=== PATIENT | female | born 1940 | race Caucasian/White ===

== ENCOUNTER → 2016-09-27 | Outpatient (CLI) | payer MEDICARE ==
[2016-09-27 11:25] LABS: Blood Urea Nitrogen 31 mg/dL (7-17); Non-African American GFR(MDRD) >60 (>60 ml/min/1.73 sqM)
== END | disposition home or self-care (01) ==
LOC: LABWHC1 10:55
PROVIDERS: ATTEND Physical Medicine & Rehabilitation
DX: Z01.812 Encounter for preprocedural laboratory examination (principal); N28.9 Disorder of kidney and ureter, unspecified
CPT/HCPCS: 36415; 82565; 84520

== ENCOUNTER → 2017-12-22 | Outpatient (CLI) | payer MEDICARE ==
--- NOTE | 2017-12-22 22:53 | MR ---
EXAMINATION TYPE: MR lumbar spine wo con DATE OF EXAM: 12/22/2017 COMPARISON: Prior MRI lumbar spine December 10, 2012. 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 Pain for about a year severe since October, with pain going into left lower extremity with history of surgery 2009 per patient. TECHNIQUE: Multiplanar, multisequence imaging of the lumbar spine is performed without IV contrast. FINDINGS: Survey images redemonstrate levoconvex scoliosis centered in the mid lumbar spine Sagittal images of the lumbar spine show vertebral body [place] to remain satisfactory. Stable grade 1 anterol isthesis L4 on L5. There is artifact from posterior fusion hardware L3-L5 levels bilaterally redemons trated. I feel prior study mislabeled. Multilevel disc desiccation with fairly moderate multilevel di sc space narrowing is redemonstrated. Multilevel small posterior disc herniations on sagittal images are again seen. The conus medullaris is normal and stable in position and signal ending inferior L1 l evel. The bone marrow signal intensity is within normal limits. Axial images beginning on current study is labeled T12-L1 level which is labeled L1-L2 level prior st y. There is new mild broad-based disc bulge effacing the anterior thecal sac on axial image 28. The re are new mild facet degenerative changes and ligament flavum hypertrophy effacing posterior lateral thecal sac. Bilateral neural foramina are patent. Axial images at the L1-L2 level shows new moderate facet degenerative changes and ligament flavum hyp ertrophy effacing posterior lateral thecal sac on axial image 23. There is [id number] broad dis c bulge effacing the anterior thecal sac. There is moderate right-sided neural foraminal narrowing on current study. Progression from prior MRI is noted. Left-sided neural foramina is patent. Axial images at the L2-L3 level show artifact from posterior fusion hardware. There is moderate facet degenerative changes and endplate hypertrophy effacing the posterior lateral thecal sac. This broad disc bulge effacing the anterior thecal sac and axial image 17. Evaluation neural foramina is subopti mal due to artifact especially on the right. Left side is felt patent. Axial images at and L3-L4 level show evidence of posterior decompression. Artifact from lateral fusio n hardware is seen. Spinal canal is grossly preserved. Bilateral neural foramina are suboptimally valentine luated. Axial images at L4-L5 show spondylolisthesis. There is artifact from lateral fusion hardware. Spinal canal is well preserved. Posterior decompression is present. Suboptimal evaluation of bilaterally tay ral foramina is noted. Axial images at the L5-S1 level show evidence of posterior decompression. Spinal canal is preserved. Left-sided neural foramina is obscured by artifact. Right-sided is felt patent. No suspicious retroperitoneal findings are seen. IMPRESSION: Redemonstration of postsurgical change at suspected labeled L3-L5 levels. Stable and sati sfactory alignment. Satisfactory posterior decompression noted. Increasing multilevel degenerative ch anges superior to L3 level are noted as detailed above.
== END | disposition home or self-care (01) ==
LOC: RADMRIMAIN 20:34
PROVIDERS: ATTEND Internal Medicine
DX: M47.26 Other spondylosis with radiculopathy, lumbar region (principal); M43.26 Fusion of spine, lumbar region; Z98.890 Other specified postprocedural states
CPT/HCPCS: 72148

== ENCOUNTER → 2018-02-17 | Outpatient (CLI) | payer MEDICARE ==
--- NOTE | 2018-02-17 23:03 | CT ---
EXAMINATION TYPE: CT lumbar spine wo con DATE OF EXAM: 02/17/2018 COMPARISON: MR lumbar spine 12/22/2017 HISTORY: chronic low back pain CT DLP: 1645 mGycm Automated exposure control for dose reduction was used. An unenhanced CT of the lumbar spine was performed. Bone and soft tissue window settings are submitt ed as well as coronal and sagittal reconstructions. FINDINGS: Lumbar vertebral bodies show marked scoliosis, posterior fusion change L3-L5. Lumbar vertebral bodies show preserved height. Anterolisthesis grade 1 L4-5. Nonobstructive punctate calcification is associ ated with the old right kidney. There is a hiatal hernia present. L1-L2: Moderate spinal stenosis is present. There is facet arthropathy change as well as minimal retr olisthesis L1 to. Circumferential extension endplate disc complex results in bilateral foraminal encr oachment. L2-L3: Facet arthropathy is present causing some posterior lateral mass effect on the thecal sac. Lat eral extension endplate disc complex results in foraminal encroachment bilaterally. Small posterior b road-based disc bulge, endplate disc complex causes slight anterior mass effect on the thecal sac. L3-L4: No evident disc herniation. Scoliosis contributes to cause some foraminal encroachment on the right. Artifact due to patient's hardware is noted. There is extensive facet arthropathy. L4-L5: There is facet arthropathy. Artifact from patient's hardware is noted. Lateral extension endpl ate disc complex encroaches on the neural foramen on the right contributed by the listhesis L5-S1: Loss of disc height is present, there is vacuum phenomenon. Posterior broad-based disc bulge m ay contact the anterior thecal sac, proximal S1 nerve roots. Laminectomy change is present. There is extensive facet arthropathy causing lateral mass effect on the thecal sac. Lateral extension of endpl ate disc complex encroaches on the foramina left greater than right. IMPRESSION: No postsurgical changes. Multilevel facet arthropathy. Degenerative disc disease. Findings similar to prior lumbar MRI.
== END | disposition home or self-care (01) ==
LOC: RADCTMAIN 15:55
PROVIDERS: ATTEND Internal Medicine
DX: M51.36 Other intervertebral disc degeneration, lumbar region (principal); M46.96 Unspecified inflammatory spondylopathy, lumbar region
CPT/HCPCS: 72131

== ENCOUNTER → 2018-05-21 | Outpatient (CLI) | payer MEDICARE ==
--- NOTE | 2018-05-21 12:53 | XR ---
Lumbar spine HISTORY: Lumbar spondylosis 3 views of the lumbar spine correlated to prior exam 08/30/2010 There is an S-shaped thoracic lumbar scoliosis. There is been interval removal of the previous hardwa re at L3-L5, posterior fusion changes are present L5-S1, transpedicular screws S1 shows minimal breac h anterior cortex. Multilevel laminectomies again noted. There is underlying degenerative disc change s has progressed in the interval at L1-2, L2-3. Alignment is stable. Sclerosis in the posterior eleme nts compatible with facet arthropathy. Loss of disc height present at the intervertebral levels, vacu um phenomenon present at L2-3 and possibly L3-4. Vertebral body height is maintained. Bone mineraliza tion is reduced. IMPRESSION: Neurosurgical follow-up.
== END ==
LOC: RADXRMAIN 10:15
DX: M47.26 Other spondylosis with radiculopathy, lumbar region (principal); Z98.890 Other specified postprocedural states
CPT/HCPCS: 72100

== ENCOUNTER → 2018-08-25 | Outpatient (CLI) | payer MEDICARE ==
--- NOTE | 2018-08-25 13:56 | XR ---
EXAM TYPE: LUMBAR SPINE X RAY SERIES COMPARISON: 05/21/2018 HISTORY: Low back pain TECHNIQUE: 3 views are submitted. FINDINGS: There is an S-shaped thoracic lumbar scoliosis. There is been interval removal of the previous hardwa re at L3-L5, posterior fusion changes are present L5-S1, transpedicular screws S1 shows minimal breac h anterior cortex. Multilevel laminectomies again noted. There is underlying multilevel severe degenerative disc changes at virtually all levels. Alignment is stable. Sclerosis in the posterior elements compatible with facet arthropathy. Loss of disc height p resent at the intervertebral levels, vacuum phenomenon present at L2-3 and possibly L3-4. Vertebral b brandy height is maintained. Bone mineralization is reduced. There is a stable grade 1 anterolisthesis L 4 on L5. IMPRESSION: 1. Scoliosis with postsurgical change and multilevel degenerative disc disease appears stable compare d to the prior exam.
== END ==
LOC: RADXRMAIN 13:24
DX: M51.16 Intervertebral disc disorders with radiculopathy, lumbar region (principal); M41.86 Other forms of scoliosis, lumbar region; Z98.890 Other specified postprocedural states
CPT/HCPCS: 72100

== ENCOUNTER 2018-09-06 06:34 | Emergency (ER) | payer MEDICARE ==
[2018-09-06 06:40] VITALS: TEMP 98.3
[2018-09-06] MEDS ORDERED: CYCLOBENZAPRINE 10 MG TAB PO STA (07:18)
[2018-09-06] MEDS ORDERED: HYDROcodone/APAP 10-325MG 1 EACH TAB PO ONE (07:18)
[2018-09-06] MEDS ORDERED: KETOROLAC 30 MG/ML 1 ML VIAL IM STA (07:18)
[2018-09-06] MEDS ORDERED: cloNIDine HCL 0.2 MG TAB PO STA (07:32)
--- NOTE | 2018-09-06 07:37 | ED ---
Back Pain HPI - General Chief Complaint: Back Pain/Injury Stated Complaint: Back Pain Time Seen by Provider: 09/06/18 07:06 Source: patient, RN notes reviewed, old records reviewed Limitations: no limitations - History of Present Illness Initial Comments: Patient is a 78-year-old female presents emergency department today with complaints of lower back and pelvis pain. Patient states that she hasn't having the symptoms for the past month after a fall. She has history of back surgeries. Patient states she sees Dr. Shaver at [facility]. Patient states that she has been taking Tylenol extra strength for pain relief but having no help. She denies saddle anesthesias. She denies any abdominal pain. Patient states that she has pain that radiates from her lower back down both legs. Patient's pain seems to be somewhat worse over the right pelvis area and hip.Patient denies any recent fever, chills, shortness of breath, chest pain, , abdominal pain, nausea vomiting, numbness or tingling, dysuria or hematuria, constipation or diarrhea, headaches or visual changes, or any other current symptoms - Related Data Home Medications Medication Instructions Recorded Confirmed Atorvastatin [Lipitor] 20 mg PO HS 12/12/14 09/06/18 Calcium Carbonate/Vitamin D3 2 tab PO DAILY 12/12/14 09/06/18 [Calcium 600 + Vit D Tablet] Dicyclomine [Bentyl] 10 mg PO TID 12/12/14 09/06/18 Citrucel 1,000 mg PO BID 12/06/15 09/06/18 amLODIPine BESYLATE/BENAZEPRIL 1 cap PO DAILY 12/06/15 09/06/18 [Lotrel 5-40 mg Capsule] Acetaminophen [Tylenol Arthritis] 1,300 mg PO BID PRN 09/06/18 09/06/18 Acetaminophen [Tylenol Extra 1,000 mg PO ONCE 09/06/18 09/06/18 Strength] Hydrochlorothiazide 25 mg PO DAILY 09/06/18 09/06/18 Vitamin E 1,000 unit PO DAILY 09/06/18 09/06/18 Previous Rx's Medication Instructions Recorded Acetaminophen with Codeine 1 tab PO Q6H PRN 3 Days #12 tab 09/06/18 [Tylenol w/codeine #3] Cyclobenzaprine [Flexeril] 10 mg PO TID #12 tab 09/06/18 Ibuprofen 600 mg PO TID #20 tablet 09/06/18 Allergies Allergy/AdvReac Type Severity Reaction Status Date / Time adhesive tape AdvReac Mild Rash/Hives Verified 09/06/18 08:10 Review of Systems ROS Statement: Those systems with pertinent positive or pertinent negative responses have been documented in the HPI. ROS Other: All systems not noted in ROS Statement are negative. Past Medical History Past Medical History: CVA/TIA, Hyperlipidemia, Hypertension, Osteoarthritis (OA) Additional Past Medical History / Comment(s): IBS,sinusitis osteopenia sco liosis. sciatic nerve pain. History of Any Multi-Drug Resistant Organisms: None Reported Past Surgical History: Adenoidectomy, Back Surgery, Section, Hysterectomy, Tonsillectomy Additional Past Surgical History / Comment(s): HEMORRHOIDECTOMY. cataract surgery both eyes 2009. carpel tunnel surgery 2010,2014. Past Anesthesia/Blood Transfusion Reactions: No Reported Reaction Past Psychological History: No Psychological Hx Reported Smoking Status: Never smoker Past Alcohol Use History: Rare Past Drug Use History: None Reported - Past Family History Mother Family Medical History: Cancer General Exam - General Exam Comments Initial Comments: 78-year-old female. Alert and oriented 3. No significant distress. Limitations: no limitations General appearance: alert, in no apparent distress Head exam: Present: atraumatic, normocephalic, normal inspection Eye exam: Present: normal appearance ENT exam: Present: normal exam, mucous membranes moist Neck exam: Present: normal inspection. Absent: tenderness, meningismus, lymphadenopathy Respiratory exam: Present: normal lung sounds bilaterally. Absent: respiratory distress, wheezes, rales, rhonchi, stridor Cardiovascular Exam: Present: regular rate, normal rhythm, normal heart sounds. Absent: systolic murmur, diastolic murmur, rubs, gallop, clicks GI/Abdominal exam: Present: soft, normal bowel sounds. Absent: distended, tenderness, guarding, rebound, rigid Extremities exam: Present: normal inspection, full ROM, normal capillary refill. Absent: tenderness, pedal edema, joint swelling, calf tenderness Back exam: Present: normal inspection, full ROM, tenderness (Tenderness over the lumbar spine. Positive right leg straight leg test.) Neurological exam: Present: alert, oriented X3, CN II-XII intact Psychiatric exam: Present: normal affect, normal mood Skin exam: Present: warm, dry, intact, normal color. Absent: rash Course Vital Signs 09/06/18 09/06/18 06:37 08:19 Temperature 98.3 F Pulse Rate 68 63 Respiratory 16 18 Rate Blood Pressure 212/90 192/75 O2 Sat by Pulse 98 97 Oximetry Medical Decision Making - Medical Decision Making Patient is a 78-year-old female presents [place] today for evaluation for back pain for the past few weeks. She states she is an appointment to see her health safety specialist asked week. She states the pain has been unbearable. She reports the pain will radiate down her legs on the front of her right leg in the back of her left leg. Patient states that she fell a month ago which seemed to hydrate the pain. She's had multiple surgeries on her back. At this time she denies any saddle anesthesias. Patient does have some lumbar spine tenderness positive straight leg test. She had x-rays completed last week for this complaint of pain. Patient shows evidence of degenerative disc disease. No acute osseous changes or fractures. Is concerned for her hips as well. X-ray of the pelvis is completed today and is negative for any acute process. There is evidence of bone demineralization noted. She was given Toradol, [place] and Flexeril and ED. Patient was noted to be hypertensive upon arrival. She states she did not take her blood pressure medication this is due to pain. She was given 0.2 mg of clonidine. On reevaluation she states her pain is diminishing at this time. Discussed Patient is likely related to the gingiva disc disease and she needs a follow-up with her surgeon. Patient will be discharged with a short course of pain medication, Flexeril and anti-inflammatory medicine. All questions answered. - Radiology Data Radiology results: report reviewed Extensive postsurgical changes noted in the pelvis. Degenerative changes within the hips. No acute osseous lesion. Disposition Clinical Impression: Back pain of lumbosacral region with sciatica Disposition: HOME SELF-CARE Condition: Good Instructions (If sedation given, give patient instructions): Acute Low Back Pain (ED) Additional Instructions: Patient has a follow-up with her health safety specialist. Take the pain medication as prescribed so also muscle relaxer. Alternate between heat and ice over lower back. Return to emergency department if any alarming signs or symptoms occur. Prescriptions: Cyclobenzaprine [Flexeril] 10 mg PO TID #12 tab Ibuprofen 600 mg PO TID #20 tablet Acetaminophen with Codeine [Tylenol w/codeine #3] 1 tab PO Q6H PRN 3 Days #12 tab PRN Reason: Pain Is patient prescribed a controlled substance at d/c from ED?: Yes When asked, does pt state using other controlled substances?: No If prescribed controlled substance>3 days was MAPS reviewed?: Prescribed <3 Days If opioid is for acute pain is fill amount 7 days or less?: Yes If Rx opioid, was Start Talking consent form obtained?: Yes Referrals: Jaya Oquendo MD [Primary Care Provider] - 1-2 days Time of Disposition: 08:51
[2018-09-06 08:21] VITALS: RESP 18
--- NOTE | 2018-09-06 08:39 | XR ---
EXAMINATION TYPE: XR pelvis AP view , ONE VIEW DATE OF EXAM ORDERED: 09/06/2018 HISTORY: Pain. COMPARISON: Previous study of the left hip dated 07/20/2007. FINDINGS: There has been a previous interpedicular fusion at L5-S1 and a bony fusion at L5-L4. There is been a laminectomy thinning from L3 to S1. There are degenerative changes in both hips. There is a stable, sclerotic focus in the left femoral n windy. No acute fracture or dislocation is seen. IMPRESSION: 1. EXTENSIVE POSTSURGICAL CHANGE. 2. DEGENERATIVE CHANGE. 3. NO ACUTE OSSEOUS LESION.
[2018-09-06 09:04] VITALS: BP 108/65; PULSE 64
== END 2018-09-06 09:25 | disposition home or self-care (01) ==
LOC: EC 06:34
DX: M54.40 Lumbago with sciatica, unspecified side (principal); M16.0 Bilateral primary osteoarthritis of hip; R10.2 Pelvic and perineal pain; I10 Essential (primary) hypertension; E78.5 Hyperlipidemia, unspecified; K58.9 Irritable bowel syndrome, unspecified; M19.90 Unspecified osteoarthritis, unspecified site; Z91.048 Other nonmedicinal substance allergy status; Z79.891 Long term (current) use of opiate analgesic; Z79.899 Other long term (current) drug therapy; Z98.890 Other specified postprocedural states; Z86.73 Personal history of transient ischemic attack (TIA), and cerebral infarction without residual deficits
CPT/HCPCS: 72170; 99284; 96372; J1885

== ENCOUNTER → 2018-09-23 | Outpatient (CLI) | payer MEDICARE ==
--- NOTE | 2018-09-23 19:44 | MR ---
EXAMINATION TYPE: MR lumbar spine wo con DATE OF EXAM: 09/23/2018 COMPARISON: Prior MRI lumbar spine December 22, 2017. Most recent lumbar spine x-ray August 25, 2018. HISTORY: Low back pain into rt thigh per patient. Spondylosis with radiculopathy per order. History o f surgery April 2018 per patient. TECHNIQUE: Multiplanar, multisequence imaging of the lumbar spine is performed without IV contrast. FINDINGS: Exam noted suboptimal due to patient's body habitus as well as marked underlying scoliosis. There is redemonstration of scoliosis centered at L2-L3 level. There is artifact from new postsurgic al change L5-S1 level bilaterally redemonstrated. Interval removal of surgical hardware L3-L5 level i s noted. There is stable grade 1 anterolisthesis of L4 on L5. There is grade 1 retrolisthesis L2 on L 3 new or better seen on current study due to lack of surgical hardware. There is stable grade 1 retro listhesis of L1 on L2. Multilevel disc desiccation and disc space narrowing is redemonstrated fairly moderate to advanced at multiple levels. The conus medullaris is normal in position and signal endin g at mid L1 level stable from prior. The bone marrow signal intensity is within normal limits. Axial images at the T12-L1 level shows moderate broad disc bulge effacing anterior thecal sac with mi ld facet degenerative changes bilaterally on axial image 32. Findings more prominent from prior. Axial images at the L1-L2 level show moderate right greater than left facet degenerative changes and ligament flavum hypertrophy effacing posterior lateral thecal sac. There is moderate broad disc bulge effacing anterior thecal sac. There is advanced right-sided neural foraminal narrowing and moderate left-sided neural foraminal narrowing. There is progression in findings from prior study. Axial images at the L2-L3 level show moderate facet degenerative changes and ligamentum flavum hypert rophy. There is mild/moderate broad disc bulge effacing anterior thecal sac. There is advanced right and moderate left-sided neural foraminal narrowing. There is progression in findings from prior study . Axial images at the L3-L4 level show evidence of posterior decompression with spinous process resecti on and scar tissue. There is spondylolisthesis. There is moderate facet arthropathy. Bilateral neural foramina are grossly patent. Axial images at the L4-L5 level show spondylolisthesis and posterior decompression. Artifact from pos terior fusion hardware is present. Spinal canal is grossly preserved. There is mild to moderate bilat eral anterior inferior neural foraminal narrowing. Axial images at L5-S1 level show artifact from posterior fusion hardware. Posterior decompression is present. Spinal canal is preserved. There is suboptimal evaluation bilateral neural foramina due to s usceptibility artifact. IMPRESSION: Stable marked scoliosis. Interval removal of surgical hardware L3-L5 level. New fusion root rdware or surgical change lumbosacral junction. Increasing degenerative changes upper to mid lumbar s pine are noted as detailed above.
== END | disposition home or self-care (01) ==
LOC: RADMRIMAIN 14:55
DX: M47.26 Other spondylosis with radiculopathy, lumbar region (principal); M41.86 Other forms of scoliosis, lumbar region; Z98.1 Arthrodesis status
CPT/HCPCS: 72148

== ENCOUNTER 2018-09-26 21:10 | Emergency (ER) | payer MEDICARE ==
[2018-09-26 21:41] LABS: Glucose,Whole Blood 116 mg/dL (75-99)
[2018-09-26] MEDS ORDERED: ONDANSETRON 4 MG/2 ML VIAL IVP STA (22:04)
[2018-09-26 22:25] LABS: Basophils # (A) 0.1 k/uL (0-0.2); Basophils % (A) 1 %; Eosinophils # (A) 0.2 k/uL (0-0.7); Eosinophils % (A) 3 %; HCT 36.6 % (34.0-46.0); HGB 12.2 gm/dL (11.4-16.0); Lymphocytes # (A) 1.4 k/uL (1.0-4.8); Lymphocytes % (A) 16 %; MCH 28.7 pg (25.0-35.0); MCHC 33.3 g/dL (31.0-37.0); MCV 86.2 fL (80.0-100.0); Mean Platelet Volume 10.4; Monocytes # (A) 0.7 k/uL (0-1.0); Monocytes % (A) 7 %; Neutrophils # (A) 6.5 k/uL (1.3-7.7); Neutrophils % (A) 72 %; Platelet Count 187 k/uL (150-450); RBC 4.24 m/uL (3.80-5.40); RDW 14.5 % (11.5-15.5)
[2018-09-26 22:30] LABS: Albumin 4.2 g/dL (3.5-5.0); Calcium 10.2 mg/dL (8.4-10.2); Potassium 3.2 mmol/L (3.5-5.1); Total Bilirubin 0.6 mg/dL (0.2-1.3); Total Protein 6.6 g/dL (6.3-8.2)
[2018-09-26 22:35] LABS: INR 0.9 (<1.2); Partial Thromboplastin Time 22.7 sec (22.0-30.0); Prothrombin Time 9.9 sec (9.0-12.0)
--- NOTE | 2018-09-26 23:07 | XR ---
EXAM: XR Chest, 2 Views CLINICAL HISTORY: Shortness of breath TECHNIQUE: Frontal and lateral views of the chest. COMPARISON: No relevant prior studies available. FINDINGS: Lungs: Unremarkable. No consolidation. Pleural space: Unremarkable. No pneumothorax. Heart: Unremarkable. No cardiomegaly. Mediastinum: Unremarkable. Bones/joints: Unremarkable. IMPRESSION: Normal chest x-rays.
[2018-09-26] MEDS ORDERED: hydrALAZINE HCL 20 MG/ML 1 ML VIAL IVP STA (23:12)
--- NOTE | 2018-09-26 23:17 | CT ---
EXAM: CT Head Without Intravenous Contrast CLINICAL HISTORY: Neuro deficits TECHNIQUE: Axial computed tomography images of the head/brain without intravenous contrast. CTDI is 0.085, 0.085, 9.1 mGy and DLP is 1068.40 mGy-cm. This CT exam was performed using one or more of the following dose reduction techniques: automated exposure control, adjustment of the mA and/or kV according to patient size, and/or use of iterative reconstruction technique. COMPARISON: No relevant prior studies available. FINDINGS: Brain: No acute infarct, hemorrhage, mass or edema. No significant white matter disease. Ventricles: Enlargement of the ventricles out of proportion to the sulci which may represent hydrocephalus versus central atrophy. Bones/joints: Unremarkable. No acute fracture. Soft tissues: Unremarkable. Sinuses: Mild mucosal thickening in the paranasal sinuses. Mastoid air cells: Unremarkable as visualized. No mastoid effusion. IMPRESSION: 1. No acute infarct, hemorrhage, mass or edema. 2. Enlargement of the ventricles out of proportion to the sulci which may represent hydrocephalus versus central atrophy.
[2018-09-26] MEDS ORDERED: HYDROmorphone 0.5 MG/0.5 ML SYRINGE IVP STA (23:20)
--- NOTE | 2018-09-26 23:44 | ED ---
General Adult HPI - General Chief complaint: Neuro Symptoms/Deficit Stated complaint: Neuro Deficits Time Seen by Provider: 09/26/18 21:32 Source: EMS Mode of arrival: EMS Limitations: physical limitation - History of Present Illness Initial comments: Chief complaint history of present illness this is a 78-year-old female here with family. The patient had what sounds like possible TIA type symptoms which have since resolved. The symptoms started approximately 3 PM this afternoon while they are in [place]. Time the doctor the emergency room approximately 9:30 to quarter 10 the symptoms of subsided. Patient presents with discomfort behind the right eye and around the eye. She thinks she has sinus congestion or pressure. Denies fever denies chest pain denies shortness of breath mild nausea no vomiting - Related Data Home Medications Medication Instructions Recorded Confirmed Atorvastatin [Lipitor] 20 mg PO HS 12/12/14 09/26/18 Calcium Carbonate/Vitamin D3 2 tab PO DAILY 12/12/14 09/26/18 [Calcium 600 + Vit D Tablet] Citrucel 1,000 mg PO BID 12/06/15 09/26/18 amLODIPine BESYLATE/BENAZEPRIL 1 cap PO DAILY 12/06/15 09/26/18 [Lotrel 5-40 mg Capsule] Dicyclomine [Bentyl] 10 mg PO BID 09/26/18 09/26/18 Leflunomide 10 mg PO DAILY 09/26/18 09/26/18 Methotrexate Sodium [Methotrexate] 15 mg PO Q7DAYS 09/26/18 09/26/18 Propylene Glycol/Peg 400/Pf 1 - 2 drops BOTH EYES DAILY 09/26/18 09/26/18 [Systane 0.3-0.4% Eye Drop] Triamterene-Hctz 37.5-25Mg 1 tab PO DAILY 09/26/18 09/26/18 [Maxzide 37.5-25] Allergies Allergy/AdvReac Type Severity Reaction Status Date / Time Beef Containing Products Allergy Nausea & Verified 09/26/18 22:07 Vomiting & Diarrhea Milk Containing Products Allergy Nausea & Verified 09/26/18 22:07 [Dairy] Vomiting & Diarrhea Pork/Porcine Containing Allergy Nausea & Verified 09/26/18 22:07 Products Vomiting & [Pork] Diarrhea adhesive tape AdvReac Mild Rash/Hives Verified 09/26/18 21:33 Review of Systems ROS Statement: Those systems with pertinent positive or pertinent negative responses have been documented in the HPI. Review of systems. Patient's denying any meningeal irritation. She has a headache around the right eye. Mild photophobia but able to open her eyes without difficulty. No stiff neck or neck pain. No chest pain shows breath no GI/ complaints of the mild nausea which is controlled with Zofran. Neuro logically no focal or lateralizing findings at this time. The daughter reports that she is much improved now as to when she saw her several hours ago. At that time she thought she may have had a droopy lip. Past medical problems hyperlipidemia, hypertension and IBS, osteopenia and scoliosis and sciatica. Her surgeries include appendectomy, back surgery which significantly helped sciatic pain. She had a , hysterectomy tonsillectomy and hemorrhoidectomy cataract surgery in both eyes. Family history mother had breast cancer. Patient denies smoking drinks alcohol rarely socially. ALLERGIES none other than adhesive tape. ROS Other: All systems not noted in ROS Statement are negative. Past Medical History Past Medical History: CVA/TIA, Hyperlipidemia, Hypertension, Osteoarthritis (OA) Additional Past Medical History / Comment(s): IBS,sinusitis osteopenia scoliosis. sciatic nerve pain. History of Any Multi-Drug Resistant Organisms: None Reported Past Surgical History: Adenoidectomy, Back Surgery, Section, Hysterectomy, Tonsillectomy Additional Past Surgical History / Comment(s): HEMORRHOIDECTOMY. cataract surgery both eyes 2009. carpel tunnel surgery 2010,2014. Past Anesthesia/Blood Transfusion Reactions: No Reported Reaction Past Psychological History: No Psychological Hx Reported Smoking Status: Never smoker Past Alcohol Use History: Rare Past Drug Use History: None Reported - Past Family History Mother Family Medical History: Cancer General Exam - General Exam Comments Initial Comments: General: The patient is awake and alert, playing of discomfort around the right eye. Patient had TIA type episode starting at 3 PM it resolved by the time the patient arrived here approximate 6 hours later. Vital signs show temperature 98.8, pulse 90, respiratory rate 16 elevated blood pressure 226 of 138. This is treated with hydralazine. Pulse ox 97% room air. Eye: Pupils are equal, round and reactive to light, extra-ocular movements are intac t; there is normal conjunctiva bilaterally. No signs of icterus. Evidence of cataract surgery. Patient complains of pain around the right eye. No change in visual acuity though. Ears, nose, mouth and throat: There are moist mucous membranes and no oral lesions. Neck: The neck is supple, there is no tenderness, no carotid bruit. Cardiovascular: There is a regular rate and rhythm. No murmur, rub or gallop is appreciated. Respiratory: Lungs are clear to auscultation, respirations are non-labored, breath sounds are equal. No wheezes, stridor, rales, or rhonchi. Gastrointestinal: Soft, non-distended, non-tender abdomen without masses or organomegaly noted. There is no rebound or guarding present. No CVA tenderness. Bowel sounds are unremarkable. Mild nausea which subsided after IV Zofran Back: No acute back pain at this time. Patient does have chronic back discomfort. Musculoskeletal: Normal ROM, no tenderness, There is no pedal edema. There is no calf tenderness or swelling. Sensation intact. Pulses equal bilaterally 2+. Neurological: CN II-XII intact, There are no obvious motor or sensory deficits. Coordination appears grossly intact. Speech is normal. Skin: Skin is warm and dry and no rashes or lesions are noted. Psychiatric: Cooperative, appropriate mood & affect, normal judgment. Limitations: physical limitation Course Vital Signs 09/26/18 09/26/18 09/26/18 21:12 22:09 23:00 Temperature 98.8 F Pulse Rate 90 88 Respiratory 17 16 16 Rate Blood Pressure 226/138 207/97 201/90 O2 Sat by Pulse 97 97 Oximetry 09/26/18 09/26/18 09/26/18 23:07 23:15 23:38 Temperature Pulse Rate 90 105 H Respiratory 18 18 Rate Blood Pressure 222/94 140/103 143/69 O2 Sat by Pulse 98 97 Oximetry EKG Findings - EKG Comments: EKG Findings:: EKG was done and reviewed at 2119 hrs. showing normal sinus rhythm no acute ST elevation no ectopy no ischemic changes. Rate 89 MA interval was 152 QRS 66 QTc is 374 QTc is 455. Medical Decision Making - Medical Decision Making Medical decision making; this is a 78-year-old female who appears by history obtained from and daughter may have TIA starting approximately 3 PM. Daughter reports that appeared her associated some drooping of her lip and was unable to move her legs when asked to. Emergency room proximally 6 hours after the beginning of the event the patient was able to answer questions. No evidence of any facial weakness. No evidence of any drift. Neurologically intact no focal or lateralizing findings. The patient's chief complaint at this time is pain around the right eye. Mild photophobia. No meningeal irritation. She is not describing any shortness of breath or chest pressure discomfort. No back pain other than what she normally has chronic back pain. Nausea without vomiting. This was controlled with IV Zofran. The patient has chronic low back pain. She reports having had back surgery in April with good results but she uses a walker to get around and she has fallen several times. She states after each fall she has been x-rayed. No falls of late. CT of the brain was done and the radiologist's findings include brain no acute infarct, hemorrhage, mass or edema. No significant white matter disease. Ventricles enlargement of the ventricles out of proportion to the sulci which may represent hydrocephalus versus cerebral atrophy. Bones and joints unremarkable no acute fracture. Soft tissues are unremarkable. Sinuses mild mucosal thickening in the paranasal sinuses. Mastoid air cells unremarkable as visualized. No mastoid effusion. Impression; #1 no acute infarct, hemorrhage or mass or edema. #2 enlargement of the ventricles out of proportion to the sulci which may represent hydrocephalus versus a central atrophy. As read by Dr. Cummings Chest x-ray was done and reviewed by radiologist his impression is normal chest x-ray as read by Dr. Cummings I discussed the patient and family at bedside the findings with the radiologist and the CAT scan. Hydralazine help bring the blood pressure down to 130/100. The patient was mildly nauseated after that. The patient is able to see out of both eyes equally without problem but she continues have discomfort behind the right eye. In discussing the findings with the daughter the daughter thought she may have been diagnosed previously with hydrocephalus though there aren't any CAT scans for us to compare to and she is not sure. In lieu of the fact that the patient may have symptomatic hydrocephalus she'll be transferred to a neuro service. I discussed the case with Dr. Travis, resident at [facility] except the patient for evaluation to the ER. - Lab Data Result diagrams: 09/26/18 21:30 09/26/18 21:30 Lab Results 05/18/19 05/18/19 05/18/19 Range/Units 21:27 21:30 21:30 WBC 9.0 (3.8-10.6) k/uL RBC 4.24 (3.80-5.40) m/uL Hgb 12.2 (11.4-16.0) gm/dL Hct 36.6 (34.0-46.0) % MCV 86.2 (80.0-100.0) fL MCH 28.7 (25.0-35.0) pg MCHC 33.3 (31.0-37.0) g/dL RDW 14.5 (11.5-15.5) % Plt Count 187 (150-450) k/uL Neutrophils % 72 % Lymphocytes % 16 % Monocytes % 7 % Eosinophils % 3 % Basophils % 1 % Neutrophils # 6.5 (1.3-7.7) k/uL Lymphocytes # 1.4 (1.0-4.8) k/uL Monocytes # 0.7 (0-1.0) k/uL Eosinophils # 0.2 (0-0.7) k/uL Basophils # 0.1 (0-0.2) k/uL PT (9.0-12.0) sec INR (<1.2) APTT (22.0-30.0) sec Sodium 140 (137-145) mmol/L Potassium 3.2 L (3.5-5.1) mmol/L Chloride 105 (98-107) mmol/L Carbon Dioxide 27 (22-30) mmol/L Anion Gap 8 mmol/L BUN 21 H (7-17) mg/dL Creatinine 0.81 (0.52-1.04) mg/dL Est GFR (CKD-EPI)AfAm 82 (>60 ml/min/1.73 sqM) Est GFR (CKD-EPI)NonAf 71 (>60 ml/min/1.73 sqM) Glucose 109 H (74-99) mg/dL POC Glucose (mg/dL) 116 H (75-99) mg/dL POC Glu [employer] ID Pamela Etienne A Calcium 10.2 (8.4-10.2) mg/dL Total Bilirubin 0.6 (0.2-1.3) mg/dL AST 46 H (14-36) U/L ALT 21 (9-52) U/L Alkaline Phosphatase 78 (38-126) U/L Troponin I (0.000-0.034) ng/mL Total Protein 6.6 (6.3-8.2) g/dL Albumin 4.2 (3.5-5.0) g/dL 09/26/18 09/26/18 Range/Units 21:30 21:30 WBC (3.8-10.6) k/uL RBC (3.80-5.40) m/uL Hgb (11.4-16.0) gm/dL Hct (34.0-46.0) % MCV (80.0-100.0) fL MCH (25.0-35.0) pg MCHC (31.0-37.0) g/dL RDW (11.5-15.5) % Plt Count (150-450) k/uL Neutrophils % % Lymphocytes % % Monocytes % % Eosinophils % % Basophils % % Neutrophils # (1.3-7.7) k/uL Lymphocytes # (1.0-4.8) k/uL Monocytes # (0-1.0) k/uL Eosinophils # (0-0.7) k/uL Basophils # (0-0.2) k/uL PT 9.9 (9.0-12.0) sec INR 0.9 (<1.2) APTT 22.7 (22.0-30.0) sec Sodium (137-145) mmol/L Potassium (3.5-5.1) mmol/L Chloride (98-107) mmol/L Carbon Dioxide (22-30) mmol/L Anion Gap mmol/L BUN (7-17) mg/dL Creatinine (0.52-1.04) mg/dL Est GFR (CKD-EPI)AfAm (>60 ml/min/1.73 sqM) Est GFR (CKD-EPI)NonAf (>60 ml/min/1.73 sqM) Glucose (74-99) mg/dL POC Glucose (mg/dL) (75-99) mg/dL POC Glu [employer] ID Calcium (8.4-10.2) mg/dL Total Bilirubin (0.2-1.3) mg/dL AST (14-36) U/L ALT (9-52) U/L Alkaline Phosphatase (38-126) U/L Troponin I 0.046 H* (0.000-0.034) ng/mL Total Protein (6.3-8.2) g/dL Albumin (3.5-5.0) g/dL Disposition Clinical Impression: TIA (transient ischemic attack), Hydrocephalus, Hypertension Disposition: OTHER INSTITUTION NOT DEFINED Condition: Serious Referrals: Jaya Oquendo MD [Primary Care Provider] - 1-2 days - Out of Hospital Transfer - Req. Specs Out of Hospital Transfer - Requested Specifics: Other Emergency Center ([facility] emergency room)
[2018-09-27 00:08] VITALS: RESP 14
[2018-09-27 00:36] VITALS: BP 142/56; PULSE 93; TEMP 97.7
== END 2018-09-27 00:35 | disposition other institution (70) ==
LOC: EC 21:10
DX: G45.9 Transient cerebral ischemic attack, unspecified (principal); G91.9 Hydrocephalus, unspecified; I10 Essential (primary) hypertension; G89.29 Other chronic pain; M54.5 Low back pain; E78.5 Hyperlipidemia, unspecified; M19.90 Unspecified osteoarthritis, unspecified site; Z86.73 Personal history of transient ischemic attack (TIA), and cerebral infarction without residual deficits; Z98.890 Other specified postprocedural states; Z79.899 Other long term (current) drug therapy; Z91.018 Allergy to other foods; Z91.048 Other nonmedicinal substance allergy status; Z91.011 Allergy to milk products
CPT/HCPCS: 36415; 93005; 80053; 84484; 85025; 85610; 85730; 71046; 70450; 99285; 96374; 96375 ×2; J0360; J2405; J1170

== ENCOUNTER 2018-11-05 21:13 | Emergency (ER) | payer MEDICARE ==
[2018-11-05 21:26] VITALS: RESP 18
[2018-11-05] MEDS ORDERED: HYDROmorphone 0.5 MG/0.5 ML SYRINGE IVP STA (22:01)
[2018-11-05] MEDS ORDERED: ONDANSETRON 4 MG/2 ML VIAL IVP STA (22:01)
[2018-11-05] MEDS ORDERED: predniSONE 20 MG TAB PO STA (22:56)
[2018-11-05] MEDS ORDERED: KETOROLAC 30 MG/ML 1 ML VIAL IVP STA (22:56)
--- NOTE | 2018-11-05 23:57 | ED ---
General Adult HPI - General Chief complaint: Recheck/Abnormal Lab/Rx Stated complaint: Back pain Time Seen by Provider: 11/05/18 21:30 Source: patient, family Mode of arrival: wheelchair Limitations: physical limitation - History of Present Illness Initial comments: This patient is 78-year-old woman who presents with exacerbation of her chronic sciatic nerve pain. The patient states that the pain is identical to previous pains. She is not having new symptoms or any new weakness. She has not had change in bladder or bowel function. The patient in fact had been set to have surgery today with Dr. Shaver, but states that when she went for the appointment so the necessary insurance clearances had not gone through so she was rescheduled for approximately 2 weeks from now. The patient states that she had a flareup of the pain starting from the afternoon into the evening. She attempted to take her home medication. She is concerned as she only has a limited quantity of the medication left that she did not want to take extra so she came here when the pain was flaring up. -: hour(s) Location: back, right, lower extremity Quality: aching Consistency: constant Improves with: none Worsens with: none Associated Symptoms: denies other symptoms Treatments Prior to Arrival: none - Related Data Home Medications Medication Instructions Recorded Confirmed Atorvastatin [Lipitor] 20 mg PO HS 12/12/14 11/05/18 Calcium Carbonate/Vitamin D3 2 tab PO DAILY 12/12/14 11/05/18 [Calcium 600 + Vit D Tablet] Citrucel 1,000 mg PO BID 12/06/15 11/05/18 amLODIPine BESYLATE/BENAZEPRIL 1 cap PO DAILY 12/06/15 11/05/18 [Lotrel 5-40 mg Capsule] Dicyclomine [Bentyl] 10 mg PO BID 09/26/18 11/05/18 Leflunomide 10 mg PO DAILY 09/26/18 11/05/18 Propylene Glycol/Peg 400/Pf 1 - 2 drops BOTH EYES DAILY 09/26/18 11/05/18 [Systane 0.3-0.4% Eye Drop] Triamterene-Hctz 37.5-25Mg 1 tab PO DAILY 09/26/18 11/05/18 [Maxzide 37.5-25] Gabapentin [Neurontin] 300 mg PO TID PRN 11/05/18 11/05/18 Previous Rx's Medication Instructions Recorded predniSONE 20 mg PO BID #8 tab 11/05/18 Allergies Allergy/AdvReac Type Severity Reaction Status Date / Time Beef Containing Products Allergy Nausea & Verified 11/05/18 21:56 Vomiting & Diarrhea Milk Containing Products Allergy Nausea & Verified 11/05/18 21:56 [Dairy] Vomiting & Diarrhea Pork/Porcine Containing Allergy Nausea & Verified 11/05/18 21:56 Products Vomiting & [Pork] Diarrhea adhesive tape AdvReac Mild Rash/Hives Verified 11/05/18 21:56 morphine AdvReac Unknown Verified 11/05/18 21:56 Review of Systems ROS Statement: Those systems with pertinent positive or pertinent negative responses have been documented in the HPI. ROS Other: All systems not noted in ROS Statement are negative. Constitutional: Denies: fever, chills Respiratory: Denies: cough, dyspnea Cardiovascular: Denies: chest pain, palpitations, edema Gastrointestinal: Denies: abdominal pain, vomiting, diarrhea, constipation Genitourinary: Denies: dysuria, frequency Musculoskeletal: Reports: as per HPI, back pain Skin: Denies: rash Neurological: Reports: paresthesias (Chronic). Denies: headache, weakness, numbness Past Medical History Past Medical History: CVA/TIA, Hyperlipidemia, Hypertension, Osteoarthritis (OA) Additional Past Medical History / Comment(s): IBS,sinusitis osteopenia scoliosis. sciatic nerve pain. unstable gait History of Any Multi-Drug Resistant Organisms: None Reported Past Surgical History: Adenoidectomy, Back Surgery, Section, Hysterectomy, Tonsillectomy Additional Past Surgical History / Comment(s): HEMORRHOIDECTOMY. cataract surgery both eyes 2009. carpel tunnel surgery 2010,2014. Past Anesthesia/Blood Transfusion Reactions: No Reported Reaction Past Psychological History: No Psychological Hx Reported Smoking Status: Never smoker Past Alcohol Use History: Rare Past Drug Use History: None Reported - Past Family History Mother Family Medical History: Cancer General Exam Limitations: physical limitation General appearance: alert, in no apparent distress GI/Abdominal exam: Present: soft. Absent: distended, tenderness, guarding, rebound, pulsatile mass Extremities exam: Present: normal inspection, normal capillary refill. Absent: tenderness, pedal edema, calf tenderness Back exam: Absent: CVA tenderness (R), CVA tenderness (L) Neurological exam: Present: alert, reflexes normal. Absent: motor sensory deficit Skin exam: Present: warm, dry, intact, normal color. Absent: rash Course Vital Signs 11/05/18 11/05/18 11/05/18 21:23 22:08 23:06 Temperature 99.0 F Pulse Rate 72 61 64 Respiratory 18 18 18 Rate Blood Pressure 184/81 167/72 164/78 O2 Sat by Pulse 95 94 L 94 L Oximetry 11/06/18 00:03 Temperature 98 F Pulse Rate 59 L Respiratory 18 Rate Blood Pressure 139/64 O2 Sat by Pulse 94 L Oximetry Medical Decision Making - Medical Decision Making The patient has had good relief of symptoms with medication here and did request to go home. Disposition Clinical Impression: Sciatic leg pain Disposition: HOME SELF-CARE Condition: Good Instructions (If sedation given, give patient instructions): Sciatica (ED) Prescriptions: predniSONE 20 mg PO BID #8 tab Is patient prescribed a controlled substance at d/c from ED?: No Referrals: Jaya Oquendo MD [Primary Care Provider] - 1-2 days Bob Shaver MD [STAFF PHYSICIAN] - 1-2 days
[2018-11-06 00:04] VITALS: BP 139/64; PULSE 59; TEMP 98
[2018-11-06] MEDS ORDERED: HYDROmorphone 1 MG/ML 1 ML SYRINGE IM STA (00:16)
== END 2018-11-06 00:43 | disposition home or self-care (01) ==
LOC: EC 21:13
DX: M54.31 Sciatica, right side (principal); E78.5 Hyperlipidemia, unspecified; I10 Essential (primary) hypertension; M19.90 Unspecified osteoarthritis, unspecified site; Z86.73 Personal history of transient ischemic attack (TIA), and cerebral infarction without residual deficits; Z98.890 Other specified postprocedural states; Z79.899 Other long term (current) drug therapy; Z91.018 Allergy to other foods; Z91.011 Allergy to milk products; Z91.048 Other nonmedicinal substance allergy status; Z88.5 Allergy status to narcotic agent
CPT/HCPCS: 99283; 96374; 96375 ×2; 96372; J2405; J1885; J1170 ×2; J7512

== ENCOUNTER 2018-11-23 10:03 | Observation (INO) | payer MEDICARE ==
[2018-11-23] MEDS ORDERED: SODIUM CHLORIDE 0.9% 1,000 ML IV STA (10:21)
[2018-11-23 10:48] LABS: Basophils # (A) 0.1 k/uL (0-0.2); Basophils % (A) 1 %; Eosinophils # (A) 0.3 k/uL (0-0.7); Eosinophils % (A) 4 %; HCT 39.6 % (34.0-46.0); Lymphocytes # (A) 0.9 k/uL (1.0-4.8); Lymphocytes % (A) 10 %; MCH 29.8 pg (25.0-35.0); MCHC 32.8 g/dL (31.0-37.0); MCV 90.6 fL (80.0-100.0); Mean Platelet Volume 9.5; Monocytes # (A) 0.5 k/uL (0-1.0); Monocytes % (A) 6 %; Neutrophils # (A) 6.6 k/uL (1.3-7.7); Neutrophils % (A) 78 %; Platelet Count 168 k/uL (150-450); RBC 4.37 m/uL (3.80-5.40); RDW 14.1 % (11.5-15.5); WBC 8.5 k/uL (3.8-10.6)
--- NOTE | 2018-11-23 11:01 | ED ---
Altered Mental Status HPI - General Chief Complaint: Altered Mental Status Stated Complaint: CONFUSION, ALTERED Time Seen by Provider: 11/23/18 10:21 Source: patient, family, RN notes reviewed, old records reviewed Mode of arrival: wheelchair Limitations: no limitations - History of Present Illness Initial Comments: This is a 78-year-old female the ER for evaluation of neurological insult. Patient is recently diagnosed with normal pressure hydrocephalus but denying headaches, neck any other symptoms, this was diagnosed about 2 months ago and patient has had no recurrence, should've 13:4 puncture event. Patient woke today with symptoms of dizziness, difficulty finding words. Patient denied any weakness or numbness of upper and lower extremities. No recent change in medications. Patient has been slowly weaning off some of her blood pressure medication as her blood pressure is been running in the low end of normal. Patient denies fever cough or congestion recent nausea vomiting or diarrhea MD Complaint: altered mental status, confusion, weakness -: unknown Severity: mild Consistency of Symptoms: waxing and waning, getting worse Context: history of similar presentation Associated Symptoms: denies other symptoms - Related Data Home Medications Medication Instructions Recorded Confirmed Atorvastatin [Lipitor] 20 mg PO HS 12/12/14 11/23/18 Citrucel 1,000 mg PO BID 12/06/15 11/23/18 amLODIPine BESYLATE/BENAZEPRIL 1 cap PO DAILY 12/06/15 11/23/18 [Lotrel 5-40 mg Capsule] Dicyclomine [Bentyl] 10 mg PO TID PRN 09/26/18 11/23/18 Leflunomide 10 mg PO DAILY 09/26/18 11/23/18 Triamterene-Hctz 37.5-25Mg 1 tab PO DAILY 09/26/18 11/23/18 [Maxzide 37.5-25] Gabapentin [Neurontin] 300 mg PO TID PRN 11/05/18 11/23/18 Aspirin EC [Ecotrin Low Dose] 81 mg PO DAILY 11/23/18 11/23/18 Carvedilol [Coreg] 6.25 mg PO BID 11/23/18 11/23/18 Cholecalciferol [Vitamin D3 (25 5,000 unit PO DAILY 11/23/18 11/23/18 Mcg = 1000 Iu)] Folic Acid 1 mg PO DAILY 11/23/18 11/23/18 HYDROcodone/APAP 5-325MG [[place] 1 tab PO Q4-6H PRN 11/23/18 11/23/18 5-325] Methocarbamol [Robaxin-750] 750 mg PO Q6H PRN 11/23/18 11/23/18 Allergies Allergy/AdvReac Type Severity Reaction Status Date / Time adhesive tape Allergy Mild Rash/Hives Verified 11/23/18 11:11 Beef Containing Products AdvReac Nausea & Verified 11/23/18 11:11 Vomiting & Diarrhea Milk Containing Products AdvReac Nausea & Verified 11/23/18 11:11 [Dairy] Vomiting & Diarrhea morphine AdvReac MIGRAINE Verified 11/23/18 11:11 Pork/Porcine Containing AdvReac Nausea & Verified 11/23/18 11:11 Products Vomiting & [Pork] Diarrhea Review of Systems ROS Statement: Those systems with pertinent positive or pertinent negative responses have been documented in the HPI. ROS Other: All systems not noted in ROS Statement are negative. Past Medical History Past Medical History: CVA/TIA, Hyperlipidemia, Hypertension, Osteoarthritis (OA) Additional Past Medical History / Comment(s): IBS,sinusitis osteopenia scoliosis. sciatic nerve pain. unstable gait History of Any Multi-Drug Resistant Organisms: None Reported Past Surgical History: Adenoidectomy, Back Surgery, Section, Hysterectomy, Tonsillectomy Additional Past Surgical History / Comment(s): HEMORRHOIDECTOMY. cataract surgery both eyes 2009. carpel tunnel surgery 2010,2014. Past Anesthesia/Blood Transfusion Reactions: No Reported Reaction Past Psychological History: No Psychological Hx Reported Smoking Status: Never smoker Past Alcohol Use History: Rare Past Drug Use History: None Reported - Past Family History Mother Family Medical History: Cancer General Exam Limitations: no limitations General appearance: alert, in no apparent distress Head exam: Present: atraumatic, normocephalic, normal inspection Eye exam: Present: normal appearance, PERRL, EOMI. Absent: scleral icterus, conjunctival injection, periorbital swelling ENT exam: Present: normal exam, mucous membranes moist Neck exam: Present: normal inspection. Absent: tenderness, meningismus, lymphadenopathy Respiratory exam: Present: normal lung sounds bilaterally. Absent: respiratory distress, wheezes, rales, rhonchi, stridor Cardiovascular Exam: Present: regular rate, normal rhythm, normal heart sounds. Absent: systolic murmur, diastolic murmur, rubs, gallop, clicks GI/Abdominal exam: Present: soft, normal bowel sounds. Absent: distended, tenderness, guarding, rebound, rigid Extremities exam: Present: normal inspection, full ROM, normal capillary refill. Absent: tenderness, pedal edema, joint swelling, calf tenderness Back exam: Present: normal inspection Neurological exam: Present: alert, oriented X3, CN II-XII intact Psychiatric exam: Present: normal affect, normal mood Skin exam: Present: warm, dry, intact, normal color. Absent: rash Course Vital Signs 11/23/18 10:05 Temperature 98.3 F Pulse Rate 69 Respiratory 18 Rate Blood Pressure 131/66 O2 Sat by Pulse 97 Oximetry Medical Decision Making - Medical Decision Making 78 female the ER with dizziness type symptoms, she's had a CT which is significant for carotid stenosis, patient be admitted for TIA versus CVA alt konrad symptoms continue symptoms resolved - Lab Data Result diagrams: 11/23/18 10:30 11/23/18 10:30 Lab Results 11/23/18 11/23/18 11/23/18 Range/Units 10:30 10:30 10:30 WBC 8.5 (3.8-10.6) k/uL RBC 4.37 (3.80-5.40) m/uL Hgb 13.0 (11.4-16.0) gm/dL Hct 39.6 (34.0-46.0) % MCV 90.6 (80.0-100.0) fL MCH 29.8 (25.0-35.0) pg MCHC 32.8 (31.0-37.0) g/dL RDW 14.1 (11.5-15.5) % Plt Count 168 (150-450) k/uL Neutrophils % 78 % Lymphocytes % 10 % Monocytes % 6 % Eosinophils % 4 % Basophils % 1 % Neutrophils # 6.6 (1.3-7.7) k/uL Lymphocytes # 0.9 L (1.0-4.8) k/uL Monocytes # 0.5 (0-1.0) k/uL Eosinophils # 0.3 (0-0.7) k/uL Basophils # 0.1 (0-0.2) k/uL PT (9.0-12.0) sec INR (<1.2) APTT (22.0-30.0) sec Sodium 141 (137-145) mmol/L Potassium 3.2 L (3.5-5.1) mmol/L Chloride 103 (98-107) mmol/L Carbon Dioxide 30 (22-30) mmol/L Anion Gap 8 mmol/L BUN 21 H (7-17) mg/dL Creatinine 1.04 (0.52-1.04) mg/dL Est GFR (CKD-EPI)AfAm 60 (>60 ml/min/1.73 sqM) Est GFR (CKD-EPI)NonAf 52 (>60 ml/min/1.73 sqM) Glucose 106 H (74-99) mg/dL Calcium 9.6 (8.4-10.2) mg/dL Total Bilirubin 0.7 (0.2-1.3) mg/dL AST 25 (14-36) U/L ALT 19 (9-52) U/L Alkaline Phosphatase 54 (38-126) U/L Creatine Kinase 35 (30-135) U/L Troponin I 0.021 (0.000-0.034) ng/mL Total Protein 6.5 (6.3-8.2) g/dL Albumin 4.0 (3.5-5.0) g/dL Urine Color Urine Appearance (Clear) Urine pH (5.0-8.0) Ur Specific [place] (1.001-1.035) Urine Protein (Negative) Urine Glucose (UA) (Negative) Urine Ketones (Negative) Urine Blood (Negative) Urine Nitrite (Negative) Urine Bilirubin (Negative) Urine Urobilinogen (<2.0) mg/dL Ur Leukocyte Esterase (Negative) 11/23/18 11/23/18 Range/Units 11:30 12:00 WBC (3.8-10.6) k/uL RBC (3.80-5.40) m/uL Hgb (11.4-16.0) gm/dL Hct (34.0-46.0) % MCV (80.0-100.0) fL MCH (25.0-35.0) pg MCHC (31.0-37.0) g/dL RDW (11.5-15.5) % Plt Count (150-450) k/uL Neutrophils % % Lymphocytes % % Monocytes % % Eosinophils % % Basophils % % Neutrophils # (1.3-7.7) k/uL Lymphocytes # (1.0-4.8) k/uL Monocytes # (0-1.0) k/uL Eosinophils # (0-0.7) k/uL Basophils # (0-0.2) k/uL PT 9.7 (9.0-12.0) sec INR 0.9 (<1.2) APTT 22.1 (22.0-30.0) sec Sodium (137-145) mmol/L Potassium (3.5-5.1) mmol/L Chloride (98-107) mmol/L Carbon Dioxide (22-30) mmol/L Anion Gap mmol/L BUN (7-17) mg/dL Creatinine (0.52-1.04) mg/dL Est GFR (CKD-EPI)AfAm (>60 ml/min/1.73 sqM) Est GFR (CKD-EPI)NonAf (>60 ml/min/1.73 sqM) Glucose (74-99) mg/dL Calcium (8.4-10.2) mg/dL Total Bilirubin (0.2-1.3) mg/dL AST (14-36) U/L ALT (9-52) U/L Alkaline Phosphatase (38-126) U/L Creatine Kinase (30-135) U/L Troponin I (0.000-0.034) ng/mL Total Protein (6.3-8.2) g/dL Albumin (3.5-5.0) g/dL Urine Color Light Yellow Urine Appearance Clear (Clear) Urine pH 7.0 (5.0-8.0) Ur Specific [place] 1.011 (1.001-1.035) Urine Protein Negative (Negative) Urine Glucose (UA) Negative (Negative) Urine Ketones Negative (Negative) Urine Blood Negative (Negative) Urine Nitrite Negative (Negative) Urine Bilirubin Negative (Negative) Urine Urobilinogen <2.0 (<2.0) mg/dL Ur Leukocyte Esterase Negative (Negative) - Radiology Data Radiology results: report reviewed (CT brain CTA had not shows significant carotid artery stenosis), image reviewed Critical Care Time Critical Care Time: Yes Total Critical Care Time: 31 Disposition Clinical Impression: Altered mental status, TIA (transient ischemic attack), Carotid stenosis, left Disposition: ADMITTED IP TO THIS [facility] Condition: Fair Is patient prescribed a controlled substance at d/c from ED?: No Referrals: Jaya Oquendo MD [Primary Care Provider] - 1-2 days
[2018-11-23 11:07] LABS: Calcium 9.6 mg/dL (8.4-10.2); Potassium 3.2 mmol/L (3.5-5.1); Total Bilirubin 0.7 mg/dL (0.2-1.3); Total Protein 6.5 g/dL (6.3-8.2)
--- NOTE | 2018-11-23 11:22 | CT ---
EXAMINATION TYPE: CT brain wo con for TPA DATE OF EXAM: 11/23/2018 COMPARISON: 09/26/2018 INDICATION: Neuro deficits DLP: 1017 mGycm, Automated exposure control for dose reduction was used. CONTRAST: None CT of the brain is performed utilizing 3 mm thick sections through the posterior fossa and 3 mm thick sections through the remaining calvarium. Study is performed within 24 hours of arrival to the hosp ital. No abnormal hyperdensity is present to suggest an acute intracranial hemorrhage. No mass lesion is evident. No acute infarcts are evident. Ventricular white matter hypodensity is present, likely on the basis o f chronic white matter ischemic changes. Ventricles are very prominent for the patient age. No temporal horn dilatation is evident. Milder vargas lci prominence is present. Findings can be compatible with atrophy Paranasal sinuses and mastoid air cells within the vyjwe-hh-awrl are clear. IMPRESSIONS: 1. Atrophy with periventricular white matter ischemic changes. 2. No acute intracranial process. 3. Exam is stable from the comparison.
--- NOTE | 2018-11-23 11:30 | XR ---
EXAMINATION TYPE: XR chest 2V DATE OF EXAM: 11/23/2018 COMPARISON: 09/26/2018 TECHNIQUE: PA and lateral views submitted. HISTORY: Altered mental status FINDINGS: The lungs are clear and there is no pneumothorax, pleural effusion, or focal pneumonia. Heart size is stable. No overt failure. Arthropathy of the shoulders. Degenerative change of the spine. IMPRESSION: 1. No acute process.
[2018-11-23 11:47] LABS: Appearance,Urine Clear (Clear); Bilirubin,Urine Negative (Negative); Blood,Urine Negative (Negative); Color,Urine Light Yellow; Glucose,Urine (UA) Negative (Negative); Ketones,Urine Negative (Negative); Leukocyte Esterase,Urine Negative (Negative); Nitrite,Urine Negative (Negative); Protein,Urine Negative (Negative); Specific Gravity,Urine 1.011 (1.001-1.035); Urobilinogen,Urine <2.0 mg/dL (<2.0)
[2018-11-23] MEDS ORDERED: POTASSIUM BICARBONATE/CIT AC 20 MEQ TABLET.EFF PO ONE (12:12)
--- NOTE | 2018-11-23 12:28 | CT ---
EXAMINATION TYPE: CT angio head neck DATE OF EXAM: 11/23/2018 HISTORY: Patient not speaking wall, not making sense per daughter COMPARISON: None CT DLP: Not provided mGycm. Automated Exposure Control for Dose Reduction was Utilized. TECHNIQUE: CTA scan of the neck is performed with IV Contrast, patient injected with 50 mL of Isovue 370, and 50 mL normal saline, axial images are obtained, coronal and sagittal reformatted images are reviewed. Three-D reconstructed images are created on an independent workstation and reviewed. FINDINGS: Carotid/Vascular Structures: Vertebral arteries are codominant. Internal carotid artery bifurcations have atheromatous plaquing. Significant flow-limiting stenosis on the right is not evident. There clarissa ears to be severe narrowing at the left internal carotid artery origin. Reconstructed images have bill ateral narrowing. By measurement this is between 50 and 69% on the left and less than 50% on the righ t. [place]: The right A1 segment is aplastic. The anterior communicating artery is patent. Left internal carotid artery bifurcates into A1 and M1 segments. The right and left middle cerebral arter y branching appears normal. Vertebral basilar system appears normal. Posterior cerebral vasculature i s unremarkable. Other: Note is made of a somewhat medial right common carotid artery lying posterior to the right thy roid lobe. The more distal internal carotid arteries following more normal course to the skull base. Note is made of a high riding right jugular bulb. IMPRESSION: 1. Severe stenosis left internal carotid artery origin estimated between 50 and 69%. 2. Mild narrowing of the left internal carotid artery origin. 3. Normal variation within the [place]. No suspicious acute changes.
[2018-11-23 12:35] LABS: INR 0.9 (<1.2); Partial Thromboplastin Time 22.1 sec (22.0-30.0); Prothrombin Time 9.7 sec (9.0-12.0)
[2018-11-23 15:06] VITALS: BMI 24.4
[2018-11-23] MEDS: SODIUM CHLORIDE 0.9% 1,000 ML IV SCH (15:39)
[2018-11-23] MEDS ORDERED: MELATONIN 3 MG TABLET PO PRN (17:09)
[2018-11-23] MEDS ORDERED: BISACODYL 5 MG TABLET.DR PO PRN (17:09)
[2018-11-23] MEDS ORDERED: ONDANSETRON 4 MG/2 ML VIAL IVP PRN (17:09)
[2018-11-23] MEDS ORDERED: NALOXONE 0.4 MG/ML 1 ML VIAL IV PRN (17:09)
[2018-11-23] MEDS ORDERED: ACETAMINOPHEN TAB 325 MG TAB PO PRN (17:09)
[2018-11-23] MEDS ORDERED: DICYCLOMINE 10 MG CAP PO PRN (17:11)
[2018-11-23] MEDS ORDERED: METHOCARBAMOL 750 MG TAB PO PRN (17:11)
[2018-11-23] MEDS ORDERED: GABAPENTIN 300 MG CAP PO PRN (17:11)
[2018-11-23] MEDS ORDERED: POTASSIUM CHLORIDE ER 20 MEQ TAB.ER PO STA (17:31)
--- NOTE | 2018-11-23 17:38 | P.HPIM ---
History of Present Illness H&P Date: 11/23/18 Chief Complaint: word finding difficulty Patient is a 78-year-old female with a past medical history of normal pressure hydrocephalus, hypertension, dyslipidemia, and rheumatoid arthritis who presented to the emergency department after daughter noticed 2.5 hours of work finding difficulties and difficulty with hand eye coordination. In the ER she underwent an extensive evaluation. Her vital signs are within normal limits on admission. CTA of the brain showed enlarged ventricles but no acute process. CT of head and neck showed a 50-69% left internal carotid artery stenosis. Laboratory analysis revealed a potassium of 3.2 but was otherwise within normal limits. EKG was nonischemic. Chest x-ray was negative. She is admitted for further evaluation of TIA. Patient seen and examined at bedside with daughter present. Apparently the Route CT today and her daughter noticed that she was having difficulty finding words. Her speech was fluent made sense. Every once in a while she will get 2 words seem to have difficulty remembering and that word became garbled. Her daughter also noticed difficulty with hand eye coordination such as her pouring tea into the cup but missing the instruction assistant principal. This is very unusual for the patient. Her daughter was concerned and called her PCP Dr. Oquendo who suggested they come to the emergency department. Patient states she was unaware that she had developed these symptoms. She denies any unusual weakness or numbness and tingling. She denied any headache double vision or blurry vision during that point in time. Apparently in September of this year she developed some difficulty with walking, gait and balance, and some intermittent confusion. She was seen at [facility] and diagnosed with normal pressure hydrocephalus after a diagnostic lumbar puncture. She was discharged from [facility]. She is followed with Dr. Oquendo but has not seen a neurologist as this is not suggested to her. Patient denies any recent cough, cold, fever, flu, nausea, vomiting, dysuria, urinary incontinence, or unusual inhalants. She states that Neurontin and Robaxin were started in October but these have not been increased or titrated recently. She denies any other recent changes in medications. Review of Systems Pertinent positives and negatives as discussed in HPI, a complete review of systems was performed and all other systems are negative. Past Medical History Past Medical History: CVA/TIA, Hyperlipidemia, Hypertension, Osteoarthritis (OA), Rheumatoid Arthritis (RA) Additional Past Medical History / Comment(s): Recently diagnosed with normal pressure hydrocephalus with spinal tap to remove spinal fluid, lately been decreasing hypertensive meds d/t lower b/ps, generalized arthritis, chronic low back pain-to have back surgery next week, R sided sciatica, double scoliosis, osteopenia, unsteady gait, UTIs, past L medial ankle ulcer. History of Any Multi-Drug Resistant Organisms: None Reported Past Surgical History: Adenoidectomy, Back Surgery, Section, Hysterectomy, Tonsillectomy Additional Past Surgical History / Comment(s): Lumbar fusion X 2, x2, colonoscopy, hemorrhoidectomy, bilateral carpal tunnel releases, bilateral cataract removals/lens implants. Past Anesthesia/Blood Transfusion Reactions: No Reported Reaction, Motion Sickness Smoking Status: Never smoker Past Alcohol Use History: Rare Additional History: Lives with her uses a walker and a wheelchair at baseline - Past Family History Father Family Medical History: Dementia Additional Family Medical History / Comment(s): Father of cardiac rupture per pt. Mother Family Medical History: Cancer Additional Family Medical History / Comment(s): Mother had breast cancer. Medications and Allergies Home Medications Medication Instructions Recorded Confirmed Type Atorvastatin [Lipitor] 20 mg PO HS 12/12/14 11/23/18 History Citrucel 1,000 mg PO BID 12/06/15 11/23/18 History amLODIPine BESYLATE/BENAZEPRIL 1 cap PO DAILY 12/06/15 11/23/18 History [Lotrel 5-40 mg Capsule] Dicyclomine [Bentyl] 10 mg PO TID PRN 09/26/18 11/23/18 History Leflunomide 10 mg PO DAILY 09/26/18 11/23/18 History Triamterene-Hctz 37.5-25Mg 1 tab PO DAILY 09/26/18 11/23/18 History [Maxzide 37.5-25] Gabapentin [Neurontin] 300 mg PO TID PRN 11/05/18 11/23/18 History Aspirin EC [Ecotrin Low Dose] 81 mg PO DAILY 11/23/18 11/23/18 History Carvedilol [Coreg] 6.25 mg PO BID 11/23/18 11/23/18 History Cholecalciferol [Vitamin D3 (25 5,000 unit PO DAILY 11/23/18 11/23/18 History Mcg = 1000 Iu)] Folic Acid 1 mg PO DAILY 11/23/18 11/23/18 History HYDROcodone/APAP 5-325MG [[place] 1 tab PO Q4-6H PRN 11/23/18 11/23/18 History 5-325] Methocarbamol [Robaxin-750] 750 mg PO Q6H PRN 11/23/18 11/23/18 History Allergies Allergy/AdvReac Type Severity Reaction Status Date / Time adhesive tape Allergy Mild Rash/Hives Verified 11/23/18 11:11 morphine AdvReac MIGRAINE Verified 11/23/18 11:11 Physical Exam Osteopathic Statement: *. No significant issues noted on an osteopathic structural exam other than those noted in the History and Physical/Consult. Vitals: Vital Signs Temp Pulse Pulse Resp BP BP Pulse Ox 11/23/18 14:44 98.6 F 75 16 126/58 95 11/23/18 14:10 77 18 112/68 99 11/23/18 14:07 98 F 11/23/18 13:15 64 18 122/64 97 11/23/18 10:05 98.3 F 69 18 131/66 97 Intake and Output 11/23/18 11/23/18 11/23/18 06:59 14:59 22:59 Other: Weight 56.699 kg General: non toxic, no distress, appears at stated age, normal weight Derm: no unusual rashes/lesions no unusual ecchymoses, warm, dry Head: atraumatic, normocephalic, symmetric Eyes: EOMI, no lid lag, anicteric sclera, pupils equal round reactive to light ENT: Nose and ears atraumatic, no thrush, no pharyngeal erythema Neck: No thyromegaly, no cervical lymphadenopathy, trachea midline, supple Mouth: no lip lesion, mucus membranes moist Cardiovascular: S1S2 reg, no murmur, positive posterior tibial pulse bilateral, no edema, capillary refill less than 2 seconds Lungs: CTA bilateral, no rhonchi, no rales , no accessory muscle use Abdominal: soft, nontender to palpation, no guarding, no appreciable organomegaly, normal bowel sounds Ext: no gross muscle atrophy, muscle strength 5 out of 5 in all 4 extremities grossly, no contractures, ulnar deviation of bilateral fingers Neuro: CN II-XI grossly intact, light touch intact all 4 extremities, finger to nose within normal limits, no dysdiadochokinesis Psych: Alert, oriented, appropriate affect Results CBC & Chem 7: 11/23/18 10:30 11/23/18 10:30 Labs: Abnormal Lab Results - Last 24 Hours (Table) 11/23/18 11/23/18 Range/Units 10:30 10:30 Lymphocytes # 0.9 L (1.0-4.8) k/uL Potassium 3.2 L (3.5-5.1) mmol/L BUN 21 H (7-17) mg/dL Glucose 106 H (74-99) mg/dL Comments: EKG- NSR at 88 with LVH no signs of acute ischemia Chest x-ray: report reviewed CT Scan - head: report reviewed Thrombosis Risk Factor Assmnt - DVT/VTE Prophylaxis DVT/VTE Prophylaxis: Pharmacologic Prophylaxis ordered - Choose All That Apply Any of the Below Risk Factors Present?: Yes Other Risk Factors: Yes Each Risk Factor Represents 3 Points: Age 75 years or older Other congenital or acquired thrombophilia - If yes, enter type in comment: No Thrombosis Risk Factor Assessment Total Risk Factor Score: 3 Thrombosis Risk Factor Assessment Level: Moderate Risk Assessment and Plan Assessment: TIA- word finding difficulty - tele - request records from [facility] - neuro consult - pt/ot, speech eval - Consider MRI if symptoms return - Patient states just had echo as [facility] - ASA, lipitor NPH - will need to follow with outpatient neuro - sx not consistent with worsening - continue diuretics HLD - statin - check lipid profile HTN - allow premissive HTN X 24 hours, diuretics continued with NPH Hypokalemia - replace and recheck Chronic: Osteopenia Rheumatoid arthritis Chronic low back pain Sciatica The patient is placed in observation with an anticipated less than 2 per night stay for evaluation of TIA. Surrogate decision-maker: CODE STATUS:DNR DVT prophylaxis: Lovenox Discussed with: Patient, family, nursing Anticipated discharge date: 1-[address]: home A total of 65 minutes was spent on the care of this complex patient more than 50% of the time was spent in counseling and care coordination.
[2018-11-23] MEDS: HYDROcodone/APAP 5-325MG 1 EACH TAB PO PRN (17:43)
[2018-11-23] MEDS ORDERED: ATORVASTATIN 80 MG TAB PO SCH (21:00)
[2018-11-24 05:41] VITALS: RESP 16
[2018-11-24] MEDS: SODIUM CHLORIDE 0.9% 1,000 ML IV SCH ×2 (05:41→08:39)
[2018-11-24 06:57] LABS: Calcium 8.8 mg/dL (8.4-10.2); Potassium 3.3 mmol/L (3.5-5.1)
[2018-11-24] MEDS ORDERED: TRIAMTERENE-HCTZ 37.5-25MG 1 EACH TAB PO SCH (09:00)
[2018-11-24] MEDS ORDERED: LEFLUNOMIDE 20 MG TAB PO SCH (09:00)
[2018-11-24] MEDS ORDERED: FOLIC ACID 1 MG TAB PO SCH (09:00)
[2018-11-24] MEDS ORDERED: CHOLECALCIFEROL 1,000 UNIT TAB PO SCH (09:00)
[2018-11-24] MEDS ORDERED: ENOXAPARIN 40 MG/0.4 ML SYRINGE SQ SCH (09:00)
[2018-11-24] MEDS ORDERED: ASPIRIN 81 MG PO SCH (09:00)
[2018-11-24 11:07] VITALS: TEMP 98.1
[2018-11-24] MEDS: HYDROcodone/APAP 5-325MG 1 EACH TAB PO PRN (12:29)
[2018-11-24] MEDS ORDERED: POTASSIUM CHLORIDE ER 20 MEQ TAB.ER PO STA (12:58)
--- NOTE | 2018-11-24 13:30 | P.CNNES ---
History of Present Illness Consult date: 11/24/18 Reason for Consult: Word finding difficulty, concern for TIA Chief complaint: Word finding difficulty History of Present Illness: REFERRING PHYSICIAN: Dr. Heard HISTORY OF PRESENT ILLNESS: Thank you for allowing me to evaluate Mrs. Mandy Ruvalcaba . Ms. Ruvalcaba is a 78-year-old right-handed woman with past medical history of hypertension, hyperlipidemia, osteoarthritis, rheumatoid arthritis, possible normal pressure hydrocephalus status post spinal tap and rehab, possible TIA like events, presenting to [facility] for an episode of word finding difficulty, consulting neurology for evaluation of possible TIA. Patient states that she is at the hospital because her daughter felt that she needed to come to the hospital. Called patient's daughter while at bedside. Patient's daughter states that around 7:30 AM on Friday, they were at a restaurant and patient was looking and pointing at a plant, and she was trying to say something, but all she could say was "that is" and made up a word. Around the same time, when patient used a teapot to pour some hot water into her Mobic, patient completely missed the month. Daughter states that patient was completely back to baseline by around 10:30 AM. She also states that patient had a similar episode in September 2018, for which patient was admitted to [facility]. Patient underwent workup for TIA versus normal pressure hydrocephalus. On review of medical records from [place], carotid Dopplers showed 20-49% stenosis of bilateral ICAs. MRI brain showed cortical atrophy, chronic ischemic changes. Could not find the opening pressure of the lumbar puncture that was performed at [place]. There are no also states that daughter also mentioned that patient may have had a left facial droop and possible weakness on the left side. Daughter also states that patient's been having a lot of issues with her lower back pain. Patient underwent a L5 to S1 fusion in April 2018 which helped with her right sciatic-like pain in paresthesias, but asked her to surgery patient started having symptoms on the right side as well. Patient is scheduled for a back surgery on November 02 that we'll fuse parts of the thoracic spine and the entire lumbar spine. Patient denies any headache, nausea, vomiting, blurry/double vision, loss of consciousness, numbness or tingling or weakness in her upper extremities. Patient has been using a walker since about a year ago due to her back pain. PAST MEDICAL HISTORY: As above PAST SURGICAL HISTORY: [Fusion, , bilateral carpal tunnel releases, hysterectomy HOME MEDICATIONS: Atorvastatin 20 mg, Citrucel 1000 mg twice a day, amlodipine/benazepril 540 milligrams 1 Daily, triamterenehydrochlorothiazide 37.525 mg once a day, gabapentin 300 mg by mouth 3 times a day, aspirin 81 mg by mouth ALLERGIES: Morphine (causes migraines) SOCIAL HISTORY: Never smoked and never used any drugs, and no history of alcohol abuse. 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 Patient lives with and daughter. FAMILY HISTORY: Father had myocardial rupture from which he . Mother had breast cancer. Patient regularly gets her mammogram. REVIEW OF SYSTEMS: The 14 systems are reviewed and no additional points are identified compared to the review of systems documented history and physical PHYSICAL EXAMINATION: VITAL SIGNS: Temperature 98.2. Pulse rate 77. Blood pressure 150/88. Respiratory rate 16. O2 sat 98% on room air. GEN.: Patient lying in bed comfortably, pleasant and cooperative. HEENT: NCAT, sclera without icterus NECK: Supple. SKIN AND EXTREMITIES: Warm to touch, no edema Neuro: MENTAL STATUS: Patient alert and oriented to self, place, time. Able to name the current president. Speech fluent, able to name and repeat, following all commands readily. No right and left disorientation, extinction to double simultaneous stimulation, finger agnosia, neglect. CRANIAL NERVES II THROUGH XII: II: Pupils are equal and reactive to light symm etrically. No afferent pupillary defect. Visual nuno are intact. III, IV, : No ptosis. Extraocular movements full. No nystagmus. V: Facial sensation intact from V1-3. VII. No clear facial asymmetry. VIII: Hearing intact to finger rub bilaterally. IX, X: Symmetric palate elevation. XII: Shoulder shrug intact. XII: Tongue midline without fasciculation or atrophy. MOTOR: Normal bulk/tone. No pronator drift or tremor. Strength is 5/5 throughout all 4 extremities. SENSORY: Intact to light touch, temperature, pinprick in all 4 extremities. Romberg is negative. REFLEXES: 2+ throughout. Toes are downgoing. No clonus. Craig's is absent COORDINATION: Finger to nose and heel to mike intact. No dysmetria. Rapid alternating movements with good speed and accuracy. GAIT: Narrow-based and stable. Able to toe/heel/tandem walk DIAGNOSTIC TESTING: Laboratory: White blood cell 8.5 hemoglobin 13.0 platelets 168 sodium 141 potassium 3.2 creatinine 1.04P 121 carbon dioxide 30 AST 25 ALTs 19 total cholesterol 174 LDL 108 HDL 51 triglycerides 74. Hemoglobin A1c performed on was 5.2% Imaging: CT head without contrast: Atrophy with periventricular white matter ischemic changes. No acute intracranial process. CTA of head and neck with contrast November 23: Severe stenosis of left ICA origin estimated between 50 and 69%. Mild narrowing of the left ICA origin. Normal variation within the [place]. No suspicious acute changes. ASSESSMENT and PLAN: Ms. Ruvalcaba is a 78-year-old right-handed woman with past medical history of hypertension, hyperlipidemia, osteoarthritis, rheumatoid arthritis, possible normal pressure hydrocephalus status post spinal tap and rehab, possible TIA like events, presenting to [facility] for an episode of word finding difficulty, consulting neurology for evaluation of possible TIA. At this time, patient without any focal neurological deficits. On CTA of head and neck, patient found with stenosis of left ICA origin estimated between 50 and 69%. The NASCET surgical trial published in 1999 showed that there was modest benefit from carotid endarterectomy in 5 years for patients with symptomatic 50-69% stenosis. Patient has most recent mRI brain at [facility] in September 2018 that did not show any acute stroke. As such, patient should continue medical management with antiplatelet therapy with aspirin 81 mg daily. Also continue atorvastatin 40 mg daily. Patient has a scheduled back surgery on 12/02/2018. Considering imaging finding of bilateral ICA stenosis of 50-69%, patient's blood pressure should be monitored closely during the surgery as patient would have a higher risk of stroke. Patient's daughter reports that patient has been having some decline in her memory, and patient has a recent possible diagnosis of normal pressure response. Patient should have follow-up with neurology as outpatient. Past Medical History Past Medical History: CVA/TIA, Hyperlipidemia, Hypertension, Osteoarthritis (OA), Rheumatoid Arthritis (RA) Additional Past Medical History / Comment(s): Recently diagnosed with normal pressure hydrocephalus with spinal tap to remove spinal fluid, lately been decreasing hypertensive meds d/t lower b/ps, generalized arthritis, chronic low back pain-to have back surgery next week, R sided sciatica, double scoliosis, osteopenia, unsteady gait, UTIs, past L medial ankle ulcer. History of Any Multi-Drug Resistant Organisms: None Reported Past Surgical History: Adenoidectomy, Back Surgery, Section, Hysterectomy, Tonsillectomy Additional Past Surgical History / Comment(s): Lumbar fusion X 2, x2, colonoscopy, hemorrhoidectomy, bilateral carpal tunnel releases, bilateral cataract removals/lens implants. Past Anesthesia/Blood Transfusion Reactions: No Reported Reaction, Motion Sickness Smoking Status: Never smoker Past Alcohol Use History: Rare - Past Family History Father Family Medical History: Dementia Additional Family Medical History / Comment(s): Father of cardiac rupture per pt. Mother Family Medical History: Cancer Additional Family Medical History / Comment(s): Mother had breast cancer. Medications and Allergies Home Medications Medication Instructions Recorded Confirmed Type Atorvastatin [Lipitor] 20 mg PO HS 12/12/14 11/23/18 History Citrucel 1,000 mg PO BID 12/06/15 11/23/18 History amLODIPine BESYLATE/BENAZEPRIL 1 cap PO DAILY 12/06/15 11/23/18 History [Lotrel 5-40 mg Capsule] Dicyclomine [Bentyl] 10 mg PO TID PRN 09/26/18 11/23/18 History Leflunomide 10 mg PO DAILY 09/26/18 11/23/18 History Triamterene-Hctz 37.5-25Mg 1 tab PO DAILY 09/26/18 11/23/18 History [Maxzide 37.5-25] Gabapentin [Neurontin] 300 mg PO TID PRN 11/05/18 11/23/18 History Aspirin EC [Ecotrin Low Dose] 81 mg PO DAILY 11/23/18 11/23/18 History Carvedilol [Coreg] 6.25 mg PO BID 11/23/18 11/23/18 History Cholecalciferol [Vitamin D3 (25 5,000 unit PO DAILY 11/23/18 11/23/18 History Mcg = 1000 Iu)] Folic Acid 1 mg PO DAILY 11/23/18 11/23/18 History HYDROcodone/APAP 5-325MG [[place] 1 tab PO Q4-6H PRN 11/23/18 11/23/18 History 5-325] Methocarbamol [Robaxin-750] 750 mg PO Q6H PRN 11/23/18 11/23/18 History Allergies Allergy/AdvReac Type Severity Reaction Status Date / Time adhesive tape Allergy Mild Rash/Hives Verified 11/23/18 11:11 morphine AdvReac MIGRAINE Verified 11/23/18 11:11 Physical Examination - Vital Signs Vital Signs: Vital Signs Temp Pulse Pulse Resp BP BP Pulse Ox 11/24/18 11:06 98.1 F 81 16 158/74 98 11/24/18 07:44 98.2 F 77 16 158/88 98 11/24/18 05:38 73 16 127/57 96 11/24/18 00:00 98.1 F 60 15 116/58 96 11/23/18 20:19 98.9 F 71 16 101/57 94 L 11/23/18 19:34 95 11/23/18 14:44 98.6 F 75 16 126/58 95 11/23/18 14:10 77 18 112/68 99 11/23/18 14:07 98 F 11/23/18 13:15 64 18 122/64 97 Intake and Output 11/23/18 11/24/18 11/24/18 22:59 06:59 14:59 Intake Total 240 800 180 Balance 240 800 180 Intake: Intake, IV Titration 800 Amount Sodium Chloride 0.9% 1, 800 000 ml @ 100 mls/hr IV . Q10H [facility] Rx#:[id number] Oral 240 180 Other: Voiding Method Toilet Toilet # Voids 2 Weight 56.7 kg Results - Laboratory Findings CBC and BMP: 11/23/18 10:30 11/24/18 05:43 Abnormal Lab Findings: Abnormal Labs 11/23/18 11/23/18 11/24/18 10:30 10:30 05:43 Lymphocytes # 0.9 L Potassium 3.2 L 3.3 L Chloride 112 H BUN 21 H Glucose 106 H LDL Cholesterol, Calc 108 H
[2018-11-24 17:04] VITALS: BP 145/77; PULSE 67
--- NOTE | 2018-11-24 17:30 | P.DS ---
Providers Date of admission: 11/23/18 12:52 Expected date of discharge: 11/24/18 Attending physician: Corrine Enamorado DO Consults: 11/23/18 12:52 Consult Physician Routine Consulting Provider: Beth Stokes Consult Reason/Comments: tia Do you want consulting provider notified?: Yes Primary care physician: Jaya Oquendo Hospital Course: Discharge Diagnosis: Transient ischemic attack History of normal pressure hydrocephalus Chronic back pain with sciatica-planned surgery for next Friday. Dyslipidemia Hypertension Hypokalemia Osteopenia Rheumatoid arthritis Hospital Course: Patient is a 78-year-old female with a past medical history of normal pressure hydrocephalus, hypertension, dyslipidemia, and rheumatoid arthritis who presented to the emergency department after daughter noticed 2.5 hours of word finding difficulties and difficulty with hand eye coordination. In the ER she underwent an extensive evaluation. Her vital signs are within normal limits on admission. CTA of the brain showed enlarged ventricles but no acute process. CT of head and neck showed a 50-69% left internal carotid artery stenosis and less than 50% stenosis on the right. Laboratory analysis revealed a potassium of 3.2 but was otherwise within normal limits. EKG was nonischemic. Chest x- ray was negative. She was admitted for further evaluation of TIA. Telemetry did not show any arrhythmia. Neurology was consulted who felt that she likely had a TIA as well as component of Crenshaw's palsy. MRI had been done at [facility] recently and had shown dilated ventricle and moderate cerebral atrophy. Echo had been done and was reportedly normal there. During that hospital stay she had a stress induced non-STEMI secondary to elevated blood pressures, and was presumed to have normal pressure hydrocephalus. She then went to [facility] for rehab. She has been on aspirin and low-dose Lipitor at home. She was seen by neurology here who recommended continuation of her aspirin, up titration of her Lipitor, and careful blood pressure management during surgery. She was seen by speech therapy who recommended outpatient speech therapy due to deficits in executive functioning, fluency, and delayed recall. She was determined stable for discharge. I discussed with patient and family at bedside that I recommend that she should be seen by Dr. Oquendo prior to surgery to ensure that she is stable for surgery. I also recommend outpatient neurology follow-up due to all of her recent symptoms. We could consider starting plavix at this point in time, as she was already on ASA at home. However, if she does have surgery next week she would need to be off plavix for 7 days. She will also need to follow her carotid s tenosis as there is modest benefit fpr symptomatic stenosis at 50-69% with CEA, but this needs to be consider along with the significant risks of CEA. Family is aware of the importance of following up. Case discussed over the phone with Dr. Oquendo who will see the patient prior to surgery, he feels that a delay in surgery may be necessary. Dr. Oquendo informed me that patient recently completed speech therapy at rehab and has likely maximized its benefits. I did update the patient on this matter. She really wants to proceed with surgery. If surgery is delayed I would consider plavix. I have also made a referral to Dr. Deon Stone as an outpatient. Patient seen and examined at bedside. No chest pain, no word finding difficulties, No nausea, still with insomnia last night. Vital signs reviewed and stable. General: non toxic, no distress, appears at stated age Derm: warm, dry Head: atraumatic, normocephalic, symmetric Eyes: EOMI, no lid lag, anicteric sclera Mouth: no lip lesion, mucus membranes moist Cardiovascular: S1S2 reg, no murmur, positive posterior tibial pulse bilateral, Lungs: CTA bilateral, no rhonchi, no rales , no accessory muscle use Abdominal: soft, nontender to palpation, no guarding, no appreciable organomegaly Ext: no gross muscle atrophy, no edema, no contractures Neuro: CN II-XI grossly intact, no focal neuro deficits Psych: Alert, oriented, appropriate affect A total of 45 minutes of time were spent preparing this complex discharge summary . Pertinent Studies: CTA of head and neck-left internal carotid artery 50-69% stenosis, right internal carotid artery less than 50% stenosis Head CT-atrophy with paraventricular white matter ischemic changes, ventricle enlargement. Chest x-ray-no acute process Patient Condition at Discharge: Fair Plan - Discharge Summary Discharge Rx Participant: No New Discharge Prescriptions: New Atorvastatin [Lipitor] 40 mg PO HS #30 tablet Continue amLODIPine BESYLATE/BENAZEPRIL [Lotrel 5-40 MG] 1 cap PO DAILY Triamterene-Hctz 37.5-25Mg [Maxzide 37.5-25] 1 tab PO DAILY Leflunomide 10 mg PO DAILY Dicyclomine [Bentyl] 10 mg PO TID PRN PRN Reason: Gi Upset Gabapentin [Neurontin] 300 mg PO TID PRN PRN Reason: Pain Cholecalciferol [Vitamin D3 (25 Mcg = 1000 Iu)] 5,000 unit PO DAILY Methocarbamol [Robaxin-750] 750 mg PO Q6H PRN PRN Reason: Muscle Spasm HYDROcodone/APAP 5-325MG [[place] 5-325] 1 tab PO Q4-6H PRN PRN Reason: Pain Aspirin EC [Ecotrin Low Dose] 81 mg PO DAILY Folic Acid 1 mg PO DAILY Carvedilol [Coreg] 6.25 mg PO BID Discontinued Atorvastatin [Lipitor] 20 mg PO HS Citrucel 1,000 mg PO BID Discharge Medication List amLODIPine BESYLATE/BENAZEPRIL [Lotrel 5-40 MG] 1 cap PO DAILY 12/06/15 [History] Dicyclomine [Bentyl] 10 mg PO TID PRN 09/26/18 [History] Leflunomide 10 mg PO DAILY 09/26/18 [History] Triamterene-Hctz 37.5-25Mg [Maxzide 37.5-25] 1 tab PO DAILY 09/26/18 [History] Gabapentin [Neurontin] 300 mg PO TID PRN 11/05/18 [History] Aspirin EC [Ecotrin Low Dose] 81 mg PO DAILY 11/23/18 [History] Carvedilol [Coreg] 6.25 mg PO BID 11/23/18 [History] Cholecalciferol [Vitamin D3 (25 Mcg = 1000 Iu)] 5,000 unit PO DAILY 11/23/18 [History] Folic Acid 1 mg PO DAILY 11/23/18 [History] HYDROcodone/APAP 5-325MG [[place] 5-325] 1 tab PO Q4-6H PRN 11/23/18 [History] Methocarbamol [Robaxin-750] 750 mg PO Q6H PRN 11/23/18 [History] Atorvastatin [Lipitor] 40 mg PO HS #30 tablet 11/24/18 [Rx] Follow up Appointment(s)/Referral(s): Jaya Oquendo MD [Primary Care Provider] - 1-2 days Willis Ricks MD [STAFF PHYSICIAN] - 1 Week Activity/Diet/Wound Care/Special Instructions: heart healthy diet activity as tolerated Follow-up with Dr. Oquendo
== END 2018-11-24 18:00 | disposition home or self-care (01) ==
LOC: EC 10:03 → 3SCARD 12:52
PROVIDERS: ADMIT Internal Medicine; ATTEND Internal Medicine
DX: G45.9 Transient cerebral ischemic attack, unspecified (principal); I10 Essential (primary) hypertension; E78.5 Hyperlipidemia, unspecified; M06.9 Rheumatoid arthritis, unspecified; I65.22 Occlusion and stenosis of left carotid artery; E87.6 Hypokalemia; M41.9 Scoliosis, unspecified; M54.31 Sciatica, right side; M85.80 Other specified disorders of bone density and structure, unspecified site; M19.90 Unspecified osteoarthritis, unspecified site; G91.2 (Idiopathic) normal pressure hydrocephalus; Z90.710 Acquired absence of both cervix and uterus; Z98.42 Cataract extraction status, left eye; Z98.41 Cataract extraction status, right eye; Z96.1 Presence of intraocular lens; Z79.82 Long term (current) use of aspirin; Z79.899 Other long term (current) drug therapy; Z88.5 Allergy status to narcotic agent; Z91.048 Other nonmedicinal substance allergy status; Z80.3 Family history of malignant neoplasm of breast; Z82.49 Family history of ischemic heart disease and other diseases of the circulatory system; Z87.440 Personal history of urinary (tract) infections
CPT/HCPCS: 96361 ×2; 96372; 96360; 99291; 36415; 94760; 93005; 97162; 97166; 92523; 80061; 80053; 80048; 82550; 84484; 85025; 85610; 85730; 81003; 71046; 70496; 70450; 70498; G0378 ×2; J1650; Q9967

== ENCOUNTER → 2018-12-28 | Outpatient (CLI) | payer MEDICARE ==
--- NOTE | 2018-12-28 16:24 | XR ---
Lumbar spine HISTORY: Spinal stenosis and chronic back pain 3 views of the lumbar spine correlated to prior exam 08/25/2018 There is no significant interval change. Lumbosacral fusion has been performed with a screw present a t the S1 level which transgresses the anterior cortical margin as on prior, multilevel laminectomies as on prior exam. There is a marked scoliosis convex left with rotatory component. Degenerative disc changes are present with vacuum phenomenon present at L2-3, there is multilevel spondylosis. Multilev el loss of disc height. Bone mineralization is reduced. Sclerosis present in the posterior elements. impression: Postop changes, degenerative disc disease, marked rotatory scoliosis and facet arthropath y, osteopenia.
== END | disposition home or self-care (01) ==
LOC: RADXRMAIN 13:10
DX: M51.36 Other intervertebral disc degeneration, lumbar region (principal); M46.96 Unspecified inflammatory spondylopathy, lumbar region; M41.86 Other forms of scoliosis, lumbar region; M85.88 Other specified disorders of bone density and structure, other site
CPT/HCPCS: 72100

== ENCOUNTER → 2019-05-04 | Outpatient (CLI) | payer MEDICARE ==
--- NOTE | 2019-05-04 12:11 | CT ---
EXAMINATION TYPE: CT lumbar spine wo con DATE OF EXAM: 05/04/2019 11:45 AM COMPARISON: CT lumbar spine February 17, 2018 HISTORY: Low back pain and weakness CT DLP: 569.3 mGycm Automated exposure control for dose reduction was used. Unenhanced CT of the lumbar spine was performed. Bone and soft tissue window settings are submitted as well as coronal and sagittal reconstructions. There are persistent bilateral lumbar type vertebra with levoconvex scoliosis centered at L2-L3 level . There is interval removal of prior posterior fixating hardware L3-L5 levels with new posterior pedi cular rods and screws transfixing L5-S1 levels bilaterally. In addition there is second posterior fix ating hardware running from T12 through L3 levels bilaterally. There is multilevel posterior decompre ssion with laminectomy defects and spinous process resection. Small ridge of crossing bone remains pr esent axial image 48 at L4 level. Extensive susceptibility artifact makes evaluation somewhat subopti mal. There are scattered posterior scar tissue with more focal low dense collection at the L3-L4 leve l contiguous extension to the posterior marginal spinal canal could reflect postoperative seroma. Thi s is best seen on axial image 46 correlating with sagittal image 36. More ill-defined fluid or seroma inferior posterior to this is noted. Loss of normal lumbar lordosis redemonstrated. Single 3 mm nonobstructing calculus right kidney axilla measures 33 posterior upper pole level is not ed. IMPRESSION: 2 new levels of fixating hardware. Stable levoconvex scoliotic curvature. New focal poste rior fluid collection extends to posterior margin spinal canal is nonspecific at roughly L3-L4 level. Other findings as noted above.
--- NOTE | 2019-05-04 13:36 | XR ---
Lumbar spine HISTORY: Postop 3 views lumbar spine correlated to prior film 12/28/2018, CT 05/04/2019 There is a marked levoscoliosis as on prior exam, previous surgical changes at the lumbosacral juncti on with multilevel laminectomies present, interval placement of posterior fusion [id number]. Retrolisth esis grade 1 L4-5, retrolisthesis grade 1 L1-2. There is a kyphosis centered at T12-L1. Lucency is pr esent about the T12 screws suggesting loosening. Some retrolisthesis also present, grade 1 T12-L1. Bandar ne mineralization is reduced. Lumbar vertebral bodies show preserved height. Sclerosis present in the posterior lines compatible with facet arthropathy. Vascular calcification noted. IMPRESSION: Postop changes. Osteopenia. Scoliosis. Suggestion loosening of the screws at T12 with kyp hosis now present T12-L1 shows a change compared to CT same date.
== END | disposition home or self-care (01) ==
LOC: RADCTMAIN 10:45
DX: M41.86 Other forms of scoliosis, lumbar region (principal); M53.86 Other specified dorsopathies, lumbar region; M54.16 Radiculopathy, lumbar region; Z98.890 Other specified postprocedural states; M85.88 Other specified disorders of bone density and structure, other site; Z98.1 Arthrodesis status
CPT/HCPCS: 72100; 72131

== ENCOUNTER 2019-06-12 10:04 | Emergency (ER) | payer MEDICARE ==
[2019-06-12 10:23] VITALS: TEMP 98.2
[2019-06-12] MEDS ORDERED: Acetaminophen-Codeine 300-30mg TAB PO STA (10:53)
--- NOTE | 2019-06-12 11:14 | ED ---
Fall HPI - General Chief Complaint: Fall Stated Complaint: Fall/rib pain Time Seen by Provider: 06/12/19 10:24 Source: patient Mode of arrival: ambulatory - History of Present Illness Initial Comments: Patient is 78-year-old female presenting to the emergency department with a chief complaint of a fall. Patient reports 4 days ago she was attempting to climb into her bed while using a new walker which she was not used to. She states she has a stepping stool to get into bed. Patient reports she tripped and fell on the right flank side on the stepping stool. Patient reports the pain continues to gradually increase over days. Patient reports pain is exacerbated with full inspiration and whenever she sneezing. Denies any shortness of breath. States the pain is located in the right upper flank region. States taking [id number] ibuprofen with some improvement in pain. Denies nausea vomiting diarrhea. Denies any abdominal pain. Denies any changes in urine or bowel. Denies head trauma. Denies blood thinner use. - Related Data Home Medications Medication Instructions Recorded Confirmed amLODIPine BESYLATE/BENAZEPRIL 1 cap PO DAILY 12/06/15 11/23/18 [Lotrel 5-40 MG] Dicyclomine [Bentyl] 10 mg PO TID PRN 09/26/18 11/23/18 Leflunomide 10 mg PO DAILY 09/26/18 11/23/18 Triamterene-Hctz 37.5-25Mg 1 tab PO DAILY 09/26/18 11/23/18 [Maxzide 37.5-25] Gabapentin [Neurontin] 300 mg PO TID PRN 11/05/18 11/23/18 Aspirin EC [Ecotrin Low Dose] 81 mg PO DAILY 11/23/18 11/23/18 Carvedilol [Coreg] 6.25 mg PO BID 11/23/18 11/23/18 Cholecalciferol [Vitamin D3 (25 5,000 unit PO DAILY 11/23/18 11/23/18 Mcg = 1000 Iu)] Folic Acid 1 mg PO DAILY 11/23/18 11/23/18 HYDROcodone/APAP 5-325MG [Bagwell 1 tab PO Q4-6H PRN 11/23/18 11/23/18 5-325] Methocarbamol [Robaxin-750] 750 mg PO Q6H PRN 11/23/18 11/23/18 Previous Rx's Medication Instructions Recorded Atorvastatin [Lipitor] 40 mg PO HS #30 tablet 11/24/18 Allergies Allergy/AdvReac Type Severity Reaction Status Date / Time adhesive tape Allergy Mild Rash/Hives Verified 06/12/19 10:23 morphine AdvReac MIGRAINE Verified 06/12/19 10:23 Review of Systems ROS Statement: Those systems with pertinent positive or pertinent negative responses have been documented in the HPI. ROS Other: All systems not noted in ROS Statement are negative. Past Medical History Past Medical History: CVA/TIA, Hyperlipidemia, Hypertension, Osteoarthritis (OA), Rheumatoid Arthritis (RA) Additional Past Medical History / Comment(s): Recently diagnosed with normal pressure hydrocephalus with spinal tap to remove spinal fluid, lately been decreasing hypertensive meds d/t lower b/ps, generalized arthritis, chronic low back pain-to have back surgery next week, R sided sciatica, double scoliosis, osteopenia, unsteady gait, UTIs, past L medial ankle ulcer. History of Any Multi-Drug Resistant Organisms: None Reported Past Surgical History: Adenoidectomy, Back Surgery, Section, Hysterectomy, Tonsillectomy Additional Past Surgical History / Comment(s): Lumbar fusion X 2, x2, colonoscopy, hemorrhoidectomy, bilateral carpal tunnel releases, bilateral cataract removals/lens implants. Past Anesthesia/Blood Transfusion Reactions: No Reported Reaction, Motion Sickness Past Psychological History: No Psychological Hx Reported Smoking Status: Never smoker Past Alcohol Use History: Rare - Past Family History Father Family Medical History: Dementia Additional Family Medical History / Comment(s): Father of cardiac rupture per pt. Mother Family Medical History: Cancer Additional Family Medical History / Comment(s): Mother had breast cancer. General Exam Limitations: no limitations General appearance: alert, in no apparent distress Head exam: Present: atraumatic, normocephalic, normal inspection Eye exam: Present: normal appearance Pupils: Present: normal accommodation ENT exam: Present: normal exam, normal oropharynx Neck exam: Present: normal inspection, full ROM Respiratory exam: Present: normal lung sounds bilaterally, chest wall tenderness (Tenderness along the right upper flank region). Absent: respiratory distress, wheezes, rales Cardiovascular Exam: Present: regular rate, normal rhythm, normal heart sounds GI/Abdominal exam: Present: soft, tenderness (Right upper flank region tenderness.). Absent: distended Extremities exam: Present: normal inspection, full ROM, normal capillary refill. Absent: tenderness (No tenderness at the axilla. No shoulder tenderness.) Back exam: Present: normal inspection, full ROM Neurological exam: Present: alert, oriented X3 Psychiatric exam: Present: normal affect, normal mood Skin exam: Present: warm, dry, intact, normal color Course Vital Signs 06/12/19 10:20 Temperature 98.2 F Pulse Rate 81 Respiratory 18 Rate Blood Pressure 189/107 O2 Sat by Pulse 98 Oximetry Medical Decision Making - Medical Decision Making Patient is 78 -year-old female presenting to the emergency department with chief complaint of a fall. On exam patient does have tenderness in the right upper flank region. Patient is not on blood thinners. She had no head trauma. She tripped and fell on her stepping stool to get into bed. Patient was given Tylenol 3 date ED. States the pain has improved. Chest and rib x-ray is negative for any acute fractures or dislocations of the ribs. No acute cardio pulmonary disease. Patient given Tylenol 3 starter pack and advised about the possible side effects of the medication. Patient also given an incentive spirometer. Strict return parameters were thoroughly discussed the patient was understanding and agreeable. Case discussed with physician. Disposition Clinical Impression: Fall, Contusion of rib on right side Disposition: HOME SELF-CARE Condition: Stable Instructions (If sedation given, give patient instructions): Rib Contusion (ED) Additional Instructions: Please use incentive spirometer. Take Tylenol 3 as needed. Follow-up with primary care. Return to emergency department if symptoms worsen. Is patient prescribed a controlled substance at d/c from ED?: No Referrals: Jaya Oquendo MD [Primary Care Provider] - 1-2 days Time of Disposition: 12:06
--- NOTE | 2019-06-12 11:37 | XR ---
EXAMINATION TYPE: XR ribs RT w pa chest xray , 4 VIEWS DATE OF EXAM ORDERED: 06/12/2019 HISTORY: trauma, fall . COMPARISON: Previous chest x-ray dated 11/23/2018. FINDINGS: There has been a previous interpedicular fusion from L1 through at least L3. There is a wo rsening levoscoliosis. The lungs are clear. Pleural spaces are clear the heart is not enlarged. I do not see evidence of pne umothorax. No displaced rib fractures are seen. IMPRESSION: 1. INTERVAL LUMBAR SURGERY. 2. NO ACTIVE INTRATHORACIC DISEASE. 3. I DO NOT IDENTIFY A DISPLACED RIB FRACTURE AT THIS TIME.
[2019-06-12] MEDS ORDERED: ACET/COD 300 MG/30 MG STARTER PACK 6 TAB BTL PO STA (12:04)
[2019-06-12 12:22] VITALS: RESP 20
[2019-06-12 12:24] VITALS: BP 136/68; PULSE 77
== END 2019-06-12 12:27 | disposition home or self-care (01) ==
LOC: EC 10:04
DX: S20.211A Contusion of right front wall of thorax, initial encounter (principal); I10 Essential (primary) hypertension; M19.90 Unspecified osteoarthritis, unspecified site; M06.9 Rheumatoid arthritis, unspecified; Z88.5 Allergy status to narcotic agent; Z91.048 Other nonmedicinal substance allergy status; Z79.82 Long term (current) use of aspirin; Z79.899 Other long term (current) drug therapy; Z86.73 Personal history of transient ischemic attack (TIA), and cerebral infarction without residual deficits; Z98.1 Arthrodesis status; W01.0XXA Fall on same level from slipping, tripping and stumbling without subsequent striking against object, initial encounter; Y93.39 Activity, other involving climbing, rappelling and jumping off
CPT/HCPCS: 99283

== ENCOUNTER → 2020-08-31 | Outpatient (CLI) | payer MEDICARE | END | disposition home or self-care (01) | LOC: LABWHC1 16:18 | PROVIDERS: ATTEND Internal Medicine | DX: Z20.822 Contact with and (suspected) exposure to COVID-19 (principal) | CPT/HCPCS: U0003; C9803 ==

== ENCOUNTER → 2021-02-22 | Outpatient (CLI) | payer MEDICARE ==
--- NOTE | 2021-02-22 13:14 | US ---
EXAMINATION TYPE: US abdomen complete DATE OF EXAM: 02/22/2021 COMPARISON: CT and MRI lumbar spine CLINICAL HISTORY: R10.9 ABDOMINAL PAIN. IBS, RUQ and epigastric pain x 2 months; three back surgeries EXAM MEASUREMENTS: Liver Length: 11.4 cm Gallbladder Wall: 0.1 cm CBD: 0.3 cm Spleen: 8.0 cm Right Kidney: 8.6 x 3.7 x 4.2 cm Left Kidney: 8.3 x 4.2 x 4.6 cm Pancreas: Obscured by bowel gas Liver: partially obscured by overlying bowel gas; coarse echo texture Gallbladder: couple of hyperechoic wall polyps seen in multiple views Evidence for sonographic Rock's sign: yes CBD: wnl Spleen: wnl Right Kidney: mid renal cyst seen = 1.0 x 0.8 x 1.0cm Left Kidney: No hydronephrosis or masses seen Upper IVC: wnl Abd Aorta: wnl as visualized as lower pole obscured by overlying bowel gas Visualized liver is heterogeneously hyperechoic. Evaluation for focal masses suboptimal due to the he terogeneity. No biliary dilatation. Findings could reflect diffuse fatty infiltration and/or underlyi ng hepatocellular disease. Gallbladder shows 4 mm peripheral polyp. No shadowing mobile gallstones. N o hydronephrosis bilaterally. IMPRESSION: No acute findings are evident.
== END | disposition home or self-care (01) ==
LOC: RADUSWWP 10:55
PROVIDERS: ATTEND Internal Medicine
DX: N28.1 Cyst of kidney, acquired (principal)
CPT/HCPCS: 76700

== ENCOUNTER 2021-03-03 11:23 | Emergency (ER) | payer MEDICARE ==
[2021-03-03 11:40] VITALS: TEMP 97.8
--- NOTE | 2021-03-03 12:00 | ED ---
General Adult HPI - General Chief complaint: Fall Stated complaint: fall, head injury Time Seen by Provider: 03/03/21 11:41 Source: EMS Mode of arrival: EMS Limitations: no limitations - History of Present Illness Initial comments: Dictation was produced using eMar dictation software. please excuse any grammatical, word or spelling errors. Chief Complaint: 80-year-old female presents after fall History of Present Illness: Patient is a 80-year-old female she fell in the bathroom this morning. Patient slipped cause of socks she was wearing. She fell landed and hit her left forehead. EMS was called patient brought to the emergency department. EMS reports that patient had repetitive speech. She also was initially confused. En route to the ER symptoms improved. Patient has mild headache. She has bilateral shoulder pain and bilateral hip pain and lower back pain. Patient has history of chronic back pain. The ROS documented in this emergency department record has been reviewed and confirmed by me. Those systems with pertinent positive or negative responses have been documented in the HPI. All other systems are other negative and/or noncontributory. PHYSICAL EXAM: General Impression: Alert and oriented x3, not in acute distress, c-collar in place HEENT: Abrasion, area of ecchymoses over the left forehead and over left eyebrow, extra-ocular movements intact, pupils equal and reactive to light bilaterally, mucous membranes moist. Cardiovascular: Heart regular rate and rhythm Chest: Able to complete full sentences, no retractions, no tachypnea Abdomen: abdomen soft, non-tender, non-distended, no organomegaly Musculoskeletal: Pulses present and equal in all extremities, no peripheral edema Motor: no focal deficits noted Neurological: CN II-XII grossly intact, no focal motor or sensory deficits noted Skin: Intact with no visualized rashes Psych: Normal affect and mood ED course: 80-year-old female presents to the emergency department for follow-up head injury. Vital signs upon arrival are within acceptable limits. Laboratory evaluation obtained. CBC, coag panel, metabolic panel is unremarkable. Computed tomography scan of the brain and C-spine shows isolated intraventricular hemorrhage in the right posterior ventricle. CT of the C- spines unremarkable. Patient reevaluated at bedside says headache but doesn't have any signs of worsening mentation. Patient right requested to be transferred to the [facility]. She preferred [facility] arrival. Case was discussed with [facility] transfer team. Dr. Harris is accepting. Patient has pending x-rays. X-rays were canceled in order to not delay transfer any further. Patient does not take anti-coagulation medications her blood pressure is below 160 systolic. No further intervention indicated at this time. EKG interpretation: Ventricular rate 70, normal sinus rhythm,. 176, QRS 72, QTc 435. No MN prolongation, no QTC prolongation, no ST or T-wave changes noted. Overall, this EKG is unremarkable - Related Data Home Medications Medication Instructions Recorded Confirmed Dicyclomine [Bentyl] 10 mg PO TID PRN 09/26/18 03/03/21 Triamterene-Hctz 37.5-25Mg 1 tab PO DAILY 09/26/18 03/03/21 [Maxzide 37.5-25] Aspirin EC [Ecotrin Low Dose] 81 mg PO DAILY 11/23/18 03/03/21 Cholecalciferol [Vitamin D3 (25 1,000 unit PO DAILY 11/23/18 03/03/21 Mcg = 1000 Iu)] Atorvastatin Calcium [Lipitor] 20 mg PO DAILY 03/03/21 03/03/21 Benazepril HCl 40 mg PO DAILY 03/03/21 03/03/21 Calcium Citrate/Vitamin D3 4 tab PO DAILY 03/03/21 03/03/21 [Citracal + D Maximum Caplet] Fexofenadine HCl [Shelley Allergy] 180 mg PO DAILY 03/03/21 03/03/21 amLODIPine [Norvasc] 5 mg PO DAILY 03/03/21 03/03/21 Allergies Allergy/AdvReac Type Severity Reaction Status Date / Time adhesive tape Allergy Mild Rash/Hives Verified 03/03/21 13:04 morphine AdvReac MIGRAINE Verified 03/03/21 13:04 Review of Systems ROS Statement: Those systems with pertinent positive or pertinent negative responses have been documented in the HPI. ROS Other: All systems not noted in ROS Statement are negative. Past Medical History Past Medical History: CVA/TIA, Hyperlipidemia, Hypertension, Osteoarthritis (OA), Rheumatoid Arthritis (RA) Additional Past Medical History / Comment(s): Recently diagnosed with normal pressure hydrocephalus with spinal tap to remove spinal fluid, lately been decreasing hypertensive meds d/t lower b/ps, generalized arthritis, chronic low back pain-to have back surgery next week, R sided sciatica, double scoliosis, osteopenia, unsteady gait, UTIs, past L medial ankle ulcer. History of Any Multi-Drug Resistant Organisms: None Reported Past Surgical History: Adenoidectomy, Back Surgery, Section, Hysterectomy, Tonsillectomy Additional Past Surgical History / Comment(s): Lumbar fusion X 2, x2, colonoscopy, hemorrhoidectomy, bilateral carpal tunnel releases, bilateral cataract removals/lens implants. Past Anesthesia/Blood Transfusion Reactions: No Reported Reaction, Motion Sickness Past Psychological History: No Psychological Hx Reported Smoking Status: Never smoker Past Alcohol Use History: Rare Past Drug Use History: None Reported - Past Family History Father Family Medical History: Dementia Additional Family Medical History / Comment(s): Father of cardiac rupture per pt. Mother Family Medical History: Cancer Additional Family Medical History / Comment(s): Mother had breast cancer. General Exam Limitations: no limitations Course Vital Signs 03/03/21 03/03/21 11:35 13:02 Temperature 97.8 F Pulse Rate 72 75 Respiratory 18 16 Rate Blood Pressure 155/73 148/66 O2 Sat by Pulse 97 99 Oximetry Medical Decision Making - Lab Data Result diagrams: 03/03/21 11:57 03/03/21 11:57 Lab Results 03/03/21 03/03/21 03/03/21 Range/Units 11:57 11:57 11:57 WBC 9.4 (3.8-10.6) k/uL RBC 4.27 (3.80-5.40) m/uL Hgb 13.0 (11.4-16.0) gm/dL Hct 39.9 (34.0-46.0) % MCV 93.3 (80.0-100.0) fL MCH 30.5 (25.0-35.0) pg MCHC 32.7 (31.0-37.0) g/dL RDW 13.2 (11.5-15.5) % Plt Count 175 (150-450) k/uL MPV 9.9 Neutrophils % 81 % Lymphocytes % 12 % Monocytes % 4 % Eosinophils % 2 % Basophils % 0 % Neutrophils # 7.6 (1.3-7.7) k/uL Lymphocytes # 1.1 (1.0-4.8) k/uL Monocytes # 0.4 (0-1.0) k/uL Eosinophils # 0.2 (0-0.7) k/uL Basophils # 0.0 (0-0.2) k/uL PT 10.3 (9.0-12.0) sec INR 1.0 (<1.2) APTT 22.1 (22.0-30.0) sec Sodium 138 (137-145) mmol/L Potassium 4.1 (3.5-5.1) mmol/L Chloride 108 H (98-107) mmol/L Carbon Dioxide 21 L (22-30) mmol/L Anion Gap 9 mmol/L BUN 22 H (7-17) mg/dL Creatinine 0.87 (0.52-1.04) mg/dL Est GFR (CKD-EPI)AfAm 73 (>60 ml/min/1.73 sqM) Est GFR (CKD-EPI)NonAf 64 (>60 ml/min/1.73 sqM) Glucose 109 H (74-99) mg/dL Calcium 9.7 (8.4-10.2) mg/dL Critical Care Time Critical Care Time: Yes Total Critical Care Time: 33 Disposition Clinical Impression: Fall, Intraventricular hemorrhage Disposition: OTHER INSTITUTION NOT DEFINED Condition: Critical Referrals: Juan Carlos Castillo MD [Primary Care Provider] - 1-2 days - Out of Hospital Transfer - Req. Specs Out of Hospital Transfer - Requested Specifics: Other Emergency Center ([facility])
[2021-03-03 12:04] LABS: Basophils % (A) 0 %; Eosinophils # (A) 0.2 k/uL (0-0.7); Eosinophils % (A) 2 %; HCT 39.9 % (34.0-46.0); Lymphocytes # (A) 1.1 k/uL (1.0-4.8); Lymphocytes % (A) 12 %; MCH 30.5 pg (25.0-35.0); MCHC 32.7 g/dL (31.0-37.0); MCV 93.3 fL (80.0-100.0); Mean Platelet Volume 9.9; Monocytes # (A) 0.4 k/uL (0-1.0); Monocytes % (A) 4 %; Neutrophils # (A) 7.6 k/uL (1.3-7.7); Neutrophils % (A) 81 %; Platelet Count 175 k/uL (150-450); RBC 4.27 m/uL (3.80-5.40); RDW 13.2 % (11.5-15.5); WBC 9.4 k/uL (3.8-10.6)
[2021-03-03 12:12] LABS: Calcium 9.7 mg/dL (8.4-10.2); Potassium 4.1 mmol/L (3.5-5.1)
[2021-03-03 12:13] LABS: Partial Thromboplastin Time 22.1 sec (22.0-30.0); Prothrombin Time 10.3 sec (9.0-12.0)
--- NOTE | 2021-03-03 12:19 | CT ---
EXAMINATION TYPE: CT brain cspine wo con DATE OF EXAM: 03/03/2021 COMPARISON: 11/23/2018 HISTORY: fall CT DLP: 1280.[address] of the brain was performed. The ventricles, basal cisterns and sulci overlying the cerebral convexities demonstrate moderate enla rgement. Within the left lateral ventricle there is focal increased attenuation seen which is a new finding re lative to the prior study. This could reflect a small amount of intraventricular hemorrhage. No addit ional hemorrhage seen. There is decreased attenuation about the periventricular white matter and deep white matter of both cerebral hemispheres, compatible with chronic small vessel ischemia. No mass effects are seen. If symptoms persist consider MRI. Osseous calvarium is intact. Left frontal scalp hematoma. IMPRESSION: 1. Within the left lateral ventricle there is focal increased attenuation seen which is a new findin g relative to the prior study. This could reflect a small amount of intraventricular hemorrhage. No a dditional hemorrhage seen. CT Cervical Spine: Unenhanced CT of the cervical spine was performed with bone and soft tissue window settings submitted . Coronal and sagittal reconstruction is obtained. There is normal alignment and prevertebral soft tissues. No evidence for acute cervical fracture . Scattered degenerative disc disease and spondylosis. Biapical scarring. IMPRESSION: 1. No evidence for acute fracture or subluxation of the cervical spine.
[2021-03-03] MEDS ORDERED: MORPHINE SULFATE 2 MG/ML SYRINGE IV STA (13:03)
[2021-03-03 13:06] VITALS: RESP 16
[2021-03-03 14:10] VITALS: BP 140/61; PULSE 78
== END 2021-03-03 14:10 | disposition other institution (70) ==
LOC: EC 11:23
DX: I61.5 Nontraumatic intracerebral hemorrhage, intraventricular (principal); E78.5 Hyperlipidemia, unspecified; I10 Essential (primary) hypertension; M19.90 Unspecified osteoarthritis, unspecified site; Z88.5 Allergy status to narcotic agent; Z86.73 Personal history of transient ischemic attack (TIA), and cerebral infarction without residual deficits; Z87.440 Personal history of urinary (tract) infections; Z90.89 Acquired absence of other organs; Z90.710 Acquired absence of both cervix and uterus
CPT/HCPCS: 99291; 96374; 36415; 93005; 80048; 85025; 85610; 85730; 72125; 70450; J2270

== ENCOUNTER 2021-04-04 15:19 | Observation (INO) | payer MEDICARE ==
--- NOTE | 2021-04-04 18:38 | CT ---
EXAMINATION TYPE: CT brain wo con DATE OF EXAM: 04/04/2021 COMPARISON: 03/03/2021 HISTORY: Weakness and double vision. Trauma with Left frontal injury [address] DLP: 1143.4 mGycm Automated exposure control for dose reduction was used. There is cerebral atrophy. There is enlargement of the ventricles. There is no mass effect nor midlin e shift. There is no evidence of intracranial hemorrhage. The calvarium is intact. Skull base is inta ct. There is normal aeration of the mastoid sinuses. IMPRESSION: There is moderate hydrocephalus with some ballooning of the lateral ventricles. There is clearing of the intraventricular hemorrhage in the right lateral ventricle compared to old exam.
--- NOTE | 2021-04-04 19:14 | ED ---
General Adult HPI - General Chief complaint: Recheck/Abnormal Lab/Rx Stated complaint: RECHECK Time Seen by Provider: 04/04/21 17:11 Source: patient, RN notes reviewed Mode of arrival: ambulatory Limitations: no limitations - History of Present Illness Initial comments: 80-year-old female sent from her doctor's office or follow-up. She has been complaining of intermittent episodes of double vision or past 4-5 days. None in the last 24 hours. She had a history of a fall with subdural hematoma concern is for bleeding. Patient had no recent falls no fevers chills nausea vomiting sweats or other symptoms. She states the double vision is what I shows an image higher than the other no visual field defects reported. No other current complaints modifying factors - Related Data Home Medications Medication Instructions Recorded Confirmed Dicyclomine [Bentyl] 10 mg PO TID PRN 09/26/18 03/03/21 Triamterene-Hctz 37.5-25Mg 1 tab PO DAILY 09/26/18 03/03/21 [Maxzide 37.5-25] Aspirin EC [Ecotrin Low Dose] 81 mg PO DAILY 11/23/18 03/03/21 Cholecalciferol [Vitamin D3 (25 1,000 unit PO DAILY 11/23/18 03/03/21 Mcg = 1000 Iu)] Atorvastatin Calcium [Lipitor] 20 mg PO DAILY 03/03/21 03/03/21 Benazepril HCl 40 mg PO DAILY 03/03/21 03/03/21 Calcium Citrate/Vitamin D3 4 tab PO DAILY 03/03/21 03/03/21 [Citracal + D Maximum Caplet] Fexofenadine HCl [Shelley Allergy] 180 mg PO DAILY 03/03/21 03/03/21 amLODIPine [Norvasc] 5 mg PO DAILY 03/03/21 03/03/21 Allergies Allergy/AdvReac Type Severity Reaction Status Date / Time adhesive tape Allergy Mild Rash/Hives Verified 04/04/21 17:37 morphine AdvReac MIGRAINE Verified 04/04/21 17:37 Review of Systems ROS Statement: Those systems with pertinent positive or pertinent negative responses have been documented in the HPI. ROS Other: All systems not noted in ROS Statement are negative. Past Medical History Past Medical History: CVA/TIA, Hyperlipidemia, Hypertension, Osteoarthritis (OA), Rheumatoid Arthritis (RA) Additional Past Medical History / Comment(s): Recently diagnosed with normal pressure hydrocephalus with spinal tap to remove spinal fluid, lately been decre asing hypertensive meds d/t lower b/ps, generalized arthritis, chronic low back pain-to have back surgery next week, R sided sciatica, double scoliosis, osteopenia, unsteady gait, UTIs, past L medial ankle ulcer. History of Any Multi-Drug Resistant Organisms: None Reported Past Surgical History: Adenoidectomy, Back Surgery, Section, Hyster ectomy, Tonsillectomy Additional Past Surgical History / Comment(s): Lumbar fusion X 2, x2, colonoscopy, hemorrhoidectomy, bilateral carpal tunnel releases, bilateral cataract removals/lens implants. Past Anesthesia/Blood Transfusion Reactions: No Reported Reaction, Motion Sickness Past Psychological History: No Psychological Hx Reported Smoking Status: Never smoker Past Alcohol Use History: Rare Past Drug Use History: None Reported - Past Family History Father Family Medical History: Dementia Additional Family Medical History / Comment(s): Father of cardiac rupture per pt. Mother Family Medical History: Cancer Additional Family Medical History / Comment(s): Mother had breast cancer. General Exam - General Exam Comments Initial Comments: This is a well-developed well-nourished awake alert oriented 3 female Limitations: no limitations General appearance: alert, in no apparent distress Head exam: Present: atraumatic, normocephalic, normal inspection Eye exam: Present: normal appearance, PERRL, EOMI. Absent: scleral icterus, conjunctival injection, periorbital swelling ENT exam: Present: mucous membranes dry Neck exam: Present: normal inspection. Absent: tenderness, meningismus, lymphadenopathy Respiratory exam: Present: normal lung sounds bilaterally. Absent: respiratory distress, wheezes, rales, rhonchi, stridor Cardiovascular Exam: Present: regular rate, normal rhythm, normal heart sounds. Absent: systolic murmur, diastolic murmur, rubs, gallop, clicks GI/Abdominal exam: Present: soft, normal bowel sounds. Absent: distended, tenderness, guarding, rebound, rigid Extremities exam: Present: normal inspection, full ROM, normal capillary refill. Absent: tenderness, pedal edema, joint swelling, calf tenderness Back exam: Present: normal inspection Neurological exam: Present: alert, oriented X3, CN II-XII intact Psychiatric exam: Present: normal affect, normal mood Skin exam: Present: warm, dry, intact, normal color. Absent: rash Course Vital Signs 04/04/21 04/04/21 15:40 16:47 Temperature 100.8 F H 98.9 F Pulse Rate 91 Respiratory 20 Rate Blood Pressure 138/67 O2 Sat by Pulse 97 Oximetry Medical Decision Making - Medical Decision Making I did discuss findings with the patient and caregiver the presentation appears be consistent with a TIA episode. Patient be admitted after long discussion UA and COvid testing is pending. I did discuss case with Dr. Renee. Thus far no source for fever noted - Lab Data Result diagrams: 04/04/21 19:35 04/04/21 19:35 Lab Results 04/04/21 04/04/21 04/04/21 Range/Units 19:35 19:35 19:35 WBC 8.0 (3.8-10.6) k/uL RBC 4.08 (3.80-5.40) m/uL Hgb 12.2 (11.4-16.0) gm/dL Hct 37.3 (34.0-46.0) % MCV 91.4 (80.0-100.0) fL MCH 30.0 (25.0-35.0) pg MCHC 32.8 (31.0-37.0) g/dL RDW 13.4 (11.5-15.5) % Plt Count 191 (150-450) k/uL MPV 10.5 Neutrophils % 64 % Lymphocytes % 26 % Monocytes % 5 % Eosinophils % 3 % Basophils % 0 % Neutrophils # 5.1 (1.3-7.7) k/uL Lymphocytes # 2.1 (1.0-4.8) k/uL Monocytes # 0.4 (0-1.0) k/uL Eosinophils # 0.2 (0-0.7) k/uL Basophils # 0.0 (0-0.2) k/uL Sodium 139 (137-145) mmol/L Potassium 3.8 (3.5-5.1) mmol/L Chloride 109 H (98-107) mmol/L Carbon Dioxide 23 (22-30) mmol/L Anion Gap 7 mmol/L BUN 17 (7-17) mg/dL Creatinine 0.80 (0.52-1.04) mg/dL Est GFR (CKD-EPI)AfAm 81 (>60 ml/min/1.73 sqM) Est GFR (CKD-EPI)NonAf 71 (>60 ml/min/1.73 sqM) Glucose 94 (74-99) mg/dL Calcium 9.6 (8.4-10.2) mg/dL Magnesium 1.7 (1.6-2.3) mg/dL Total Bilirubin 0.4 (0.2-1.3) mg/dL AST 37 H (14-36) U/L ALT 18 (4-34) U/L Alkaline Phosphatase 96 (38-126) U/L Creatine Kinase 218 H (30-135) U/L Troponin I 0.024 (0.000-0.034) ng/mL Total Protein 6.4 (6.3-8.2) g/dL Albumin 3.7 (3.5-5.0) g/dL - Radiology Data Radiology results: report reviewed (CT imaging reviewed no evidence of acute f indings no bleeding or changes noted please see the complete report), image reviewed Disposition Clinical Impression: TIA (transient ischemic attack), Fever Disposition: ADMITTED IP TO THIS HOSP Condition: Fair Referrals: Juan Carlos Castillo MD [Primary Care Provider] - 1-2 days
[2021-04-04 20:01] LABS: Basophils % (A) 0 %; Eosinophils # (A) 0.2 k/uL (0-0.7); Eosinophils % (A) 3 %; HCT 37.3 % (34.0-46.0); HGB 12.2 gm/dL (11.4-16.0); Lymphocytes # (A) 2.1 k/uL (1.0-4.8); Lymphocytes % (A) 26 %; MCHC 32.8 g/dL (31.0-37.0); MCV 91.4 fL (80.0-100.0); Mean Platelet Volume 10.5; Monocytes # (A) 0.4 k/uL (0-1.0); Monocytes % (A) 5 %; Neutrophils # (A) 5.1 k/uL (1.3-7.7); Neutrophils % (A) 64 %; Platelet Count 191 k/uL (150-450); RBC 4.08 m/uL (3.80-5.40); RDW 13.4 % (11.5-15.5)
[2021-04-04 20:11] LABS: Albumin 3.7 g/dL (3.5-5.0); Calcium 9.6 mg/dL (8.4-10.2); Magnesium 1.7 mg/dL (1.6-2.3); Potassium 3.8 mmol/L (3.5-5.1); Total Bilirubin 0.4 mg/dL (0.2-1.3); Total Protein 6.4 g/dL (6.3-8.2)
[2021-04-04] MEDS ORDERED: DICYCLOMINE 10 MG CAP PO PRN (20:56)
[2021-04-04 21:02] LABS: Appearance,Urine Clear (Clear); Bilirubin,Urine Negative (Negative); Blood,Urine Negative (Negative); Color,Urine Light Yellow; Glucose,Urine (UA) Negative (Negative); Ketones,Urine Negative (Negative); Leukocyte Esterase,Urine Negative (Negative); Nitrite,Urine Negative (Negative); PH, Urine 6.5 (5.0-8.0); Protein,Urine Negative (Negative); Urobilinogen,Urine <2.0 mg/dL (<2.0)
[2021-04-04] MEDS: SODIUM CHLORIDE 0.9% 1,000 ML IV SCH (21:39)
[2021-04-04] MEDS ORDERED: VANCOMYCIN IV PER PHARMACY 1 EACH MISC MISCELLANE PRN (23:40)
[2021-04-05] MEDS ORDERED: VANCOMYCIN 1,250 MG in SODIUM CHLORIDE 0.9% 250 ML IVPB ONE (01:00)
--- NOTE | 2021-04-05 01:53 | P.HPIM ---
History of Present Illness H&P Date: 04/04/21 Patient is a 80-year-old female with a PMH of hypertension, hyperlipidemia, who presents to the emergency room with complaints of diplopia over the past 4-5 days. The patient suffered a fall 4 weeks ago resulting with an intraventricular hemorrhage, and subsequent transfer to [facility]. Galo bolaños reports that she was discharged to a subacute rehab facility from where she was sent home one week ago. She notes that soon after returning home, she developed her double vision. She denied any other complaints. She denied experiencing headaches, focal weakness, numbness, tingling, speech impairment, facial droop. She denied dizziness or eye pain. Denied chest discomfort, fever, chills, nausea, vomiting, abdominal pain, diarrhea. In the emergency room, the patient had a T-max of 100.8F. Laboratory evaluation was essentially unremarkable. A CT brain revealed moderate hydrocephalus with clearing of intraventricular hemorrhage. EKG revealed a normal sinus rhythm at 70 bpm with T-wave inversions noted in leads 3 and aVF and flattening in leads V3 to V6. Review of systems: Pertinent positives and negatives as discussed in HPI, a complete review of systems was performed and all other systems are negative. Physical examination: General: non toxic, no distress, appears at stated age, overweight Derm: no unusual rashes/lesions no unusual ecchymoses, warm, dry Head: atraumatic, normocephalic, symmetric Eyes: EOMI, no lid lag, anicteric sclera, pupils equal round reactive to light ENT: Nose and ears atraumatic, no thrush, no pharyngeal erythema Neck: No thyromegaly, no cervical lymphadenopathy, trachea midline, supple Mouth: no lip lesion, mucus membranes moist Cardiovascular: S1S2 reg, no murmur, positive posterior tibial pulse bilateral, no edema, capillary refill less than 2 seconds Lungs: CTA bilateral, no rhonchi, no rales , no accessory muscle use Abdominal: soft, nontender to palpation, no guarding, no appreciable organomegaly, normal bowel sounds Ext: no gross muscle atrophy, muscle strength 5 out of 5 in all 4 extremities grossly, no contractures, Neuro: CN II-XI grossly intact, light touch intact all 4 extremities, finger to nose within normal limits, visual nuno intact, no nystagmus noted Psych: Alert, oriented, appropriate affect Assessment/plan Diplopia and fever, unclear etiology, cannot rule out meningitis/encephalitis at this time -Empiric ceftriaxone and vancomycin administered -Neurology consulted, IR consult for lumbar puncture -Neuro checks -Fall precautions Chronic conditions: Hypertension, hyperlipidemia -Continue with home meds DVT prophylaxis -Heparin subcu The patient is admitted with an anticipated greater than 2 midnight stay for evaluation of diplopia CODE STATUS: Full Code Discussed with: Patient Anticipated discharge date: 2-[address]: Home Past Medical History Past Medical History: CVA/TIA, Hyperlipidemia, Hypertension, Osteoarthritis (O A), Rheumatoid Arthritis (RA) Additional Past Medical History / Comment(s): Recently diagnosed with normal pressure hydrocephalus with spinal tap to remove spinal fluid, lately been decreasing hypertensive meds d/t lower b/ps, generalized arthritis, chronic low back pain-to have back surgery next week, R sided sciatica, double scoliosis, osteopenia, unsteady gait, UTIs, past L medial ankle ulcer. History of Any Multi-Drug Resistant Organisms: None Reported Past Surgical History: Adenoidectomy, Back Surgery, Section, Hysterectomy, Tonsillectomy Additional Past Surgical History / Comment(s): Lumbar fusion X 2, x2, colonoscopy, hemorrhoidectomy, bilateral carpal tunnel releases, bilateral cataract removals/lens implants. Past Anesthesia/Blood Transfusion Reactions: No Reported Reaction, Motion Sickness Past Psychological History: No Psychological Hx Reported Smoking Status: Never smoker Past Alcohol Use History: Rare Past Drug Use History: None Reported - Past Family History Father Family Medical History: Dementia Additional Family Medical History / Comment(s): Father of cardiac rupture per pt. Mother Family Medical History: Cancer Additional Family Medical History / Comment(s): Mother had breast cancer. Medications and Allergies Home Medications Medication Instructions Recorded Confirmed Type Dicyclomine [Bentyl] 10 mg PO TID PRN 09/26/18 03/03/21 History Triamterene-Hctz 37.5-25Mg 1 tab PO DAILY 09/26/18 03/03/21 History [Maxzide 37.5-25] Aspirin EC [Ecotrin Low Dose] 81 mg PO DAILY 11/23/18 03/03/21 History Cholecalciferol [Vitamin D3 (25 1,000 unit PO DAILY 11/23/18 03/03/21 History Mcg = 1000 Iu)] Atorvastatin Calcium [Lipitor] 20 mg PO DAILY 03/03/21 03/03/21 History Benazepril HCl 40 mg PO DAILY 03/03/21 03/03/21 History Calcium Citrate/Vitamin D3 4 tab PO DAILY 03/03/21 03/03/21 History [Citracal + D Maximum Caplet] Fexofenadine HCl [Shelley Allergy] 180 mg PO DAILY 03/03/21 03/03/21 History amLODIPine [Norvasc] 5 mg PO DAILY 03/03/21 03/03/21 History Allergies Allergy/AdvReac Type Severity Reaction Status Date / Time adhesive tape Allergy Mild Rash/Hives Verified 04/04/21 17:37 morphine AdvReac MIGRAINE Verified 04/04/21 17:37 Physical Exam Vitals: Vital Signs Temp Pulse Resp BP Pulse Ox 04/04/21 16:47 98.9 F 04/04/21 15:40 100.8 F H 91 20 138/67 97 Intake and Output 04/04/21 04/04/21 04/05/21 14:59 22:59 06:59 Other: Weight 63.503 kg Results CBC & Chem 7: 04/04/21 19:35 04/04/21 19:35 Labs: Abnormal Lab Results - Last 24 Hours (Table) 04/04/21 Range/Units 19:35 Chloride 109 H (98-107) mmol/L AST 37 H (14-36) U/L Creatine Kinase 218 H (30-135) U/L
[2021-04-05] MEDS ORDERED: ASPIRIN 81 MG PO SCH (09:00)
[2021-04-05 09:07] LABS: Chol/HDL Ratio 3.13 Ratio; LDL Cholesterol,Calculated 90.9 mg/dL (0.0-131.0)
[2021-04-05] MEDS: ATORVASTATIN 20 MG TAB PO SCH (10:04)
[2021-04-05] MEDS: HEPARIN SODIUM,PORCINE/PF 5,000 UNIT/0.5 ML SYRINGE SQ SCH ×3 (10:04→23:35)
[2021-04-05] MEDS: LORATADINE 10 MG TAB PO SCH (10:04)
[2021-04-05] MEDS: amLODIPine 5 MG TAB PO SCH (10:05)
[2021-04-05] MEDS: lisinopriL 20 MG TAB PO SCH (10:05)
[2021-04-05] MEDS: CHOLECALCIFEROL 25 MCG (1000 IU) TABLET PO SCH (10:05)
--- NOTE | 2021-04-05 12:38 | P.CNNES ---
History of Present Illness Consult date: 04/05/21 Requesting physician: Delroy Yates Reason for Consult: delroy yates History of Present Illness: This is a 80-year-old woman with medical history of hospital normal pressure hydrocephalus status post spinal tap, possible TIA (with word finding difficulty), Lumbar fusion X3, hypertension, hyperlipidemia, rheumatoid arthri tis presented emergency department on 04/04/2021 for complaint of diplopia of both eyes since 03/30 or . She said that that since this past Friday or Friday she's been having sudden onset the double vision of both eyes. She feels the diplopia is up and down and is intermittent and when she covered either eye it resolved. She denies any associated the headache, neck pain, any nausea, vomiting, any new focal weakness or numbness or tingling. Denies any difficulty swallowing. Denies any recent trauma in the last 1 week. Denies of any fevers. Denies any ringing in the ears. She said that she has chronic sinusitis over the frontal region and right neck pain but she denies of any current headaches or any neck pain at this time. Patient is not on any antiplatelets or anticoagulation. She is on Lipitor 20mg qhs. Of note on 03/03/2021 the patient the was in the bathroom and the she said that the after using the drooling and send up to put her clothes on she fell to the ground and believes LOC. Her daughter came and evaluated the patient according to the patient and she didn't have any jerk in of any extremities, urinary or bowel incontinence or any foaming around the mouth. The patient denies any history of seizures. The patient that presented to our ED. that time patient was on aspirin [address] head on 03/03/2021 and it was reported as within the left lateral ventricle there is focal increased attenuation seen which is a new finding relative to prior study. This could reflect small amount of intraventircular hemorrhage. She was transferred to [facility] and that they're the patient stated that she had surveillance imaging of the brain and that the bleed resolved without any intervention. Her aspirin was stopped and she was notified by neurology/neurosurgery team according to the patient not to be on aspirin any further. Patient stated that she was hospitalized for several weeks then was discharged to subacute rehab. Patient stated that she uses a walker for last 2 years and has some weakness over the left leg for 2 years and it was attributed to her lower back pain and she had 3 surgeries in the past. She also has some urinary incontinence. Regarding the the normal pressure hydrocephalus or other neurological problems she has not followed up with a neurologist. According to her records it seems that she had a lumbar puncture but the patient does not recall that for her normal pressure hydrocephalus Also patient was seen by neuro-Hospitalist Dr. Stokes on 11/24/2018 for word finding difficulty and felt possible TIA. Regarding her carotid stenosis of 50- 69% recommended medical management. Some of the workup in the hospital consisted of: Initial vital signs as a blood pressure of 38/67, heart rate of 91, respiratory of 20, temperature of 100.8 Fahrenheit oral pulse ox of 97 at room air. Sodium is 139, creatnine 0.80, serum glucose is 94, calcium 9.6, magnesium 1.7, CK 218. AST 37 and AT 18 Lipid panel: TG 100, cholestrol 163, LDL 90 and HDL 52 urine analysis is negative for UTI SARS-CoV-2 PCR is not detected. Influenza A/B PCR is not detected RSV PCR is not detected CT head is reported as moderate hydrocephalus with some ballooning of the lateral ventricles. There is clearing of the intraventricular hemorrhage in the right lateral ventricle compared to old exam. I personally reviewed CT head and there is no acute of subacute ischemia or any evidence of intraparechymal hemorrhage or ventricular hemorrhage. I felt the lateral, 3rd ventricles are significalntly dilated compared to atrophy and seems suggestive for normal pressure hydrocephalus. Review of Systems Review of system: The 12 point system was reviewed and apparent positive and negative per HPI. Past Medical History Past Medical History: CVA/TIA, Hyperlipidemia, Hypertension, Osteoarthritis (OA), Rheumatoid Arthritis (RA) Additional Past Medical History / Comment(s): Recently diagnosed with normal pressure hydrocephalus with spinal tap to remove spinal fluid, lately been decreasing hypertensive meds d/t lower b/ps, generalized arthritis, chronic low back pain-to have back surgery next week, R sided sciatica, double scoliosis, osteopenia, unsteady gait, UTIs, past L medial ankle ulcer. History of Any Multi-Drug Resistant Organisms: None Reported Past Surgical History: Adenoidectomy, Back Surgery, Section, Hysterectomy, Tonsillectomy Additional Past Surgical History / Comment(s): Lumbar fusion X 2, x2, colonoscopy, hemorrhoidectomy, bilateral carpal tunnel releases, bilateral cataract removals/lens implants. Past Anesthesia/Blood Transfusion Reactions: No Reported Reaction, Motion Sickness Past Psychological History: No Psychological Hx Reported Smoking Status: Never smoker Past Alcohol Use History: Rare Past Drug Use History: None Reported - Past Family History Father Family Medical History: Dementia Additional Family Medical History / Comment(s): Father of cardiac rupture per pt. Mother Family Medical History: Cancer Additional Family Medical History / Comment(s): Mother had breast cancer. Medications and Allergies Home Medications Medication Instructions Recorded Confirmed Type Dicyclomine [Bentyl] 10 mg PO TID PRN 09/26/18 04/05/21 History Atorvastatin Calcium [Lipitor] 20 mg PO HS 03/03/21 04/05/21 History amLODIPine [Norvasc] 5 mg PO DAILY 03/03/21 04/05/21 History Tamsulosin HCl [Flomax] 0.4 mg PO DAILY 04/05/21 04/05/21 History lisinopriL 40 mg PO DAILY 04/05/21 04/05/21 History traMADol HCl [Ultram] 50 mg PO Q6H PRN 04/05/21 04/05/21 History Allergies Allergy/AdvReac Type Severity Reaction Status Date / Time adhesive tape Allergy Mild Rash/Hives Verified 04/05/21 11:22 morphine AdvReac MIGRAINE Verified 04/05/21 11:22 Physical Examination - Vital Signs Vital Signs: Vital Signs Temp Pulse Resp BP Pulse Ox 04/05/21 11:07 78 18 138/72 95 04/05/21 06:32 69 16 146/68 04/05/21 01:35 75 16 134/68 95 04/05/21 00:02 79 12 145/76 95 04/04/21 16:47 98.9 F 04/04/21 15:40 100.8 F H 91 20 138/67 97 Intake and Output 04/04/21 04/05/21 04/05/21 22:59 06:59 14:59 Other: Weight 63.503 kg GENERAL: The patient is lying in bed and is not in acute distress. CHEST: The heart rate is regular rate rhythm. No murmurs to auscultation. No carotid bruit bilaterally. LUNG: Clear to auscultation bilaterally no wheezing noted throughout. Not labored breathing. ABDOMEN/GI: Bowel sounds present in all 4 quadrants. No tenderness to palpation throughout. NEUROLOGICAL: Higher mental function: The patient is awake, alert, oriented to self, place and time. Patient is following commands. No aphasia and no neglect. Cranial nerves: The pupils are round, equal and reactive to light and accommodation. Visual nuno are full to confrontation throughout. Extraocular movement is intact no nystagmus is noted. Facial sensation is normal to touch throughout. The facial strength is normal throughout. Hearing is mildly decreased bilaterally to hand rub. Tongue is midline and moved [id number] without any difficulty. No dysarthria is noted. Shoulder shrug is normal bilaterally. Motor: Gait is deferred. The strength is left thigh and left knee extension is 4+ to 5- (per patient is chronic). Otherwise 5 over 5 throughout. Normal tone and bulk. Cerebellum: Normal finger to nose bilaterally. Sensation: Sensation is normal to touch throughout. Reflexes (right/left): 2+ throughout except ankles are 1+. Plantars are downgoing bilaterally. Results - Laboratory Findings CBC and BMP: 04/04/21 19:35 04/04/21 19:35 Abnormal Lab Findings: Abnormal Labs 04/04/21 19:35 Chloride 109 H AST 37 H Creatine Kinase 218 H Assessment and Plan Assessment: Acute Diplopia (since 03/30 or 03/31/2021) and one time low-grade fever: Unknown etiology. Meningoecephalitis seems low on my differential Left lateral ventricular hemorrhage on 03/03/2021 after fall--resolved without intervention History of normal pressure hydrocephalus History of bilateral carotid stenosis between 50-69% stenosis History of possible TIA with word finding difficulty (in 2019) History of lumbar fusion 3 Hypertension Hyperlipidemia Rheumatoid arthritis Plan: * I ordered MRI Brain w/ and w/o. * She was continued on her home dose of aspirin 20 mg daily by ED team and patient stated she would like it to be stopped since she was told she cannot take antiplatelets any longer because of her episode of bleed. Therefore, will stop it and she was notified since bleed resolved she can resume it but will defer it as outpatient (neurologist). Continue Lipitor 20 mg daily at bedtime. * Intervention radiology teams consulted by the primary team for CSF. * ESR and CRP are ordered by the primary team is pending * Vancomycin and ceftriaxone 2gm every 12 hours or started by the primary team. * PT, OT and CONFERENCE DIRECTOR are consulted. * We'll attempt to get records of the patient's hospital stay over at [facility] regarding that intraventricular bleed. * We'll defer the rest of the medical management to the primary team. * During the patient's history of normal pressure hydrocephalus recommend patient to follow-up with a neurologist as an outpatient and the recommend the large volume CSF tap and that if she has any improvement in her walk-in and urinary incontinence then to consider LOG CLERK shunt by neurosurgeon as an outpatient. Also recommended patient to follow-up with a neurologist as an outpatient within 1-2 weeks for her multiple neurological problems. The plan is discussed with the patient and her nurse. Thank you for the consultation. Sin Lubin M.D. Neuro-hospitalist Time with Patient: Greater than 30
[2021-04-05] MEDS: CALCIUM CARB-VIT D 500 MG-5 MCG TAB PO SCH ×2 (15:01→20:03)
[2021-04-05] MEDS: TRIAMTERENE-HCTZ 37.5-25MG 1 EACH TAB PO SCH (15:02)
[2021-04-05] MEDS: HYDROcodone/APAP 5-325MG 1 EACH TAB PO PRN ×2 (15:03→21:25)
[2021-04-05] MEDS: SODIUM CHLORIDE 0.9% 1,000 ML IV SCH ×2 (16:40→18:32)
[2021-04-05 17:07] VITALS: RESP 18
--- NOTE | 2021-04-05 17:27 | P.PN ---
Subjective Progress Note Date: 04/05/21 Gaudencio is a 80 yo CF with a hx of NPH, subdural hematoma, and hypertension, and dyslipidemia who presented secondary to vertical diplopia. In the ER she underwent an extensive evaluation. Initial vital signs showed a fever of 100.8. Computed tomography scan demonstrated moderate hydrocephalus with some ballooning of the lateral ventricle with clearing of intraventricular hemorrhage. Laboratory analysis was essentially unremarkable. She is admitted for further workup and neurology was consulted. Patient seen and examined at bedside. She continues to have intermittent acute diplopia that is vertical. She denies any headache, no blurry vision. She denies any precipitating events. She denies any nausea or vomiting. She denies any unusual weakness, numbness, tingling. She reports that she has had intermittent vertical diplopia over the years but has never been this quickly recurrent. General: non toxic, no distress, appears at stated age Derm: warm, dry Head: atraumatic, normocephalic, symmetric Eyes: EOMI, no lid lag, anicteric sclera Mouth: no lip lesion, mucus membranes moist Cardiovascular: S1S2 reg, no murmur, positive posterior tibial pulse bilateral, Lungs: CTA bilateral, no rhonchi, no rales , no accessory muscle use Abdominal: soft, nontender to palpation, no guarding, no appreciable organomegaly Ext: no gross muscle atrophy, no edema, no contractures Neuro: Pupils equal round reactive to light, extraocular motion intact with return of vertical diplopia with abduction of the eyes, accommodation intact, visual nuno grossly intact, peripheral vision intact. Muscle strength appears equal and tone is normal. No fasciculations. No tremors. Psych: Alert, oriented, appropriate affect Acute vertical diplopia -Check ESR and CRP to rule out vasculitis, patient with a history of rheumatoid arthritis -Await MRI brain -Neurology recommendations appreciated -Patient was placed on IV antibiotics and LP was ordered while neurology consultation was pending. If neurology thinks it is warranted will continue these if not could consider stopping. -Patient does not want aspirin secondary to history of subdural hemorrhage. -Likely will need outpatient ophthalmology follow-up History of normal pressure hydrocephalus -Follow up outpatient with neurology Rheumatoid arthritis Chronic back pain status post lumbar fusion Hypertension, controlled -Continue with lisinopril -Follow blood pressures Dyslipidemia -Lipid profile within normal limits -Continue with atorvastatin Objective - Vital Signs Vital signs: Vital Signs Temp 98.2 F 04/05/21 16:00 Pulse 95 04/05/21 16:00 Resp 18 04/05/21 16:00 BP 145/63 04/05/21 16:00 Pulse Ox 95 04/05/21 16:00 Intake & Output 04/04/21 04/05/21 04/05/21 18:59 06:59 18:59 Intake Total 118 Balance 118 Weight 63.503 kg 63.503 kg Intake: Oral 118 Other: Voiding Method Toilet # Voids 1 - Labs CBC & Chem 7: 04/04/21 19:35 04/04/21 19:35 Labs: Abnormal Lab Results - Last 24 Hours (Table) 04/04/21 04/05/21 Range/Units 19:35 14:00 Chloride 109 H (98-107) mmol/L AST 37 H (14-36) U/L Creatine Kinase 218 H (30-135) U/L C-Reactive Protein 1.0 H (<1.0) mg/dL
[2021-04-06] MEDS ORDERED: VANCOMYCIN 1,250 MG in SODIUM CHLORIDE 0.9% 250 ML IVPB SCH ×2
[2021-04-06] MEDS: SODIUM CHLORIDE 0.9% 1,000 ML IV SCH ×2 (03:12→12:58)
[2021-04-06] MEDS: ACETAMINOPHEN TAB 325 MG TAB PO PRN ×2 (06:52→12:58)
[2021-04-06] MEDS: HEPARIN SODIUM,PORCINE/PF 5,000 UNIT/0.5 ML SYRINGE SQ SCH ×2 (07:43→15:12)
[2021-04-06] MEDS: ATORVASTATIN 20 MG TAB PO SCH (07:43)
[2021-04-06] MEDS: CHOLECALCIFEROL 25 MCG (1000 IU) TABLET PO SCH (07:43)
[2021-04-06] MEDS: CALCIUM CARB-VIT D 500 MG-5 MCG TAB PO SCH (07:43)
[2021-04-06] MEDS: lisinopriL 20 MG TAB PO SCH (07:43)
[2021-04-06] MEDS: TRIAMTERENE-HCTZ 37.5-25MG 1 EACH TAB PO SCH (07:44)
[2021-04-06] MEDS: amLODIPine 5 MG TAB PO SCH (07:44)
[2021-04-06] MEDS: LORATADINE 10 MG TAB PO SCH (07:44)
[2021-04-06] MEDS ORDERED: LORazepam 2 MG/ML INJ IV STA (09:00)
[2021-04-06 09:05] LABS: Calcium 9.2 mg/dL (8.4-10.2); Potassium 3.6 mmol/L (3.5-5.1)
[2021-04-06 10:14] LABS: Prothrombin Time 10.3 sec (9.0-12.0)
--- NOTE | 2021-04-06 11:47 | MR ---
EXAMINATION TYPE: MR brain wo/w con DATE OF EXAM: 04/06/2021 COMPARISON: CT brain dated 04/04/2021 HISTORY: Diplopia, fever. TECHNIQUE: Multiplanar, multisequence images of the brain and brainstem is performed without and with IV contras t, utilizing 6 mL intravenous Gadavist . FINDINGS: There is some motion artifact present. Diffusion weighted images demonstrate no evidence of a recent infarct or other diffusion abnormality. There is hydrocephalus as noted on prior CT. Periv entricular, pericallosal and periventricular, subcortical confluent and scattered hyperintensities ar e present on inversion recovery T2-weighted sequences, no evident hemorrhage. Midline structures demonstrate normal morphology. The craniocervical junction appears within normal limits. Post contrast images demonstrate no abnormal enhancement. The dural venous sinuses appear pa tent. The visualized sinuses are remarkable for inflammatory change within the ethmoid air cells and the globes are intact. IMPRESSION: Hydrocephalus again noted. Sinus disease. Nonspecific white matter demyelination, correla te for chronic small vessel ischemic changes, difficult to exclude transependymal flow of CSF.
[2021-04-06 15:11] VITALS: BP 151/79; PULSE 76; TEMP 97.8
--- NOTE | 2021-04-06 15:17 | P.DS ---
Providers Date of admission: 04/04/21 20:55 Expected date of discharge: 04/06/21 Attending physician: Maxime Renee MD Consults: 04/04/21 20:55 Consult Physician Routine Consulting Provider: Sin Lubin Consult Reason/Comments: TIA Do you want consulting provider notified?: Yes Primary care physician: Juan Carlos Castillo MD Hospital Course: Discharge Diagnosis: Acute Verticle Diplopia History of NPH Hx of recent subdural hematoma Rheumatoid arthritis HTN HLD Hospital Course: Kaiser is a 80 yo CF with a hx of NPH, subdural hematoma, and hypertension, and dyslipidemia who presented secondary to vertical diplopia. In the ER she underwent an extensive evaluation. Initial vital signs showed a fever of 100.8. Computed tomography scan demonstrated moderate hydrocephalus with some ballooning of the lateral ventricle with clearing of intraventricular hemorrhage. Laboratory analysis was essentially unremarkable. She was admitted for further workup and neurology was consulted. Placed on Vanco and Rocephin until seen by neurology due to concerns for possible meningitis however patient spiked fever 1. She had no additional signs or symptoms of meningitis such as altered level of consciousness, headache, neck pain, difficulty with vision. Meningitis was ruled out and there was no need for a lumbar puncture. She continued to have intermittent vertical diplopia. She underwent an MRI of the brain which demonstrated hydrocephalus which is known to the patient and chronic small vessel changes. It was determined that she did not have a neurologic etiology of her diplopia but will need follow-up outpatient with ophthalmology. Patient is in agreement with plan of care. Follow-up: Continue to follow-up with your neurosurgeon regarding recent subdural hematoma and normal pressure hydrocephalus, follow up with Dr. Kirby with opthamology. Return with increased confusion, fevers, nausea and vomiting. Patient seen and examined at bedside. Double vision respolved, back pain controlled, no headache, no nuasea, no vomiting, no neck pain Vital signs reviewed and stable. General: non toxic, no distress, appears at stated age Derm: warm, dry Head: atraumatic, normocephalic, symmetric Eyes: EOMI, no lid lag, anicteric sclera Mouth: no lip lesion, mucus membranes moist Cardiovascular: S1S2 reg, no murmur, positive posterior tibial pulse bilateral, Lungs: CTA bilateral, no rhonchi, no rales , no accessory muscle use Abdominal: soft, nontender to palpation, no guarding, no appreciable organomegaly Ext: no gross muscle atrophy, no edema, no contractures Neuro: CN II-XI grossly intact, no focal neuro deficits Psych: Alert, oriented, appropriate affect A total of 37 minutes of time were spent preparing this complex discharge summary . Patient Condition at Discharge: Fair Plan - Discharge Summary Discharge Rx Participant: No New Discharge Prescriptions: New Loratadine [Claritin] 10 mg PO DAILY tab Cholecalciferol [Vitamin D3 (25 Mcg = 1000 Iu)] 25 mcg PO DAILY tablet Continue Dicyclomine [Bentyl] 10 mg PO TID PRN PRN Reason: Gi Upset Atorvastatin Calcium [Lipitor] 20 mg PO HS lisinopriL 40 mg PO DAILY amLODIPine [Norvasc] 5 mg PO DAILY Tamsulosin HCl [Flomax] 0.4 mg PO DAILY traMADol HCl [Ultram] 50 mg PO Q6H PRN PRN Reason: Pain Discharge Medication List Dicyclomine [Bentyl] 10 mg PO TID PRN 09/26/18 [History] Atorvastatin Calcium [Lipitor] 20 mg PO HS 03/03/21 [History] amLODIPine [Norvasc] 5 mg PO DAILY 03/03/21 [History] Tamsulosin HCl [Flomax] 0.4 mg PO DAILY 04/05/21 [History] lisinopriL 40 mg PO DAILY 04/05/21 [History] traMADol HCl [Ultram] 50 mg PO Q6H PRN 04/05/21 [History] Cholecalciferol [Vitamin D3 (25 Mcg = 1000 Iu)] 25 mcg PO DAILY tablet 04/06/21 [Rx] Loratadine [Claritin] 10 mg PO DAILY tab 04/06/21 [Rx] Follow up Appointment(s)/Referral(s): Nursing,Felicity [NON-STAFF] - 1 Week Juan Carlos Castillo MD [Primary Care Provider] - 1-2 days Willis Ricks MD [REFERRING] - 1 Week Christiano Kirby MD [STAFF PHYSICIAN] - 1-2 Days Patient Instructions/Handouts: Transient Ischemic Attack (DC) Activity/Diet/Wound Care/Special Instructions: Activity: as tolerated Diet: heart healthy Special Instructions: Continue to follow-up with your neurosurgeon regarding recent subdural hematoma and normopressure hydrocephalus Return with increased confusion, fevers, nausea and vomiting. If need to schedule COVID-19 Monocolonal Antibody Infusion Discharge Disposition: HOME WITH HOME HEALTH SERVICES
--- NOTE | 2021-04-06 16:21 | P.PN ---
Subjective Progress Note Date: 04/06/21 Patient was seen at bedside and she needs to deny of any headaches, neck pain, any nausea or vomiting. She feels like her diplopia is resolved since yesterday by early afternoon latest. She denies of any focal weakness or numbness. Objective - Vital Signs Vital signs: Vital Signs Temp 97.8 F 04/06/21 15:11 Pulse 76 04/06/21 15:11 Resp 18 04/06/21 15:11 BP 151/79 04/06/21 15:11 Pulse Ox 97 04/06/21 15:11 Intake & Output 04/05/21 04/06/21 04/06/21 18:59 06:59 18:59 Intake Total 238 10 118 Output Total 850 Balance 238 10 -732 Weight 63.503 kg 64 kg Intake: IV 10 Invasive Line 1 10 Oral 238 118 Output: Urine 850 Other: Voiding Method Toilet Bedside Commode Bedside Commode # Voids 1 1 - Exam GENERAL: The patient is lying in bed and is not in acute distress. NEUROLOGICAL: Higher mental function: The patient is awake, alert, oriented to self, place and time. Patient is following commands. No aphasia and no neglect. Cranial nerves: The pupils are round, equal and reactive to light and accommodation. Visual nuno are full to confrontation throughout. Extraocular movement is intact no nystagmus is noted. Facial sensation is normal to touch throughout. The facial strength is normal throughout. Hearing is mildly decreased bilaterally to hand rub. Tongue is midline and moved [id number] without any difficulty. No dysarthria is noted. Shoulder shrug is normal bilaterally. Motor: Gait is deferred. The strength is left thigh and left knee extension is 4+ to 5- (per patient is chronic). Otherwise 5 over 5 throughout. Normal tone and bulk. Cerebellum: Normal finger to nose bilaterally. Sensation: Sensation is normal to touch throughout. Reflexes (right/left): 2+ throughout except ankles are 1+. Plantars are downgoing bilaterally. WORK-UP: ESR is 15 and CRP is 1.0. Lipid panel: TG 100, cholestrol 163, LDL 90 and HDL 52 urine analysis is negative for UTI SARS-CoV-2 PCR is not detected. Influenza A/B PCR is not detected RSV PCR is not detected CT head is reported as moderate hydrocephalus with some ballooning of the lateral ventricles. There is clearing of the intraventricular hemorrhage in the right lateral ventricle compared to old exam. I personally reviewed CT head and there is no acute of subacute ischemia or any evidence of intraparechymal hemorr jackelyn or ventricular hemorrhage. I felt the lateral, 3rd ventricles are significalntly dilated compared to atrophy and seems suggestive for normal pressure hydrocephalus. MRI of the brain is reported as hydrocephalus again noted that. Sinus disease. Nonspecific white matter demyelination, correlate for chronic small vessel ischemic changes, difficult to exclude transepidermal flow of the CSF. - Labs CBC & Chem 7: 04/04/21 19:35 04/06/21 07:53 Labs: Abnormal Lab Results - Last 24 Hours (Table) 04/06/21 Range/Units 07:53 Chloride 108 H (98-107) mmol/L Glucose 128 H (74-99) mg/dL Assessment and Plan Assessment: * Acute Diplopia (since 03/30 or 03/31/2021) and one time low-grade fever: Unknown etiology. Seems diplopia is more peripheral than central cause--- diplopia resolved. Meningoecephalitis seems very low on my differential (denies headache, neck pain, nausea, vomiting, one time low grade fever and on examination no focality) * Left lateral ventricular hemorrhage on 03/03/2021 after fall--resolved without intervention * History of normal pressure hydrocephalus * History of bilateral carotid stenosis between 50-69% stenosis * History of possible TIA with word finding difficulty (in 2019) * History of lumbar fusion 3 * Hypertension * Hyperlipidemia * Rheumatoid arthritis Plan: * I spoke with the primary team and wear agreement that it is unlikely meningeal encephalitis. Therefore interventional radiology consult is canceled and the antibiotic will be discontinued. * She was continued on her home dose of aspirin 20 mg daily by ED team and patient stated she would like it to be stopped since she was told she cannot t nixon antiplatelets any longer because of her episode of bleed. Therefore, will stop it and she was notified since bleed resolved she can resume it but will defer it as outpatient (neurologist). Continue Lipitor 20 mg daily at bedtime. * PT, OT and BUSINESS PROCESS REPRESENTATIVE are consulted. * We'll attempt to get records of the patient's hospital stay over at [facility] regarding that intraventricular bleed. * We'll defer the rest of the medical management to the primary team. * During the patient's history of normal pressure hydrocephalus recommend patient to follow-up with a neurologist as an outpatient and the recommend the large volume CSF tap and that if she has any improvement in her walk-in and urinary incontinence then to consider DISTRIBUTION ASSOCIATE shunt by neurosurgeon as an outpatient. Also recommended patient to follow-up with a neurologist as an outpatient within 1-2 weeks for her multiple neurological problems. Commands patient to follow-up with a neurosurgeon as outpatient as well. The plan is discussed with the patient and primary team. There is no further neurological work-up. Sin Lubin M.D. Neuro-hospitalist Time with Patient: Less than 30
== END 2021-04-06 18:17 | disposition home health service (06) ==
LOC: EC 15:19 → 3SCARD 20:55 → INTOOBSV 20:55 → 3SCARD 21:14 → UNDODISIN 04-06 18:17
PROVIDERS: ADMIT Internal Medicine; ATTEND Internal Medicine
DX: H53.2 Diplopia (principal); R50.9 Fever, unspecified; Z86.73 Personal history of transient ischemic attack (TIA), and cerebral infarction without residual deficits; G91.2 (Idiopathic) normal pressure hydrocephalus; E78.5 Hyperlipidemia, unspecified; I10 Essential (primary) hypertension; M19.90 Unspecified osteoarthritis, unspecified site; M06.9 Rheumatoid arthritis, unspecified; G89.29 Other chronic pain; M54.41 Lumbago with sciatica, right side; M85.80 Other specified disorders of bone density and structure, unspecified site; M41.9 Scoliosis, unspecified; R26.81 Unsteadiness on feet; J32.1 Chronic frontal sinusitis; R32 Unspecified urinary incontinence; I65.23 Occlusion and stenosis of bilateral carotid arteries; Z20.822 Contact with and (suspected) exposure to COVID-19; Z91.81 History of falling; Z79.899 Other long term (current) drug therapy; Z79.82 Long term (current) use of aspirin; Z88.5 Allergy status to narcotic agent; Z91.048 Other nonmedicinal substance allergy status; Z87.440 Personal history of urinary (tract) infections; Z90.710 Acquired absence of both cervix and uterus; Z98.1 Arthrodesis status; Z81.8 Family history of other mental and behavioral disorders; Z82.49 Family history of ischemic heart disease and other diseases of the circulatory system; Z80.3 Family history of malignant neoplasm of breast
CPT/HCPCS: 96361; 96366 ×3; 96372 ×3; 96375; 96365; 96367; 99285; 36415; 97162; 92610; 92523; 80061; 80053; 80048; 85652; 82550; 83735; 84484; 85025; 85610; 86140; 81003; 87636; 70450; 70553; G0378 ×3; J3370 ×2; J2060; J0696 ×2; A9585; J1644 ×2

== ENCOUNTER 2021-06-28 13:44 | Day surgery (SDC) | payer MEDICARE ==
[2021-06-26 09:27] VITALS: BMI 27.6
--- NOTE | 2021-06-28 12:44 | P.GSHP ---
History of Present Illness H&P Date: 06/28/21 CHIEF COMPLAINT: Ventral hernia. HISTORY OF PRESENT ILLNESS: The patient is a 80-year-old female who presents with swelling along the abdomen for over 2 month with pain and tenderness. Findings were consistent with ventral hernia. She reports change in bowel habits as a result. Now she presents for further evaluation and management. PAST MEDICAL HISTORY: Please see list and reviewed. PAST SURGICAL HISTORY: Please see list and reviewed. MEDICATIONS: Please see list and reviewed. ALLERGIES: Please see list and reviewed. SOCIAL HISTORY: Please see list and reviewed. FAMILY HISTORY: No reports of Crohn disease or ulcerative colitis. REVIEW OF ORGAN SYSTEMS: CONSTITUTIONAL: No reports of fevers or chills. GI: Has constipation. CARDIO: Has moderate cardiopulmonary disease including anticoagulation, dysrhythmia, hypertensive heart disease with cardiomyopathy PHYSICAL EXAM: VITAL SIGNS: Stable GENERAL: Well-developed pleasant female in no acute distress. HEENT: No scleral icterus. Extraocular movements grossly intact. Moist buccal mucosa. NECK: Supple without lymphadenopathy. CHEST: Unlabored respirations. Equal bilateral excursions. CARDIOVASCULAR: Regular rate and rhythm. Distal 2+ pulses. ABDOMEN: Soft, nondistended. Tender along the abdomen. MUSCULOSKELETAL: No clubbing, cyanosis, or edema. SKIN: Well perfused. PSYCH: Alert and oriented. No focal or lateralizing signs. ASSESSMENT: 1. Ventral hernia. PLAN: 1. Recommend proceeding with robotic ventral hernia repair with mesh. 2. Benefits and risks of surgical intervention was discussed including possibility of open technique. 3. DVT prophylaxis. 4. Antibiotic prophylaxis. 5. She is elevated risk with moderate cardiopulmonary disease Past Medical History Past Medical History: CVA/TIA, GERD/Reflux, Hyperlipidemia, Hypertension, Osteoarthritis (OA), Rheumatoid Arthritis (RA) Additional Past Medical History / Comment(s): R sided sciatica, scoliosis, osteopenia, TIA - left sided weakness and unsteady gait("I fall to the left"), UTI's, IBS, "very dry skin", History of Any Multi-Drug Resistant Organisms: None Reported Past Surgical History: Adenoidectomy, Back Surgery, Section, Hysterectomy, Orthopedic Surgery, Tonsillectomy Additional Past Surgical History / Comment(s): Lumbar fusion X 2, x2, colonoscopy, hemorrhoidectomy, bilateral carpal tunnel releases, bilateral cataract removals/lens implants. Past Anesthesia/Blood Transfusion Reactions: No Reported Reaction Smoking Status: Never smoker - Past Family History Father Family Medical History: Dementia Additional Family Medical History / Comment(s): Father of cardiac rupture per pt. Mother Family Medical History: Cancer Additional Family Medical History / Comment(s): breast cancer. Medications and Allergies Home Medications Medication Instructions Recorded Confirmed Type Dicyclomine [Bentyl] 10 mg PO TID 09/26/18 06/26/21 History Atorvastatin Calcium [Lipitor] 20 mg PO DAILY 03/03/21 06/26/21 History Tamsulosin HCl [Flomax] 0.4 mg PO DAILY 04/05/21 06/26/21 History lisinopriL 40 mg PO DAILY 04/05/21 06/26/21 History traMADol HCl [Ultram] 50 mg PO Q6H PRN 04/05/21 06/26/21 History Cholecalciferol [Vitamin D3 (25 25 mcg PO DAILY tablet 04/06/21 06/26/21 Rx Mcg = 1000 Iu)] Acetaminophen [Tylenol Extra 500 mg PO DIRECTED PRN 06/26/21 06/26/21 History Strength] Aller-Itin 1 tab PO DAILY 06/26/21 06/26/21 History Calcium Carbonate [Calcium] 600 mg PO DAILY 06/26/21 06/26/21 History Citrucel Tab 3 tab PO DAILY 06/26/21 06/26/21 History Omeprazole [PriLOSEC] 20 mg PO AC-BRKFST 06/26/21 06/26/21 History Allergies Allergy/AdvReac Type Severity Reaction Status Date / Time adhesive tape Allergy Mild Rash/Hives Verified 06/26/21 09:09 morphine AdvReac MIGRAINE Verified 06/26/21 09:09
[~2021-06-28 13:44] MED LIST: ACETAMINOPHEN TAB 500 MG TAB PO PRN; DEXAMETHASONE SOD PHOSPHATE 4 MG/ML 1 ML VIAL IV ONE; HEPARIN SODIUM,PORCINE/PF 5,000 UNIT/0.5 ML SYRINGE SQ PRN; HYDROmorphone 0.5 MG/0.5 ML SYRINGE IVP PRN; LIDOCAINE 1% (10MG/ML) FOR IV START INTRADERMA PRN; MELOXICAM 7.5 MG TAB PO ONE; MIDAZOLAM 2 MG/2 ML VIAL IV PRN; ONDANSETRON 4 MG/2 ML VIAL IVP ONE; TAMSULOSIN 0.4 MG CAP.ER.24H PO PRN
[2021-06-28] MEDS ORDERED: LACTATED RINGERS 1,000 ML IV ONE ×2 (14:15→16:48)
[2021-06-28 14:21] LABS: Glucose,Whole Blood 89 mg/dL (75-99)
[2021-06-28] MEDS ORDERED: NEOSTIGMINE 1 MG/ML 10 ML VIAL ONE (15:25)
[2021-06-28] MEDS ORDERED: fentaNYL (PF) 50 MCG/ML 2 ML AMP ONE (15:25)
[2021-06-28] MEDS ORDERED: ROCURONIUM 10 MG/ML (5 ML VIAL) IV ONE (15:25)
[2021-06-28] MEDS ORDERED: PROPOFOL 10 MG/ML 20 ML VIAL IV ONE (15:25)
[2021-06-28] MEDS ORDERED: GLYCOPYRROLATE 0.2 MG/ML 2 ML VIAL ONE (15:25)
[2021-06-28] MEDS ORDERED: LIDOCAINE 1% INJ 10MG/ML (20 ML MDV) ONE (15:25)
[2021-06-28] MEDS ORDERED: BUPIVACAIN-EPI 0.25%-1:200,000 30 ML VIAL SQ ONE (15:56)
[2021-06-28] MEDS ORDERED: ONDANSETRON 4 MG/2 ML VIAL IVP ONE (17:36)
--- NOTE | 2021-06-28 17:37 | P.OP ---
Date of Procedure: 06/28/21 Description of Procedure: SURGEON: LASHON SCHAEFFER MD PREOPERATIVE DIAGNOSES: 1. Incarcerated epigastric ventral hernia with large bowel obstruction 2. Coronary artery disease with prior cerebrovascular accident 3. Rheumatoid arthritis 4. Gastroesophageal reflux disease 5. Hypertensive heart disease with ischemic cardiomyopathy 6. Hyperlipidemia 7. Osteopenia 8. Irritable bowel syndrome 9. History of recurrent uterine tract infections 10. Dependency walking assisting device POSTOPERATIVE DIAGNOSES: 1. Incarcerated epigastric ventral hernia with large bowel obstruction 2. Coronary artery disease with prior cerebrovascular accident 3. Rheumatoid arthritis 4. Gastroesophageal reflux disease 5. Hypertensive heart disease with ischemic cardiomyopathy 6. Hyperlipidemia 7. Osteopenia 8. Irritable bowel syndrome 9. History of recurrent uterine tract infections 10. Dependency walking assisting device 11. Peritoneal adhesions OPERATION: 1. Robotic-assisted daVinci Xi laparoscopic reduction of incarcerated incisional hernia involving mid transverse colon 2. Robotic-assisted daVinci Xi laparoscopic repair of initial incarcerated ventral hernia with Bard ventralight ST mesh 10 x 15 cm 2. Robotic-assisted daVinci Xi laparoscopic lysis of adhesions over 1 hour ANESTHESIA: General with local ESTIMATED BLOOD LOSS: 5 mL. SPECIMENS: None. COMPLICATIONS: None. Operative Findings: 1. Intra-abdominal adhesions involving omentum to abdominal wall requiring 1 hour lysis of adhesions 2. Reduction of incarcerated mid transverse colon from epigastrium 3. Epigastric ventral hernia defect of the fascia with Congolese cheese defect 3, combined defect 7 cm length by 4 cm width 4. Right inguinal hernia, 2 cm without incarceration INDICATIONS: The patient is a 80-year-old female who presents with intermittent large bowel obstruction due to incarcerated ventral hernia. Surgical intervention with laparoscopic versus robotic and open techniques were reviewed. Placement of mesh was also reviewed. Benefits and risks were described. Informed consent was obtained. DESCRIPTION OF PROCEDURE: The patient was brought into the operating room and laid in supine position. After general induction, the abdomen had been prepped and draped in standard sterile fashion. Patient previously voided. Ioban draping was also placed. Prior to incision, a timeout protocol was confirmed with surgical team regarding the patient's name, DVT prophylaxis, fire risk score, antibiotics, including procedures to be performed. The robot was primed prior to the procedure. A field block using local anesthetis was placed along hernia site including the proposed port sites. Initial incision was made with an #11 blade along the left upper quadrant. A 0 degree 5 mm laparoscopic trocar entry was performed. Diagnostic laparoscopy demonstrated moderate peritoneal adhesions along the midline. Three 8 mm trocars were placed along the right lateral abdominal wall. Placements of the ports were 15 cm from the target anatomy and 9 cm apart. An additional 12 mm trocar was placed along the left lateral abdominal wall for placement of mesh and needles. The da Urmila XI robot was previously primed, prepped and draped then docked along the left side of the patient. I then sat at the robot Da Urmila XI console where working arms of the robot including Bovie cautery connected to robotic scissors, vessel sealer and graspers placed by the operator/assistant foreman. Adhesions along the midline were initially addressed with scissors and vessel sealer. Extensive lysis of adhesions occurred over 1 hour without enterotomies using vessel sealer. The hernia bordering fascia was cleaned of peritoneal fat. With special attention to the mid-transverse colon, the colon was gently reduced into the abdominal cavity. The hernia sac was dissected free from the fascial border. Next, hemostasis was checked with cautery. The hernia defect was was measured 7 cm length by 4 cm width of the upper abdomen and oversewn using #1 VLOC nonabsorbable suture with fascial imbrication 3. A 10 x [address] mesh was prepared along the back table. The mesh was entered into the abdominal cavity via the 12 mm laparoscopic trocar. Using nonabsorbable 2-0 V lock sutures, the mesh was tacked to the abdominal wall with the rough side along the peritoneum. A final endoscopic imaging was obtained. All instruments and pneumoperitoneum were evacuated from the abdominal cavity. The da Urmila XI robot was undocked from the patient. I re-scrubbed into the case for closure of incisions. The incisions were reapproximated using 4-0 Monocryl in an interrupted subcuticular fashion. Liquid glue was applied to the skin. At the end of the procedure, needle, sponge, and instrument count had been verified correct by surgical nurse. The patient was taken to the postanesthesia care unit in stable condition with abdominal binder. Plan - Discharge Summary Discharge Rx Participant: No New Discharge Prescriptions: New Ibuprofen [Motrin] 600 mg PO Q8HR PRN #30 tab PRN Reason: Pain Acetaminophen Tab [Tylenol Tab] 1,000 mg PO Q6HR PRN #30 tablet PRN Reason: Pain Simethicone [Gas-X] 125 mg PO AC-TID PRN #20 capsule PRN Reason: Pain Continue Dicyclomine [Bentyl] 10 mg PO TID Atorvastatin Calcium [Lipitor] 20 mg PO DAILY lisinopriL 40 mg PO DAILY Omeprazole [PriLOSEC] 20 mg PO AC-BRKFST Aller-Itin 1 tab PO DAILY Tamsulosin HCl [Flomax] 0.4 mg PO DAILY traMADol HCl [Ultram] 50 mg PO Q6H PRN PRN Reason: Pain Cholecalciferol [Vitamin D3 (25 Mcg = 1000 Iu)] 25 mcg PO DAILY tablet Calcium Carbonate [Calcium] 600 mg PO DAILY Citrucel Tab 3 tab PO DAILY Discontinued Acetaminophen [Tylenol Extra Strength] 500 mg PO DIRECTED PRN PRN Reason: Pain Discharge Medication List Dicyclomine [Bentyl] 10 mg PO TID 09/26/18 [History] Atorvastatin Calcium [Lipitor] 20 mg PO DAILY 03/03/21 [History] Tamsulosin HCl [Flomax] 0.4 mg PO DAILY 04/05/21 [History] lisinopriL 40 mg PO DAILY 04/05/21 [History] traMADol HCl [Ultram] 50 mg PO Q6H PRN 04/05/21 [History] Cholecalciferol [Vitamin D3 (25 Mcg = 1000 Iu)] 25 mcg PO DAILY tablet 04/06/21 [Rx] Aller-Itin 1 tab PO DAILY 06/26/21 [History] Calcium Carbonate [Calcium] 600 mg PO DAILY 06/26/21 [History] Citrucel Tab 3 tab PO DAILY 06/26/21 [History] Omeprazole [PriLOSEC] 20 mg PO AC-BRKFST 06/26/21 [History] Acetaminophen Tab [Tylenol Tab] 1,000 mg PO Q6HR PRN #30 tablet 06/28/21 [Rx] Ibuprofen [Motrin] 600 mg PO Q8HR PRN #30 tab 06/28/21 [Rx] Simethicone [Gas-X] 125 mg PO AC-TID PRN #20 capsule 06/28/21 [Rx] Follow up Appointment(s)/Referral(s): Lashon Schaeffer MD [STAFF PHYSICIAN] - 07/03/21 (Telehealth) Patient Instructions/Handouts: Ventral Hernia Repair (GEN), Abdominal Binder (ED), *Surgery [facility] - Managing Your Pain After Surgery Without Opioids, Laparoscopic Herniorrhaphy (DC) Activity/Diet/Wound Care/Special Instructions: Using antibacterial soap. No lifting over 4 pounds 4 weeks, July 26September shower. No bathtub soaks for 2 weeks, July 12 Wear abdominal binder daily for comfort except for showering. Use ice along incisions for today to prevent swelling. Take tylenol, aleve/ibuprofen, simethicone scheduled for 3 days for best pain relief Discharge Disposition: HOME SELF-CARE
[2021-06-28] MEDS ORDERED: HYDROmorphone 0.5 MG/0.5 ML SYRINGE IVP ONE (17:38)
[2021-06-28] MEDS ORDERED: KETOROLAC 15 MG/ML 1 ML VIAL IVP ONE (17:40)
[2021-06-28] MEDS ORDERED: HYDROmorphone 0.5 MG/0.5 ML SYRINGE IM ONE (17:52)
[2021-06-28] MEDS ORDERED: SIMETHICONE 40 MG/0.6 ML DROPS 2,000 MG/30 ML BOTTLE PO ONE (18:08)
[2021-06-28] MEDS ORDERED: MEPERIDINE 50 MG/ML SYRINGE IVP ONE ×2 (18:25→19:03)
[2021-06-28] MEDS ORDERED: traMADol 50 MG TAB PO PRN (19:08)
[2021-06-28] MEDS ORDERED: ONDANSETRON 4 MG/2 ML VIAL IVP PRN (19:09)
[2021-06-28] MEDS ORDERED: NALOXONE 0.4 MG/ML 1 ML VIAL IV PRN (19:09)
--- NOTE | 2021-06-28 19:12 | P.PN ---
Progress Note - Text Progress Note Date: 06/28/21 Notified by recovery that pain management an issue. Patient did not want pre-op pain management with abdominal wall block. Outpatient overnight orders placed.
[2021-06-28] MEDS ORDERED: hydrALAZINE HCL 20 MG/ML 1 ML VIAL IVP ONE (19:15)
[2021-06-28] MEDS: GABAPENTIN 300 MG CAP PO SCH (20:36)
[2021-06-28] MEDS: HYDROmorphone 1 MG/ML 1 ML SYRINGE IVP PRN (20:36)
[2021-06-28] MEDS: KETOROLAC 30 MG/ML 1 ML VIAL IVP SCH (23:58)
[2021-06-29] MEDS: LACTATED RINGERS 1,000 ML IV SCH ×2 (00:23→07:51)
[2021-06-29] MEDS: SODIUM CHLORIDE 0.9% 1,000 ML IV SCH ×2 (00:24→10:35)
[2021-06-29] MEDS: HYDROmorphone 1 MG/ML 1 ML SYRINGE IVP PRN (01:39)
[2021-06-29] MEDS: KETOROLAC 30 MG/ML 1 ML VIAL IVP SCH ×2 (05:49→12:00)
[2021-06-29] MEDS: GABAPENTIN 300 MG CAP PO SCH (07:27)
[2021-06-29] MEDS ORDERED: PANTOPRAZOLE 40 MG TABLET PO SCH (07:30)
[2021-06-29] MEDS ORDERED: TAMSULOSIN 0.4 MG CAP.ER.24H PO SCH (09:00)
[2021-06-29] MEDS ORDERED: lisinopriL 20 MG TAB PO SCH (09:00)
--- NOTE | 2021-06-29 09:00 | P.DS ---
Providers Date of admission: 06/29/2021 Expected date of discharge: 06/29/21 Attending physician: Lashon Schaeffer Consults: 06/28/21 12:44 Consult Physician Routine Consulting Provider: [facility] Consult Reason/Comments: Regional block Do you want consulting provider notified?: Yes 06/28/21 19:12 Consult Physician Routine Consulting Provider: Corrine Enamorado Consult Reason/Comments: Medical management Do you want consulting provider notified?: Yes Primary care physician: Juan Carlos Castillo MD - Discharge Diagnosis(es) (1) Large bowel obstruction Current Visit: Yes Status: Acute (2) Hernia, ventral, with obstruction Current Visit: Yes Status: Acute Hospital Course: POSTOPERATIVE DIAGNOSES: 1. Incarcerated epigastric ventral hernia with large bowel obstruction 2. Coronary artery disease with prior cerebrovascular accident 3. Rheumatoid arthritis 4. Gastroesophageal reflux disease 5. Hypertensive heart disease with ischemic cardiomyopathy 6. Hyperlipidemia 7. Osteopenia 8. Irritable bowel syndrome 9. History of recurrent uterine tract infections 10. Dependency walking assisting device 11. Peritoneal adhesions COURSE: The patient is a 80-year-old female status post reduction of incarcerated ventral hernia with bowel obstruction. She had robotic repair. Patient was able to have a abdominal wall block due to inability to lay down on abdomen. She reports pain has improved today. ROS: No reports of nausea and vomiting. No bowel movements. No fevers or chills. No new chest pain. No productive sputum PHYSICAL EXAM: VITAL SIGNS: Reviewed CONSTITUTIONAL: Well developed and in no acute distress. EYES: Conjuctivae without sclera icterus. Extraocular movements grossly intact. HEAD, EARS, NOSE, THROAT: Moist buccal mucosa. Head is atraumatic, normocephalic . Hears conversational speech. No nasal drainage. RESPIRATORY: Non-labored respirations and equal bilateral excursions. CARDIOVASCULAR: Palpable 2+ radial pulses. ABDOMEN: Abdominal binder intact. MUSCULOSKELETAL: No gross deformity of the lower extremities noted. No clubbing. No cyanosis. SKIN: Good skin turgor. Well perfused. NEUROLOGIC: Cranial nerves II through XII grossly intact. No focal or lateralizing signs. PSYCH: Appropriate affect. Alert and oriented to person, place and time. ASSESSMENT: 1. Incarcerated ventral hernia with large bowel obstruction PLAN: 1. Pain has improved. May discharge home. 2. Abdominal binder described. 3. Postoperative pain management reviewed. Procedures: OPERATION: 1. Robotic-assisted daVinci Xi laparoscopic reduction of incarcerated incisional hernia involving mid transverse colon 2. Robotic-assisted daVinci Xi laparoscopic repair of initial incarcerated ventral hernia with Bard ventralight ST mesh 10 x 15 cm 2. Robotic-assisted daVinci Xi laparoscopic lysis of adhesions over 1 hour ANESTHESIA: General with local ESTIMATED BLOOD LOSS: 5 mL. SPECIMENS: None. COMPLICATIONS: None. Operative Findings: 1. Intra-abdominal adhesions involving omentum to abdominal wall requiring 1 hour lysis of adhesions 2. Reduction of incarcerated mid transverse colon from epigastrium 3. Epigastric ventral hernia defect of the fascia with Ethiopian cheese defect 3, combined defect 7 cm length by 4 cm width 4. Right inguinal hernia, 2 cm without incarceration INDICATIONS: The patient is a 80-year-old female who presents with intermittent large bowel obstruction due to incarcerated ventral hernia. Surgical intervention with laparoscopic versus robotic and open techniques were reviewed. Placement of mesh was also reviewed. Benefits and risks were described. Informed consent was obtained. Patient Condition at Discharge: Stable Plan - Discharge Summary Discharge Rx Participant: Yes New Discharge Prescriptions: New Ibuprofen [Motrin] 600 mg PO Q8HR PRN #30 tab PRN Reason: Pain Acetaminophen Tab [Tylenol Tab] 1,000 mg PO Q6HR PRN #30 tablet PRN Reason: Pain Simethicone [Gas-X] 125 mg PO AC-TID PRN #20 capsule PRN Reason: Pain Continue Dicyclomine [Bentyl] 10 mg PO TID Atorvastatin Calcium [Lipitor] 20 mg PO DAILY lisinopriL 40 mg PO DAILY Omeprazole [PriLOSEC] 20 mg PO AC-BRKFST Aller-Itin 1 tab PO DAILY Tamsulosin HCl [Flomax] 0.4 mg PO DAILY traMADol HCl [Ultram] 50 mg PO Q6H PRN PRN Reason: Pain Cholecalciferol [Vitamin D3 (25 Mcg = 1000 Iu)] 25 mcg PO DAILY tablet Calcium Carbonate [Calcium] 600 mg PO DAILY Citrucel Tab 3 tab PO DAILY Discontinued Acetaminophen [Tylenol Extra Strength] 500 mg PO DIRECTED PRN PRN Reason: Pain Discharge Medication List Dicyclomine [Bentyl] 10 mg PO TID 09/26/18 [History] Atorvastatin Calcium [Lipitor] 20 mg PO DAILY 03/03/21 [History] Tamsulosin HCl [Flomax] 0.4 mg PO DAILY 04/05/21 [History] lisinopriL 40 mg PO DAILY 04/05/21 [History] traMADol HCl [Ultram] 50 mg PO Q6H PRN 04/05/21 [History] Cholecalciferol [Vitamin D3 (25 Mcg = 1000 Iu)] 25 mcg PO DAILY tablet 04/06/21 [Rx] Aller-Itin 1 tab PO DAILY 06/26/21 [History] Calcium Carbonate [Calcium] 600 mg PO DAILY 06/26/21 [History] Citrucel Tab 3 tab PO DAILY 06/26/21 [History] Omeprazole [PriLOSEC] 20 mg PO AC-BRKFST 06/26/21 [History] Acetaminophen Tab [Tylenol Tab] 1,000 mg PO Q6HR PRN #30 tablet 06/28/21 [Rx] Ibuprofen [Motrin] 600 mg PO Q8HR PRN #30 tab 06/28/21 [Rx] Simethicone [Gas-X] 125 mg PO AC-TID PRN #20 capsule 06/28/21 [Rx] Follow up Appointment(s)/Referral(s): Lashon Schaeffer MD [STAFF PHYSICIAN] - 07/03/21 (Telehealth) Patient Instructions/Handouts: *[facility] - Anesthesia Discharge Instructions, *[facility] - Managing Your Pain After Surgery Without Opioids, Laparoscopic Herniorrhaphy (DC), Abdominal Binder (ED), Ventral Hernia Repair (GEN) Activity/Diet/Wound Care/Special Instructions: Using antibacterial soap. No lifting over 4 pounds 4 weeks, July 26September shower. No bathtub soaks for 2 weeks, July 12 Wear abdominal binder daily for comfort except for showering. Use ice along incisions for today to prevent swelling. Take tylenol, aleve/ibuprofen, simethicone scheduled for 3 days for best pain relief Discharge Disposition: HOME SELF-CARE
--- NOTE | 2021-06-29 09:05 | P.CONS ---
<Papo Borjas - Last Filed: 06/29/21 14:38> History of Present Illness - Reason for Consult Consult date: 06/29/21 medical management Requesting physician: Lashon Schaeffer - History of Present Illness History of Presenting Illness: Patient is a very pleasant 80-year-old female with a past medical history of hypertension, hyperlipidemia, and GERD. She is currently day 1 postop status post da Urmila laparoscopic reduction of incarcerated hernia involving transverse colon requiring lysis of adhesions. Surgical procedure was completed by Dr. Schaeffer on the evening of 06/28/21. We have been consulted for medical eval uation and management of patient throughout her hospitalization. Patient seen and fully evaluated at bedside. She is currently sitting up in the chair with postoperative dressing and abdominal binding in place. Patient reports currently postoperative pain is being managed with current pain medication regimen. She reports tolerating oral intake and denies having a mean postoperative nausea or vomiting. Patient reports urinating without difficulties and denies experiencing any lightheadedness, dizziness, chest pain, palpitations, shortness of breath, or cough. Patient educated on importance of use of incentive spirometer and abdominal splinting with movement or coughing. Review of systems: Pertinent positives and negatives as discussed in HPI, a complete review of systems was performed and all other systems are negative. Physical exam: Vital signs reviewed and stable. General: Nontoxic, no distress and appears stated age. Derm: Skin warm and dry, normal coloration for ethnicity. Head: Atraumatic, normocephalic and symmetric. Eyes: EOMs intact, no lid lag, and anicteric sclera Mouth: no lip lesions, mucus membranes moist Cardiovascular: regular rate and rhythm with normal S1S2, no murmur, positive posterior tibial pulses bilaterally, and cap refill < 2 seconds. Lungs: Respirations even, regular, and unlabored on room air. Lungs CTA bilaterally, no rhonchi, no rales, no wheezing, and no accessory muscle usage. Abdominal: soft, nontender to palpation, no guarding, postsurgical dressing and abdominal binder intact. No signs of bleeding or drainage. Ext: ROM intact. No gross muscle atrophy, no edema, no contractures Neuro: Speech clear, face symmetrical and CN II-XII grossly intact with no noted focal neuro deficits Psych: Alert and oriented to person, place, time, and situation. Appropriate and pleasant affect. Assessment and Plan of Care: Status post laparoscopic hernia reduction and lysis of adhesions -Management per primary admitting general surgery team including DVT prophylaxis, pain management, and postsurgical dressing and wound care. Hypertension -Monitor vital signs and continue daily medication regimen with lisinopril Hyperlipidemia -Continue daily medication regimen with atorvastatin GERD -Continue daily medication regimen with omeprazole. Thank you for allowing us to participate in the care of this pleasant patient. Do not hesitate to contact us with questions. Someone can be reached from the [facility] hospitalist group all hours of the day at [phone] or via [employer]. Past Medical History Past Medical History: CVA/TIA, GERD/Reflux, Hyperlipidemia, Hypertension, Osteoarthritis (OA), Rheumatoid Arthritis (RA) Additional Past Medical History / Comment(s): R sided sciatica, scoliosis, osteopenia, TIA - left sided weakness and unsteady gait("I fall to the left"), UTI's, IBS, "very dry skin", History of Any Multi-Drug Resistant Organisms: None Reported Past Surgical History: Adenoidectomy, Back Surgery, Section, Hysterectomy, Orthopedic Surgery, Tonsillectomy Additional Past Surgical History / Comment(s): Lumbar fusion X 2, x2, colonoscopy, hemorrhoidectomy, bilateral carpal tunnel releases, bilateral cataract removals/lens implants. Past Anesthesia/Blood Transfusion Reactions: No Reported Reaction Past Psychological History: No Psychological Hx Reported Additional Psychological History / Comment(s): She uses a walker and a wheelchair. Smoking Status: Never smoker Past Alcohol Use History: Rare Past Drug Use History: None Reported - Past Family History Father Family Medical History: Dementia Additional Family Medical History / Comment(s): Father of cardiac rupture per pt. Mother Family Medical History: Cancer Additional Family Medical History / Comment(s): breast cancer. Medications and Allergies Home Medications Medication Instructions Recorded Confirmed Type Dicyclomine [Bentyl] 10 mg PO TID 09/26/18 06/26/21 History Atorvastatin Calcium [Lipitor] 20 mg PO DAILY 03/03/21 06/26/21 History Tamsulosin HCl [Flomax] 0.4 mg PO DAILY 04/05/21 06/26/21 History lisinopriL 40 mg PO DAILY 04/05/21 06/26/21 History traMADol HCl [Ultram] 50 mg PO Q6H PRN 04/05/21 06/26/21 History Cholecalciferol [Vitamin D3 (25 25 mcg PO DAILY tablet 04/06/21 06/26/21 Rx Mcg = 1000 Iu)] Aller-Itin 1 tab PO DAILY 06/26/21 06/26/21 History Calcium Carbonate [Calcium] 600 mg PO DAILY 06/26/21 06/26/21 History Citrucel Tab 3 tab PO DAILY 06/26/21 06/26/21 History Omeprazole [PriLOSEC] 20 mg PO AC-BRKFST 06/26/21 06/26/21 History Acetaminophen Tab [Tylenol Tab] 1,000 mg PO Q6HR PRN #30 tablet 06/28/21 Rx Ibuprofen [Motrin] 600 mg PO Q8HR PRN #30 tab 06/28/21 Rx Simethicone [Gas-X] 125 mg PO AC-TID PRN #20 capsule 06/28/21 Rx Allergies Allergy/AdvReac Type Severity Reaction Status Date / Time adhesive tape Allergy Mild Rash/Hives Verified 06/26/21 09:09 morphine AdvReac MIGRAINE Verified 06/26/21 09:09 Physical Exam Vitals: Vital Signs Temp Pulse Pulse Resp BP BP Pulse Ox 06/29/21 08:41 96 06/29/21 01:43 98.6 F 102 H 16 167/64 99 06/28/21 21:53 95 119/72 95 06/28/21 21:39 93 122/74 99 06/28/21 21:23 93 138/69 99 06/28/21 21:08 88 14 143/71 97 06/28/21 19:22 87 18 131/60 96 06/28/21 18:50 78 16 166/70 97 06/28/21 18:35 72 16 159/66 97 06/28/21 18:20 78 16 159/68 97 06/28/21 18:05 70 16 167/68 98 06/28/21 17:50 74 16 163/76 94 L 06/28/21 17:35 86 16 147/73 67 L 06/28/21 17:20 97 F L 62 16 125/57 100 06/28/21 14:11 98.7 F 73 18 188/83 98 Intake and Output 06/28/21 06/29/21 06/29/21 22:59 06:59 14:59 Intake Total 950 750 Output Total 5 Balance 945 750 Intake: IV 950 Intake, IV Titration 750 Amount Sodium Chloride 0.9% 1, 750 000 ml @ 75 mls/hr IV . [id number] GENEVIEVE Rx#:[id number] Output: Estimated Blood Loss 5 Other: # Voids 1 Weight 61 kg <Corrine Enamorado - Last Filed: 06/29/21 18:48> History of Present Illness - History of Present Illness Papo Borjas NP rendered care for this patient independently, reviewed the findings and plan as documented in the note above. I did not physically speak with or examine the patient on this date. Physical Exam Osteopathic Statement: *. No significant issues noted on an osteopathic structural exam other than those noted in the History and Physical/Consult. Vitals: Vital Signs Temp Pulse Pulse Resp BP Pulse Ox 06/29/21 09:13 99.5 F 78 17 105/62 95 06/29/21 08:41 96 06/29/21 01:43 98.6 F 102 H 16 167/64 99 06/28/21 21:53 95 119/72 95 06/28/21 21:39 93 122/74 99 06/28/21 21:23 93 138/69 99 06/28/21 21:08 88 14 143/71 97 06/28/21 19:22 87 18 131/60 96 06/28/21 18:50 78 16 166/70 97 Intake and Output 06/29/21 06/29/21 06/29/21 06:59 14:59 22:59 Intake Total 750 Balance 750 Intake: Intake, IV Titration 750 Amount Sodium Chloride 0.9% 1, 750 000 ml @ 75 mls/hr IV . [id number] GENEVIEVE Rx#:[id number] Other: # Voids 1
[2021-06-29 09:40] VITALS: BP 105/62; PULSE 78; RESP 17; TEMP 99.5
== END 2021-06-29 14:20 | disposition home or self-care (01) ==
LOC: OR 13:44 → 4SSUR 17:22 → OR 06-29 14:20
PROVIDERS: ATTEND Surgery Plastic and Reconstructive Surgery
DX: K43.6 Other and unspecified ventral hernia with obstruction, without gangrene (principal); K43.0 Incisional hernia with obstruction, without gangrene; K21.9 Gastro-esophageal reflux disease without esophagitis; K66.0 Peritoneal adhesions (postprocedural) (postinfection); I10 Essential (primary) hypertension; Z82.49 Family history of ischemic heart disease and other diseases of the circulatory system; R19.4 Change in bowel habit; I25.10 Atherosclerotic heart disease of native coronary artery without angina pectoris; I11.9 Hypertensive heart disease without heart failure; I25.5 Ischemic cardiomyopathy; E78.5 Hyperlipidemia, unspecified; M85.80 Other specified disorders of bone density and structure, unspecified site; K58.9 Irritable bowel syndrome, unspecified; Z87.440 Personal history of urinary (tract) infections; Z86.73 Personal history of transient ischemic attack (TIA), and cerebral infarction without residual deficits; Z90.710 Acquired absence of both cervix and uterus; Z98.42 Cataract extraction status, left eye; Z98.41 Cataract extraction status, right eye; Z98.890 Other specified postprocedural states; Z88.5 Allergy status to narcotic agent; Z91.09 Other allergy status, other than to drugs and biological substances
CPT/HCPCS: 94760; 49653; 49655; C1781; J0360; J1100; J2175; J0690; J2405; J1885 ×3; J1170 ×3

== ENCOUNTER 2021-07-08 11:19 | Emergency (ER) | payer MEDICARE ==
[2021-07-08] MEDS ORDERED: amLODIPine 5 MG TAB PO STA (12:16)
--- NOTE | 2021-07-08 12:19 | ED ---
General Adult HPI - General Chief complaint: Recheck/Abnormal Lab/Rx Stated complaint: High BP Time Seen by Provider: 07/08/21 11:39 Source: patient Mode of arrival: wheelchair Limitations: no limitations - History of Present Illness Initial comments: Dictation was produced using [employer] dictation software. please excuse any grammatical, word or spelling errors. Chief Complaint: 80-year-old fell presents to the emergency part for elevated blood pressure History of Present Illness: 30-year-old female she has past medical history of hypertension. She's had high blood pressures since having umbilical hernia surgery 10 days ago. She hasn't really checked her blood pressure prior to that. Patient takes lisinopril and amlodipine. Her lisinopril is 40 mg daily. She is supposed be taking amlodipine 5 mg daily however she has not had a refill for the medication in one month. She denies any symptoms. No headache chest pain, shortness of breath or strokelike symptoms. She feels fine. She states that she's measured her blood pressure many times within the last several days with systolics measuring between 180 and 200. The ROS documented in this emergency department record has been reviewed and confirmed by me. Those systems with pertinent positive or negative responses have been documented in the HPI. All other systems are other negative and/or noncontributory. PHYSICAL EXAM: General Impression: Alert and oriented x3, not in acute distress HEENT: Normocephalic atraumatic, extra-ocular movements intact, pupils equal and reactive to light bilaterally, mucous membranes moist. Cardiovascular: Heart regular rate and rhythm Chest: Able to complete full sentences, no retractions, no tachypnea Abdomen: abdomen soft, non-tender, non-distended, no organomegaly Musculoskeletal: Pulses present and equal in all extremities, no peripheral edema Motor: no focal deficits noted Neurological: CN II-XII grossly intact, no focal motor or sensory deficits noted Skin: Intact with no visualized rashes Psych: Normal affect and mood ED course: 40-year-old well-appearing female with establish history of hypertension presents to emergency department for elevated blood pressure. Vital signs upon arrival shows blood pressure 187/89, worse vital signs within acceptable limits. Clinical presentation consistent with asymptomatic hypertension. This is likely secondary to patient not having access to her amlodipine medication that she supposed be taking prescribed by her primary care doctor. EKG interpretation: Ventricular rate 76, sinus rhythm, PA interval 136, QRS 79, QTc 438. No PA prolongation, no QTC prolongation, no ST or T-wave changes noted. EKG compared to 04/05/2021 showing no changes. Overall, this EKG is unremarkable Laboratory evaluation obtained. Labs are unremarkable. Patient observed in emergency department for approximately 2 hours and 30 minutes. She is evaluated at 1:50 PM final be in stable medical condition. Patient feels well and does not have any complaints at the bedside. Patient be discharged advised follow-up with primary care doctor for outpatient management of elevated blood pressure. - Related Data Home Medications Medication Instructions Recorded Confirmed Dicyclomine [Bentyl] 10 mg PO TID 09/26/18 07/08/21 Atorvastatin Calcium [Lipitor] 20 mg PO HS 03/03/21 07/08/21 Tamsulosin HCl [Flomax] 0.4 mg PO DAILY 04/05/21 07/08/21 lisinopriL 40 mg PO DAILY 04/05/21 07/08/21 traMADol HCl [Ultram] 50 mg PO DAILY 04/05/21 07/08/21 Citrucel Tab 1 tab PO BID 06/26/21 07/08/21 Omeprazole [PriLOSEC] 20 mg PO AC-BRKFST 06/26/21 07/08/21 Aspirin EC [Ecotrin Low Dose] 81 mg PO DAILY 07/08/21 07/08/21 Citrucel Tab 2 tab PO DAILY@1200 07/08/21 07/08/21 Fexofenadine HCl [Shelley Allergy] 180 mg PO DAILY 07/08/21 07/08/21 amLODIPine [Norvasc] 5 mg PO DAILY 07/08/21 07/08/21 Previous Rx's Medication Instructions Recorded Cholecalciferol [Vitamin D3 (25 25 mcg PO DAILY tablet 04/06/21 Mcg = 1000 Iu)] Acetaminophen Tab [Tylenol Tab] 1,000 mg PO Q6HR PRN #30 tablet 06/28/21 Ibuprofen [Motrin] 600 mg PO Q8HR PRN #30 tab 06/28/21 Simethicone [Gas-X] 125 mg PO AC-TID PRN #20 capsule 06/28/21 amLODIPine [Norvasc] 5 mg PO DAILY 14 Days #14 tab 07/08/21 Allergies Allergy/AdvReac Type Severity Reaction Status Date / Time adhesive tape Allergy Mild Rash/Hives Verified 07/08/21 13:43 morphine AdvReac MIGRAINE Verified 07/08/21 13:43 Review of Systems ROS Statement: Those systems with pertinent positive or pertinent negative responses have been documented in the HPI. ROS Other: All systems not noted in ROS Statement are negative. Past Medical History Past Medical History: CVA/TIA, Hyperlipidemia, Hypertension, Osteoarthritis (OA), Rheumatoid Arthritis (RA) Additional Past Medical History / Comment(s): Recently diagnosed with normal pressure hydrocephalus with spinal tap to remove spinal fluid, lately been decreasing hypertensive meds d/t lower b/ps, generalized arthritis, chronic low back pain-to have back surgery next week, R sided sciatica, double scoliosis, osteopenia, unsteady gait, UTIs, past L medial ankle ulcer. History of Any Multi-Drug Resistant Organisms: None Reported Past Surgical History: Adenoidectomy, Back Surgery, Section, Hysterectomy, Tonsillectomy Additional Past Surgical History / Comment(s): Lumbar fusion X 2, x2, colonoscopy, hemorrhoidectomy, bilateral carpal tunnel releases, bilateral cataract removals/lens implants. Past Anesthesia/Blood Transfusion Reactions: No Reported Reaction, Motion Sickness Past Psychological History: No Psychological Hx Reported Smoking Status: Never smoker Past Alcohol Use History: Rare Past Drug Use History: None Reported - Past Family History Father Family Medical History: Dementia Mother Family Medical History: Cancer General Exam Limitations: no limitations Course Vital Signs 07/08/21 07/08/21 07/08/21 11:31 11:44 13:02 Temperature 98 F 98 F Pulse Rate 75 71 78 Respiratory 16 12 20 Rate Blood Pressure 106/75 187/89 177/85 O2 Sat by Pulse 97 97 96 Oximetry Medical Decision Making - Lab Data Result diagrams: 07/08/21 12:12 07/08/21 12:12 Lab Results 07/08/21 07/08/21 Range/Units 12:12 12:12 WBC 7.1 (3.8-10.6) k/uL RBC 4.60 (3.80-5.40) m/uL Hgb 12.8 (11.4-16.0) gm/dL Hct 40.5 (34.0-46.0) % MCV 88.1 (80.0-100.0) fL MCH 27.9 (25.0-35.0) pg MCHC 31.7 (31.0-37.0) g/dL RDW 14.0 (11.5-15.5) % Plt Count 187 (150-450) k/uL MPV 11.3 Neutrophils % 59 % Lymphocytes % 27 % Monocytes % 5 % Eosinophils % 6 % Basophils % 0 % Neutrophils # 4.2 (1.3-7.7) k/uL Lymphocytes # 1.9 (1.0-4.8) k/uL Monocytes # 0.4 (0-1.0) k/uL Eosinophils # 0.4 (0-0.7) k/uL Basophils # 0.0 (0-0.2) k/uL Hypochromasia Slight Sodium 141 (137-145) mmol/L Potassium 4.2 (3.5-5.1) mmol/L Chloride 114 H (98-107) mmol/L Carbon Dioxide 21 L (22-30) mmol/L Anion Gap 6 mmol/L BUN 19 H (7-17) mg/dL Creatinine 0.76 (0.52-1.04) mg/dL Est GFR (CKD-EPI)AfAm 87 (>60 ml/min/1.73 sqM) Est GFR (CKD-EPI)NonAf 75 (>60 ml/min/1.73 sqM) Glucose 112 H (74-99) mg/dL Calcium 9.1 (8.4-10.2) mg/dL Disposition Clinical Impression: Hypertension Disposition: HOME SELF-CARE Condition: Good Instructions (If sedation given, give patient instructions): Hypertension (ED) Prescriptions: amLODIPine [Norvasc] 5 mg PO DAILY 14 Days #14 tab Is patient prescribed a controlled substance at d/c from ED?: No Referrals: Juan Carlos Castillo MD [Primary Care Provider] - 1-2 days
[2021-07-08 12:33] LABS: Basophils % (A) 0 %; Eosinophils # (A) 0.4 k/uL (0-0.7); Eosinophils % (A) 6 %; HCT 40.5 % (34.0-46.0); HGB 12.8 gm/dL (11.4-16.0); Hypochromasia Slight; Lymphocytes # (A) 1.9 k/uL (1.0-4.8); Lymphocytes % (A) 27 %; MCH 27.9 pg (25.0-35.0); MCHC 31.7 g/dL (31.0-37.0); MCV 88.1 fL (80.0-100.0); Mean Platelet Volume 11.3; Monocytes # (A) 0.4 k/uL (0-1.0); Monocytes % (A) 5 %; Neutrophils # (A) 4.2 k/uL (1.3-7.7); Neutrophils % (A) 59 %; Platelet Count 187 k/uL (150-450); WBC 7.1 k/uL (3.8-10.6)
[2021-07-08 12:48] LABS: Calcium 9.1 mg/dL (8.4-10.2)
[2021-07-08 12:50] LABS: Potassium 4.2 mmol/L (3.5-5.1)
[2021-07-08 14:05] VITALS: BP 179/83; PULSE 73; RESP 18; TEMP 98.4
== END 2021-07-08 14:55 | disposition home or self-care (01) ==
LOC: EC 11:19
DX: I10 Essential (primary) hypertension (principal); E78.5 Hyperlipidemia, unspecified; M06.9 Rheumatoid arthritis, unspecified; Z79.82 Long term (current) use of aspirin; Z79.899 Other long term (current) drug therapy
CPT/HCPCS: 36415; 80048; 85025; 93005; 99283

== ENCOUNTER 2021-07-13 11:10 | Inpatient (IN) | payer MEDICARE ==
[2021-07-13] MEDS ORDERED: SODIUM CHLORIDE 0.9% 500 ML 500 ML IV STA (11:26)
--- NOTE | 2021-07-13 11:52 | CT ---
EXAMINATION TYPE: CT brain wo con for TPA DATE OF EXAM: 07/13/2021 COMPARISON: 04/04/2021 HISTORY: Dysphasia, right sided deficit to arm and leg. CT DLP: 1101.[address] of the brain was performed. Moderate enlargement of the ventricular system. Correlate for normal pressure hydrocephalus. There is no evidence for intracranial hemorrhage or sulcal effacement. There is decreased attenuation about the periventricular white matter and deep white matter of both c erebral hemispheres, compatible with chronic small vessel ischemia. Differential diagnosis does inclu de demyelination. No mass effects are seen.No midline shift. Osseous calvarium is intact. If symptoms persist consider MRI. IMPRESSION: 1. Age related atrophic and chronic small vessel ischemic change without acute intracranial process s een at this time. Correlate for normal pressure hydrocephalus.
[2021-07-13 11:57] LABS: Glucose,Whole Blood 102 mg/dL (75-99)
[2021-07-13 11:59] LABS: Albumin 4.5 g/dL (3.5-5.0); Basophils # (A) 0.1 k/uL (0-0.2); Basophils % (A) 1 %; Calcium 9.8 mg/dL (8.4-10.2); Eosinophils # (A) 0.4 k/uL (0-0.7); Eosinophils % (A) 5 %; HCT 43.5 % (34.0-46.0); HGB 13.8 gm/dL (11.4-16.0); Hypochromasia Slight; Lymphocytes # (A) 1.8 k/uL (1.0-4.8); Lymphocytes % (A) 24 %; MCH 27.5 pg (25.0-35.0); MCHC 31.6 g/dL (31.0-37.0); MCV 87.2 fL (80.0-100.0); Mean Platelet Volume 11.5; Monocytes # (A) 0.4 k/uL (0-1.0); Monocytes % (A) 6 %; Neutrophils # (A) 4.7 k/uL (1.3-7.7); Neutrophils % (A) 63 %; Platelet Count 200 k/uL (150-450); Potassium 4.1 mmol/L (3.5-5.1); RDW 13.7 % (11.5-15.5); Total Bilirubin 0.7 mg/dL (0.2-1.3); Total Protein 7.9 g/dL (6.3-8.2); WBC 7.5 k/uL (3.8-10.6)
[2021-07-13 12:05] LABS: INR 0.9 (<1.2); Partial Thromboplastin Time 24.2 sec (22.0-30.0); Prothrombin Time 10.1 sec (9.0-12.0)
--- NOTE | 2021-07-13 12:18 | XR ---
EXAMINATION TYPE: XR chest 2V DATE OF EXAM: 07/13/2021 COMPARISON: Chest x-ray 06/12/2019 HISTORY: Altered mental status, abnormal chest x-ray TECHNIQUE: Frontal and lateral views of the chest are obtained. FINDINGS: Lung volumes are low and the patient is rotated. Subsegmental basilar atelectatic changes a re present. There is no focal air space opacity, pleural effusion, or pneumothorax seen. The cardiac silhouette size is within normal limits. The osseous structures are stable, there is a scoliotic c urvature, postop changes are noted to the lumbar spine, left and right shoulder are high riding sugge sting chronic rotator cuff tears. There are overlying leads. IMPRESSION: Expiratory rotated exam. Subsegmental atelectasis. Additional findings above.
--- NOTE | 2021-07-13 12:24 | ED ---
General Adult HPI - General Chief complaint: Neuro Symptoms/Deficit Stated complaint: CVA symptoms Time Seen by Provider: 07/13/21 11:25 Source: patient, EMS, RN notes reviewed, old records reviewed Mode of arrival: EMS Limitations: no limitations - History of Present Illness Initial comments: This is a 80-year-old female presents emergency Department because when she awoke today she was altered mentally and she was having expressive aphasia and not making any sense when she answered any questions. Last time she was seen normal was bedtime last night and exact time was not given. Patient herself is unable to give any further history there is no family with the patient with the patient. - Related Data Home Medications Medication Instructions Recorded Confirmed Dicyclomine [Bentyl] 10 mg PO TID 09/26/18 07/13/21 Atorvastatin Calcium [Lipitor] 20 mg PO HS 03/03/21 07/13/21 Tamsulosin HCl [Flomax] 0.4 mg PO DAILY 04/05/21 07/13/21 lisinopriL 40 mg PO DAILY 04/05/21 07/13/21 traMADol HCl [Ultram] 50 mg PO DAILY PRN 04/05/21 07/13/21 Citrucel Tab 1 tab PO BID 06/26/21 07/13/21 Omeprazole [PriLOSEC] 20 mg PO AC-BRKFST 06/26/21 07/13/21 Aspirin EC [Ecotrin Low Dose] 81 mg PO DAILY 07/08/21 07/13/21 Citrucel Tab 2 tab PO DAILY@1200 07/08/21 07/13/21 Fexofenadine HCl [Shelley Allergy] 180 mg PO DAILY 07/08/21 07/13/21 Previous Rx's Medication Instructions Recorded Cholecalciferol [Vitamin D3 (25 25 mcg PO DAILY tablet 04/06/21 Mcg = 1000 Iu)] Acetaminophen Tab [Tylenol Tab] 1,000 mg PO Q6HR PRN #30 tablet 06/28/21 Ibuprofen [Motrin] 600 mg PO Q8HR PRN #30 tab 06/28/21 Simethicone [Gas-X] 125 mg PO AC-TID PRN #20 capsule 06/28/21 amLODIPine [Norvasc] 5 mg PO DAILY 14 Days #14 tab 07/08/21 Allergies Allergy/AdvReac Type Severity Reaction Status Date / Time adhesive tape Allergy Mild Rash/Hives Verified 07/13/21 12:38 morphine AdvReac MIGRAINE Verified 07/13/21 12:38 Review of Systems ROS Statement: Those systems with pertinent positive or pertinent negative responses have been documented in the HPI. ROS Other: All systems not noted in ROS Statement are negative. Past Medical History Past Medical History: CVA/TIA, Hyperlipidemia, Hypertension, Osteoarthritis (OA), Rheumatoid Arthritis (RA) Additional Past Medical History / Comment(s): Recently diagnosed with normal pressure hydrocephalus with spinal tap to remove spinal fluid, lately been decreasing hypertensive meds d/t lower b/ps, generalized arthritis, chronic low back pain-to have back surgery next week, R sided sciatica, double scoliosis, osteopenia, unsteady gait, UTIs, past L medial ankle ulcer. History of Any Multi-Drug Resistant Organisms: None Reported Past Surgical History: Adenoidectomy, Back Surgery, Section, Hysterectomy, Tonsillectomy Additional Past Surgical History / Comment(s): Lumbar fusion X 2, x2, colonoscopy, hemorrhoidectomy, bilateral carpal tunnel releases, bilateral felipe ract removals/lens implants. Past Anesthesia/Blood Transfusion Reactions: No Reported Reaction, Motion Sickness Past Psychological History: No Psychological Hx Reported Smoking Status: Never smoker Past Alcohol Use History: Rare Past Drug Use History: None Reported - Past Family History Father Family Medical History: Dementia Additional Family Medical History / Comment(s): Father of cardiac rupture per pt. Mother Family Medical History: Cancer Additional Family Medical History / Comment(s): breast cancer. General Exam - General Exam Comments Initial Comments: GENERAL: Patient is well-developed and well-nourished. Patient is nontoxic and well- hydrated and is in no acute distress. ENT: Neck is soft and supple. No significant lymphadenopathy is noted. Oropharynx is clear. Moist mucous membranes. Neck has full range of motion without eliciting any pain. EYES: The sclera were anicteric and conjunctiva were pink and moist. Extraocular movements were intact and pupils were equal round and reactive to light. Eyelids were unremarkable. PULMONARY: Unlabored respirations. Good breath sounds bilaterally. No audible rales rhonchi or wheezing was noted. CARDIOVASCULAR: There is a regular rate and rhythm without any murmurs gallops or rubs. ABDOMEN: Soft and nontender with normal bowel sounds. SKIN: Skin is clear with no lesions or rashes and otherwise unremarkable. NEUROLOGIC: Patient is alert and oriented cannot assess orientation because she does not answer any questions. Unable to assess cranial nerves secondary to the fact the patient does not follow commands. When you asked the patient questions she responds verbally but it is words salad that there is no correlation from 1 word to the next. MUSCULOSKELETAL: Patient moves all 4 extremities however it is difficult to assess strength because again she does not follow commands.. LYMPHATICS: No significant lymphadenopathy is noted PSYCHIATRIC: Unable to assess Limitations: no limitations Course Vital Signs 07/13/21 07/13/21 07/13/21 11:22 11:35 11:50 Temperature 99.1 F Pulse Rate 79 85 84 Respiratory 18 18 18 Rate Blood Pressure 134/98 157/89 O2 Sat by Pulse 96 98 98 Oximetry 07/13/21 07/13/21 07/13/21 12:00 12:10 12:40 Temperature Pulse Rate 78 91 82 Respiratory 9 L Rate Blood Pressure 157/89 161/85 158/86 O2 Sat by Pulse 98 97 89 L Oximetry 07/13/21 07/13/21 07/13/21 13:00 13:30 13:40 Temperature Pulse Rate 79 85 88 Respiratory Rate Blood Pressure 154/67 180/84 133/108 O2 Sat by Pulse 97 97 Oximetry 07/13/21 07/13/21 07/13/21 13:50 14:00 14:10 Temperature Pulse Rate 84 84 76 Respiratory 10 L 10 L 15 Rate Blood Pressure 133/108 184/78 181/83 O2 Sat by Pulse Oximetry 07/13/21 07/13/21 07/13/21 14:20 14:30 14:40 Temperature Pulse Rate 93 92 90 Respiratory 12 10 L 14 Rate Blood Pressure 181/83 194/94 196/126 O2 Sat by Pulse Oximetry 07/13/21 07/13/21 07/13/21 14:50 15:00 15:10 Temperature Pulse Rate 94 82 89 Respiratory 7 L 17 7 L Rate Blood Pressure 196/138 196/138 193/112 O2 Sat by Pulse Oximetry 07/13/21 07/13/21 07/13/21 15:20 15:30 15:40 Temperature Pulse Rate 94 99 90 Respiratory 9 L 16 9 L Rate Blood Pressure 193/112 193/112 193/112 O2 Sat by Pulse Oximetry 07/13/21 15:50 Temperature Pulse Rate 100 Respiratory 18 Rate Blood Pressure O2 Sat by Pulse Oximetry Medical Decision Making - Medical Decision Making EKG shows sinus rhythm at 83 bpm MI interval 163 QRS 77 Q-T intervals 393 QTC is 433. Patient's EKG shows no ST segment elevation or depression. Patient has occasional PAC. CT of the brain shows no acute abnormality. CTA shows no acute abnormality. Patient was able to follow some simple commands which was improvement from when she first came but she still had word salad and she wasn't always accurate and following the commands. When the daughter arrived a while after the patient was in the room I spoke with her and she indicated to me that his symptoms patient got up she was having trouble walking to the bathroom and having trouble performing simple tasks and she stated to me that this occurred if symptoms the patient woke up she no one appreciated the word salad at that point but it was unclear if anybody spoke to her at that point in time. But definitely symptoms of inability to ambulate and coordination started as soon as she woke up. I spoke a physician's agreed to admit the patient with the patient wrote admitting orders. - Lab Data Result diagrams: 07/16/21 05:41 07/16/21 05:41 Lab Results 07/13/21 07/13/21 07/13/21 Range/Units 11:40 11:40 11:40 WBC 7.5 (3.8-10.6) k/uL RBC 5.00 (3.80-5.40) m/uL Hgb 13.8 (11.4-16.0) gm/dL Hct 43.5 (34.0-46.0) % MCV 87.2 (80.0-100.0) fL MCH 27.5 (25.0-35.0) pg MCHC 31.6 (31.0-37.0) g/dL RDW 13.7 (11.5-15.5) % Plt Count 200 (150-450) k/uL MPV 11.5 Neutrophils % 63 % Lymphocytes % 24 % Monocytes % 6 % Eosinophils % 5 % Basophils % 1 % Neutrophils # 4.7 (1.3-7.7) k/uL Lymphocytes # 1.8 (1.0-4.8) k/uL Monocytes # 0.4 (0-1.0) k/uL Eosinophils # 0.4 (0-0.7) k/uL Basophils # 0.1 (0-0.2) k/uL Hypochromasia Slight PT 10.1 (9.0-12.0) sec INR 0.9 (<1.2) APTT 24.2 (22.0-30.0) sec Sodium 143 (137-145) mmol/L Potassium 4.1 (3.5-5.1) mmol/L Chloride 109 H (98-107) mmol/L Carbon Dioxide 23 (22-30) mmol/L Anion Gap 11 mmol/L BUN 20 H (7-17) mg/dL Creatinine 0.77 (0.52-1.04) mg/dL Est GFR (CKD-EPI)AfAm 85 (>60 ml/min/1.73 sqM) Est GFR (CKD-EPI)NonAf 74 (>60 ml/min/1.73 sqM) Glucose 109 H (74-99) mg/dL POC Glucose (mg/dL) (75-99) mg/dL POC Glu [employer] Education Teacher ID Estimated Ave Glu mg/dL Hemoglobin A1c (0.0-6.0) % Calcium 9.8 (8.4-10.2) mg/dL Total Bilirubin 0.7 (0.2-1.3) mg/dL AST 23 (14-36) U/L ALT 11 (4-34) U/L Alkaline Phosphatase 115 (38-126) U/L Troponin I (0.000-0.034) ng/mL Total Protein 7.9 (6.3-8.2) g/dL Albumin 4.5 (3.5-5.0) g/dL Triglycerides (0.00-149.00) mg/dL Cholesterol (0.00-200.00) mg/dL LDL Cholesterol, Calc (0.0-131.0) mg/dL VLDL Cholesterol, Calc (5.00-40.00) mg/dL HDL Cholesterol (40.00-60.00) mg/dL Cholesterol/HDL Ratio Ratio Urine Opiates Screen (NotDetected) Ur Oxycodone Screen (NotDetected) Urine Methadone Screen (NotDetected) Ur Propoxyphene Screen (NotDetected) Ur Barbiturates Screen (NotDetected) U Tricyclic Antidepress (NotDetected) Ur Phencyclidine Scrn (NotDetected) Ur Amphetamines Screen (NotDetected) U Methamphetamines Scrn (NotDetected) U Benzodiazepines Scrn (NotDetected) Urine Cocaine Screen (NotDetected) U Marijuana (THC) Screen (NotDetected) 07/13/21 07/13/21 07/13/21 Range/Units 11:40 11:40 11:40 WBC (3.8-10.6) k/uL RBC (3.80-5.40) m/uL Hgb (11.4-16.0) gm/dL Hct (34.0-46.0) % MCV (80.0-100.0) fL MCH (25.0-35.0) pg MCHC (31.0-37.0) g/dL RDW (11.5-15.5) % Plt Count (150-450) k/uL MPV Neutrophils % % Lymphocytes % % Monocytes % % Eosinophils % % Basophils % % Neutrophils # (1.3-7.7) k/uL Lymphocytes # (1.0-4.8) k/uL Monocytes # (0-1.0) k/uL Eosinophils # (0-0.7) k/uL Basophils # (0-0.2) k/uL Hypochromasia PT (9.0-12.0) sec INR (<1.2) APTT (22.0-30.0) sec Sodium (137-145) mmol/L Potassium (3.5-5.1) mmol/L Chloride (98-107) mmol/L Carbon Dioxide (22-30) mmol/L Anion Gap mmol/L BUN (7-17) mg/dL Creatinine (0.52-1.04) mg/dL Est GFR (CKD-EPI)AfAm (>60 ml/min/1.73 sqM) Est GFR (CKD-EPI)NonAf (>60 ml/min/1.73 sqM) Glucose (74-99) mg/dL POC Glucose (mg/dL) (75-99) mg/dL POC Glu Career Education Teacher ID Estimated Ave Glu mg/dL 112 Hemoglobin A1c 5.5 (0.0-6.0) % Calcium (8.4-10.2) mg/dL Total Bilirubin (0.2-1.3) mg/dL AST (14-36) U/L ALT (4-34) U/L Alkaline Phosphatase (38-126) U/L Troponin I 0.019 (0.000-0.034) ng/mL Total Protein (6.3-8.2) g/dL Albumin (3.5-5.0) g/dL Triglycerides 90.90 (0.00-149.00) mg/dL Cholesterol 211.00 H (0.00-200.00) mg/dL LDL Cholesterol, Calc 129.2 (0.0-131.0) mg/dL VLDL Cholesterol, Calc 18.18 (5.00-40.00) mg/dL HDL Cholesterol 63.60 H (40.00-60.00) mg/dL Cholesterol/HDL Ratio 3.32 Ratio Urine Opiates Screen (NotDetected) Ur Oxycodone Screen (NotDetected) Urine Methadone Screen (NotDetected) Ur Propoxyphene Screen (NotDetected) Ur Barbiturates Screen (NotDetected) U Tricyclic Antidepress (NotDetected) Ur Phencyclidine Scrn (NotDetected) Ur Amphetamines Screen (NotDetected) U Methamphetamines Scrn (NotDetected) U Benzodiazepines Scrn (NotDetected) Urine Cocaine Screen (NotDetected) U Marijuana (THC) Screen (NotDetected) 07/13/21 07/13/21 Range/Units 11:56 13:53 WBC (3.8-10.6) k/uL RBC (3.80-5.40) m/uL Hgb (11.4-16.0) gm/dL Hct (34.0-46.0) % MCV (80.0-100.0) fL MCH (25.0-35.0) pg MCHC (31.0-37.0) g/dL RDW (11.5-15.5) % Plt Count (150-450) k/uL MPV Neutrophils % % Lymphocytes % % Monocytes % % Eosinophils % % Basophils % % Neutrophils # (1.3-7.7) k/uL Lymphocytes # (1.0-4.8) k/uL Monocytes # (0-1.0) k/uL Eosinophils # (0-0.7) k/uL Basophils # (0-0.2) k/uL Hypochromasia PT (9.0-12.0) sec INR (<1.2) APTT (22.0-30.0) sec Sodium (137-145) mmol/L Potassium (3.5-5.1) mmol/L Chloride (98-107) mmol/L Carbon Dioxide (22-30) mmol/L Anion Gap mmol/L BUN (7-17) mg/dL Creatinine (0.52-1.04) mg/dL Est GFR (CKD-EPI)AfAm (>60 ml/min/1.73 sqM) Est GFR (CKD-EPI)NonAf (>60 ml/min/1.73 sqM) Glucose (74-99) mg/dL POC Glucose (mg/dL) 102 H (75-99) mg/dL POC Glu [employer] Education Teacher Lidia Vazquez [address] Glu mg/dL Hemoglobin A1c (0.0-6.0) % Calcium (8.4-10.2) mg/dL Total Bilirubin (0.2-1.3) mg/dL AST (14-36) U/L ALT (4-34) U/L Alkaline Phosphatase (38-126) U/L Troponin I (0.000-0.034) ng/mL Total Protein (6.3-8.2) g/dL Albumin (3.5-5.0) g/dL Triglycerides (0.00-149.00) mg/dL Cholesterol (0.00-200.00) mg/dL LDL Cholesterol, Calc (0.0-131.0) mg/dL VLDL Cholesterol, Calc (5.00-40.00) mg/dL HDL Cholesterol (40.00-60.00) mg/dL Cholesterol/HDL Ratio Ratio Urine Opiates Screen Not Detected (NotDetected) Ur Oxycodone Screen Not Detected (NotDetected) Urine Methadone Screen Not Detected (NotDetected) Ur Propoxyphene Screen Not Detected (NotDetected) Ur Barbiturates Screen Not Detected (NotDetected) U Tricyclic Antidepress Not Detected (NotDetected) Ur Phencyclidine Scrn Not Detected (NotDetected) Ur Amphetamines Screen Not Detected (NotDetected) U Methamphetamines Scrn Not Detected (NotDetected) U Benzodiazepines Scrn Not Detected (NotDetected) Urine Cocaine Screen Not Detected (NotDetected) U Marijuana (THC) Screen Not Detected (NotDetected) Disposition Clinical Impression: Cerebrovascular accident (CVA), Altered mental status Disposition: ADMITTED IP TO THIS HOSP Time of Disposition: 14:27
--- NOTE | 2021-07-13 12:41 | CT ---
EXAMINATION TYPE: CT angio head neck DATE OF EXAM: 07/13/2021 HISTORY: Dysphasia, right sided deficit to arm and leg. COMPARISON: Nonenhanced CT brain performed earlier today CT DLP: 355.1 mGycm. Automated Exposure Control for Dose Reduction was Utilized. TECHNIQUE: CTA scan of the neck is performed with IV Contrast, patient injected with 65 mL of Isovue 370, axial images are obtained, coronal and sagittal reformatted images are reviewed. 3D reconstruct ed images are created on an independent workstation and reviewed. FINDINGS: Carotid/Vascular Structures: Questionable mild stenosis of the lateral aspect of the M1 segment of th e left MCA. No occlusion with patent distal arteries. Scattered atherosclerotic calcifications. Ather osclerotic calcifications are seen at the bifurcation of the common carotid arteries more on the left side yet without significant stenosis or occlusion. Absent A1 segment of the right CURT. Right - type [employer]. Otherwise normal caliber and enhancement of the neck arteries and remainder of the intracra nial arteries without other significant stenosis, occlusion, dissection, aneurysm or AV malformation. Patent major intracranial venous sinuses. Other: Subtle reduced enhancement of the left insular cortex, possibly artifactual however evolving i nfarct at that location cannot be excluded. No intracranial abnormal enhancement. Dilated supratentor ial ventricles, normal pressure hydrocephalus cannot be excluded. Questionable right hilar lymphadeno omar, not completely included in the scan and measuring up to 12 m. Degenerative changes of the cerv ical spine IMPRESSION: No significant stenosis, dissection or occlusion seen in the neck or the intracranial arteries. Incid ental findings as described above.
[2021-07-13 14:41] LABS: Amphetamine Screen,Urine Not Detected (NotDetected); Barbiturate Screen,Urine Not Detected (NotDetected); Benzodiazepines Screen,Urine Not Detected (NotDetected); Cocaine Screen,Urine Not Detected (NotDetected); Methadone Screen, Urine Not Detected (NotDetected); Opiate Screen,Urine Not Detected (NotDetected); Oxycodone Screen, Urine Not Detected (NotDetected); Phencyclidine Screen,Urine Not Detected (NotDetected); Tricyclic Antidepressant,Urine Not Detected (NotDetected); Urn Cannabinoid Scrn Not Detected (NotDetected)
[2021-07-13] MEDS ORDERED: ASPIRIN 300 MG SUPP RECTAL STA (14:57)
[2021-07-13] MEDS ORDERED: LORazepam 2 MG/ML INJ IV STA (16:22)
--- NOTE | 2021-07-13 16:52 | P.HPIM ---
<Papo Borjas - Last Filed: 07/13/21 15:39> History of Present Illness H&P Date: 07/13/21 History of Presenting Illness: Patient is a very pleasant 80-year-old female with a past medical history of hyp ertension, hyperlipidemia, normal pressure hydrocephalus diagnosed with previous lumbar puncture, and multiple TIAs. She presented to the emergency department with garbled speech and alteration in mental status with last known reported normal being last night. Upon arrival to the emergency department, a stroke code was called. Blood glucose 109. CT head showing age related atrophic and chronic small vessel ischemic changes, negative for acute intercranial process correlate for normal pressure hydrocephalus. Neurointerventionalist evaluation via [facility], reported patient was not a candidate for TPA and/or intervention at this time. Labs obtained, CBC, coags, and CMP were unremar kable. Urine drug screen negative. CTA head/neck then completed revealing subtle reduced enhancement of the left insular cortex, dilated supratentorial ventricles, and questionable right hilar lymphadenopathy, but negative for intracranial hemorrhage, significant stenosis, dissection, or occlusion. EKG showing sinus rhythm at 83 bpm with frequent PACs and T-wave inversion in anterior leads II and aVF. Patient was admitted under our services for acute CVA with consultation to neurology. Upon physical examination, patient was awake and alert. Pupils equal, round, and reactive. Face symmetrical with no noted facial droop present. Speech garbled, patient with significant expressive aphasia. She was moving all extremities independently, however patient unable to follow any commands. Patient's daughter at bedside reports that her mother awoken with difficulties with ambulation and coordination and not quite herself and later sometime after 9:30 AM developed difficulties with her speech. Patient's daughter reports last time the patient was seen normal was last night. Review of systems: Unable to complete full ROS as patient with significant expressive aphasia and limited information able to be obtained from family at bedside. Physical exam: Vital signs reviewed and stable. General: Nontoxic, no distress and appears stated age. Derm: Skin warm and dry, normal coloration for ethnicity. Head: Atraumatic, normocephalic and symmetric. Eyes: Pupils equal, round, and reactive. Unable to assess EOMs secondary to patient's inability to follow commands. Mouth: no lip lesions, mucus membranes moist Cardiovascular: Irregularly irregular rhythm noted on assessment, with normal S1S2, soft murmur, positive posterior tibial pulses bilaterally, and cap refill < 2 seconds. Lungs: Respirations even, regular, and unlabored on room air. Lungs CTA bilaterally, no rhonchi, no rales, no wheezing, and no accessory muscle usage. Abdominal: soft, nontender to palpation, no guarding, no appreciable organomegaly Ext: ROM intact. No gross muscle atrophy, no edema, no contractures. Neuro/psych: Pt awake and alert. Pupils equal, round, and reactive. Face symmetrical with no noted facial droop present. Speech garbled, patient with significant expressive aphasia. Moving all extremities independently, unable to follow any commands. 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 -Neurology consulted -MRI to be completed -Echocardiogram -Telemetry monitoring -Aspirin 300 mg rectally -Swallow eval -Consult PT/OT -NIH assessment and neuro checks every 4 hours -Lipid profile and hemoglobin A1c with a.m. labs -Fall precautions -Provide safe and supportive care and assistance as needed. -Allow for permissive hypertension over the next 24 hours may resume blood pressure medications amlodipine and lisinopril tomorrow morning. Hypertension currently with hypertensive urgency -Allow for permissive hypertension over the next 24 hours may resume blood pressure medications amlodipine and lisinopril tomorrow morning. Hyperlipidemia -Atorvastatin 40 mg nightly The patient is admitted with an anticipated greater than 2 midnight stay for evaluation of CVA. CODE STATUS: Full code DVT prophylaxis: Lovenox Discussed with: Patient and, RN, and patient's daughter at bedside Anticipated discharge date: Clinical course to determine Anticipated discharge place: Clinical course to determine, likely need stroke rehab facility A total of 45 minutes was spent on the care of this complex patient more than 50% of the time was spent in counseling and care coordination. Past Medical History Past Medical History: CVA/TIA, Hyperlipidemia, Hypertension, Osteoarthritis (OA), Rheumatoid Arthritis (RA) Additional Past Medical History / Comment(s): Recently diagnosed with normal pressure hydrocephalus with spinal tap to remove spinal fluid, lately been decreasing hypertensive meds d/t lower b/ps, generalized arthritis, chronic low back pain-to have back surgery next week, R sided sciatica, double scoliosis, osteopenia, unsteady gait, UTIs, past L medial ankle ulcer. History of Any Multi-Drug Resistant Organisms: None Reported Past Surgical History: Adenoidectomy, Back Surgery, Section, Hysterectomy, Tonsillectomy Additional Past Surgical History / Comment(s): Lumbar fusion X 2, x2, colonoscopy, hemorrhoidectomy, bilateral carpal tunnel releases, bilateral cataract removals/lens implants. Past Anesthesia/Blood Transfusion Reactions: No Reported Reaction, Motion Sickness Past Psychological History: No Psychological Hx Reported Smoking Status: Never smoker Past Alcohol Use History: Rare Past Drug Use History: None Reported - Past Family History Father Family Medical History: Dementia Additional Family Medical History / Comment(s): Father of cardiac rupture per pt. Mother Family Medical History: Cancer Additional Family Medical History / Comment(s): breast cancer. Medications and Allergies Home Medications Medication Instructions Recorded Confirmed Type Dicyclomine [Bentyl] 10 mg PO TID 09/26/18 07/13/21 History Atorvastatin Calcium [Lipitor] 20 mg PO HS 03/03/21 07/13/21 History Tamsulosin HCl [Flomax] 0.4 mg PO DAILY 04/05/21 07/13/21 History lisinopriL 40 mg PO DAILY 04/05/21 07/13/21 History traMADol HCl [Ultram] 50 mg PO DAILY PRN 04/05/21 07/13/21 History Cholecalciferol [Vitamin D3 (25 25 mcg PO DAILY tablet 04/06/21 07/13/21 Rx Mcg = 1000 Iu)] Citrucel Tab 1 tab PO BID 06/26/21 07/13/21 History Omeprazole [PriLOSEC] 20 mg PO AC-BRKFST 06/26/21 07/13/21 History Acetaminophen Tab [Tylenol Tab] 1,000 mg PO Q6HR PRN #30 tablet 06/28/21 07/13/21 Rx Ibuprofen [Motrin] 600 mg PO Q8HR PRN #30 tab 06/28/21 07/13/21 Rx Simethicone [Gas-X] 125 mg PO AC-TID PRN #20 capsule 06/28/21 07/13/21 Rx Aspirin EC [Ecotrin Low Dose] 81 mg PO DAILY 07/08/21 07/13/21 History Citrucel Tab 2 tab PO DAILY@1200 07/08/21 07/13/21 History Fexofenadine HCl [Shelley Allergy] 180 mg PO DAILY 07/08/21 07/13/21 History amLODIPine [Norvasc] 5 mg PO DAILY 14 Days #14 tab 07/08/21 07/13/21 Rx Allergies Allergy/AdvReac Type Severity Reaction Status Date / Time adhesive tape Allergy Mild Rash/Hives Verified 07/13/21 12:38 morphine AdvReac MIGRAINE Verified 07/13/21 12:38 Physical Exam Vitals: Vital Signs Temp Pulse Resp BP Pulse Ox 07/13/21 12:40 82 9 L 158/86 89 L 07/13/21 12:10 91 161/85 97 07/13/21 12:00 78 157/89 98 07/13/21 11:50 84 18 157/89 98 07/13/21 11:35 85 18 134/98 98 07/13/21 11:22 99.1 F 79 18 96 Intake and Output 07/12/21 07/13/21 07/13/21 22:59 06:59 14:59 Other: Weight 61.2 kg Results CBC & Chem 7: 07/13/21 11:40 07/13/21 11:40 Labs: Abnormal Lab Results - Last 24 Hours (Table) 07/13/21 07/13/21 Range/Units 11:40 11:56 Chloride 109 H (98-107) mmol/L BUN 20 H (7-17) mg/dL Glucose 109 H (74-99) mg/dL POC Glucose (mg/dL) 102 H (75-99) mg/dL <Lloyd Diop - Last Filed: 07/14/21 08:05> History of Present Illness I reviewed the documentation as provided by the ELVIN above, who is the original author of this note. I agree with the documented assessment and plan, with the following changes: none Physical Exam Osteopathic Statement: *. No significant issues noted on an osteopathic structural exam other than those noted in the History and Physical/Consult. Vitals: Vital Signs Temp Pulse Pulse Resp BP BP Pulse Ox 07/14/21 07:41 93 L 07/14/21 04:00 100.8 F H 84 16 166/70 93 L 07/13/21 23:40 100.8 F H 100 18 186/84 94 L 07/13/21 19:45 100.9 F H 66 20 176/79 95 07/13/21 17:33 103 H 18 07/13/21 16:45 103 H 18 141/82 95 07/13/21 15:50 100 18 07/13/21 15:40 90 9 L 193/112 07/13/21 15:30 99 16 193/112 07/13/21 15:20 94 9 L 193/112 07/13/21 15:10 89 7 L 193/112 07/13/21 15:00 82 17 196/138 07/13/21 14:50 94 7 L 196/138 07/13/21 14:40 90 14 196/126 07/13/21 14:30 92 10 L 194/94 07/13/21 14:20 93 12 181/83 07/13/21 14:10 76 15 181/83 07/13/21 14:00 84 10 L 184/78 07/13/21 13:50 84 10 L 133/108 07/13/21 13:40 88 133/108 07/13/21 13:30 85 180/84 97 07/13/21 13:00 79 154/67 97 07/13/21 12:40 82 9 L 158/86 89 L 07/13/21 12:10 91 161/85 97 07/13/21 12:00 78 157/89 98 07/13/21 11:50 84 18 157/89 98 07/13/21 11:35 85 18 134/98 98 07/13/21 11:22 99.1 F 79 18 96 Intake and Output 07/13/21 07/14/21 07/14/21 22:59 06:59 14:59 Output Total 900 425 Balance -900 -425 Output: Urine 900 425 Other: Voiding Method Indwelling Catheter Indwelling Catheter Weight 61.235 kg Results CBC & Chem 7: 07/13/21 11:40 07/13/21 11:40 Labs: Abnormal Lab Results - Last 24 Hours (Table) 07/13/21 07/13/2122 Range/Units 11:40 11:56 07:04 Chloride 109 H (98-107) mmol/L BUN 20 H (7-17) mg/dL Glucose 109 H (74-99) mg/dL POC Glucose (mg/dL) 102 H 101 H (75-99) mg/dL
--- NOTE | 2021-07-13 17:30 | P.CNNES ---
History of Present Illness Consult date: 07/13/21 Requesting physician: Antoine Mathis Reason for Consult: cva History of Present Illness: This is a 80-year-old woman with history of left lateral ventricle hemorrhage on 03/03/2021 after a fall that resolved without any intervention, normal pressure hydrocephalus, bilateral carotid stenosis between 50-69%, possible TIA with word finding difficulty and 2019, lumbar fusion, hypertension, hyperlipidemia, rheumatoid arthritis presented to the emergency department on 07/13/2021 for having slurred speech, right facial weakness. Some of the history is obtained from the patient daughter was at bedside. Per the patient daughter she stated that unknown exactly last known normal she said the patient probably woke up at 8 or 9 AM and initially felt okay then possibly between 9-10 patient stated that she was not feeling well she was having slurring the speech then the daughter felt that she had right facial weakness and having trouble walking. Per the ED was felt from the history that last normal state was last night and the daughters did not exactly sure but inks it could've been today at 8-9 a.m. today. Per the ED note they mentioned that the patient possibly had aphasia reported to them. Patient is on any antiplatelet or anticoagulation. She is on Lipitor 20 mg at bedtime. Regarding her history of normal pressure hydrocephalus she has not had a chance to follow up with neurologist and neurosurgeon since the patient's has been getting sick and the one that patient is a healthy the daughter gets sick. The patient daughter lives in the same house. I personally seen the patient last on 04/06/2021 and she came in because of diplopia and one-time low-grade fever and the etiology was unknown and the diplopia seemed more peripheral than central and her diplopia resolved. Was felt was unlikely meningeal encephalitis. Regarding the normal pressure hydrocephalus she was notified to follow up as an outpatient for further management. Please refer to my note for further details. Some other workup in the hospital consisted of Initial vital signs as a blood pressure 134/90, heart rate of 79, respiratory of 18, initial temperature of 99.1 Fahrenheit and pulse ox of 96% room air. CBC with differential is unremarkable Chemistry panel is unremarkable. Initial serum glucose is 109. AST and ALTs within normal limits PT, PTT and INR is within normal limits Urine drug screen was not detected CT of the head is reported as age-related atrophic and chronic small vessel ischemic change without acute intracranial process seen at this time. Correlate for normal pressure hydrocephalus. I personally reviewed the CT of the head and I agree with the report. CT angiography of the head and neck support as no significant stenosis, dissection or occlusion seen in the neck or the intracranial arteries. EKG report is reviewed and there is no A. fib or flutter that seen. Stroke code was activated and no IV TPA since outside the window since last normal was last night Kristen exact time. The risk of given TPA outweigh the benefit. Review of Systems Review of system: The 12 point system was reviewed and apparent positive and negative per HPI. Past Medical History Past Medical History: CVA/TIA, Hyperlipidemia, Hypertension, Osteoarthritis (OA), Rheumatoid Arthritis (RA) Additional Past Medical History / Comment(s): Recently diagnosed with normal pressure hydrocephalus with spinal tap to remove spinal fluid, lately been decreasing hypertensive meds d/t lower b/ps, generalized arthritis, chronic low back pain-to have back surgery next week, R sided sciatica, double scoliosis, osteopenia, unsteady gait, UTIs, past L medial ankle ulcer. History of Any Multi-Drug Resistant Organisms: None Reported Past Surgical History: Adenoidectomy, Back Surgery, Section, Hysterectomy, Tonsillectomy Additional Past Surgical History / Comment(s): Lumbar fusion X 2, x2, colonoscopy, hemorrhoidectomy, bilateral carpal tunnel releases, bilateral cataract removals/lens implants. Past Anesthesia/Blood Transfusion Reactions: No Reported Reaction, Motion Sickness Past Psychological History: No Psychological Hx Reported Smoking Status: Never smoker Past Alcohol Use History: Rare Past Drug Use History: None Reported - Past Family History Father Family Medical History: Dementia Additional Family Medical History / Comment(s): Father of cardiac rupture per pt. Mother Family Medical History: Cancer Additional Family Medical History / Comment(s): breast cancer. Medications and Allergies Home Medications Medication Instructions Recorded Confirmed Type Dicyclomine [Bentyl] 10 mg PO TID 09/26/18 07/13/21 History Atorvastatin Calcium [Lipitor] 20 mg PO HS 03/03/21 07/13/21 History Tamsulosin HCl [Flomax] 0.4 mg PO DAILY 04/05/21 07/13/21 History lisinopriL 40 mg PO DAILY 04/05/21 07/13/21 History traMADol HCl [Ultram] 50 mg PO DAILY PRN 04/05/21 07/13/21 History Cholecalciferol [Vitamin D3 (25 25 mcg PO DAILY tablet 04/06/21 07/13/21 Rx Mcg = 1000 Iu)] Citrucel Tab 1 tab PO BID 06/26/21 07/13/21 History Omeprazole [PriLOSEC] 20 mg PO AC-BRKFST 06/26/21 07/13/21 History Acetaminophen Tab [Tylenol Tab] 1,000 mg PO Q6HR PRN #30 tablet 06/28/21 2 Rx Ibuprofen [Motrin] 600 mg PO Q8HR PRN #30 tab 06/28/21 07/13/21 Rx Simethicone [Gas-X] 125 mg PO AC-TID PRN #20 capsule 06/28/21 07/13/21 Rx Aspirin EC [Ecotrin Low Dose] 81 mg PO DAILY 07/08/21 07/13/21 History Citrucel Tab 2 tab PO DAILY@1200 07/08/21 07/13/21 History Fexofenadine HCl [Shelley Allergy] 180 mg PO DAILY 07/08/21 07/13/21 History amLODIPine [Norvasc] 5 mg PO DAILY 14 Days #14 tab 07/08/21 07/13/21 Rx Allergies Allergy/AdvReac Type Severity Reaction Status Date / Time adhesive tape Allergy Mild Rash/Hives Verified 07/13/21 12:38 morphine AdvReac MIGRAINE Verified 07/13/21 12:38 Physical Examination - Vital Signs Vital Signs: Vital Signs Temp Pulse Resp BP Pulse Ox 07/13/21 12:40 82 9 L 158/86 89 L 07/13/21 12:10 91 161/85 97 07/13/21 12:00 78 157/89 98 07/13/21 11:50 84 18 157/89 98 07/13/21 11:35 85 18 134/98 98 07/13/21 11:22 99.1 F 79 18 96 Intake and Output 07/13/21 07/13/21 07/13/21 06:59 14:59 22:59 Other: Weight 61.2 kg GENERAL: The patient is lying in bed and is in distress. She is very nauseous. CHEST: The heart rate is regular rate rhythm. No murmurs to auscultation. LUNG: Clear to auscultation bilaterally no wheezing noted throughout. Not labored breathing. ABDOMEN/GI: Bowel sounds present in all 4 quadrants. No tenderness to palpation throughout. NEUROLOGICAL: Very limited since patient is very nauseous and had pucket next to her. Higher mental function: The patient is awake, alert. Patient is following few commands (thumbs up). Could not perform language test since very nauseous. Cranial nerves: The pupils are round, equal. Extraocular movement is tracking me throughout the room. No facial weakness. Rest is limited. Motor: The strength is hard to assess muscles because of cooperation but briefly lifting bilateral uppers. Cerebellum: Could not assess. Sensation: Could not assess Plantars are mute bilaterally. Results - Laboratory Findings CBC and BMP: 07/13/21 11:40 07/13/21 11:40 Abnormal Lab Findings: Abnormal Labs 07/13/21 07/13/21 11:40 11:56 Chloride 109 H BUN 20 H Glucose 109 H POC Glucose (mg/dL) 102 H Assessment and Plan Assessment: Dysrathria, right facial droop, unsteady walking, and possible aphasia per ED team: Appear likely acute ischemic stroke. No IV TPA since outside the window. Possible TIA in 2019 with word finding difficulty Normal pressure hydrocephalus History of lumbar fusion Hypertension and on this presentation her blood pressure was slightly elevated with systolic in the 150s to 160s. Hyperlipidemia History of rheumatoid arthritis Plan: MRI of the brain without contrast is ordered the by the primary team is pending Shown was given aspirin throughout her milligrams suppository by the primary team and was started on aspirin 325 daily. Because the patient's severe nausea if she can handle by mouth then continue with suppository. I'll hold off on dual antiplatelets because of the patient history of a bleed in the past. She was started on Lipitor 40 mg daily at bedtime for secondary stroke prophylaxis. 2-D echo, lipid panel is ordered and is pending PT, OT and ENVIRONMENTAL PROGRAMS MANAGER are is consulted Continue neuro checks On cardiac monitoring We'll defer the rest of the medical management to the primary team For DVT prophylaxis the patient is on enoxaparin 40 mg daily. Recommend the patient to follow-up with a neurologist and neurosurgeon as an outpatient for further workup of normal pressure hydrocephalus and to consider shunts as an outpatient. The plan is discussed in detail with the patient's daughter was at bedside and her nurse. Patient daughter addressed code status: DO NOT RESUSCITATE. Thank you for the consultation Sin Lubin M.D. Neuro-hospitalist Time with Patient: Greater than 30
--- NOTE | 2021-07-13 17:58 | MR ---
EXAMINATION TYPE: MR brain wo con DATE OF EXAM: 07/13/2021 COMPARISON: 04/06/2021 HISTORY: CVA vs TIA, AMS, expressive aphasia. Multiplanar multiecho imaging of the brain without contrast. There is enlargement of the ventricles. There is no mass effect or midline shift. There is some cereb ral cortical atrophy. There is no evidence of intracranial hemorrhage. Diffusion images show no evide nce of an acute infarct. There is some linear increased signal in the periventricular white matter. T his measures up to 10 mm in thickness. There are small areas of increased signal at the lei-white ma tter junction both cerebral hemispheres. Cerebellum is intact. Brainstem is intact. There is thinning of the corpus callosum. Sella turcica is intact. There is no evidence of orbital mass. There is muco alfred thickening in the right anterior ethmoid sinus. IMPRESSION: Mild cerebral atrophy. Moderate hydrocephalus. Periventricular white matter changes that could relate to hydrocephalus and chronic small vessel ischemia. No change compared to old exam. No acute infarct . No obstructing mass seen.
[2021-07-13] MEDS ORDERED: ONDANSETRON 4 MG/2 ML VIAL IVP PRN (19:54)
[2021-07-13] MEDS ORDERED: ACETAMINOPHEN IV (For NPO) 1,000 MG in EMPTY BAG 1 BAG IVPB PRN (20:06)
[2021-07-13] MEDS ORDERED: ATORVASTATIN 40 MG TAB PO SCH (21:00)
[2021-07-14 07:06] LABS: Glucose,Whole Blood 101 mg/dL (75-99)
[2021-07-14] MEDS: amLODIPine 5 MG TAB PO SCH (08:27)
[2021-07-14] MEDS: lisinopriL 20 MG TAB PO SCH (08:27)
[2021-07-14 08:49] LABS: Chol/HDL Ratio 3.32 Ratio; LDL Cholesterol,Calculated 129.2 mg/dL (0.0-131.0); VLDL Calculation 18.18 mg/dL (5.00-40.00)
[2021-07-14] MEDS: ENOXAPARIN 40 MG/0.4 ML SYRINGE SQ SCH (08:55)
[2021-07-14] MEDS ORDERED: ASPIRIN 325 MG TAB PO SCH (09:00)
--- NOTE | 2021-07-14 10:44 | XR ---
EXAMINATION TYPE: XR chest 1V portable DATE OF EXAM: 07/14/2021 HISTORY: Shortness of breath. COMPARISON: 07/13/2021 TECHNIQUE: Single view of the chest is submitted. FINDINGS: Demonstrated are scattered senescent parenchymal change. Mild groundglass density suggested at the right medial lung base. The heart is stable. Hilar and mediastinal structures are within normal limits. Degenerative changes are seen of the dorsal spine. IMPRESSION: 1. Mild groundglass density suggested at the right medial lung base.
--- NOTE | 2021-07-14 12:51 | P.PN ---
Subjective Progress Note Date: 07/14/21 The patient is seen at bedside and per nurse overnight patient is severely confused and lethargic. No seizure-like activity noted. Patient has been spiking low grade fevers. Upon seeing the patient she could severely drowsy and unable to respond to my questions. She had MRI of the brain which was negative for acute or subacute ischemic stroke. Objective - Vital Signs Vital signs: Vital Signs Temp 99.7 F H 07/14/21 07:45 Pulse 88 07/14/21 07:45 Resp 17 07/14/21 07:45 BP 170/72 07/14/21 07:45 Pulse Ox 90 L 07/14/21 07:45 Intake & Output 07/13/21 07/14/21 07/14/21 18:59 06:59 18:59 Output Total 650 675 250 Balance -650 -675 -250 Weight 61.235 kg Output: Urine 650 675 250 Other: Voiding Method Indwelling Catheter Indwelling Catheter Indwelling Catheter - Exam GENERAL: The patient is lying in bed and is in distress. She is very nauseous. NEUROLOGICAL: Very limited since patient is very drowsy. Higher mental function: The patient is severely drowsy but at few times opens her eyes but had a hard time understanding her. I felt she was talking jibberish. She is not following commands. Cranial nerves: The pupils are round, equal. Extraocular movement is tracking me throughout the room. No facial weakness. Rest is limited. Motor: The strength is hard to assess muscles because of condition but was able to lift bilateral uppers above gravity intermittently. Cerebellum: Could not assess. Sensation: Could not assess Plantars are mute bilaterally. WORK-UP: Lipid panel is triglyceride of 90, cholesterol is 211, LDLs 129, HDL is 63. Hemoglobin A1c is 5.5. CBC with differential is unremarkable on presentation Chemistry panel is unremarkable. Initial serum glucose is 109. AST and ALTs within normal limits PT, PTT and INR is within normal limits Urine drug screen was not detected CT of the head is reported as age-related atrophic and chronic small vessel ischemic change without acute intracranial process seen at this time. Correlate for normal pressure hydrocephalus. I personally reviewed the CT of the head and I agree with the report. CT angiography of the head and neck support as no significant stenosis, dissection or occlusion seen in the neck or the intracranial arteries. EKG report is reviewed and there is no A. fib or flutter that seen. MRI of the brain without is reported as mild cerebral atrophy. Moderate hydrocephalus. Ventricle white matter changes that could relate to hydrocephalus and chronic small vessel ischemia. No change compared to old exam. No acute infarct. No obstructive masses seen. I personally reviewed the MRI and there is no acute or subacute ischemia. Does have hydrocephalus which is known from her history and it seems more moderate to severe and on leading towards severe side. - Labs CBC & Chem 7: 07/14/21 14:15 07/14/21 14:15 Labs: Abnormal Lab Results - Last 24 Hours (Table) 07/13/21 07/14/21 Range/Units 11:40 07:04 POC Glucose (mg/dL) 101 H (75-99) mg/dL Cholesterol 211.00 H (0.00-200.00) mg/dL HDL Cholesterol 63.60 H (40.00-60.00) mg/dL Assessment and Plan Assessment: Encephalopathy of unknown etiology. Has low grade fever. Dysrathria, right facial droop, unsteady walking, and possible aphasia per ED team: Not stroke (MRI Brain is negative). Rule out other underlying infection a nd unknown at this time. Possible TIA in 2019 with word finding difficulty Normal pressure hydrocephalus History of lumbar fusion Hypertension and on this presentation her blood pressure was slightly elevated with systolic in the 150s to 160s. Hyperlipidemia History of rheumatoid arthritis Plan: * Currently the patient is on aspirin 325 daily that was started for secondary stroke prophylaxis and home she is not on any antiplatelets or anticoagulation from a neurologic perspective can reduce the aspirin to 81mg for secondary stroke prophylaxis especially that she has history of intraparenchymal hemorrhage in the past on February 2021. * I ordered a stat EEG. I will not start the patient on antiepileptic drugs unless there is epileptiform discharges or seizure on the EEG. * I decreased the Lipitor from 40-20 mg daily at bedtime her home dose. * Or her low-grade fever and encephalopathy all defer workup/management to the primary team. Consider ID consult and possible lumbar puncture. * PT, OT and DORMITORY COUNSELOR are is consulted * Continue neuro checks * On cardiac monitoring * We'll defer the rest of the medical management to the primary team * For DVT prophylaxis the patient is on enoxaparin 40 mg daily. * Recommend the patient to follow-up with a neurologist and neurosurgeon as an outpatient for further workup of normal pressure hydrocephalus and to consider shunts as an outpatient. The plan is discussed in detail with the patient's daughter was at bedside and her nurse. I also discussed case with Primary team. Patient daughter addressed code status: DO NOT RESUSCITATE. Sin Lubin M.D. Neuro-hospitalist Time with Patient: Less than 30
[2021-07-14 13:29] LABS: Appearance,Urine Cloudy (Clear); Bacteria,Urine Occasional /hpf; Bilirubin,Urine Negative (Negative); Blood,Urine Small (Negative); Color,Urine Yellow; Glucose,Urine (UA) Negative (Negative); Ketones,Urine 2+ (Negative); Leukocyte Esterase,Urine Large (Negative); Mucus,Urine Rare /hpf; Nitrite,Urine Positive (Negative); Protein,Urine 1+ (Negative); RBC,Urine 5 /hpf (0-5); Specific Gravity,Urine 1.018 (1.001-1.035); Squamous Epithelial Cell,Urine 1 /hpf (0-4); Urobilinogen,Urine <2.0 mg/dL (<2.0); WBC,Urine 111 /hpf (0-5)
--- NOTE | 2021-07-14 14:34 | P.PN ---
Subjective Progress Note Date: 07/14/21 (delayed charting seen at 1030) Principal diagnosis: encephalopathy Patient is 80-year-old female with hypertension, hyperlipidemia, normal pressure hydrocephalus diagnosed with previous lumbar puncture, and multiple TIAs. She presented to the emergency department with garbled speech and alteration in mental status. Upon arrival to the emergency department, a stroke code was called. Blood glucose 109. CT head showing age related atrophic and chronic small vessel ischemic changes, negative for acute intercranial process correlate for normal pressure hydrocephalus. Neurointerventionalist recommended agains TPA and/or intervention at this time. Labs obtained, CBC, coags, and CMP were unremarkable. Urine drug screen negative. CTA head/neck then completed r evealing subtle reduced enhancement of the left insular cortex, dilated supratentorial ventricles, and questionable right hilar lymphadenopathy, but negative for intracranial hemorrhage, significant stenosis, dissection, or occlusion. EKG showing sinus rhythm at 83 bpm with frequent PACs and T-wave inversion in anterior leads II and aVF. Patient was admitted under our services for acute CVA with consultation to neurology. MRI was obtained which showed mild cerebral atrophy, moderate hydrocephalus, and. Ventricular white matter changes related to hydrocephalus and chronic small vessel ischemic changes without change compared to old exam. She continued to spike fevers overnight. Repeat chest x-ray demonstrated possible right-sided infiltrate. Patient seen and examined at bedside. She still is not responding appropriately. She has withdrawal to pain. Daughter and family at bedside and all questions answered. She was not having fevers at home. General: non toxic, no distress, appears at stated age Derm: warm, dry Head: atraumatic, normocephalic, symmetric Eyes: EOMI, no lid lag, anicteric sclera Mouth: no lip lesion, mucus membranes moist Cardiovascular: S1S2 reg, no murmur, positive posterior tibial pulse bilateral, Lungs: Decreased breath sounds bilateral, no rhonchi, no rales , no accessory muscle use Abdominal: soft, nontender to palpation, no guarding, no appreciable organomegaly Ext: no gross muscle atrophy, no edema, no contractures Neuro: Pupils equal round reactive to light, extraocular motion intact, withdrawal to pain intact bilateral upper and lower extremities Psych: Patient is awake however she is not following commands. Assessment/plan: Acute encephalopathy Probable pneumonia Pyrexia -Patient's MRI without signs of definitive acute CVA. Neurology recommendations appreciated -Repeat chest x-ray with probable pneumonia on the right hand side. We'll obtain blood cultures. Start Rocephin and Zithromax. Repeat chest x-ray in a.m. - stat bmp and CBC -Check urinalysis to rule out concomitant causes of infection. -Follow fever profile -IV fluids HLD - meds on hold due to mental status HTN - meds on hold due to mental status - prn hydralazine if SBP>200 NPH Prior Hemorrhagic CVA DVT prophylaxis: Lovenox Discussed with: Patient, nursing Anticipated discharge: in 2-[address]: home A total of 65 minutes was spent on the care of this complex patient more than 50% of the time was spent in counseling and care coordination. Objective - Vital Signs Vital signs: Vital Signs Temp 99.4 F 07/14/21 13:00 Pulse 75 07/14/21 13:00 Resp 16 07/14/21 13:00 BP 176/80 07/14/21 13:00 Pulse Ox 93 L 07/14/21 13:00 Intake & Output 07/13/21 07/14/21 07/14/21 18:59 06:59 18:59 Output Total 650 675 250 Balance -650 -675 -250 Weight 61.235 kg Output: Urine 650 675 250 Other: Voiding Method Indwelling Catheter Indwelling Catheter Indwelling Catheter - Labs CBC & Chem 7: 07/13/21 11:40 07/13/21 11:40 Labs: Abnormal Lab Results - Last 24 Hours (Table) 07/13/21 07/14/21 07/14/21 Range/Units 11:40 07:04 13:00 POC Glucose (mg/dL) 101 H (75-99) mg/dL Cholesterol 211.00 H (0.00-200.00) mg/dL HDL Cholesterol 63.60 H (40.00-60.00) mg/dL Urine Appearance Cloudy H (Clear) Urine Protein 1+ H (Negative) Urine Ketones 2+ H (Negative) Urine Blood Small H (Negative) Urine Nitrite Positive H (Negative) Ur Leukocyte Esterase Large H (Negative) Urine WBC 111 H (0-5) /hpf Urine Bacteria Occasional H (None) /hpf Urine Mucus Rare H (None) /hpf
[2021-07-14 14:48] LABS: HGB 12.3 gm/dL (11.4-16.0); Hypochromasia Moderate; MCH 27.8 pg (25.0-35.0); MCHC 31.4 g/dL (31.0-37.0); MCV 88.4 fL (80.0-100.0); Mean Platelet Volume 10.9; RBC 4.41 m/uL (3.80-5.40); RDW 13.5 % (11.5-15.5); WBC 11.7 k/uL (3.8-10.6)
[2021-07-14] MEDS: SODIUM CHLORIDE 0.9% 1,000 ML IV SCH ×2 (14:51→21:42)
[2021-07-14] MEDS: AZITHROMYCIN 500 MG in SODIUM CHLORIDE 0.9% 250 ML IVPB SCH (14:51)
[2021-07-14 14:58] LABS: Albumin 4.3 g/dL (3.5-5.0); Calcium 9.6 mg/dL (8.4-10.2); Magnesium 1.8 mg/dL (1.6-2.3); Potassium 3.7 mmol/L (3.5-5.1); Total Bilirubin 0.8 mg/dL (0.2-1.3); Total Protein 7.3 g/dL (6.3-8.2)
[2021-07-14 15:16] LABS: Platelet Count 196 k/uL (150-450)
--- NOTE | 2021-07-14 17:34 | EEG ---
ELECTROENCEPHALOGRAM REPORT DATE OF SERVICE: 07/14/2021. CLINICAL HISTORY: This is a 80-year-old woman with altered mental status. The video EEG is obtained to evaluate for seizure epileptiform activity. RELEVANT MEDICATIONS: The patient is not on any antiepileptic drugs. EEG TYPE: A routine 21 channel EEG is performed with video using the 10/20 electrode placement system. DESCRIPTION: Wakefulness is only obtained. During wakefulness, the background consists of predominantly moderate voltage 3-4 Hz nonrhythmic delta activity intermixed with theta activity and at times the background consists of theta activity. There is no physiological stage 2 sleep architecture. There is no focal slowing. Interictal and ictal is none. Photic stimulation and hyperventilation are not performed. CLINICAL INTERPRETATION: This is an abnormal routine EEG. The background slowing is suggestive of moderate encephalopathy of unknown etiology. There is no focal slowing, epileptiform discharge or seizure on the EEG. Clinical correlation is recommended. SUELLEN / MARKUS: [id number] / [id number]
[2021-07-14] MEDS: ATORVASTATIN 20 MG TAB PO SCH (21:40)
[2021-07-15] MEDS: SODIUM CHLORIDE 0.9% 1,000 ML IV SCH (06:18)
[2021-07-15 08:12] LABS: HCT 33.6 % (34.0-46.0); HGB 10.8 gm/dL (11.4-16.0); Hypochromasia Moderate; MCH 28.4 pg (25.0-35.0); MCHC 32.3 g/dL (31.0-37.0); MCV 87.9 fL (80.0-100.0); Mean Platelet Volume 11.8; RBC 3.82 m/uL (3.80-5.40); RDW 13.9 % (11.5-15.5); WBC 9.8 k/uL (3.8-10.6)
[2021-07-15 08:29] LABS: ALT 8 U/L (4-34); AST 25 U/L (14-36); African American GFR (CKD) >90 (>60 ml/min/1.73 sqM); Albumin 3.3 g/dL (3.5-5.0); Alkaline Phosphatase 70 U/L (38-126); Anion Gap 10 mmol/L; Blood Urea Nitrogen 25 mg/dL (7-17); Calcium 8.2 mg/dL (8.4-10.2); Carbon Dioxide 18 mmol/L (22-30); Chloride 113 mmol/L (98-107); Glucose 80 mg/dL (74-99); Non-African American GFR(CKD) 84 (>60 ml/min/1.73 sqM); Potassium 3.4 mmol/L (3.5-5.1); Sodium 141 mmol/L (137-145); Total Bilirubin 0.7 mg/dL (0.2-1.3)
[2021-07-15 08:51] LABS: Platelet Count 149 k/uL (150-450)
[2021-07-15] MEDS: ENOXAPARIN 40 MG/0.4 ML SYRINGE SQ SCH (09:04)
[2021-07-15] MEDS: ASPIRIN 81 MG PO SCH (09:08)
[2021-07-15] MEDS: amLODIPine 5 MG TAB PO SCH (09:08)
[2021-07-15] MEDS: lisinopriL 20 MG TAB PO SCH (09:08)
--- NOTE | 2021-07-15 09:14 | XR ---
EXAMINATION TYPE: XR chest 1V portable DATE OF EXAM: 07/15/2021 HISTORY: Shortness of breath. COMPARISON: 07/14/2021 TECHNIQUE: Single view of the chest is submitted. FINDINGS: Demonstrated are scattered senescent parenchymal change. Pulmonary venous congestion with increased density right perihilar region. The heart is stable. Hilar and mediastinal structures are within normal limits. Degenerative changes are seen of the dorsal spine. IMPRESSION: 1. Pulmonary venous congestion with increased density right perihilar region.
[2021-07-15] MEDS: AZITHROMYCIN 500 MG in SODIUM CHLORIDE 0.9% 250 ML IVPB SCH (09:41)
[2021-07-15] MEDS ORDERED: POTASSIUM CHLORIDE 20 MEQ in WATER FOR INJECTION 1 100ML.BAG IVPB STA (10:29)
[2021-07-15] MEDS ORDERED: SODIUM CHLORIDE 0.45% 1,000 ML IV SCH (11:00)
[2021-07-15 12:09] LABS: Glucose,Whole Blood 81 mg/dL (75-99)
--- NOTE | 2021-07-15 13:56 | ECHOF ---
Referral Reason:CVA vs TIA MEASUREMENTS -------- HEIGHT: 162.6 cm WEIGHT: 60.8 kg BP: 158/86 IVSd: 1.1 cm (0.6 - 1.1) LVIDd: 3.6 cm (3.9 - 5.3) LVPWd: 1.1 cm (0.6 - 1.1) IVSs: 1.6 cm LVIDs: 2.5 cm LVPWs: 1.6 cm LA Diam: 2.8 cm (2.7 - 3.8) Ao Diam: 3.1 cm (2.0 - 3.7) AV Cusp: 1.5 cm (1.5 - 2.6) MV EXCURSION: 12.842 mm (> 18.000) MV EF SLOPE: 38 mm/s (70 - 150) EPSS: 0.7 cm MV E Ino: 0.77 m/s MV DecT: 195 ms MV A Ino: 1.10 m/s MV E/A Ratio: 0.70 FINDINGS -------- Sinus rhythm. This was a technically adequate study. The left ventricular size is normal. There is borderline concentric left ventricular hypertrophy. Overall left ventricular systolic function is normal with, an EF between 60 - 65 %. The left atrium is normal in size. The right atrium is normal in size. Interatrial and interventricular septum intact. There is mild aortic valve sclerosis. There is trace mitral regurgitation. The tricuspid valve appears structurally normal. Unable to estimate RVSP due to inadequate TR jet s pectral doppler profile. The pulmonic valve was not well visualized. The aortic root size is normal. Normal inferior vena cava with normal inspiratory collapse consistent with estimated right atrial pre ssure of 5 mmHg. There is no pericardial effusion. CONCLUSIONS -------- 1. The left ventricular size is normal. 2. There is borderline concentric left ventricular hypertrophy. 3. Overall left ventricular systolic function is normal with, an EF between 60 - 65 %. 4. There is trace mitral regurgitation. 5. There is no pericardial effusion. CANE STRIPPER: Radha Roper, [facility]
--- NOTE | 2021-07-15 14:54 | P.PN ---
Subjective Progress Note Date: 07/15/21 The patient is seen at bedside and per the nurse she is slightly more awake today and verbalized to her "yes". No seizure-like activity. It was felt that she had UTI and possible Pneumonia that was suspected. Objective - Vital Signs Vital signs: Vital Signs Temp 98.7 F 07/15/21 12:00 Pulse 70 07/15/21 12:00 Resp 16 07/15/21 12:00 BP 158/67 07/15/21 12:00 Pulse Ox 94 L 07/15/21 12:00 Intake & Output 07/14/21 07/15/21 07/15/21 18:59 06:59 18:59 Intake Total 430 1350 Output Total 250 350 500 Balance 180 -350 850 Intake: Intake, IV Titration 430 1350 Amount Azithromycin 500 mg In 250 250 Sodium Chloride 0.9% 250 ml @ 250 mls/hr IVPB DAILY GENEVIEVE Rx#:[id number] Sodium Chloride 0.9% 1, 130 1000 000 ml @ 130 mls/hr IV . [id number] GENEVIEVE Rx#:[id number] cefTRIAXone 2 gm In 50 100 Sodium Chloride 0.9% 50 ml @ 100 mls/hr IVPB Q24HR GENEVIEVE Rx#:[id number] Output: Urine 250 350 500 Other: Voiding Method Indwelling Catheter Indwelling Catheter Indwelling Catheter - Exam GENERAL: The patient is lying in bed and is in distress. She is very nauseous. NEUROLOGICAL: Very limited since patient is very drowsy. Higher mental function: The patient is severely drowsy but would opens her eyes to voice. She was not verbalizing and inconsistenly was attempting to raise both arms on commands. Cranial nerves: The pupils are round, equal and reactive. Extraocular movement is tracking me throughout the room. No facial weakness. Rest is limited. Motor: The strength is hard to assess muscles because of condition but was able to lift bilateral uppers above gravity intermittently. Cerebellum: Could not assess. Sensation: Could not assess Plantars are mute bilaterally. WORK-UP: Lipid panel is triglyceride of 90, cholesterol is 211, LDLs 129, HDL is 63. Hemoglobin A1c is 5.5. CBC with differential is unremarkable on presentation Chemistry panel is unremarkable. Initial serum glucose is 109. AST and ALTs within normal limits PT, PTT and INR is within normal limits Urine drug screen was not detected U/A: Seems possible suggestive of UTI. CXR:is reported as mild groundglass density suggested at the right medial lung base. CT of the head is reported as age-related atrophic and chronic small vessel ischemic change without acute intracranial process seen at this time. Correlate for normal pressure hydrocephalus. I personally reviewed the CT of the head and I agree with the report. CT angiography of the head and neck support as no significant stenosis, dissection or occlusion seen in the neck or the intracranial arteries. EKG report is reviewed and there is no A. fib or flutter that seen. MRI of the brain without is reported as mild cerebral atrophy. Moderate hydrocephalus. Ventricle white matter changes that could relate to hydrocephalus and chronic small vessel ischemia. No change compared to old exam. No acute infarct. No obstructive masses seen. I personally reviewed the MRI and there is no acute or subacute ischemia. Does have hydrocephalus which is known from her history and it seems more moderate to severe and on leading towards severe side. STAT EEG on 07/14/2021: The background slowing is suggestive of moderate encephalopathy of unknown etiology. There is no focal slowing, epileptiform discharges or seizure on the EEG. - Labs CBC & Chem 7: 07/15/21 06:25 07/15/21 06:25 Labs: Abnormal Lab Results - Last 24 Hours (Table) 07/14/21 07/14/21 07/15/21 Range/Units 14:15 14:15 06:25 WBC 11.7 H (3.8-10.6) k/uL Hgb 10.8 L (11.4-16.0) gm/dL Hct 33.6 L (34.0-46.0) % Plt Count 149 L (150-450) k/uL Potassium (3.5-5.1) mmol/L Chloride (98-107) mmol/L Carbon Dioxide (22-30) mmol/L BUN 20 H (7-17) mg/dL Glucose 113 H (74-99) mg/dL Calcium (8.4-10.2) mg/dL Total Protein (6.3-8.2) g/dL Albumin (3.5-5.0) g/dL 07/15/21 Range/Units 06:25 WBC (3.8-10.6) k/uL Hgb (11.4-16.0) gm/dL Hct (34.0-46.0) % Plt Count (150-450) k/uL Potassium 3.4 L (3.5-5.1) mmol/L Chloride 113 H (98-107) mmol/L Carbon Dioxide 18 L (22-30) mmol/L BUN 25 H (7-17) mg/dL Glucose (74-99) mg/dL Calcium 8.2 L (8.4-10.2) mg/dL Total Protein 6.0 L (6.3-8.2) g/dL Albumin 3.3 L (3.5-5.0) g/dL Microbiology - Last 24 Hours (Table) 07/14/21 13:00 Urine Culture - Preliminary Urine,Voided Assessment and Plan Assessment: Encephalopathy appears due to underlying suspected UTI and possible pneumonia. ?Dysrathria, right facial droop, unsteady walking, and possible aphasia per ED team: But on examination she had no facial droop. Not stroke. MRI Brain is negative. Seems due to underlying infection. Possible TIA in 2019 with word finding difficulty Normal pressure hydrocephalus History of lumbar fusion Hypertension and on this presentation her blood pressure was slightly elevated with systolic in the 150s to 160s. Hyperlipidemia History of rheumatoid arthritis Plan: * Continue ASA 81mg daily and Lipitor 20mg qhs and is sufficient for secondary stroke prophylaxis. * MRI of the brain without is reported as mild cerebral atrophy. Moderate hydrocephalus. Ventricle white matter changes that could relate to hydrocephalus and chronic small vessel ischemia. No change compared to old exam. No acute infarct. No obstructive masses seen. I personally reviewed the MRI and there is no acute or subacute ischemia. Does have hydrocephalus which is known from her history and it seems more moderate to severe and on leading towards severe side. * STAT EEG on 07/14/2021: The background slowing is suggestive of moderate encephalopathy of unknown etiology. There is no focal slowing, epileptiform discharges or seizure on the EEG. * PT, OT and FULL TIME BABYSITTER are is consulted * Continue neuro checks * On cardiac monitoring * She is on Ceftriaxone and Azithromycin for UTI and possible pneumonia started by primary team. * We'll defer the rest of the medical management to the primary team * For DVT prophylaxis the patient is on enoxaparin 40 mg daily. * Recommend the patient to follow-up with a neurologist and neurosurgeon as an outpatient for further workup of normal pressure hydrocephalus and to consider shunts as an outpatient. Patient daughter addressed code status: DO NOT RESUSCITATE. The plan is discussed in detail with the patient's daughter was at bedside and her nurse. Dr. Nash will start neurology coverage tomorrow AM. Sin Lubin M.D. Neuro-hospitalist Time with Patient: Less than 30
--- NOTE | 2021-07-15 15:23 | P.PN ---
Subjective Progress Note Date: 07/15/21 (delayed charting seen at 1045) Principal diagnosis: encephalopathy Patient is 80-year-old female with hypertension, hyperlipidemia, normal pressure hydrocephalus diagnosed with previous lumbar puncture, and multiple TIAs. She presented to the emergency department with garbled speech and alteration in mental status. Upon arrival to the emergency department, a stroke code was called. Blood glucose 109. CT head showing age related atrophic and chronic small vessel ischemic changes, negative for acute intercranial process correlate for normal pressure hydrocephalus. Neurointerventionalist recommended agains TPA and/or intervention at this time. Labs obtained, CBC, coags, and CMP were unremarkable. Urine drug screen negative. CTA head/neck then completed r evealing subtle reduced enhancement of the left insular cortex, dilated supratentorial ventricles, and questionable right hilar lymphadenopathy, but negative for intracranial hemorrhage, significant stenosis, dissection, or occlusion. EKG showing sinus rhythm at 83 bpm with frequent PACs and T-wave inversion in anterior leads II and aVF. Patient was admitted under our services for acute CVA with consultation to neurology. MRI was obtained which showed mild cerebral atrophy, moderate hydrocephalus, and. Ventricular white matter changes related to hydrocephalus and chronic small vessel ischemic changes without change compared to old exam. She continued to spike fevers overnight. Repeat chest x-ray demonstrated possible right-sided infiltrate. UA came back with UTI and started on rocephin. Patient seen and examined at bedside. She is more awake today, still not verbalizing her following commands consistently but does appear improved. She does mouth "ouch" with checking light touch. No family present at bedside. General: non toxic, no distress, appears at stated age Derm: warm, dry Head: atraumatic, normocephalic, symmetric Eyes: EOMI, no lid lag, anicteric sclera Mouth: no lip lesion, mucus membranes moist Cardiovascular: S1S2 reg, no murmur, positive posterior tibial pulse bilateral, Lungs: Decreased breath sounds bilateral, no rhonchi, no rales , no accessory muscle use Abdominal: soft, nontender to palpation, no guarding, no appreciable organomegaly Ext: no gross muscle atrophy, no edema, no contractures Neuro: Pupils equal round reactive to light, extraocular motion intact, withdrawal to pain intact bilateral upper and lower extremities, unable to follow commands sticking out her tongue. Psych: Patient is awake however she is not following commands. Assessment/plan: Acute metabolic encephalopathy Pneumonia UTI -Patient's MRI without signs of definitive acute CVA. Neurology recommendations appreciated -Repeat chest x-ray with probable pneumonia on the right hand side. - Continue with Rocephin and Zithromax -Await urine culture -Blood cultures negative to date -Fluids changed to half-normal -If continues to have significant encephalopathy and a.m. after 48 hours of antibiotics would consider LP -Neurology recommendations appreciated -EEG without signs of focal activity Hyperchloremic metabolic acidosis -Fluids changed to half-normal -Repeat BMP in a.m. Hypokalemia -Replace and recheck -Check magnesium in a.m. HLD - meds on hold due to mental status HTN - meds on hold due to mental status - prn hydralazine if SBP>200 NPH Prior Hemorrhagic CVA DVT prophylaxis: Lovenox Discussed with: Patient, nursing Anticipated discharge: in 2-[address]: home A total of 65 minutes was spent on the care of this complex patient more than 50% of the time was spent in counseling and care coordination. Objective - Vital Signs Vital signs: Vital Signs Temp 98.7 F 07/15/21 12:00 Pulse 70 07/15/21 12:00 Resp 16 07/15/21 12:00 BP 158/67 07/15/21 12:00 Pulse Ox 94 L 07/15/21 12:00 Intake & Output 07/14/21 07/15/21 07/15/21 18:59 06:59 18:59 Intake Total 430 1350 Output Total 250 350 500 Balance 180 -350 850 Intake: Intake, IV Titration 430 1350 Amount Azithromycin 500 mg In 250 250 Sodium Chloride 0.9% 250 ml @ 250 mls/hr IVPB DAILY [facility] Rx#:[id number] Sodium Chloride 0.9% 1, 130 1000 000 ml @ 130 mls/hr IV . Q7H42M [facility] Rx#:[id number] cefTRIAXone 2 gm In 50 100 Sodium Chloride 0.9% 50 ml @ 100 mls/hr IVPB Q24HR [facility] Rx#:[id number] Output: Urine 250 350 500 Other: Voiding Method Indwelling Catheter Indwelling Catheter Indwelling Catheter - Labs CBC & Chem 7: 07/15/21 06:25 07/15/21 06:25 Labs: Abnormal Lab Results - Last 24 Hours (Table) 07/15/21 07/15/21 Range/Units 06:25 06:25 Hgb 10.8 L (11.4-16.0) gm/dL Hct 33.6 L (34.0-46.0) % Plt Count 149 L (150-450) k/uL Potassium 3.4 L (3.5-5.1) mmol/L Chloride 113 H (98-107) mmol/L Carbon Dioxide 18 L (22-30) mmol/L BUN 25 H (7-17) mg/dL Calcium 8.2 L (8.4-10.2) mg/dL Total Protein 6.0 L (6.3-8.2) g/dL Albumin 3.3 L (3.5-5.0) g/dL Microbiology - Last 24 Hours (Table) 07/14/21 13:00 Urine Culture - Preliminary Urine,Voided
[2021-07-15 16:36] LABS: Glucose,Whole Blood 74 mg/dL (75-99)
[2021-07-15] MEDS: D5-0.45% NACL WITH KCL 20MEQ/L 1,000 ML IV SCH (16:49)
[2021-07-15] MEDS: ATORVASTATIN 20 MG TAB PO SCH (19:52)
[2021-07-16] MEDS: D5-0.45% NACL WITH KCL 20MEQ/L 1,000 ML IV SCH ×2 (03:33→18:13)
[2021-07-16 07:01] LABS: HCT 35.4 % (34.0-46.0); HGB 11.3 gm/dL (11.4-16.0); Hypochromasia Slight; MCH 27.8 pg (25.0-35.0); MCHC 31.8 g/dL (31.0-37.0); MCV 87.3 fL (80.0-100.0); Mean Platelet Volume 12.3; Platelet Count 150 k/uL (150-450); RBC 4.05 m/uL (3.80-5.40); RDW 13.8 % (11.5-15.5); WBC 10.2 k/uL (3.8-10.6)
[2021-07-16 07:46] LABS: African American GFR (CKD) >90 (>60 ml/min/1.73 sqM); Anion Gap 3 mmol/L; Blood Urea Nitrogen 21 mg/dL (7-17); Calcium 8.5 mg/dL (8.4-10.2); Carbon Dioxide 23 mmol/L (22-30); Chloride 111 mmol/L (98-107); Glucose 92 mg/dL (74-99); Magnesium 1.8 mg/dL (1.6-2.3); Non-African American GFR(CKD) 82 (>60 ml/min/1.73 sqM); Potassium 3.4 mmol/L (3.5-5.1); Sodium 137 mmol/L (137-145)
[2021-07-16] MEDS: ENOXAPARIN 40 MG/0.4 ML SYRINGE SQ SCH (08:14)
[2021-07-16] MEDS: AZITHROMYCIN 500 MG in SODIUM CHLORIDE 0.9% 250 ML IVPB SCH (09:39)
[2021-07-16] MEDS: ASPIRIN 81 MG PO SCH (10:09)
[2021-07-16] MEDS: amLODIPine 5 MG TAB PO SCH (10:09)
[2021-07-16] MEDS: lisinopriL 20 MG TAB PO SCH (10:10)
[2021-07-16] MEDS ORDERED: POTASSIUM CHLORIDE ER 20 MEQ TAB.ER PO STA (10:29)
--- NOTE | 2021-07-16 10:46 | P.PN ---
<Papo Borjas - Last Filed: 07/16/21 10:20> Subjective Progress Note Date: 07/16/21 Hospital course: Patient is 80-year-old female with hypertension, hyperlipidemia, normal pressure hydrocephalus diagnosed with previous lumbar puncture, and multiple TIAs. She presented to the emergency department with garbled speech and alteration in mental status. Upon arrival to the emergency department, a stroke code was called. Blood glucose 109. CT head showing age related atrophic and chronic small vessel ischemic changes, negative for acute intercranial process correlate for normal pressure hydrocephalus. Neurointerventionalist recommended agains TPA and/or intervention at this time. Labs obtained, CBC, coags, and CMP were unremarkable. Urine drug screen negative. CTA head/neck then completed revealing subtle reduced enhancement of the left insular cortex, dilated supra tentorial ventricles, and questionable right hilar lymphadenopathy, but negative for intracranial hemorrhage, significant stenosis, dissection, or occlusion. EKG showing sinus rhythm at 83 bpm with frequent PACs and T-wave inversion in anterior leads II and aVF. Patient was admitted under our services for acute CVA with consultation to neurology. MRI was obtained which was negative for acute infarct showing mild cerebral atrophy, moderate hydrocephalus, and periventricular white matter changes possibly related to hydrocephalus and chronic small vessel ischemic changes. Patient was later found to spike fevers. A chest x-ray was completed demonstrating concerns of right-sided infiltrate a nd urinalysis resulted positive for acute UTI. Patient was started on IV antibiotics Rocephin 2 g daily. Patient's mentation improving, she is currently alert to person and place and remains confused to time and situation. Expressive aphasia has resolved and speech is now clear. Physical examination: Patient seen and examined at bedside. Her mentation seems to be improved significantly this morning. Expressive aphasia has resolved and her speech is clear. Patient is alert to person and place, confused to time and situation. Patient following simple commands and denies having any pain or discomfort at this time. General: non toxic, no distress, appears at stated age Derm: warm, dry Head: atraumatic, normocephalic, symmetric Eyes: EOMI, no lid lag, anicteric sclera Mouth: no lip lesion, mucus membranes moist Cardiovascular: S1S2 reg, no murmur, positive posterior tibial pulse bilateral, Lungs: Decreased breath sounds bilateral, no rhonchi, no rales , no accessory muscle use Abdominal: soft, nontender to palpation, no guarding, no appreciable organomegaly Ext: no gross muscle atrophy, no edema, no contractures. Range of motion int act. Patient moving upper and lower extremities without any noted difficulties. Neuro: GCS 14. Pupils equal round reactive to light, extraocular motion intact, mentation has improved patient now alert to person and place confused to time and situation. Patient following simple commands. Psych: Patient is awake and alert to person and place but confused to time and situation. Assessment and plan of care: Acute metabolic encephalopathy likely secondary to acute infectious process with pneumonia and UTI Expressive aphasia, resolved History of normal pressure hydrocephalus Pneumonia UTI -Patient's MRI without signs of definitive acute CVA. Neurology recommendations appreciated -Repeat chest x-ray with probable pneumonia on the right hand side. - Continue with Rocephin and Zithromax -Await urine culture, preliminary culture showing gram-negative bacilli -Blood cultures negative to date -Fluids changed to half-normal -If continues to have significant encephalopathy and a.m. after 48 hours of antibiotics would consider LP -Neurology recommendations appreciated -EEG without signs of focal activity Hyperchloremic metabolic acidosis -Fluids changed to half-normal -Repeat BMP in a.m. Hypokalemia -Replace and recheck HLD - meds on hold due to mental status HTN - meds on hold due to mental status - prn hydralazine if SBP>200 NPH -Prior Hemorrhagic CVA DVT prophylaxis: Lovenox Discussed with: Patient, nursing Anticipated discharge: in 1-[address]: home A total of 45 minutes was spent on the care of this complex patient more than 50% of the time was spent in counseling and care coordination. Objective - Vital Signs Vital signs: Vital Signs Temp 98.4 F 07/16/21 08:00 Pulse 62 07/16/21 08:00 Resp 18 07/16/21 08:00 BP 183/73 07/16/21 08:00 Pulse Ox 97 07/16/21 08:00 Intake & Output 07/15/21 07/16/21 07/16/21 18:59 06:59 18:59 Intake Total 1350 75 Output Total 500 600 Balance 850 -525 Intake: Intake, IV Titration 1350 75 Amount Azithromycin 500 mg In 250 Sodium Chloride 0.9% 250 ml @ 250 mls/hr IVPB DAILY [facility] Rx#:[id number] D5-0.45% NaCl with KCl 75 20Meq/l 1,000 ml @ 75 mls /hr IV .[id number] [facility] Rx#: [id number] Sodium Chloride 0.9% 1, 1000 000 ml @ 130 mls/hr IV . Q7H42M [facility] Rx#:[id number] cefTRIAXone 2 gm In 100 Sodium Chloride 0.9% 50 ml @ 100 mls/hr IVPB Q24HR [facility] Rx#:[id number] Output: Urine 500 600 Other: Voiding Method Indwelling Catheter Indwelling Catheter - Labs CBC & Chem 7: 07/16/21 05:41 07/16/21 05:41 Labs: Abnormal Lab Results - Last 24 Hours (Table) 07/15/21 07/16/21 07/16/21 Range/Units 16:33 05:41 05:41 Hgb 11.3 L (11.4-16.0) gm/dL Potassium 3.4 L (3.5-5.1) mmol/L Chloride 111 H (98-107) mmol/L BUN 21 H (7-17) mg/dL POC Glucose (mg/dL) 74 L (75-99) mg/dL Microbiology - Last 24 Hours (Table) 07/14/21 13:00 Urine Culture - Preliminary Urine,Voided Gram Neg Bacilli 07/14/21 14:15 Blood Culture - Preliminary Blood No Growth after 24 hours 07/14/21 14:06 Blood Culture - Preliminary Blood No Growth after 24 hours <Lloyd Diop - Last Filed: 07/16/21 17:16> Subjective I reviewed the documentation as provided by the ELVIN above, who is the original author of this note. I agree with the documented assessment and plan, with the following changes: None Objective - Vital Signs Vital signs: Vital Signs Temp 98.4 F 07/16/21 08:00 Pulse 64 07/16/21 14:00 Resp 17 07/16/21 14:00 BP 166/80 07/16/21 12:00 Pulse Ox 94 L 07/16/21 12:00 Intake & Output 07/15/21 07/16/21 07/16/21 18:59 06:59 18:59 Intake Total 1350 75 Output Total 189 580 8217 Balance 850 -525 -1300 Intake: Intake, IV Titration 1350 75 Amount Azithromycin 500 mg In 250 Sodium Chloride 0.9% 250 ml @ 250 mls/hr IVPB DAILY [facility] Rx#:[id number] D5-0.45% NaCl with KCl 75 20Meq/l 1,000 ml @ 75 mls /hr IV .[id number] [facility] Rx#: [id number] Sodium Chloride 0.9% 1, 1000 000 ml @ 130 mls/hr IV . Q7H42M [facility] Rx#:[id number] cefTRIAXone 2 gm In 100 Sodium Chloride 0.9% 50 ml @ 100 mls/hr IVPB Q24HR [facility] Rx#:[id number] Output: Urine 230 961 4233 Other: Voiding Method Indwelling Catheter Indwelling Catheter Indwelling Catheter - Labs CBC & Chem 7: 07/16/21 05:41 07/16/21 05:41 Labs: Abnormal Lab Results - Last 24 Hours (Table) 07/16/21 07/16/21 Range/Units 05:41 05:41 Hgb 11.3 L (11.4-16.0) gm/dL Potassium 3.4 L (3.5-5.1) mmol/L Chloride 111 H (98-107) mmol/L BUN 21 H (7-17) mg/dL Microbiology - Last 24 Hours (Table) 07/14/21 14:15 Blood Culture - Preliminary Blood No Growth after 48 hours 07/14/21 14:06 Blood Culture - Preliminary Blood No Growth after 48 hours 07/14/21 13:00 Urine Culture - Preliminary Urine,Voided Gram Neg Bacilli
--- NOTE | 2021-07-16 14:53 | P.PN ---
Subjective Progress Note Date: 07/16/21 Patient was seen for a follow-up. Patient initially seen by Dr. Sin Lubin. Please refer to his note for details. Patient's daughter was present today. Patient is a 80-year-old female who has history of normal pressure hydrocephalus (never performed shunt procedure in the past) came with altered mental status. There was some report about possibility of a facial droop, dysarthria and aphasia, but MRI of the brain came back negative. She has UTI and pneumonia. EEG shows moderate encephalopathy. At present patient denies any headache, no chest pain no abdominal pain. No fever or chills. Patient's daughter states that on 07/13/2021 and on Friday, she was talking gibberish. On Friday she was not talking much. This morning she is speaking coherently. Patient's daughter believes that she is about 90% better, although after the examination as below, she believes it is 75% better (not the 90% she mentioned earlier). She lives with her daughter, and walks with a walker. She has been using walker for the last 5 years. Patient's daughter states that she was seen by her primar y physician who performed dementia testing about 3 weeks ago, and she missed only 2 points in the testing. Objective - Vital Signs Vital signs: Vital Signs Temp 98.4 F 07/16/21 08:00 Pulse 64 07/16/21 14:00 Resp 17 07/16/21 14:00 BP 166/80 07/16/21 12:00 Pulse Ox 94 L 07/16/21 12:00 Intake & Output 07/15/21 07/16/21 07/16/21 18:59 06:59 18:59 Intake Total 1350 75 Output Total 824 139 1649 Balance 850 -525 -1300 Intake: Intake, IV Titration 1350 75 Amount Azithromycin 500 mg In 250 Sodium Chloride 0.9% 250 ml @ 250 mls/hr IVPB DAILY [facility] Rx#:[id number] D5-0.45% NaCl with KCl 75 20Meq/l 1,000 ml @ 75 mls /hr IV .[id number] [facility] Rx#: [id number] Sodium Chloride 0.9% 1, 1000 000 ml @ 130 mls/hr IV . Q7H42M [facility] Rx#:[id number] cefTRIAXone 2 gm In 100 Sodium Chloride 0.9% 50 ml @ 100 mls/hr IVPB Q24HR [facility] Rx#:[id number] Output: Urine 881 006 0137 Other: Voiding Method Indwelling Catheter Indwelling Catheter Indwelling Catheter - Exam GENERAL: The patient is lying in bed and is in distress. Patient appears comfortable today. NEUROLOGICAL: Patient is alert and awake, slow mentation. She states it is [birth year] although that is her birthday. When she was asked about the current month and the year, patient noted the notice board and told it is 07/16/2021. When we asked, what month visit, she states it as July. Higher mental function: Her speech and 9 with function appears normal. No aphasia or dysarthria. Patient can name and repeat. Cranial nerves: The pupils are equal, round, equal and reactive. Extraocular movement is tracking me throughout the room. She has some questionable inconsistent left-sided visual field also deficits. She has slow mentation. No facial weakness. Face is symmetric and tongue protrudes the midline. Patient is hard of hearing. Shoulder shrug normal. Motor: Her left arm appears to be slightly swollen, with IV line is running and has a immobilization board applied. Her left arm groups slightly. However the director dental services biceps and triceps are equal bilaterally. Strength in the lower limbs are normal. Her right ankle has a bandaged from recent surgery. Cerebellum: No obvious ataxia for [id number] testing.. Sensation: Equal. Plantars are mute bilaterally. WORK-UP: Lipid panel is triglyceride of 90, cholesterol is 211, LDLs 129, HDL is 63. Hemoglobin A1c is 5.5. CBC with differential is unremarkable on presentation Chemistry panel is unremarkable. Initial serum glucose is 109. AST and ALTs within normal limits PT, PTT and INR is within normal limits Urine drug screen was not detected U/A: Seems possible suggestive of UTI. CXR:is reported as mild groundglass density suggested at the right medial lung base. CT of the head is reported as age-related atrophic and chronic small vessel ischemic change without acute intracranial process seen at this time. Correlate for normal pressure hydrocephalus. I personally reviewed the CT of the head and I agree with the report. CT angiography of the head and neck support as no significant stenosis, dissection or occlusion seen in the neck or the intracranial arteries. EKG report is reviewed and there is no A. fib or flutter that seen. MRI of the brain without is reported as mild cerebral atrophy. Moderate hydrocephalus. Ventricle white matter changes that could relate to hydrocephalus and chronic small vessel ischemia. No change compared to old exam. No acute infarct. No obstructive masses seen. I also personally reviewed the MRI and there is no acute or subacute ischemia. Does have hydrocephalus which is known from her history and it seems more moderate to severe degree. No change from MRI from March 2021. STAT EEG on 07/14/2021: The background slowing is suggestive of moderate encephalopathy of unknown etiology. There is no focal slowing, epileptiform discharges or seizure on the EEG. - Labs CBC & Chem 7: 07/16/21 05:41 07/16/21 05:41 Labs: Abnormal Lab Results - Last 24 Hours (Table) 07/15/21 07/16/21 07/16/21 Range/Units 16:33 05:41 05:41 Hgb 11.3 L (11.4-16.0) gm/dL Potassium 3.4 L (3.5-5.1) mmol/L Chloride 111 H (98-107) mmol/L BUN 21 H (7-17) mg/dL POC Glucose (mg/dL) 74 L (75-99) mg/dL Microbiology - Last 24 Hours (Table) 07/14/21 13:00 Urine Culture - Preliminary Urine,Voided Gram Neg Bacilli 07/14/21 14:15 Blood Culture - Preliminary Blood No Growth after 24 hours 07/14/21 14:06 Blood Culture - Preliminary Blood No Growth after 24 hours Assessment and Plan Assessment: Encephalopathy appears due to underlying suspected UTI and possible pneumonia. Patient's encephalopathy is markedly improved as compared to the last couple days. ?Dysrathria, right facial droop, unsteady walking, and possible aphasia per ED team: But on examination she had no facial droop. Not stroke. MRI Brain is negative. Seems due to underlying infection. Possible TIA in 2019 with word finding difficulty Normal pressure hydrocephalus History of lumbar fusion Hypertension and on this presentation her blood pressure was slightly elevated with systolic in the 150s to 160s. Hyperlipidemia History of rheumatoid arthritis Plan: * Patient's encephalopathy is much improved. * Continue ASA 81mg daily and Lipitor 20mg qhs and is sufficient for secondary stroke prophylaxis. * MRI of the brain without is reported as mild cerebral atrophy. Moderate hydrocephalus. Ventricle white matter changes that could relate to hydrocephalus and chronic small vessel ischemia. No change compared to old exam. No acute infarct. No obstructive masses seen. I personally reviewed the MRI and there is no acute or subacute ischemia. Does have hydrocephalus which is known from her history and it seems more moderate to severe and on leading towards severe side. * STAT EEG on 07/14/2021: The background slowing is suggestive of moderate encephalopathy of unknown etiology. There is no focal slowing, epileptiform discharges or seizure on the EEG. * Start PT, OT and [employer]ER are is consulted * Continue neuro checks * On cardiac monitoring * She is on Ceftriaxone and Azithromycin for UTI and possible pneumonia started by primary team. * We'll defer the rest of the medical management to the primary team * For DVT prophylaxis the patient is on enoxaparin 40 mg daily. * Recommend the patient to follow-up with a neurologist and neurosurgeon as an outpatient for further workup of normal pressure hydrocephalus and I would recommend consideration of shunt placement, if okay with the neurosurgeon. Patient daughter addressed code status: DO NOT RESUSCITATE.
[2021-07-16] MEDS: ATORVASTATIN 20 MG TAB PO SCH (20:16)
[2021-07-17] MEDS: D5-0.45% NACL WITH KCL 20MEQ/L 1,000 ML IV SCH (06:10)
[2021-07-17] MEDS: amLODIPine 5 MG TAB PO SCH (09:11)
[2021-07-17] MEDS: ENOXAPARIN 40 MG/0.4 ML SYRINGE SQ SCH (09:11)
[2021-07-17] MEDS: lisinopriL 20 MG TAB PO SCH (09:11)
[2021-07-17] MEDS: ASPIRIN 81 MG PO SCH (09:11)
--- NOTE | 2021-07-17 14:33 | P.PN ---
Subjective Progress Note Date: 07/17/21 Hospital course: Patient is 80-year-old female with hypertension, hyperlipidemia, normal pressure hydrocephalus diagnosed with previous lumbar puncture, and multiple TIAs. She presented to the emergency department with garbled speech and alteration in mental status. Upon arrival to the emergency department, a stroke code was called. Blood glucose 109. CT head showing age related atrophic and chronic small vessel ischemic changes, negative for acute intercranial process correlate for normal pressure hydrocephalus. Neurointerventionalist recommended agains TPA and/or intervention at this time. Labs obtained, CBC, coags, and CMP were unremarkable. Urine drug screen negative. CTA head/neck then completed revealing subtle reduced enhancement of the left insular cortex, dilated supratentorial ventricles, and questionable right hilar lymphadenopathy, but negative for intracranial hemorrhage, significant stenosis, dissection, or occlusion. EKG showing sinus rhythm at 83 bpm with frequent PACs and T-wave inversion in anterior leads II and aVF. Patient was admitted under our services for acute CVA with consultation to neurology. MRI was obtained which was negative for acute infarct showing mild cerebral atrophy, moderate hydrocephalus, and periventricular white matter changes possibly related to hydrocephalus and chronic small vessel ischemic changes. EEG without signs of focal activity. Patient was later found to spike fevers. A chest x-ray was completed demonstrating concerns of right-sided infiltrate and urinalysis resulted positive for acute UTI. Patient was started on IV antibiotics Rocephin 2 g daily and Azithromycin 500 mg daily. Patient's mentation improving, she is currently alert to person and place and remains confused to time and situation. Expressive aphasia has resolved and speech remains clear. Physical examination: Patient seen and examined at bedside. Her mentation continues to improve. Patient currently alert to person, place, time, and situation. Patient was able to state that it was July 2021., Answer all questions asked with appropriate answers and following commands. Patient even stood up and took a couple steps today with physical therapy. She denies having any complaints. She remains on IV antibiotic with Rocephin. Urine culture came back positive for ampicillin resistant Klebsiella pneumoniae. Plan is for discharge to [facility]. Case management making arrangements. General: non toxic, no distress, appears at stated age Derm: warm, dry Head: atraumatic, normocephalic, symmetric Eyes: EOMI, no lid lag, anicteric sclera Mouth: no lip lesion, mucus membranes moist Cardiovascular: S1S2 reg, no murmur, positive posterior tibial pulse bilateral, Lungs: Decreased breath sounds bilateral, no rhonchi, no rales , no accessory muscle use Abdominal: soft, nontender to palpation, no guarding, no appreciable organomegaly Ext: No gross muscle atrophy, no edema, no contractures. Range of motion intact. Patient moving upper and lower extremities without any noted difficulties. Neuro: GCS 14. Pupils equal round reactive to light, extraocular motion intact, mentation has improved patient now alert to person and place confused to time and situation. Patient following simple commands. Psych: Patient is awake and alert to person and place but confused to time and situation. Assessment and plan of care: Acute metabolic encephalopathy likely secondary to acute infectious process with pneumonia and UTI Expressive aphasia, resolved History of normal pressure hydrocephalus Pneumonia Klebsiella pneumoniae UTI -Patient's MRI without signs of definitive acute CVA. Neurology recommendations appreciated -Repeat chest x-ray with probable pneumonia on the right hand side. -Continue with Rocephin and Zithromax course was completed 07/16/21 -Urine culture came back positive for ampicillin resistant Klebsiella pneumoniae. -Blood cultures negative to date -Fluids changed to half-normal -Neurology following -EEG without signs of focal activity Hyperchloremic metabolic acidosis, improved -Repeat BMP in a.m. Hypokalemia -Replace and recheck HLD - meds on hold due to mental status HTN - meds on hold due to mental status - prn hydralazine if SBP>200 NPH -Prior Hemorrhagic CVA DVT prophylaxis: Lovenox Discussed with: Patient, nursing Anticipated discharge: in tomorrow morning, pending insurance authorization Anticipated discharge place: [facility] A total of 40 minutes was spent on the care of this complex patient more than 50% of the time was spent in counseling and care coordination. Objective - Vital Signs Vital signs: Vital Signs Temp 99 F 07/17/21 04:00 Pulse 69 07/17/21 04:00 Resp 16 07/17/21 04:00 BP 175/74 07/17/21 04:00 Pulse Ox 96 07/17/21 04:00 Intake & Output 07/16/21 07/17/21 07/17/21 18:59 06:59 18:59 Intake Total 120 Output Total 5 Balance -2124 120 Intake: Oral 120 Output: Urine 2125 Uretheral (Urbina) 200 Other: Voiding Method Indwelling Catheter Toilet Diaper # Voids 1 # Bowel Movements 1 - Labs CBC & Chem 7: 07/16/21 05:41 07/16/21 05:41 Labs: Microbiology - Last 24 Hours (Table) 07/14/21 13:00 Urine Culture - Final Urine,Voided Klebsiella pneumoniae 07/14/21 14:15 Blood Culture - Preliminary Blood No Growth after 48 hours 07/14/21 14:06 Blood Culture - Preliminary Blood No Growth after 48 hours
[2021-07-17] MEDS: ACETAMINOPHEN TAB 325 MG TAB PO PRN (18:55)
[2021-07-17] MEDS: ATORVASTATIN 20 MG TAB PO SCH (20:40)
[2021-07-18] MEDS: ACETAMINOPHEN TAB 325 MG TAB PO PRN (03:23)
[2021-07-18] MEDS ORDERED: cloNIDine HCL 0.2 MG TAB PO STA (03:45)
[2021-07-18 08:12] LABS: HCT 36.1 % (34.0-46.0); HGB 11.4 gm/dL (11.4-16.0); Hypochromasia Slight; MCH 27.7 pg (25.0-35.0); MCHC 31.7 g/dL (31.0-37.0); MCV 87.4 fL (80.0-100.0); Mean Platelet Volume 12.6; RBC 4.13 m/uL (3.80-5.40); RDW 14.1 % (11.5-15.5)
[2021-07-18 08:34] LABS: Calcium 8.6 mg/dL (8.4-10.2); Total Bilirubin 0.8 mg/dL (0.2-1.3); Total Protein 5.7 g/dL (6.3-8.2)
[2021-07-18 08:59] LABS: Platelet Count 172 k/uL (150-450)
[2021-07-18] MEDS: amLODIPine 5 MG TAB PO SCH (09:46)
[2021-07-18] MEDS: lisinopriL 20 MG TAB PO SCH (09:46)
[2021-07-18] MEDS: ASPIRIN 81 MG PO SCH (09:46)
[2021-07-18] MEDS: ENOXAPARIN 40 MG/0.4 ML SYRINGE SQ SCH (09:46)
[2021-07-18] MEDS ORDERED: CYANOCOBALAMIN 1,000 MCG/ML 1 ML VIAL IM ONE (10:41)
--- NOTE | 2021-07-18 10:42 | P.PN ---
Subjective Progress Note Date: 07/17/21 07/17/2021: Patient's daughter was also present today. She mentions that patient had a rough day today. Her back was bothering, more confused. She is slightly hallucinating. When she was hearing different machines outside, she felt like was a motorcycle. The air fans running in the room she feels like is a helicopter. I spoke to patient's daughter in detail about her history of hydrocephalus which was diagnosed 30 years ago after she suffered from a fall and a day. It has been stable, all this time. In 2018 she had a TIA which affected her left side. She then suffered from a fall in 2020 in which she fell, hit her head in the bathroom ceramic floor. She suffered from intracranial hemorrhage. She was taken to [facility]. She did not require any craniotomy. Patient's daughter believes that she has incontinence since 2018 since her back surgery. Patient uses a walker. Patient's one or the other family member in their family has been sick off and on in the last 16 months therefore not able to follow-up with the neurosurgeon. 07/16/2021: Patient was seen for a follow-up. Patient initially seen by Dr. Sin Lubin. Please refer to his note for details. Patient's daughter was present today. Patient is a 80-year-old female who has history of normal pressure hydrocephalus (never performed shunt procedure in the past) came with altered mental status. There was some report about possibility of a facial droop, dysarthria and aphasia, but MRI of the brain came back negative. She has UTI and pneumonia. EEG shows moderate encephalopathy. At present patient denies any headache, no chest pain no abdominal pain. No fever or chills. Patient's daughter states that on 07/13/2021 and on Friday, she was talking gibberish. On Friday she was not talking much. This morning she is speaking coherently. Patient's daughter believes that she is about 90% better, although after the examination as below, she believes it is 75% better (not the 90% she mentioned earlier). She lives with her daughter, and walks with a walker. She has been using walker for the last 5 years. Patient's daughter states that she was seen by her primary physician who performed dementia testing about 3 weeks ago, and she missed only 2 points in the testing. Objective - Vital Signs Vital signs: Vital Signs Temp 98.4 F 07/17/21 15:52 Pulse 77 07/17/21 15:52 Resp 18 07/17/21 15:52 BP 191/76 07/17/21 15:52 Pulse Ox 97 07/17/21 15:52 Intake & Output 07/16/21 07/17/21 07/17/21 18:59 06:59 18:59 Intake Total 120 Output Total 2124 Balance -2124 120 Intake: Oral 120 Output: Urine 2124 Uretheral (Urbina) 200 Other: Voiding Method Indwelling Catheter Toilet Toilet Diaper Diaper # Voids 1 3 # Bowel Movements 1 - Exam GENERAL: The patient is lying in bed and is in distress. Patient appears comfortable today. NEUROLOGICAL: Patient is alert and awake, slow mentation. Patient knows it is July 2021 and that she is in [facility] in [place] in [facility]. She states the current president's Júnior. When I gave her some choices, she did say it was Wilmer. Higher mental function: Her speech and language function appears normal. No aphasia or dysarthria. Patient can name and repeat. Cranial nerves: The pupils are equal, round, equal and reactive. Extraocular movement are intact with no nystagmus.. She has slow mentation. No facial w eakness. Face is symmetric and tongue protrudes the midline. Patient is hard of hearing. Shoulder shrug normal. Motor: Her muscle strength is normal in the arms and legs distally and proximally except shoulder which is weak from rotator cuff bilateral, left more than right. Her lower extremities appears fairly normal. Cerebellum: No obvious ataxia for [id number] testing.. Sensation: Equal. Reflexes are 2 in the upper limbs, 2 in the lower limbs and plantars are upgoing bilaterally. WORK-UP: Lipid panel is triglyceride of 90, cholesterol is 211, LDLs 129, HDL is 63. Hemoglobin A1c is 5.5. CBC with differential is unremarkable on presentation Chemistry panel is unremarkable. Initial serum glucose is 109. AST and ALTs within normal limits PT, PTT and INR is within normal limits Urine drug screen was not detected U/A: Seems possible suggestive of UTI. CXR:is reported as mild groundglass density suggested at the right medial lung base. CT of the head is reported as age-related atrophic and chronic small vessel ischemic change without acute intracranial process seen at this time. Correlate for normal pressure hydrocephalus. I personally reviewed the CT of the head and I agree with the report. CT angiography of the head and neck support as no significant stenosis, dissection or occlusion seen in the neck or the intracranial arteries. EKG report is reviewed and there is no A. fib or flutter that seen. MRI of the brain without is reported as mild cerebral atrophy. Moderate hydrocephalus. Ventricle white matter changes that could relate to hydrocephalus and chronic small vessel ischemia. No change compared to old exam. No acute infarct. No obstructive masses seen. I also personally reviewed the MRI and there is no acute or subacute ischemia. Does have hydrocephalus which is known from her history and it seems more moderate to severe degree. No change from MRI from March 2021. STAT EEG on 07/14/2021: The background slowing is suggestive of moderate encephalopathy of unknown etiology. There is no focal slowing, epileptiform discharges or seizure on the EEG. - Labs CBC & Chem 7: 07/18/21 07:33 07/18/21 07:33 Labs: Microbiology - Last 24 Hours (Table) 07/14/21 13:00 Urine Culture - Final Urine,Voided Klebsiella pneumoniae 07/14/21 14:15 Blood Culture - Preliminary Blood No Growth after 48 hours 07/14/21 14:06 Blood Culture - Preliminary Blood No Growth after 48 hours Assessment and Plan Assessment: * Normal pressure hydrocephalus. Patient has been diagnosed with hydrocephalus for last 30 years, stable for all these years, but now seems to be getting symptomatic especially after her recent history of intracranial hemorrhage due to a fall on 03/03/2021. * Encephalopathy appears due to underlying suspected UTI and possible pneumonia. Patient's encephalopathy is markedly improved as compared to the last couple days. Patient at present continues to have fluctuating mental status. No evidence of CVA on MRI. * Possible TIA in 2019 with word finding difficulty * History of lumbar fusion * Hypertension and on this presentation her blood pressure was slightly elevated with systolic in the 150s to 160s. * Hyperlipidemia * History of rheumatoid arthritis Plan: * Patient has somewhat fluctuating mental status. I suspect her normal pressure hydrocephalus is now symptomatic, especially since her recent history of intracranial hemorrhage on 03/03/2021. Patient's daughter was recommended to have patient follow up with neurosurgeon soon after discharge to consider ventriculoperitoneal shunting for symptomatic NPH. Patient at present is being considered for transfer to subacute rehab. However I encouraged patient's daughter to go ahead proactively and make appointment with the neurosurgeon for 2 weeks, hopefully by that time she will be discharged from rehab. Patient's encephalopathy is much improved as compared to the admission. * Continue ASA 81mg daily and Lipitor 20mg qhs and is sufficient for secondary stroke prophylaxis. * MRI of the brain without is reported as mild cerebral atrophy. Moderate hydrocephalus. Ventricle white matter changes that could relate to hydrocephalus and chronic small vessel ischemia. No change compared to old exam. No acute infarct. No obstructive masses seen. I personally reviewed the MRI and there is no acute or subacute ischemia. Does have hydrocephalus which is known from her history and it seems more moderate to severe in degree. * STAT EEG on 07/14/2021: The background slowing is suggestive of moderate encephalopathy of unknown etiology. There is no focal slowing, epileptiform discharges or seizure on the EEG. * Start PT, OT and [employer]OR are is consulted * She is on Ceftriaxone for Klebsiella UTI. * Patient's B12 was borderline 409 on 06/11/2021 and folate 7.6. We will start on B12 and folate replacement. * We'll defer the rest of the medical management to the primary team * For DVT prophylaxis the patient is on enoxaparin 40 mg daily. * Patient code status: DO NOT RESUSCITATE.
[2021-07-18] MEDS ORDERED: CYANOCOBALAMIN-FA-PYRIDOXINE 1 EACH TAB PO SCH (10:45)
--- NOTE | 2021-07-18 11:00 | P.DS ---
Providers Date of admission: 07/13/21 14:42 Expected date of discharge: 07/18/21 Attending physician: Lloyd Diop MD Consults: 07/13/21 14:43 Consult Physician Urgent Consulting Provider: Sin Lubin Consult Reason/Comments: CVA Do you want consulting provider notified?: Yes Primary care physician: Juan Carlos Castillo MD Hospital Course: Discharge Diagnosis: Acute metabolic encephalopathy likely secondary to acute infectious process with pneumonia and UTI Expressive aphasia, resolved History of normal pressure hydrocephalus Pneumonia Klebsiella pneumoniae UTI, received 4 day course of Rocephin and being discharged on 3 additional days of Cefpodoxime to complete a 7 day course of antibiotics. Hyperchloremic metabolic acidosis, improved Hypokalemia, resolved HLD HTN Hospital Course: Patient is 80-year-old female with hypertension, hyperlipidemia, normal pressure hydrocephalus diagnosed with previous lumbar puncture, and multiple TIAs. She presented to the emergency department with garbled speech and alteration in mental status. Upon arrival to the emergency department, a stroke code was called. Blood glucose 109. CT head showing age related atrophic and chronic small vessel ischemic changes, negative for acute intercranial process correlate for normal pressure hydrocephalus. Neurointerventionalist recommended agains TPA and/or intervention at this time. Labs obtained, CBC, coags, and CMP were unremarkable. Urine drug screen negative. CTA head/neck then completed revealing subtle reduced enhancement of the left insular cortex, dilated supratentorial ventricles, and questionable right hilar lymphadenopathy, but negative for intracranial hemorrhage, significant stenosis, dissection, or occlusion. EKG showing sinus rhythm at 83 bpm with frequent PACs and T-wave inversion in anterior leads II and aVF. Patient was admitted under our services for acute CVA with consultation to neurology. MRI was obtained which was negative for acute infarct showing mild cerebral atrophy, moderate hydrocephalus, and periventricular white matter changes possibly related to hydrocephalus and chronic small vessel ischemic changes. EEG without signs of focal activity. Patient was later found to spike fevers. A chest x-ray was completed demonstrating concerns of right-sided infiltrate and urinalysis resulted positive for acute UTI. Patient was started on IV antibiotics Rocephin 2 g daily and Azithromycin 500 mg daily. Patient's mentation improved daily. Now alert to person, time, place, and situation. Expressive aphasia completely resolved. Patient has been working with physical therapy and arrangements have been made for her discharge to [facility]. Patient is medically stable at this time. She is being discharged on 3 additional days of Cefpodoxime to complete a 7 day course of antibiotics. Orders place her BMP and magnesium to be drawn in 3 days to follow-up on electrolyte levels, results to be sent to PCP for follow-up. Is medically stable for discharge to nursing facility at this time. Physical examination: General: non toxic, no distress, appears at stated age Derm: warm, dry Head: atraumatic, normocephalic, symmetric Eyes: EOMI, no lid lag, anicteric sclera Mouth: no lip lesion, mucus membranes moist Cardiovascular: S1S2 reg, no murmur, positive posterior tibial pulse bilateral, Lungs: Decreased breath sounds bilateral, no rhonchi, no rales , no accessory muscle use Abdominal: soft, nontender to palpation, no guarding, no appreciable organomegaly Ext: No gross muscle atrophy, no edema, no contractures. Range of motion intact. Patient moving upper and lower extremities without any noted difficulties. Neuro: GCS 14. Pupils equal round reactive to light, extraocular motion intact, mentation has improved patient now alert to person and place confused to time and situation. Patient following simple commands. Psych: Patient is awake and alert to person and place but confused to time and situation. A total of 40 minutes of time were spent preparing this complex discharge summary. Patient Condition at Discharge: Stable Plan - Discharge Summary Discharge Rx Participant: No New Discharge Prescriptions: New Acetaminophen Tab [Tylenol] 650 mg PO Q6HR PRN tab PRN Reason: Fever And/ Or Pain Cefpodoxime Proxetil [Vantin] 100 mg PO Q12HR 3 Days #6 tab Continue Dicyclomine [Bentyl] 10 mg PO TID Atorvastatin Calcium [Lipitor] 20 mg PO HS lisinopriL 40 mg PO DAILY Omeprazole [PriLOSEC] 20 mg PO AC-BRKFST Ibuprofen [Motrin] 600 mg PO Q8HR PRN #30 tab PRN Reason: Pain Acetaminophen Tab [Tylenol] 1,000 mg PO Q6HR PRN #30 tablet PRN Reason: Pain Citrucel Tab 2 tab PO DAILY@1200 Aspirin EC [Ecotrin Low Dose] 81 mg PO DAILY Fexofenadine HCl [Shelley Allergy] 180 mg PO DAILY amLODIPine [Norvasc] 5 mg PO DAILY 14 Days #14 tab Tamsulosin HCl [Flomax] 0.4 mg PO DAILY Cholecalciferol [Vitamin D3 (25 Mcg = 1000 Iu)] 25 mcg PO DAILY tablet Citrucel Tab 1 tab PO BID Simethicone [Gas-X] 125 mg PO AC-TID PRN #20 capsule PRN Reason: Pain traMADol HCl [Ultram] 50 mg PO DAILY PRN 3 Days #3 tab PRN Reason: Pain Discharge Medication List Dicyclomine [Bentyl] 10 mg PO TID 09/26/18 [History] Atorvastatin Calcium [Lipitor] 20 mg PO HS 03/03/21 [History] Tamsulosin HCl [Flomax] 0.4 mg PO DAILY 04/05/21 [History] lisinopriL 40 mg PO DAILY 04/05/21 [History] Cholecalciferol [Vitamin D3 (25 Mcg = 1000 Iu)] 25 mcg PO DAILY tablet 04/06/21 [Rx] Citrucel Tab 1 tab PO BID 06/26/21 [History] Omeprazole [PriLOSEC] 20 mg PO AC-BRKFST 06/26/21 [History] Acetaminophen Tab [Tylenol] 1,000 mg PO Q6HR PRN #30 tablet 06/28/21 [Rx] Ibuprofen [Motrin] 600 mg PO Q8HR PRN #30 tab 06/28/21 [Rx] Simethicone [Gas-X] 125 mg PO AC-TID PRN #20 capsule 06/28/21 [Rx] Aspirin EC [Ecotrin Low Dose] 81 mg PO DAILY 07/08/21 [History] Citrucel Tab 2 tab PO DAILY@1200 07/08/21 [History] Fexofenadine HCl [Shelley Allergy] 180 mg PO DAILY 07/08/21 [History] amLODIPine [Norvasc] 5 mg PO DAILY 14 Days #14 tab 07/08/21 [Rx] Acetaminophen Tab [Tylenol] 650 mg PO Q6HR PRN tab 07/18/21 [Rx] Cefpodoxime Proxetil [Vantin] 100 mg PO Q12HR 3 Days #6 tab 07/18/21 [Rx] traMADol HCl [Ultram] 50 mg PO DAILY PRN 3 Days #3 tab 07/18/21 [Rx] Follow up Appointment(s)/Referral(s): Juan Carlos Castillo MD [Primary Care Provider] - 1-2 days Ambulatory/Diagnostic Orders: Basic Metabolic Panel [LAB.AMB] Time Frame: 3 Days, Location: None Selected Magnesium [LAB.AMB] Location: None Selected Activity/Diet/Wound Care/Special Instructions: Activity: As tolerated. Take breaks as needed. Diet: Heart healthy and carb consistent diet. Avoid salts, or foods with hidden salts such as canned or boxed foods and frozen dinners. Extra salt makes your heart work harder and traps the fluid in your body for longer. Special Instructions: Take all of your medications as directed and remember to keep all of your doctor's appointments and follow-up as needed. You are being discharged to [facility] long-term facility for rehabilitation. Thank you for allowing us to participate in your care, it was truly a pleasure having you for our patient!!! Discharge Disposition: TRANSFER TO SNF/ECF
[2021-07-18 16:10] VITALS: BP 134/78; PULSE 57; RESP 16; TEMP 98.1
--- NOTE | 2021-07-19 11:05 | P.PN ---
Subjective Progress Note Date: 07/18/21 07/18/2021: Patient was seen for a follow-up. Patient is laying comfortably in the bed. She is slightly sleepy. Offers no complaints. No headaches. 07/17/2021: Patient's daughter was also present today. She mentions that patient had a rough day today. Her back was bothering, more confused. She is slightly hallucinating. When she was hearing different machines outside, she felt like was a motorcycle. The air fans running in the room she feels like is a helicopter. I spoke to patient's daughter in detail about her history of hydrocephalus which was diagnosed 30 years ago after she suffered from a fall and a day. It has been stable, all this time. In 2018 she had a TIA which affected her left side. She then suffered from a fall in 2020 in which she fell, hit her head in the bathroom ceramic floor. She suffered from intracranial hemorrhage. She was taken to [facility]. She did not require any craniotomy. Patient's daughter believes that she has incontinence since 2018 since her back surgery. Patient uses a walker. Patient's one or the other family member in their family has been sick off and on in the last 16 months therefore not able to follow-up with the neurosurgeon. 07/16/2021: Patient was seen for a follow-up. Patient initially seen by Dr. Sin Lubin. Please refer to his note for details. Patient's daughter was present today. Patient is a 80-year-old female who has history of normal pressure hydrocephalus (never performed shunt procedure in the past) came with altered mental status. There was some report about possibility of a facial droop, dysarthria and aphasia, but MRI of the brain came back negative. She has UTI and pneumonia. EEG shows moderate encephalopathy. At present patient denies any headache, no chest pain no abdominal pain. No fever or chills. Patient's daughter states that on 07/13/2021 and on Friday, she was talking gibberish. On Friday she was not talking much. This morning she is speaking coherently. Patient's daughter believes that she is about 90% better, although after the examination as below, she believes it is 75% better (not the 90% she mentioned earlier). She lives with her daughter, and walks with a walker. She has been using walker for the last 5 years. Patient's daughter states that she was seen by her primary physician who performed dementia testing about 3 weeks ago, and she mis sed only 2 points in the testing. Objective - Vital Signs Vital signs: Vital Signs Temp 98.1 F 07/18/21 16:09 Pulse 57 L 07/18/21 16:09 Resp 16 07/18/21 16:09 BP 134/78 07/18/21 16:09 Pulse Ox 98 07/18/21 16:09 Intake & Output 07/18/21 07/19/21 07/19/21 18:59 06:59 18:59 Intake Total 120 Balance 120 Intake: Oral 120 Other: Voiding Method Toilet Diaper # Voids 1 - Exam GENERAL: The patient is lying in bed and is in distress. Patient appears comfortable today. NEUROLOGICAL: Patient is alert and awake, slow mentation. Patient knows it is July 2021 and that she is in [facility] in [place] in [facility]. She states the current president is "Salvador" Higher mental function: Her speech and language function appears normal. No aphasia or dysarthria. Patient can name and repeat. Cranial nerves: The pupils are equal, round, equal and reactive. Extraocular movement are intact with no nystagmus.. She has slow mentation. No facial weakness. Face is symmetric and tongue protrudes the midline. Patient is hard of hearing. Shoulder shrug normal. Motor: Her muscle strength is normal in the arms and legs distally and proximally except shoulder which is weak from rotator cuff bilateral, left more than right. Her lower extremities appears fairly normal. Cerebellum: No obvious ataxia for [id number] testing.. Sensation: Equal. Reflexes are 2 in the upper limbs, 2 in the lower limbs and plantars are upgoing bilaterally. WORK-UP: Lipid panel is triglyceride of 90, cholesterol is 211, LDLs 129, HDL is 63. Hemoglobin A1c is 5.5. CBC with differential is unremarkable on presentation Chemistry panel is unremarkable. Initial serum glucose is 109. AST and ALTs within normal limits PT, PTT and INR is within normal limits Urine drug screen was not detected U/A: Seems possible suggestive of UTI. CXR:is reported as mild groundglass density suggested at the right medial lung base. CT of the head is reported as age-related atrophic and chronic small vessel ischemic change without acute intracranial process seen at this time. Correlate for normal pressure hydrocephalus. I personally reviewed the CT of the head and I agree with the report. CT angiography of the head and neck support as no significant stenosis, dissection or occlusion seen in the neck or the intracranial arteries. EKG report is reviewed and there is no A. fib or flutter that seen. MRI of the brain without is reported as mild cerebral atrophy. Moderate hydrocephalus. Ventricle white matter changes that could relate to hydrocephalus and chronic small vessel ischemia. No change compared to old exam. No acute infarct. No obstructive masses seen. I also personally reviewed the MRI and there is no acute or subacute ischemia. Does have hydrocephalus which is known from her history and it seems more moderate to severe degree. No change from MRI from March 2021. STAT EEG on 07/14/2021: The background slowing is suggestive of moderate encephalopathy of unknown etiology. There is no focal slowing, epileptiform discharges or seizure on the EEG. - Labs CBC & Chem 7: 07/18/21 07:33 07/18/21 07:33 Labs: Microbiology - Last 24 Hours (Table) 07/14/21 14:15 Blood Culture - Preliminary Blood No Growth after 96 hours 07/14/21 14:06 Blood Culture - Preliminary Blood No Growth after 96 hours Assessment and Plan Assessment: * Normal pressure hydrocephalus. Patient has been diagnosed with hydrocephalus for last 30 years, stable for all these years, but now seems to be getting symptomatic especially after her recent history of intracranial hemorrhage due to a fall on 03/03/2021. * Encephalopathy appears due to underlying klebsiella UTI and pneumonia. Patient's encephalopathy is markedly improved as compared to the last couple days. Patient at present continues to have fluctuating mental status. No evidence of CVA on MRI. * Possible TIA in 2019 with word finding difficulty * History of lumbar fusion * Hypertension and on this presentation her blood pressure was slightly elevated with systolic in the 150s to 160s. * Hyperlipidemia * History of rheumatoid arthritis Plan: * Patient has somewhat fluctuating mental status. I suspect her normal pressure hydrocephalus is now symptomatic, especially since her recent history of intracranial hemorrhage on 03/03/2021. Patient's daughter was recommended to have patient follow up with neurosurgeon soon after discharge to consider ventriculoperitoneal shunting for symptomatic NPH. Patient at present is being considered for transfer to subacute rehab. However I encouraged patient's daughter to go ahead proactively and make appointment with the neurosurgeon for 2 weeks, hopefully by that time she will be discharged from rehab. Patient's encephalopathy is much improved as compared to the admission. Patient not a candidate for REPORTING MANAGER shunting at this moment, as she is being treated for UTI and perhaps pneumonia. She needs to completely i nfection free before she can be a candidate for REPORTING MANAGER shunting. * Continue ASA 81mg daily and Lipitor 20mg qhs and is sufficient for secondary stroke prophylaxis. * MRI of the brain without is reported as mild cerebral atrophy. Moderate hydrocephalus. Ventricle white matter changes that could relate to hydrocephalus and chronic small vessel ischemia. No change compared to old exam. No acute infarct. No obstructive masses seen. I personally reviewed the MRI and there is no acute or subacute ischemia. Does have hydrocephalus which is known from her history and it seems more moderate to severe in degree. * STAT EEG on 07/14/2021: The background slowing is suggestive of moderate enc ephalopathy of unknown etiology. There is no focal slowing, epileptiform discharges or seizure on the EEG. * Start PT, OT and ROADSIDE MECHANIC are is consulted * Treatment of UTI as per IM. * Patient's B12 was borderline 409 on 06/11/2021 and folate 7.6. We will start on B12 and folate replacement. * We'll defer the rest of the medical management to the primary team * For DVT prophylaxis the patient is on enoxaparin 40 mg daily. * Neurologically clear for transfer to subacute rehab. Discussed with primary team. * Patient code status: DO NOT RESUSCITATE.
== END 2021-07-18 17:36 | DRG 193 ==
LOC: EC 11:10 → 3SCARD 14:42
PROVIDERS: ADMIT Internal Medicine; ATTEND Internal Medicine
DX: J18.9 Pneumonia, unspecified organism (principal); G93.41 Metabolic encephalopathy; N39.0 Urinary tract infection, site not specified; E87.2 Acidosis; G91.2 (Idiopathic) normal pressure hydrocephalus; I16.0 Hypertensive urgency; I10 Essential (primary) hypertension; B96.1 Klebsiella pneumoniae [K. pneumoniae] as the cause of diseases classified elsewhere; M41.9 Scoliosis, unspecified; M13.0 Polyarthritis, unspecified; M85.80 Other specified disorders of bone density and structure, unspecified site; E78.5 Hyperlipidemia, unspecified; M54.41 Lumbago with sciatica, right side; M06.9 Rheumatoid arthritis, unspecified; G89.29 Other chronic pain; Z66 Do not resuscitate; Z96.1 Presence of intraocular lens; E87.6 Hypokalemia; Z86.73 Personal history of transient ischemic attack (TIA), and cerebral infarction without residual deficits; Z79.82 Long term (current) use of aspirin; Z79.899 Other long term (current) drug therapy; Z91.81 History of falling; Z90.710 Acquired absence of both cervix and uterus; Z88.5 Allergy status to narcotic agent; Z91.048 Other nonmedicinal substance allergy status; Z98.42 Cataract extraction status, left eye; Z98.41 Cataract extraction status, right eye; Z98.1 Arthrodesis status; Z80.3 Family history of malignant neoplasm of breast; Z81.8 Family history of other mental and behavioral disorders
CPT/HCPCS: 36415; 70450; 70496; 70498; 70551; 71045; 71046; 80048; 80053; 80061; 80306; 81001; 83036; 83735; 84484; 85025; 85027; 85610; 85730; 87040; 87077; 87086; 87186; 87635; 93005; 93306; 95816; 99285

== ENCOUNTER 2021-11-01 11:22 | Day surgery (SDC) | payer MEDICARE ==
--- NOTE | 2021-11-01 10:38 | P.GSHP ---
History of Present Illness H&P Date: 11/01/21 CHIEF COMPLAINT: Inguinal hernia, right. HISTORY OF PRESENT ILLNESS: The patient is a 81-year-old female who presents with a history of swelling and pain along the right groin. He's noted increased swelling including pain of the area. Now she presents for repair of her inguinal hernia. PAST MEDICAL HISTORY: Please see list. PAST SURGICAL HISTORY: Please see list. MEDICATIONS: Please see list. ALLERGIES: Please see list. SOCIAL HISTORY: No illicit drug use FAMILY HISTORY: No reports of Crohn disease or ulcerative colitis. REVIEW OF ORGAN SYSTEMS: CONSTITUTIONAL: No reports of fevers or chills. No reports of weight loss despite prior attempts. GI: Denies any blood in stools or constipation. PHYSICAL EXAM: VITAL SIGNS: Stable GENERAL: Well-developed pleasant female in no acute distress. HEENT: No scleral icterus. Extraocular movements grossly intact. Moist buccal mucosa. NECK: Supple without lymphadenopathy. CHEST: Unlabored respirations. Equal bilateral excursions. CARDIOVASCULAR: Regular rate and rhythm. Distal 2+ pulses. ABDOMEN: Soft, nondistended. No peritoneal signs. Palpable defect of the right groin. MUSCULOSKELETAL: No clubbing, cyanosis, or edema. ASSESSMENT: 1. Inguinal hernia, right PLAN: 1. Recommend proceeding with a robotic inguinal repair with mesh with possible bilateral approach. 2. Benefits and risks of surgical intervention was discussed including possibility of open technique. 3. DVT prophylaxis. 4. Antibiotic prophylaxis. Past Medical History Past Medical History: CVA/TIA, Hyperlipidemia, Hypertension, Osteoarthritis (OA), Rheumatoid Arthritis (RA) Additional Past Medical History / Comment(s): Recently diagnosed with normal pressure hydrocephalus with spinal tap to remove spinal fluid, lately been decreasing hypertensive meds d/t lower b/ps. R sided sciatica. Scoliosis. Osteopenia. UNnsteady gait, UTIs HX: L medial ankle ulcer. History of Any Multi-Drug Resistant Organisms: None Reported Past Surgical History: Adenoidectomy, Back Surgery, Section, Hysterectomy, Tonsillectomy Additional Past Surgical History / Comment(s): Lumbar fusion X 2, x2, colonoscopy, hemorrhoidectomy, bilateral carpal tunnel releases, bilateral cataract removals/lens implants. Past Anesthesia/Blood Transfusion Reactions: No Reported Reaction, Motion Sickness Past Psychological History: Depression Additional Psychological History / Comment(s): She uses a walker and a wheelchair. LIVES WITH DAUGHTER, JOHNNY RUFF. Smoking Status: Never smoker Past Alcohol Use History: Rare Past Drug Use History: None Reported - Past Family History Father Family Medical History: Dementia Additional Family Medical History / Comment(s): Father of cardiac rupture per pt. Mother Family Medical History: Cancer Additional Family Medical History / Comment(s): breast cancer. Medications and Allergies Home Medications Medication Instructions Recorded Confirmed Type Dicyclomine [Bentyl] 10 mg PO TID 09/26/18 10/30/21 History Atorvastatin Calcium [Lipitor] 20 mg PO HS 03/03/21 10/30/21 History Tamsulosin HCl [Flomax] 0.4 mg PO QAM 04/05/21 10/30/21 History lisinopriL 40 mg PO QAM 04/05/21 10/30/21 History Ibuprofen [Motrin] 600 mg PO Q8HR PRN #30 tab 06/28/21 10/30/21 Rx Acetaminophen Tab [Tylenol] 650 mg PO Q6HR PRN tab 07/18/21 10/30/21 Rx Cholecalciferol [Vitamin D3 (25 25 mcg PO 1200 10/30/21 10/30/21 History Mcg = 1000 Iu)] Citrucel Tabs 2 tab PO BID 10/30/21 10/30/21 History Escitalopram [Lexapro] 10 mg PO QAM 10/30/21 10/30/21 History Loratadine [Claritin] 10 mg PO HS 10/30/21 10/30/21 History amLODIPine [Norvasc] 5 mg PO QAM 10/30/21 10/30/21 History Allergies Allergy/AdvReac Type Severity Reaction Status Date / Time adhesive tape Allergy Mild Rash/Hives Verified 10/30/21 15:11 morphine AdvReac MIGRAINE Verified 10/30/21 15:11
[~2021-11-01 11:22] MED LIST changes: -DEXAMETHASONE SOD PHOSPHATE 4 MG/ML 1 ML VIAL IV ONE; +FAMOTIDINE 20 MG TAB PO PRN; +GABAPENTIN 300 MG CAP PO PRN; -HYDROmorphone 0.5 MG/0.5 ML SYRINGE IVP PRN; -LIDOCAINE 1% (10MG/ML) FOR IV START INTRADERMA PRN; -MELOXICAM 7.5 MG TAB PO ONE; -MIDAZOLAM 2 MG/2 ML VIAL IV PRN; -ONDANSETRON 4 MG/2 ML VIAL IVP ONE; -TAMSULOSIN 0.4 MG CAP.ER.24H PO PRN
[2021-11-01] MEDS ORDERED: LACTATED RINGERS 1,000 ML IV ONE ×2 (12:10→16:15)
[2021-11-01] MEDS ORDERED: ONDANSETRON 4 MG/2 ML VIAL ONE (12:19)
[2021-11-01 12:24] LABS: Basophils % (A) 0 %; Eosinophils # (A) 0.2 k/uL (0-0.7); Eosinophils % (A) 2 %; HGB 12.5 gm/dL (11.4-16.0); Lymphocytes % (A) 26 %; MCH 27.4 pg (25.0-35.0); MCHC 31.2 g/dL (31.0-37.0); MCV 87.8 fL (80.0-100.0); Mean Platelet Volume 10.1; Monocytes # (A) 0.4 k/uL (0-1.0); Monocytes % (A) 5 %; Neutrophils # (A) 5.1 k/uL (1.3-7.7); Neutrophils % (A) 65 %; Platelet Count 171 k/uL (150-450); RBC 4.56 m/uL (3.80-5.40); RDW 14.7 % (11.5-15.5); WBC 7.8 k/uL (3.8-10.6)
[2021-11-01] MEDS ORDERED: ONDANSETRON 4 MG/2 ML VIAL IVP ONE ×2 (12:24→12:25)
[2021-11-01 12:39] LABS: Albumin 4.7 g/dL (3.5-5.0); Calcium 9.3 mg/dL (8.4-10.2); Total Bilirubin 0.7 mg/dL (0.2-1.3); Total Protein 7.5 g/dL (6.3-8.2)
[2021-11-01 12:42] LABS: Potassium 4.2 mmol/L (3.5-5.1)
[2021-11-01] MEDS ORDERED: SUCCINYLCHOLINE CHLORIDE 100 MG/5 ML SYR IV ONE (13:31)
[2021-11-01] MEDS ORDERED: ROCURONIUM 10 MG/ML (5 ML VIAL) IV ONE (13:31)
[2021-11-01] MEDS ORDERED: GLYCOPYRROLATE 0.2 MG/ML 2 ML VIAL ONE (13:31)
[2021-11-01] MEDS ORDERED: PROPOFOL 10 MG/ML 20 ML VIAL IV ONE (13:31)
[2021-11-01] MEDS ORDERED: KETOROLAC 15 MG/ML 1 ML VIAL ONE (13:31)
[2021-11-01] MEDS ORDERED: fentaNYL (PF) 50 MCG/ML 2 ML AMP ONE (13:31)
[2021-11-01] MEDS ORDERED: LIDOCAINE 2% INJ 20 MG/ML (2 ML VIAL) ONE (13:31)
[2021-11-01] MEDS ORDERED: ePHEDrine 50 MG/ML 1 ML VIAL ONE (13:31)
[2021-11-01] MEDS ORDERED: NEOSTIGMINE 1 MG/ML 10 ML VIAL ONE (13:31)
[2021-11-01] MEDS ORDERED: BUPIVACAIN-EPI 0.25%-1:200,000 30 ML VIAL SQ ONE (14:02)
[2021-11-01 15:28] VITALS: RESP 16; TEMP 97.1
--- NOTE | 2021-11-01 15:35 | P.OP ---
Date of Procedure: 11/01/21 Description of Procedure: SURGEON: LASHON SCHAEFFER MD PREOPERATIVE DIAGNOSES: 1. Initial right inguinal hernia. 2. History of prior ventral hernia repair. 3. Chronic obstructive pulmonary disease, emphysema 4. Hyperlipidemia 5. Osteoporosis 6. Coronary artery disease with prior cerebrovascular accident 7. Rheumatoid arthritis 8. Gastroesophageal reflux disease 9. Hypertensive heart disease with ischemic cardiomyopathy 10. Irritable bowel syndrome 11. History of recurrent uterine tract infections 12. Dependency walking assisting device 13. Peritoneal adhesions POSTOPERATIVE DIAGNOSES: 1. Initial right inguinal hernia, 3 cm 2. Initial left inguinal hernia, 1 cm 3. Initial right inguinal hernia. 4. History of prior ventral hernia repair. 5. Chronic obstructive pulmonary disease, emphysema 6. Hyperlipidemia 7. Osteoporosis 8. Coronary artery disease with prior cerebrovascular accident 9. Rheumatoid arthritis 10. Gastroesophageal reflux disease 11. Hypertensive heart disease with ischemic cardiomyopathy 12. Irritable bowel syndrome 13. History of recurrent uterine tract infections 14. Dependency walking assisting device 15. Peritoneal adhesions OPERATION: 1. Robotic-assisted da Urmila Xi laparoscopic lysis of adhesions 2. Robotic-assisted da Urmila Xi laparoscopic repair of initial incarcerated right direct inguinal hernia with mesh, 11.[address] 3. Robotic-assisted da Urmila Xi laparoscopic repair of initial incarcerated left direct inguinal hernia with mesh, 11.[address] 4. Resection of incarcerated right inguinal lipoma, 3 cm ANESTHESIA: General with local anesthetic ESTIMATED BLOOD LOSS: 5 mL. SPECIMENS: 1. Incarcerated right inguinal hernia 2. Left inguinal hernia sac COMPLICATIONS: None. FINDINGS: 1. Incarcerated initial right indirect inguinal hernia, 3 cm, with subfascial 3 cm x 3 cm inguinal lipoma 2. Left inguinal hernia, 1 cm, indirect direct 3. Moderate midline epigastrium lower midline adhesions INDICATIONS: The patient is a 81-year-old female who presents with history of right inguinal hernia. Now presents for definitive surgical intervention. Laparoscopic versus open and robotic approaches were discussed. Benefits and risks including bleeding, infection, complications from placement of mesh and chronic groin pain were reviewed. Placement of mesh was also described. Informed consent was obtained. DESCRIPTION:The patient was brought to the operating room and initially laid in supine position. The abdomen had been prepped and draped in standard sterile fashion. Ioban draping was also placed. Prior to incision, a timeout protocol was confirmed with surgical team regarding patient's name including procedures to be performed and location along the right groin. Initial positioning for the robotic assisted ports were selected whereby 20 cm superior to the target anatomy, 0 degree 5 mm laparoscopic trocar entry was performed at the left upper quadrant. The abdomen was insufflated to 15 mmHg which he had tolerated well. Diagnostic laparoscopy demonstrated no injury to bowel, viscera or mesentery. Moderate intra-abdominal adhesions along the epigastrium including the midline was identified. A large right inguinal hernia was found. A separate left inguinal hernia was identified. Decision for placement of trochars on the left lateral abdominal wall was prepared to avoid moderate adhesions including recent ventral hernia repair. Trochars 3 were positioned along the left lateral abdominal wall, 8 mm trochars. All trocars were positioned between 10-cm apart from each other. The 5 mm trocar was exchanged for a 12 mm laparoscopic trocar for placement of mesh including suture. The Solapa4 XI robot was primed, draped, prepared for docking along left side of the patient. The patient was positioned 7 steep Trendelenburg position I then went to the Solapa4 Xi console. The speech language pathologist assistant was at bedside for exchange of the robot arms and equipment. Adhesions along the lower abdomen were addressed using vessel sealer to allow fo r repair of the bilateral inguinal hernias. The RIGHT indirect inguinal hernia sac was evaginated whereby the peritoneum was scored using Endo scissors with cautery. Once completely reduced into the abdominal cavity, the peritoneal sac of the hernia was stripped. The sac was resected and then passed off for further pathological analysis. The size of the hernia defect was 3 cm with intraoperative films obtained. The right subfascial inguinal lipoma 3 x 3 cm was also excised and passed off for further pathological analysis. Using a nonabsorbable 2-0 VLOC, the peritoneal defect of the right inguinal hernia sites was closed using a running suture separately. The defect was found to be completely closed with complete reduction of the right indirect inguinal hernia were confirmed. As an onlay, an 11.[address] mesh by [employer] was initially cut in 05/15 and entered into the abdominal cavity via the 8 mm trocar. The mesh was tacked to the pelvis using nonabsorbable 2-0 VLOC sutures. Next, careful attention along the left groin demonstrated a very small tract with after further inspection confirmed a left inguinal hernia. The left inguinal hernia sac was evaginated whereby the peritoneum was scored using vessel sealer. Once completely reduced into the abdominal cavity, the peritoneal sac of the hernia was stripped along a tightly incarcerated inguinal hernia involving a large 4-cm right inguinal lipoma. The lipoma and sac was resected and then passed off for further pathological analysis. The size of the hernia defect was 4 cm with intraoperative films obtained. Using a nonabsorbable 2-0 VLOC, the peritoneal defect of the left inguinal hernia site was closed using a running suture. The defect was found to be completely closed. As an onlay, an 11.[address] mesh by [employer] was initially cut in 05/15 and entered into the abdominal cavity via the 8 mm trocar. The mesh was tacked to the pelvis using nonabsorbable 2-0 VLOC 9-inch length sutures. The robot was undocked from the patient's bedside. I then rescrubbed into the case. Insufflation was released from the abdominal cavity and all instruments were removed from the abdominal cavity. The rest of incisions were reapproximated using 4-0 Monocryl in a running subcuticular fashion. Local anesthetic was placed along the incision including for a bilateral groin block. Incisions were cleansed using dilute hydrogen peroxide. Liquid glue was applied to the skin. At the end of the procedure, the needle, sponge and instrument counts had been verified correct by the surgical instrument maker. The patient had tolerated the procedure well and was taken to the postanesthesia care unit in stable condition. Plan - Discharge Summary Discharge Rx Participant: No New Discharge Prescriptions: New Acetaminophen [Tylenol] 650 mg PO Q4H #30 tab Simethicone [Gas-X] 125 mg PO AC-TID PRN #20 capsule PRN Reason: Pain Ibuprofen [Motrin] 600 mg PO Q8HR PRN #30 tab PRN Reason: Pain Continue Dicyclomine [Bentyl] 10 mg PO TID Atorvastatin Calcium [Lipitor] 20 mg PO HS lisinopriL 40 mg PO QAM amLODIPine [Norvasc] 5 mg PO QAM Loratadine [Claritin] 10 mg PO HS Tamsulosin HCl [Flomax] 0.4 mg PO QAM Cholecalciferol [Vitamin D3 (25 Mcg = 1000 Iu)] 25 mcg PO 1200 Escitalopram [Lexapro] 10 mg PO QAM Citrucel Tabs 2 tab PO BID Discontinued Ibuprofen [Motrin] 600 mg PO Q8HR PRN #30 tab PRN Reason: Pain Acetaminophen Tab [Tylenol] 650 mg PO Q6HR PRN tab PRN Reason: Fever And/ Or Pain Discharge Medication List Dicyclomine [Bentyl] 10 mg PO TID 09/26/18 [History] Atorvastatin Calcium [Lipitor] 20 mg PO HS 03/03/21 [History] Tamsulosin HCl [Flomax] 0.4 mg PO QAM 04/05/21 [History] lisinopriL 40 mg PO QAM 04/05/21 [History] Cholecalciferol [Vitamin D3 (25 Mcg = 1000 Iu)] 25 mcg PO 1200 10/30/21 [History] Citrucel Tabs 2 tab PO BID 10/30/21 [History] Escitalopram [Lexapro] 10 mg PO QAM 10/30/21 [History] Loratadine [Claritin] 10 mg PO HS 10/30/21 [History] amLODIPine [Norvasc] 5 mg PO QAM 10/30/21 [History] Acetaminophen [Tylenol] 650 mg PO Q4H #30 tab 11/01/21 [Rx] Ibuprofen [Motrin] 600 mg PO Q8HR PRN #30 tab 11/01/21 [Rx] Simethicone [Gas-X] 125 mg PO AC-TID PRN #20 capsule 11/01/21 [Rx] Follow up Appointment(s)/Referral(s): Lashon Schaeffer MD [STAFF PHYSICIAN] - 11/06/21 (Telehealth) Patient Instructions/Handouts: *Surgery [facility] - Managing Your Pain After Surgery Without Opioids, Laparoscopic Herniorrhaphy (DC), Inguinal Hernia (DC) Activity/Diet/Wound Care/Special Instructions: Using antibacterial soap. No lifting over 4 pounds 4 weeks, December 01September shower. No bathtub soaks for 2 weeks, Use ice along incisions for today to prevent swelling. Take tylenol, aleve/ibuprofen, simethicone scheduled for 3 days for best pain relief Discharge Disposition: HOME SELF-CARE
[2021-11-01] MEDS ORDERED: HYDROmorphone 0.5 MG/0.5 ML SYRINGE IVP ONE (15:59)
[2021-11-01] MEDS ORDERED: ACETAMINOPHEN TAB 325 MG TAB PO ONE (16:53)
[2021-11-01 17:18] VITALS: BP 151/63; PULSE 71
== END 2021-11-01 18:08 | disposition home or self-care (01) ==
LOC: OR 11:22
PROVIDERS: ATTEND Surgery Plastic and Reconstructive Surgery
DX: K40.00 Bilateral inguinal hernia, with obstruction, without gangrene, not specified as recurrent (principal); K66.0 Peritoneal adhesions (postprocedural) (postinfection); D17.39 Benign lipomatous neoplasm of skin and subcutaneous tissue of other sites
CPT/HCPCS: 49650; 80053; 85025; C1781; J2710; J0690; J2405; J3010; J1885; J0330; J2704; J1170; J1644; J2001; 88302; 88304

== ENCOUNTER 2022-01-30 11:46 | Emergency (ER) | payer MEDICARE ==
--- NOTE | 2022-01-30 12:17 | ED ---
General Adult HPI - General Chief complaint: Abdominal Pain Stated complaint: abd pain Time Seen by Provider: 01/30/22 11:59 Source: patient Mode of arrival: wheelchair - History of Present Illness Initial comments: Dictation was produced using [employer] dictation software. please excuse any grammatical, word or spelling errors. Chief Complaint: 81-year-old female with past medical history stroke, this obtained hypertension presents emergency Department with abdominal pain History of Present Illness: Patient is 81-year-old female she's been having intermittent bouts of abdominal pain for the last 3 days. She had one episode of fever. States that she woke this morning felt fine. Denies any abdominal pain. She went to follow-up with the primary care doctor. She states that her primary care doctor told her to come to the emergency department to be e valuated. Patient reports that she only had pain whenever some repressed on her left lower abdomen. Denies any pain at rest. No nausea vomiting. No diarrhea. No history of diverticulitis. The ROS documented in this emergency department record has been reviewed and confirmed by me. Those systems with pertinent positive or negative responses have been documented in the HPI. All other systems are other negative and/or noncontributory. PHYSICAL EXAM: General Impression: Alert and oriented x3, not in acute distress HEENT: Normocephalic atraumatic, extra-ocular movements intact, pupils equal and reactive to light bilaterally, mucous membranes moist. Cardiovascular: Heart regular rate and rhythm Chest: Able to complete full sentences, no retractions, no tachypnea Abdomen: abdomen soft, mild tenderness to the left lower quadrant, no pain at McBurney's point, negative Rock's sign, non-distended, no organomegaly Musculoskeletal: Pulses present and equal in all extremities, no peripheral edema Motor: no focal deficits noted Neurological: CN II-XII grossly intact, no focal motor or sensory deficits noted Skin: Intact with no visualized rashes Psych: Normal affect and mood ED course: 81-year-old Female presents to the emergency department for left lower quadrant abdominal pain. Vital signs upon arrival are within acceptable limits. There is mild colitis of the mid transverse colon. Unable to visualize appendix. No identified inflammatory changes in the right lower quadrant. Laboratory evaluation obtained. CBC, coag panel, metabolic panel is unremarkable. No leukocytosis. Patient is not complaining of any pain at the right lower quadrant. Negative Rock sign. No evidence of diverticulitis on computed tomography scan. Patient observed in the emergency room for 2 hours and 30 minutes. Reevaluated at bedside at 2:20 PM found to be in stable medical condition. For panel by PCR is negative. Patient be discharged. EKG interpretation: Ventricular rate 67, sinus rhythm,. Interval 167, QS 86, QTC 46. No MT prolongation, no QTC prolongation, no ST or T-wave changes noted. EKG compared to 07/13/2021 showing no changes. Overall, this EKG is unremarkable - Related Data Home Medications Medication Instructions Recorded Confirmed Dicyclomine [Bentyl] 10 mg PO TID 09/26/18 01/30/22 Atorvastatin Calcium [Lipitor] 20 mg PO HS 03/03/21 01/30/22 Tamsulosin HCl [Flomax] 0.4 mg PO DAILY 04/05/21 01/30/22 lisinopriL 40 mg PO DAILY 04/05/21 01/30/22 Cholecalciferol [Vitamin D3 (25 25 mcg PO W/LUNCH 10/30/21 01/30/22 Mcg = 1000 Iu)] Citrucel Tabs 1 tab PO BID-W/MEALS 10/30/21 01/30/22 Escitalopram [Lexapro] 10 mg PO DAILY 10/30/21 01/30/22 Loratadine [Claritin] 10 mg PO DAILY 10/30/21 01/30/22 amLODIPine [Norvasc] 5 mg PO DAILY 10/30/21 01/30/22 Citrucel Tabs 2 tab PO W/LUNCH 01/30/22 01/30/22 Allergies Allergy/AdvReac Type Severity Reaction Status Date / Time adhesive tape Allergy Mild Rash/Hives Verified 01/30/22 13:40 morphine AdvReac MIGRAINE Verified 01/30/22 13:40 Review of Systems ROS Statement: Those systems with pertinent positive or pertinent negative responses have been documented in the HPI. ROS Other: All systems not noted in ROS Statement are negative. Past Medical History Past Medical History: CVA/TIA, Hyperlipidemia, Hypertension, Osteoarthritis (OA), Rheumatoid Arthritis (RA) Additional Past Medical History / Comment(s): Recently diagnosed with normal pressure hydrocephalus with spinal tap to remove spinal fluid, lately been decreasing hypertensive meds d/t lower b/ps. R sided sciatica. Scoliosis. Osteopenia. UNnsteady gait, UTIs HX: L medial ankle ulcer. History of Any Multi-Drug Resistant Organisms: None Reported Past Surgical History: Adenoidectomy, Back Surgery, Section, Hysterectomy, Tonsillectomy Additional Past Surgical History / Comment(s): Lumbar fusion X 2, x2, colonoscopy, hemorrhoidectomy, bilateral carpal tunnel releases, bilateral cataract removals/lens implants. Past Anesthesia/Blood Transfusion Reactions: No Reported Reaction, Motion Sickness Past Psychological History: Depression Smoking Status: Never smoker Past Alcohol Use History: Rare Past Drug Use History: None Reported - Past Family History Father Family Medical History: Dementia Additional Family Medical History / Comment(s): Father of cardiac rupture per pt. Mother Family Medical History: Cancer Additional Family Medical History / Comment(s): breast cancer. Course Vital Signs 01/30/22 11:52 Temperature 98.4 F Pulse Rate 70 Respiratory 16 Rate Blood Pressure 132/62 O2 Sat by Pulse 98 Oximetry Medical Decision Making - Lab Data Result diagrams: 01/30/22 12:14 01/30/22 12:14 Lab Results 01/30/22 01/30/22 01/30/22 Range/Units 12:14 12:14 12:14 WBC 8.5 (3.8-10.6) k/uL RBC 5.05 (3.80-5.40) m/uL Hgb 14.4 (11.4-16.0) gm/dL Hct 45.3 (34.0-46.0) % MCV 89.7 (80.0-100.0) fL MCH 28.5 (25.0-35.0) pg MCHC 31.8 (31.0-37.0) g/dL RDW 14.2 (11.5-15.5) % Plt Count 153 (150-450) k/uL MPV 11.2 Neutrophils % 66 % Lymphocytes % 24 % Monocytes % 5 % Eosinophils % 4 % Basophils % 1 % Neutrophils # 5.6 (1.3-7.7) k/uL Lymphocytes # 2.0 (1.0-4.8) k/uL Monocytes # 0.5 (0-1.0) k/uL Eosinophils # 0.3 (0-0.7) k/uL Basophils # 0.0 (0-0.2) k/uL Manual Slide Review Performed Large Platelets Present PT 10.0 (9.0-12.0) sec INR 0.9 (<1.2) APTT 24.3 (22.0-30.0) sec Sodium 140 (137-145) mmol/L Potassium 4.5 (3.5-5.1) mmol/L Chloride 104 (98-107) mmol/L Carbon Dioxide 23 (22-30) mmol/L Anion Gap 13 mmol/L BUN 19 H (7-17) mg/dL Creatinine 0.83 (0.52-1.04) mg/dL Est GFR (CKD-EPI)AfAm 77 (>60 ml/min/1.73 sqM) Est GFR (CKD-EPI)NonAf 67 (>60 ml/min/1.73 sqM) Glucose 97 (74-99) mg/dL Plasma Lactic Acid Abhinav (0.7-2.0) mmol/L Calcium 9.6 (8.4-10.2) mg/dL Magnesium 1.9 (1.6-2.3) mg/dL Total Bilirubin 0.4 (0.2-1.3) mg/dL AST 26 (14-36) U/L ALT 19 (4-34) U/L Alkaline Phosphatase 105 (38-126) U/L Total Protein 7.1 (6.3-8.2) g/dL Albumin 4.5 (3.5-5.0) g/dL Lipase 229 (23-300) U/L Influenza Type A (PCR) (Not Detectd) Influenza Type B (PCR) (Not Detectd) RSV (PCR) (Not Detectd) SARS-CoV-2 (PCR) (Not Detectd) 01/30/22 01/30/22 Range/Units 12:14 14:36 WBC (3.8-10.6) k/uL RBC (3.80-5.40) m/uL Hgb (11.4-16.0) gm/dL Hct (34.0-46.0) % MCV (80.0-100.0) fL MCH (25.0-35.0) pg MCHC (31.0-37.0) g/dL RDW (11.5-15.5) % Plt Count (150-450) k/uL MPV Neutrophils % % Lymphocytes % % Monocytes % % Eosinophils % % Basophils % % Neutrophils # (1.3-7.7) k/uL Lymphocytes # (1.0-4.8) k/uL Monocytes # (0-1.0) k/uL Eosinophils # (0-0.7) k/uL Basophils # (0-0.2) k/uL Manual Slide Review Large Platelets PT (9.0-12.0) sec INR (<1.2) APTT (22.0-30.0) sec Sodium (137-145) mmol/L Potassium (3.5-5.1) mmol/L Chloride (98-107) mmol/L Carbon Dioxide (22-30) mmol/L Anion Gap mmol/L BUN (7-17) mg/dL Creatinine (0.52-1.04) mg/dL Est GFR (CKD-EPI)AfAm (>60 ml/min/1.73 sqM) Est GFR (CKD-EPI)NonAf (>60 ml/min/1.73 sqM) Glucose (74-99) mg/dL Plasma Lactic Acid Abhinav 1.4 (0.7-2.0) mmol/L Calcium (8.4-10.2) mg/dL Magnesium (1.6-2.3) mg/dL Total Bilirubin (0.2-1.3) mg/dL AST (14-36) U/L ALT (4-34) U/L Alkaline Phosphatase (38-126) U/L Total Protein (6.3-8.2) g/dL Albumin (3.5-5.0) g/dL Lipase (23-300) U/L Influenza Type A (PCR) Not Detected (Not Detectd) Influenza Type B (PCR) Not Detected (Not Detectd) RSV (PCR) Not Detected (Not Detectd) SARS-CoV-2 (PCR) Not Detected (Not Detectd) Disposition Clinical Impression: Abdominal pain Disposition: HOME SELF-CARE Condition: Good Instructions (If sedation given, give patient instructions): Abdominal Pain (ED) Is patient prescribed a controlled substance at d/c from ED?: No Referrals: Nav Sanabria MD [REFERRING] - 1-2 days Time of Disposition: 15:51
[2022-01-30 12:38] LABS: Albumin 4.5 g/dL (3.5-5.0); Calcium 9.6 mg/dL (8.4-10.2); Magnesium 1.9 mg/dL (1.6-2.3); Potassium 4.5 mmol/L (3.5-5.1); Total Bilirubin 0.4 mg/dL (0.2-1.3); Total Protein 7.1 g/dL (6.3-8.2)
[2022-01-30 12:40] LABS: INR 0.9 (<1.2); Partial Thromboplastin Time 24.3 sec (22.0-30.0)
[2022-01-30 12:55] LABS: Basophils % (A) 1 %; Eosinophils # (A) 0.3 k/uL (0-0.7); Eosinophils % (A) 4 %; HCT 45.3 % (34.0-46.0); HGB 14.4 gm/dL (11.4-16.0); Lymphocytes % (A) 24 %; MCH 28.5 pg (25.0-35.0); MCHC 31.8 g/dL (31.0-37.0); MCV 89.7 fL (80.0-100.0); Mean Platelet Volume 11.2; Monocytes # (A) 0.5 k/uL (0-1.0); Monocytes % (A) 5 %; Neutrophils # (A) 5.6 k/uL (1.3-7.7); Neutrophils % (A) 66 %; RBC 5.05 m/uL (3.80-5.40); RDW 14.2 % (11.5-15.5); WBC 8.5 k/uL (3.8-10.6)
[2022-01-30 13:16] LABS: Platelet Count 153 k/uL (150-450)
[2022-01-30 13:17] LABS: Large Platelets Present
--- NOTE | 2022-01-30 13:41 | CT ---
EXAMINATION TYPE: CT abdomen pelvis w con DATE OF EXAM: 01/30/2022 COMPARISON: None INDICATION: RLQ PAIN DLP: 889.6 mGycm, Automated exposure control for dose reduction was used. CONTRAST: 100ML mL of Isovue 300. Study performed without Oral Contrast TECHNIQUE: Axial images were obtained from above the diaphragm to the pubic rami in the axial plane a t 5 mm thick sections. Reconstructed images are reviewed on the computer in the coronal plane. FINDINGS: Limited CT sections are obtained the lung bases. Minimal left lung base atelectasis may be present.. CT ABDOMEN: Liver: Normal Spleen: Normal Pancreas: Normal Adrenal glands: The adrenal glands are normal. Gallbladder: Few tiny gallstones. The present. Kidneys: No masses are evident. No hydronephrosis is present. No cysts are present. Delayed images were obtained through the kidneys, which remain unremarkable. Aorta: Vascular calcification is within the aorta. Inferior vena cava: Normal. CT PELVIS: There may be some minimal diffuse wall thickening through the mid to distal transverse colon. Correla te for mild colitis. This is in the region of the umbilical level. This study is without oral contras t limiting bowel evaluation. Appendix: Not identified. No dilated tubular structure or inflammatory changes evident. Clinical manohar gement of any suspected appendicitis. Urinary bladder: Normal. Genitourinary structures: Uterus and ovaries are not identified. Osseous structures: No suspicious lytic or sclerotic lesions. IMPRESSIONS: 1. Mild colitis of the mid transverse colon is not excluded. 2. Nonvisualization of the appendix. Clinical management of any suspected appendicitis will be requi red. Suspicious dilated tubular structure or inflammatory changes are not evident.
[2022-01-30 16:12] VITALS: BP 126/78; PULSE 88; RESP 18; TEMP 98.8
== END 2022-01-30 16:00 | disposition home or self-care (01) ==
LOC: EC 11:46
DX: R10.9 Unspecified abdominal pain (principal); E78.5 Hyperlipidemia, unspecified; I10 Essential (primary) hypertension; Z86.73 Personal history of transient ischemic attack (TIA), and cerebral infarction without residual deficits; Z20.822 Contact with and (suspected) exposure to COVID-19; Z88.6 Allergy status to analgesic agent; Z91.048 Other nonmedicinal substance allergy status
CPT/HCPCS: 36415; 93005; 80053; 83605; 83690; 83735; 85025; 85610; 85730; 87636; 74177; 99284; Q9967

== ENCOUNTER 2022-02-05 14:13 | Emergency (ER) | payer MEDICARE ==
[2022-02-05 14:32] VITALS: RESP 18; TEMP 98.3
[2022-02-05] MEDS ORDERED: ACETAMINOPHEN TAB 325 MG TAB PO STA (15:06)
--- NOTE | 2022-02-05 16:30 | CT ---
EXAMINATION TYPE: CT brain cspine wo con DATE OF EXAM: 02/05/2022 COMPARISON: CT brain and cervical spine March 03, 2021 HISTORY: fall, had LAC injury and neck pain. CT DLP: 1276.1 mGycm. Automated Exposure Control for Dose Reduction was Utilized. TECHNIQUE: CT scan of the head and cervical spine are performed without contrast. FINDINGS: There is no acute intracranial hemorrhage or midline shift identified. Persistent moderat e to severe hydrocephalus unchanged from prior. Low attenuation in the periventricular white matter r edemonstrated. New moderate size acute right parietal scalp hematoma axial image 41. The adjacent ca lvarium is intact. Old fracture deformity anterior medial wall right orbit axial image 10 redemonstra drew. Cervical spine is visualized in its entirety from C1 through upper thoracic levels and demonstrates stable alignment without evidence of acute fracture or dislocation. Slight grade 1 retrolisthesis C5 on C6 with moderate to advanced disc space narrowing is redemonstrated. Prevertebral soft tissue clarissa ears within normal limits. The C1-C2 articulation is within normal limits on the coronal images. Ve rtebral body heights are maintained. Axial images redemonstrate multilevel spur disc complexes effacing anterior thecal sac C3-C4 through C6-C7 levels. Multilevel uncovertebral facet degenerative changes are redemonstrated. Thyroid gland r emains within normal limits. Lung apices show no pneumothorax. IMPRESSION: 1. There is no acute fracture or dislocation evident in the cervical spine. 2. No acute intracranial hemorrhage or midline shift is seen. Moderate size acute height right pariet al scalp hematoma now present. Stable moderate to severe hydrocephalus again seen.
[2022-02-05 16:36] VITALS: BP 122/54; PULSE 85
--- NOTE | 2022-02-05 17:46 | ED ---
Fall HPI - General Chief Complaint: Fall Stated Complaint: Fall Time Seen by Provider: 02/05/22 14:20 Source: EMS Mode of arrival: EMS - History of Present Illness MD Complaint: fall -: minutes(s) Fall From: standing When Fall Occurred: just prior to arrival Fall Witnessed: no Place Fall Occurred: home Loss of Consciousness: none Prolonged Down Time?: no Symptoms Prior to Fall: dizziness Location: head, neck Severity: mild Context: tripped/slipped, history of frequent falls Associated Symptoms: headache - Related Data Home Medications Medication Instructions Recorded Confirmed Dicyclomine [Bentyl] 10 mg PO TID 09/26/18 02/05/22 Atorvastatin Calcium [Lipitor] 20 mg PO HS 03/03/21 02/05/22 Tamsulosin HCl [Flomax] 0.4 mg PO DAILY 04/05/21 02/05/22 lisinopriL 40 mg PO DAILY 04/05/21 02/05/22 Cholecalciferol [Vitamin D3 (25 25 mcg PO W/LUNCH 10/30/21 02/05/22 Mcg = 1000 Iu)] Citrucel Tabs 1 tab PO BID-W/MEALS 10/30/21 02/05/22 Escitalopram [Lexapro] 10 mg PO DAILY 10/30/21 02/05/22 Loratadine [Claritin] 10 mg PO DAILY 10/30/21 02/05/22 amLODIPine [Norvasc] 5 mg PO DAILY 10/30/21 02/05/22 Citrucel Tabs 2 tab PO W/LUNCH 01/30/22 02/05/22 Allergies Allergy/AdvReac Type Severity Reaction Status Date / Time adhesive tape Allergy Mild Rash/Hives Verified 02/05/22 16:30 morphine AdvReac MIGRAINE Verified 02/05/22 16:30 Review of Systems ROS Statement: Those systems with pertinent positive or pertinent negative responses have been documented in the HPI. ROS Other: All systems not noted in ROS Statement are negative. Constitutional: Denies: fever Eyes: Denies: eye pain, vision change ENT: Denies: ear pain, hearing loss, epistaxis Respiratory: Denies: cough, dyspnea Cardiovascular: Denies: chest pain, palpitations, syncope Gastrointestinal: Denies: abdominal pain, nausea, vomiting Musculoskeletal: Denies: back pain Skin: Denies: rash Neurological: Reports: headache. Denies: weakness, numbness, paresthesias, confusion Hematological/Lymphatic: Denies: easy bleeding Past Medical History Past Medical History: CVA/TIA, Hyperlipidemia, Hypertension, Osteoarthritis (OA), Rheumatoid Arthritis (RA) Additional Past Medical History / Comment(s): Recently diagnosed with normal pressure hydrocephalus with spinal tap to remove spinal fluid, lately been decreasing hypertensive meds d/t lower b/ps. R sided sciatica. Scoliosis. Osteopenia. UNnsteady gait, UTIs HX: L medial ankle ulcer. History of Any Multi-Drug Resistant Organisms: None Reported Past Surgical History: Adenoidectomy, Back Surgery, Section, Hysterectomy, Tonsillectomy Additional Past Surgical History / Comment(s): Lumbar fusion X 2, x2, colonoscopy, hemorrhoidectomy, bilateral carpal tunnel releases, bilateral cataract removals/lens implants. Past Anesthesia/Blood Transfusion Reactions: No Reported Reaction, Motion Sickness Past Psychological History: Depression Smoking Status: Never smoker Past Alcohol Use History: Occasional, Rare Past Drug Use History: None Reported - Past Family History Father Family Medical History: Dementia Additional Family Medical History / Comment(s): Father of cardiac rupture per pt. Mother Family Medical History: Cancer Additional Family Medical History / Comment(s): breast cancer. General Exam Limitations: physical limitation General appearance: alert, in no apparent distress Head exam: Present: normocephalic, other (Patient has approximately 6 cm diameter hematoma right occipital area. No palpable deformity. Moderate tenderness.) Eye exam: Present: normal appearance, PERRL, EOMI. Absent: scleral icterus, conjunctival injection ENT exam: Present: normal oropharynx Neck exam: Present: normal inspection, tenderness. Absent: meningismus Respiratory exam: Present: normal lung sounds bilaterally. Absent: respiratory distress, wheezes, rales, rhonchi, stridor, chest wall tenderness Cardiovascular Exam: Present: regular rate, normal rhythm, systolic murmur. Absent: diastolic murmur, rubs, gallop GI/Abdominal exam: Present: soft. Absent: distended, tenderness, guarding, rebound, rigid, mass Extremities exam: Present: normal inspection, normal capillary refill. Absent: pedal edema, calf tenderness Back exam: Present: normal inspection. Absent: CVA tenderness (R), CVA tenderness (L), vertebral tenderness Neurological exam: Present: alert, oriented X3, CN II-XII intact. Absent: motor sensory deficit Skin exam: Present: warm, dry, intact, normal color. Absent: rash Course Vital Signs 02/05/22 02/05/22 14:27 16:35 Temperature 98.3 F Pulse Rate 83 85 Respiratory 18 18 Rate Blood Pressure 154/69 122/54 O2 Sat by Pulse 98 95 Oximetry Disposition Clinical Impression: Fall, Head injury Disposition: HOME SELF-CARE Condition: Good Instructions (If sedation given, give patient instructions): Fall Prevention for Older Adults (ED), Head Injury (ED) Is patient prescribed a controlled substance at d/c from ED?: No Referrals: Jose David Thomas MD [Primary Care Provider] - 1-2 days
== END 2022-02-05 18:50 | disposition home or self-care (01) ==
LOC: EC 14:13
DX: S09.90XA Unspecified injury of head, initial encounter (principal); Z86.73 Personal history of transient ischemic attack (TIA), and cerebral infarction without residual deficits; E78.5 Hyperlipidemia, unspecified; I10 Essential (primary) hypertension; Z91.048 Other nonmedicinal substance allergy status; Z88.3 Allergy status to other anti-infective agents; W01.0XXA Fall on same level from slipping, tripping and stumbling without subsequent striking against object, initial encounter
CPT/HCPCS: 70450; 72125; 99284

== ENCOUNTER 2022-02-24 14:13 | Emergency (ER) | payer MEDICARE ==
[2022-02-24 15:14] VITALS: TEMP 98.7
[2022-02-24] MEDS ORDERED: ACETAMINOPHEN TAB 500 MG TAB PO STA (15:43)
[2022-02-24] MEDS ORDERED: FLUTICASONE 50MCG/SPRAY NASAL 16GM EA NOSTRIL SCH (15:45)
--- NOTE | 2022-02-24 16:32 | XR ---
EXAMINATION TYPE: XR chest 2V DATE OF EXAM: 02/24/2022 4:03 PM COMPARISON: Chest radiographs from 07/15/2021 TECHNIQUE: XR chest 2V Frontal and lateral views of the chest. CLINICAL INDICATION:Female, 81 years old with history of cough; FINDINGS: Lungs/Pleura: There is no evidence of pleural effusion, focal consolidation, or pneumothorax. Pulmonary vascularity: Unremarkable. Heart/mediastinum: Cardiomediastinal silhouette is enlarged and stable. Musculoskeletal: Degenerative changes of the shoulder joints, right greater than left with narrowing of the acromiohumeral interval. IMPRESSION: 1. No acute cardiopulmonary disease/process. 2. Degeneration changes of the right shoulder with suspected full-thickness rotator cuff tear
--- NOTE | 2022-02-24 16:41 | ED ---
General Adult HPI - General Chief complaint: Upper Respiratory Infection Stated complaint: Cold Time Seen by Provider: 02/24/22 15:37 Source: patient, family Mode of arrival: wheelchair Limitations: no limitations - History of Present Illness Initial comments: Patient is an 81-year-old female who presents to the emergency department with a chief complaint of upper respiratory symptoms. Patient states symptoms started 4 days ago and have not gotten better. Symptoms include headache, nasal congestion, sore throat, dry cough. Patient's daughter expresses concern that patient was up to the night coughing. She denies fever, chills, shortness of breath, chest pain. Denies history of COPD and asthma. - Related Data Home Medications Medication Instructions Recorded Confirmed Dicyclomine [Bentyl] 10 mg PO TID 09/26/18 02/05/22 Atorvastatin Calcium [Lipitor] 20 mg PO HS 03/03/21 02/05/22 Tamsulosin HCl [Flomax] 0.4 mg PO DAILY 04/05/21 02/05/22 lisinopriL 40 mg PO DAILY 04/05/21 02/05/22 Cholecalciferol [Vitamin D3 (25 25 mcg PO W/LUNCH 10/30/21 02/05/22 Mcg = 1000 Iu)] Citrucel Tabs 1 tab PO BID-W/MEALS 10/30/21 02/05/22 Escitalopram [Lexapro] 10 mg PO DAILY 10/30/21 02/05/22 Loratadine [Claritin] 10 mg PO DAILY 10/30/21 02/05/22 amLODIPine [Norvasc] 5 mg PO DAILY 10/30/21 02/05/22 Citrucel Tabs 2 tab PO W/LUNCH 01/30/22 02/05/22 Previous Rx's Medication Instructions Recorded Benzonatate [Tessalon Perle] 200 mg PO BID PRN #10 cap 02/24/22 Ibuprofen [Motrin] 600 mg PO Q6HR PRN #12 tab 02/24/22 Allergies Allergy/AdvReac Type Severity Reaction Status Date / Time adhesive tape Allergy Mild Rash/Hives Verified 02/24/22 15:17 morphine AdvReac MIGRAINE Verified 02/24/22 15:17 Review of Systems ROS Statement: Those systems with pertinent positive or pertinent negative responses have been documented in the HPI. ROS Other: All systems not noted in ROS Statement are negative. Past Medical History Past Medical History: CVA/TIA, Hyperlipidemia, Hypertension, Osteoarthritis (OA), Rheumatoid Arthritis (RA) Additional Past Medical History / Comment(s): Recently diagnosed with normal pressure hydrocephalus with spinal tap to remove spinal fluid, lately been decreasing hypertensive meds d/t lower b/ps. R sided sciatica. Scoliosis. Osteopenia. UNnsteady gait, UTIs HX: L medial ankle ulcer. History of Any Multi-Drug Resistant Organisms: None Reported Past Surgical History: Adenoidectomy, Back Surgery, Section, Hysterectomy, Tonsillectomy Additional Past Surgical History / Comment(s): Lumbar fusion X 2, x2, colonoscopy, hemorrhoidectomy, bilateral carpal tunnel releases, bilateral cataract removals/lens implants. Past Anesthesia/Blood Transfusion Reactions: No Reported Reaction, Motion Sickness Past Psychological History: Depression Smoking Status: Never smoker Past Alcohol Use History: Occasional, Rare Past Drug Use History: None Reported - Past Family History Father Family Medical History: Dementia Additional Family Medical History / Comment(s): Father of cardiac rupture per pt. Mother Family Medical History: Cancer Additional Family Medical History / Comment(s): breast cancer. General Exam Limitations: no limitations General appearance: alert, in no apparent distress Head exam: Present: atraumatic, normocephalic, normal inspection Eye exam: Present: normal appearance, PERRL, EOMI. Absent: scleral icterus, conjunctival injection, periorbital swelling Respiratory exam: Present: normal lung sounds bilaterally. Absent: respiratory distress, wheezes, rales, rhonchi, stridor Cardiovascular Exam: Present: regular rate, normal rhythm, normal heart sounds. Absent: systolic murmur, diastolic murmur, rubs, gallop, clicks GI/Abdominal exam: Present: soft, normal bowel sounds. Absent: distended, tenderness, guarding, rebound, rigid Neurological exam: Present: alert, oriented X3, CN II-XII intact Psychiatric exam: Present: normal affect, normal mood Skin exam: Present: warm, dry, intact, normal color. Absent: rash Course Vital Signs 02/24/22 02/24/22 15:11 17:53 Temperature 98.7 F Pulse Rate 94 85 Respiratory 20 18 Rate Blood Pressure 155/65 155/69 O2 Sat by Pulse 95 93 L Oximetry Medical Decision Making - Medical Decision Making This is an 81-year-old female presenting with upper respiratory symptoms. COVID-19, influenza A, and RSV are not detected. Chest x-ray negative for acute process. Patient looks well, has no chest pain or shortness of breath. She will be discharged with symptomatic treatment. Dr. Yates is my attending. - Lab Data Lab Results 02/24/22 02/24/22 Range/Units 15:44 15:44 Coronavirus (PCR) Not Detected (Not Detectd) Influenza Type A RNA Not Detected (Not Detectd) Influenza Type B (PCR) Not Detected (Not Detectd) Disposition Clinical Impression: Dry cough, Common cold, Sinus congestion Disposition: HOME SELF-CARE Condition: Good Instructions (If sedation given, give patient instructions): Upper Respiratory Infection (ED) Additional Instructions: Take medication as directed. Follow-up with primary care provider in one to 2 days. Return to the emergency department if you experience new, concerning, or worsening symptoms. Prescriptions: Ibuprofen [Motrin] 600 mg PO Q6HR PRN #12 tab PRN Reason: Pain Benzonatate [Tessalon Perle] 200 mg PO BID PRN #10 cap PRN Reason: Cough Is patient prescribed a controlled substance at d/c from ED?: No Referrals: Jose David Thomas MD [Primary Care Provider] - 1-2 days Time of Disposition: 16:41
[2022-02-24 17:54] VITALS: BP 155/69; PULSE 85; RESP 18
== END 2022-02-24 17:54 | disposition home or self-care (01) ==
LOC: EC 14:13
DX: J00 Acute nasopharyngitis [common cold] (principal); R05.9 Cough, unspecified; Z86.73 Personal history of transient ischemic attack (TIA), and cerebral infarction without residual deficits; E78.5 Hyperlipidemia, unspecified; I10 Essential (primary) hypertension; Z79.899 Other long term (current) drug therapy; Z20.822 Contact with and (suspected) exposure to COVID-19; Z91.040 Latex allergy status; Z88.5 Allergy status to narcotic agent
CPT/HCPCS: 71046; 87502; 87635; 99284

== ENCOUNTER 2022-05-03 08:59 | Day surgery (SDC) | payer MEDICARE ==
--- NOTE | 2022-05-03 00:33 | P.GSHP ---
History of Present Illness H&P Date: 05/03/22 CHIEF COMPLAINT: Cholecystitis HISTORY OF PRESENT ILLNESS: The patient is a 81-year-old female who presents with history of epigastric including right upper quadrant abdominal pain. She underwent diagnostic studies for her gallbladder. Separately her clinical picture was consistent with cholecystitis. Now she presents for surgical intervention. PAST MEDICAL HISTORY: Please see list PAST SURGICAL HISTORY: Please see list MEDICATIONS: Please see list ALLERGIES: Please see list SOCIAL HISTORY: Please see list FAMILY HISTORY: Please see list REVIEW OF ORGAN SYSTEMS: CONSTITUTIONAL: No reports of fevers or chills. RESPIRATORY: No recent pneumonias. CARDIOVASCULAR: Denies chest pain or palpitations GI: No blood in stools or constipation. MUSCULOSKELETAL: Has occasional joint pain including back pain. GENITOURINARY: No active blood in urine. HEMATOLOGIC: No personal or family history of DVTs or pulmonary emboli. SKIN: No skin cancer. PHYSICAL EXAM: VITAL SIGNS: Afebrile vital signs stable GENERAL: Well-developed pleasant in no acute distress. HEENT: No scleral icterus. Extraocular movements grossly intact. Moist buccal mucosa. NECK: Supple without lymphadenopathy. CHEST: Unlabored respirations. Equal bilateral excursions. CARDIOVASCULAR: Regular rate regular rhythm rhythm. Distal 2+ pulses. ABDOMEN: Soft, nondistended. Tender along the epigastrium and right upper quadrant. MUSCULOSKELETAL: No clubbing, cyanosis, or edema. NEURO: Cranial nerves II to XII within normal limits. No focal or lateralizing signs. PSYCH: Alert and oriented to person, place and time. SKIN: Well-perfused good skin turgor. ASSESSMENT: 1. Epigastric and right upper quadrant abdominal pain 2. Chronic cholecystitis 3. Symptomatic gallstones. PLAN: 1. Will need a robotic cholecystectomy possible open. Benefits and risks were described. 2. Heparin for DVT prophylaxis 5000 units. 3. Antibiotic prophylaxis. 4. CBC and CMP on day of procedure 5. Non-narcotic pre and post op pain management reviewed. 6. Indocyanine green for biliary imaging. Past Medical History Past Medical History: CVA/TIA, Hyperlipidemia, Hypertension, Osteoarthritis (OA), Rheumatoid Arthritis (RA) Additional Past Medical History / Comment(s): Recently diagnosed with normal pressure hydrocephalus with spinal tap to remove spinal fluid, lately been decreasing hypertensive meds d/t lower b/ps. R sided sciatica. Scoliosis. Osteopenia. UNnsteady gait, UTIs Hx History of Any Multi-Drug Resistant Organisms: None Reported Past Surgical History: Adenoidectomy, Back Surgery, Section, Hysterectomy, Tonsillectomy Additional Past Surgical History / Comment(s): Lumbar fusion X 2, x2, colonoscopy, hemorrhoidectomy, bilateral carpal tunnel releases, bilateral cataract removals/lens implants. Past Anesthesia/Blood Transfusion Reactions: No Reported Reaction, Motion Sickness Smoking Status: Never smoker - Past Family History Father Family Medical History: Dementia Additional Family Medical History / Comment(s): Father of cardiac rupture per pt. Mother Family Medical History: Cancer Additional Family Medical History / Comment(s): breast cancer. Medications and Allergies Home Medications Medication Instructions Recorded Confirmed Type Dicyclomine [Bentyl] 10 mg PO TID 09/26/18 04/30/22 History Atorvastatin Calcium [Lipitor] 20 mg PO HS 03/03/21 04/30/22 History Tamsulosin HCl [Flomax] 0.4 mg PO DAILY 04/05/21 04/30/22 History lisinopriL 40 mg PO DAILY 04/05/21 04/30/22 History Cholecalciferol [Vitamin D3 (25 25 mcg PO W/LUNCH 10/30/21 04/30/22 History Mcg = 1000 Iu)] Citrucel Tabs 1 tab PO BID-W/MEALS 10/30/21 04/30/22 History Escitalopram [Lexapro] 10 mg PO DAILY 10/30/21 04/30/22 History Loratadine [Claritin] 10 mg PO DAILY 10/30/21 04/30/22 History amLODIPine [Norvasc] 5 mg PO DAILY 10/30/21 04/30/22 History Citrucel Tabs 2 tab PO W/LUNCH 01/30/22 04/30/22 History Benzonatate [Tessalon Perle] 200 mg PO BID PRN #10 cap 02/24/22 04/30/22 Rx Ibuprofen [Motrin] 600 mg PO Q6HR PRN #12 tab 02/24/22 04/30/22 Rx Allergies Allergy/AdvReac Type Severity Reaction Status Date / Time adhesive tape Allergy Mild Rash/Hives Verified 04/30/22 13:47 morphine AdvReac MIGRAINE Verified 04/30/22 13:47
[~2022-05-03 08:59] MED LIST changes: +ACETAMINOPHEN TAB 500 MG TAB PO ONE; -ACETAMINOPHEN TAB 500 MG TAB PO PRN; +DEXAMETHASONE SOD PHOSPHATE 4 MG/ML 1 ML VIAL IV ONE; -FAMOTIDINE 20 MG TAB PO PRN; -GABAPENTIN 300 MG CAP PO PRN; +HYDROmorphone 0.5 MG/0.5 ML SYRINGE IVP PRN; +INDOCYANINE GREEN 25 MG VIAL IV STA; +LACTATED RINGERS 1,000 ML IV SCH; +LIDOCAINE 1% (10MG/ML) FOR IV START INTRADERMA PRN; +MIDAZOLAM 2 MG/2 ML VIAL IV PRN; +ONDANSETRON 4 MG/2 ML VIAL IVP ONE; +TAMSULOSIN 0.4 MG CAP.ER.24H PO ONE
[2022-05-03 10:09] LABS: Basophils # (A) 0.1 k/uL (0-0.2); Basophils % (A) 1 %; Eosinophils # (A) 0.2 k/uL (0-0.7); Eosinophils % (A) 3 %; HCT 45.8 % (34.0-46.0); HGB 14.9 gm/dL (11.4-16.0); Lymphocytes % (A) 26 %; MCH 29.3 pg (25.0-35.0); MCHC 32.6 g/dL (31.0-37.0); MCV 89.8 fL (80.0-100.0); Mean Platelet Volume 11.8; Monocytes # (A) 0.5 k/uL (0-1.0); Monocytes % (A) 7 %; Neutrophils # (A) 4.9 k/uL (1.3-7.7); Neutrophils % (A) 63 %; Platelet Count 166 k/uL (150-450); RDW 13.4 % (11.5-15.5); WBC 7.7 k/uL (3.8-10.6)
[2022-05-03 10:22] LABS: Albumin 4.7 g/dL (3.5-5.0); Calcium 9.7 mg/dL (8.4-10.2); Total Bilirubin 0.7 mg/dL (0.2-1.3); Total Protein 7.8 g/dL (6.3-8.2)
[2022-05-03 10:33] LABS: Potassium 4.7 mmol/L (3.5-5.1)
[2022-05-03] MEDS ORDERED: PHENYLEPHRINE-0.9% NACL SYG 1,000 MCG/10 ML SYRINGE ONE (11:42)
[2022-05-03] MEDS ORDERED: PROPOFOL 10 MG/ML 20 ML VIAL IV ONE (11:42)
[2022-05-03] MEDS ORDERED: GLYCOPYRROLATE 0.2 MG/ML 2 ML VIAL ONE (11:42)
[2022-05-03] MEDS ORDERED: LIDOCAINE 2% INJ 20 MG/ML (2 ML VIAL) ONE (11:42)
[2022-05-03] MEDS ORDERED: ePHEDrine 50 MG/ML 1 ML VIAL ONE (11:42)
[2022-05-03] MEDS ORDERED: ROCURONIUM 10 MG/ML (5 ML VIAL) IV ONE (11:42)
[2022-05-03] MEDS ORDERED: INDOCYANINE GREEN 25 MG VIAL IV ONE (11:42)
[2022-05-03] MEDS ORDERED: fentaNYL (PF) 50 MCG/ML 2 ML AMP ONE (11:42)
[2022-05-03] MEDS ORDERED: MIDAZOLAM 2 MG/2 ML VIAL ONE (11:42)
[2022-05-03] MEDS ORDERED: NEOSTIGMINE 1 MG/ML 10 ML VIAL ONE (11:42)
[2022-05-03] MEDS ORDERED: BUPIVACAIN-EPI 0.25%-1:200,000 30 ML VIAL SQ ONE (12:16)
[2022-05-03] MEDS ORDERED: LACTATED RINGERS 1,000 ML IV ONE (12:37)
[2022-05-03 13:36] VITALS: TEMP 96.9
--- NOTE | 2022-05-03 13:53 | P.OP ---
Date of Procedure: 05/03/22 Description of Procedure: SURGEON: LASHON SCHAEFFER MD PREOPERATIVE DIAGNOSES: 1. Symptomatic gallstone 2. Right upper quadrant abdominal pain POSTOPERATIVE DIAGNOSES: 1. Symptomatic gallstone 2. Right upper quadrant abdominal pain 3. Chronic cholecystitis 4. Peritoneal adhesions, right upper quadrant OPERATION: Robotic-assisted da Urmila Xi laparoscopic lysis of adhesions over 50% of the case Robotic-assisted da Urmila Xi laparoscopic cholecystectomy, multiport with FIREFLY ESTIMATED BLOOD LOSS: 10 mL. SPECIMENS REMOVED: Gallbladder. COMPLICATIONS: None. OPERATIVE FINDINGS: 1. Moderate scarring over entire gallbladder with peritoneal adhesions, pericholecystic with features of chronic cholecystitis 2. Moderate intra-abdominal adhesions to abdominal wall from prior hernia mesh surgery encompassing over 50% of the surgery 3. Trochar placement along the bilateral lower quadrant to facilitate extensive lysis of adhesions INDICATIONS: The patient is a 81-year-old female who presents with symptomatic gallstones. Robotic assisted laparoscopic approach was described. Benefits and risks of the procedure including but not limited to bleeding, infection, injury to the biliary tree was described. Informed consent was obtained. DESCRIPTION OF PROCEDURE: Patient was brought to the operating room, placed in supine position. After general induction, the abdomen had been prepped and draped in standard sterile fashion. The robotic da Urmila XI system was primed. After a timeout protocol was performed, the patient had been prepped and draped in standard sterile fashion. The patient was injected with indocyanine green. A 5 mm 0 degrees laparoscopic trocar entry was performed along the left upper quadrant. The abdomen insufflated to 15 mmHg pressure which was tolerated well. Diagnostic laparoscopy demonstrated no injury to bowel viscera or mesentery. The liver surface was unremarkable. Next, two 8 mm robotic ports were placed along the right upper abdomen. The camera 8-mm port was maintained along the epigastrium. Another 8 mm port was placed along the left upper abdominal wall after exchanging the 5 mm port. Please note that the ports were placed at least 10 to 15 cm away from the target anatomy of the gallbladder. The robot was docked along the left lateral abdomen. The patient was repositioned in reverse Trendelenburg position. Using a grasper for arm 3, a grasper for arm 4, including hook cautery for arm 1, the robotic system was docked and primed as described. Instruments were interchanged by the sociology research assistant including hook cautery, Bovie cautery and clip appliers. I had sat at the console. The gallbladder was scarred with peritoneal adhesions. Lysis of adhesions was performed to free the gallbladder from the surrounding tissues. Next attention was brought to the infundibulum and cystic structures. The infundibulum and cystic duct were dissected free from surrounding tissues. The cystic duct was isolated. FIREFLY was used to identify the cystic artery and cystic structures. A critical view of safety was obtained. Large PLASTIC clips were used throughout the entire case. Using a clip social staff worker, 2 clips were placed at the junction of the infundibulum and cystic duct. The cystic duct was divided between clips. Next, the cystic artery was similarly clipped and cauterized. Electro-Bovie cautery was used to remove the gallbladder from the hepatic fossa. Hemostasis was checked and found to be adequate. The robot was undocked. I re-scrubbed into the case. Using a 10 mm Endo Catch bag via the left upper quadrant incision, the specimen was removed from the abdominal cavity. Roni Bajwa 0 Vicryl was used to close the left upper quadrant trocar site. All pneumoperitoneum instruments were evacuated from the abdominal cavity. The incisions were reapproximated using 4-0 Monocryl in an interrupted subcuticular fashion. Fascial defects were less than 8 mm in size. Please note along the trocar sites, local anesthetic was placed as a field block prior to insertion of all instruments. Liquid glue was applied to the skin. At the end of the procedure needle, sponge, and instrument count had been verified correct by the software support technician. The patient was transferred to postanesthesia care unit in stable condition. Intraoperative films were shared with the patient's family. Plan - Discharge Summary Discharge Rx Participant: No New Discharge Prescriptions: New Simethicone [Gas-X] 125 mg PO AC-TID PRN #20 capsule PRN Reason: Pain Acetaminophen [Tylenol] 650 mg PO Q4H #30 tab Continue Dicyclomine [Bentyl] 10 mg PO TID Atorvastatin Calcium [Lipitor] 20 mg PO HS lisinopriL 40 mg PO DAILY amLODIPine [Norvasc] 5 mg PO DAILY Loratadine [Claritin] 10 mg PO DAILY Citrucel Tabs 2 tab PO W/LUNCH Tamsulosin HCl [Flomax] 0.4 mg PO DAILY Cholecalciferol [Vitamin D3 (25 Mcg = 1000 Iu)] 25 mcg PO W/LUNCH Escitalopram [Lexapro] 10 mg PO DAILY Citrucel Tabs 1 tab PO BID-W/MEALS Discharge Medication List Dicyclomine [Bentyl] 10 mg PO TID 09/26/18 [History] Atorvastatin Calcium [Lipitor] 20 mg PO HS 03/03/21 [History] Tamsulosin HCl [Flomax] 0.4 mg PO DAILY 04/05/21 [History] lisinopriL 40 mg PO DAILY 04/05/21 [History] Cholecalciferol [Vitamin D3 (25 Mcg = 1000 Iu)] 25 mcg PO W/LUNCH 10/30/21 [History] Citrucel Tabs 1 tab PO BID-W/MEALS 10/30/21 [History] Escitalopram [Lexapro] 10 mg PO DAILY 10/30/21 [History] Loratadine [Claritin] 10 mg PO DAILY 10/30/21 [History] amLODIPine [Norvasc] 5 mg PO DAILY 10/30/21 [History] Citrucel Tabs 2 tab PO W/LUNCH 01/30/22 [History] Acetaminophen [Tylenol] 650 mg PO Q4H #30 tab 05/03/22 [Rx] Simethicone [Gas-X] 125 mg PO AC-TID PRN #20 capsule 05/03/22 [Rx] Follow up Appointment(s)/Referral(s): Lashon Schaeffer MD [STAFF PHYSICIAN] - 05/07/22 (TELEHEALTH) Patient Instructions/Handouts: *Surgery [facility] - Managing Your Pain After Surgery Without Opioids, Low Fat Diet (ED), Laparoscopic Cholecystectomy (DC) Activity/Diet/Wound Care/Special Instructions: Recommend low-fat diet for the next 2 days. No lifting over 10 pounds in 2 weeks until May 17. September shower. No bath tub soaks for two weeks until May 17. Diet as tolerated. Use Tylenol, simethicone and ibuprofen or Aleve scheduled for the next 24-48 hours for best pain relief. Use ice along incisions for today to prevent swelling. Discharge Disposition: OTHER INSTITUTION NOT DEFINED
[2022-05-03 14:33] VITALS: RESP 16
[2022-05-03 15:10] VITALS: BP 120/61; PULSE 74
== END 2022-05-03 15:28 | disposition other institution (70) ==
LOC: OR 08:59
PROVIDERS: ATTEND Surgery Plastic and Reconstructive Surgery
DX: K80.10 Calculus of gallbladder with chronic cholecystitis without obstruction (principal); K66.0 Peritoneal adhesions (postprocedural) (postinfection); I10 Essential (primary) hypertension; E78.5 Hyperlipidemia, unspecified; M19.90 Unspecified osteoarthritis, unspecified site; M06.9 Rheumatoid arthritis, unspecified; M41.9 Scoliosis, unspecified; M85.80 Other specified disorders of bone density and structure, unspecified site; Z87.440 Personal history of urinary (tract) infections; Z98.891 History of uterine scar from previous surgery; Z90.89 Acquired absence of other organs; Z98.890 Other specified postprocedural states; Z86.73 Personal history of transient ischemic attack (TIA), and cerebral infarction without residual deficits; Z98.41 Cataract extraction status, right eye; Z98.42 Cataract extraction status, left eye; Z81.8 Family history of other mental and behavioral disorders; Z80.3 Family history of malignant neoplasm of breast; Z79.899 Other long term (current) drug therapy; Z79.1 Long term (current) use of non-steroidal anti-inflammatories (NSAID); Z88.5 Allergy status to narcotic agent; Z91.040 Latex allergy status
CPT/HCPCS: 88304; 80053; 85025; 47562; J2250; J1100; J2710; J0690; J2405; J3010; J2370; J2704; J1170; J1644; J2001

== ENCOUNTER 2022-08-10 12:24 | Emergency (ER) | payer MEDICARE ==
[2022-08-10 12:34] VITALS: RESP 16; TEMP 98.1
[2022-08-10] MEDS ORDERED: TOPICAL SKIN ADHESIVE 1 EACH AMP TOPICAL ONE (12:51)
--- NOTE | 2022-08-10 13:05 | ED ---
Fall HPI - General Chief Complaint: Fall Stated Complaint: Fall,Hit Head Time Seen by Provider: 08/10/22 12:46 Source: patient, RN notes reviewed, old records reviewed Mode of arrival: ambulatory Limitations: no limitations - History of Present Illness Initial Comments: This is an 81-year-old female DF for evaluation patient presents today for evaluation regards to fall from standing, patient fell on the bathroom. She does walk primarily with a walker but states when she gets to the bathroom due to a confined area she has difficulty using the walker and will occasionally suffer loss of balance or fall, patient did fall backwards did not hit her head no loss consciousness but is concerned that she has a prior history of brain bleed from falls in the past. Patient did have an injury to her right elbow with some minimal bleeding prior to arrival which was stress by the daughter. Patient believes she scratched against the bathtub. Patient is not on blood thinners. She was able to call a neighbor who did come over and help her stand up, patient was able to walk with her walker and presents to the ER by EMS. Patient has no other complaints his been feeling well, severe was a normal day otherwise difficult medications, no confusion she is awake and alert MD Complaint: fall -: hour(s) Fall From: standing, other (Patient does use a walker at baseline) When Fall Occurred: 1 hour BECK TENDER Fall Witnessed: yes, by family Place Fall Occurred: home Loss of Consciousness: none Prolonged Down Time?: no Symptoms Prior to Fall: none Location: head (Patient didn't hit her head but has no obvious signs of injury) Location - Extremities: Right: Elbow ( abrasion to right elbow to 2 minor areas ) Severity scale (1-10): 2 Quality: burning Context: tripped/slipped, history of frequent falls Associated Symptoms: denies - Related Data Home Medications Medication Instructions Recorded Confirmed Dicyclomine [Bentyl] 10 mg PO TID 09/26/18 05/03/22 Atorvastatin Calcium [Lipitor] 20 mg PO HS 03/03/21 05/03/22 Tamsulosin HCl [Flomax] 0.4 mg PO DAILY 04/05/21 05/03/22 lisinopriL 40 mg PO DAILY 04/05/21 05/03/22 Cholecalciferol [Vitamin D3 (25 25 mcg PO W/LUNCH 10/30/21 05/03/22 Mcg = 1000 Iu)] Citrucel Tabs 1 tab PO BID-W/MEALS 10/30/21 05/03/22 Escitalopram [Lexapro] 10 mg PO DAILY 10/30/21 05/03/22 Loratadine [Claritin] 10 mg PO DAILY 10/30/21 05/03/22 amLODIPine [Norvasc] 5 mg PO DAILY 10/30/21 05/03/22 Citrucel Tabs 2 tab PO W/LUNCH 01/30/22 05/03/22 Previous Rx's Medication Instructions Recorded Acetaminophen [Tylenol] 650 mg PO Q4H #30 tab 05/03/22 Simethicone [Gas-X] 125 mg PO AC-TID PRN #20 capsule 05/03/22 Allergies Allergy/AdvReac Type Severity Reaction Status Date / Time adhesive tape Allergy Mild Rash/Hives Verified 05/03/22 09:44 morphine AdvReac MIGRAINE Verified 05/03/22 09:44 Review of Systems ROS Statement: Those systems with pertinent positive or pertinent negative responses have been documented in the HPI. ROS Other: All systems not noted in ROS Statement are negative. Past Medical History Past Medical History: CVA/TIA, Hyperlipidemia, Hypertension, Osteoarthritis (OA), Rheumatoid Arthritis (RA) Additional Past Medical History / Comment(s): Recently diagnosed with normal pressure hydrocephalus with spinal tap to remove spinal fluid, lately been decreasing hypertensive meds d/t lower b/ps. R sided sciatica. Scoliosis. Osteopenia. UNnsteady gait, UTIs HX: L medial ankle ulcer. brain bleed 2020. neuropathy History of Any Multi-Drug Resistant Organisms: None Reported Past Surgical History: Adenoidectomy, Back Surgery, Section, Hysterectomy, Tonsillectomy Additional Past Surgical History / Comment(s): Lumbar fusion X 2, x2, colonoscopy, hemorrhoidectomy, bilateral carpal tunnel releases, bilateral cataract removals/lens implants. Past Anesthesia/Blood Transfusion Reactions: No Reported Reaction, Motion Sickness Past Psychological History: Depression Smoking Status: Never smoker - Past Family History Father Family Medical History: Dementia Additional Family Medical History / Comment(s): Father of cardiac rupture per pt. Mother Family Medical History: Cancer Additional Family Medical History / Comment(s): breast cancer. General Exam Limitations: no limitations General appearance: alert, in no apparent distress Head exam: Present: atraumatic, normocephalic, normal inspection Eye exam: Present: normal appearance, PERRL, EOMI. Absent: scleral icterus, conjunctival injection, periorbital swelling ENT exam: Present: normal exam, mucous membranes moist Neck exam: Present: normal inspection. Absent: tenderness, meningismus, lymphadenopathy Respiratory exam: Present: normal lung sounds bilaterally. Absent: respiratory distress, wheezes, rales, rhonchi, stridor Cardiovascular Exam: Present: regular rate, normal rhythm, normal heart sounds. Absent: systolic murmur, diastolic murmur, rubs, gallop, clicks GI/Abdominal exam: Present: soft, normal bowel sounds. Absent: distended, tenderness, guarding, rebound, rigid Extremities exam: Present: normal inspection, full ROM, normal capillary refill. Absent: tenderness, pedal edema, joint swelling, calf tenderness Back exam: Present: normal inspection Neurological exam: Present: alert, oriented X3, CN II-XII intact Psychiatric exam: Present: normal affect, normal mood Skin exam: Present: warm, dry, intact, normal color. Absent: rash Course Vital Signs 08/10/22 12:30 Temperature 98.1 F Pulse Rate 68 Respiratory 16 Rate Blood Pressure 153/72 O2 Sat by Pulse 98 Oximetry - Reevaluation(s) Reevaluation #1: 08/10/22 12:57 Medical record is reviewed Reevaluation #2: 08/10/22 12:57 Patient informed results questions are answered Reevaluation #3: 08/10/22 12:57 Skin tears were dressed here in the emergency department, cleaned and area of abrasion has Dermabond placed over, dressed Reevaluation #4: 08/10/22 12:57 Was pt. sent in by a medical professional or institution? @ -no patient does present by EMS Did you speak to anyone other than the patient for history? @ -EMS and paitents daughter at beside Did you review nursing and triage notes? @ -agree Were old charts reviewed? @ -prior admissions and ER evaluaions are reviewed Differential Diagnosis? @ -weakness, falls EKG interpreted by me (3pts min.)? @ -no X-rays interpreted by me (1pt min.)? @ -no CT interpreted by me (1pt min.)? @ -no U/S interpreted by me (1pt. min.)? @ -no What testing was considered but not performed? (CT, X-rays, U/S, labs)? Why? @ -ni What meds were considered but not given? Why? @ -no patient with no current complaints Did you discuss the management of the patient with other professionals? @ -no Did you reconcile home meds? @ -no Was smoking cessation discussed for >3mins.? @ -no Was critical care preformed (if so, how long)? @ -no Were there social determinants of health that impacted care today? How? (Homelessness, low income, unemployed, alcoholism, drug addiction, transportation, low edu. Level, literacy, decrease access to med. care, senior living, rehab)? @ -no Was there de-escalation of care discussed even if they declined? (Discuss DNR or withdrawal of care, Hospice)? @ -no What co-morbidities impacted this encounter? (DM, HTN, Smoking, COPD, CAD, Cancer, CVA, Hep., AIDS, mental health diagnosis, sleep apnea, morbid obesity)? @ -none Was patient admitted / discharged? @ -DC Undiagnosed new problem with uncertain prognosis? @ -multiple falls history of, R elbow abrasion Drug Therapy requiring intensive monitoring for toxicity (Heparin, Nitro, Insulin, Cardizem)? @ -no Were any procedures done? @ -no Diagnosis/symptom? @ -fall, arm abrasion Acute, or Chronic, or Acute on Chronic? @ -acute Uncomplicated (without systemic symptoms) or Complicated (systemic symptoms)? @ -uncompicated Side effects of treatment? @ -none Exacerbation, Progression, or Severe Exacerbation] @ -no Poses a threat to life or bodily function? @ -no 08/10/22 12:58 Reevaluation #5: 08/10/22 12:57 Differential Weakness: Hypoglycemia, shock, sepsis, hyponatremia, anemia, infection, IN, ETOH, adverse medicine reaction, overdose, stroke, this is not meant to be an all-inclusive list. Procedures - Laceration Laceration #1 Consent Obtained: verbal consent Indication: other (right elbow abrasion times 2 less than 1cm total) Pre-repair: irrigated extensively Type of Sutures: other (dermabond) Size of Sutures: other (dermabond) Technique: simple, interrupted Complications: other (none) Patient Tolerated Procedure: well Medical Decision Making - Medical Decision Making 81 female to ER status post mechanical fall right arm abrasion, abrasions are cleaned and dressed after Dermabond is applied here in the emergency department. Abrasions are small, right elbow, All were cleaned here in size no active bleeding. Patient can be discharged home - Radiology Data Radiology results: report reviewed (CT brain C-spine negative for acute disease), image reviewed Disposition Clinical Impression: Fall, Abrasion of right elbow Disposition: HOME SELF-CARE Condition: Poor Instructions (If sedation given, give patient instructions): Fall Prevention for Older Adults (ED), Abrasion (ED) Is patient prescribed a controlled substance at d/c from ED?: No Referrals: Jose David Thomas MD [Primary Care Provider] - 1-2 days Time of Disposition: 13:20
--- NOTE | 2022-08-10 13:24 | CT ---
EXAMINATION TYPE: CT brain cspine wo con DATE OF EXAM: 08/10/2022 COMPARISON: Both recent CT February 05, 2022 HISTORY: Fall injury with headache and neck pain. CT DLP: 1403.4 mGycm. Automated Exposure Control for Dose Reduction was Utilized. TECHNIQUE: CT scan of the head and cervical spine are performed without contrast. FINDINGS: There is no acute intracranial hemorrhage or midline shift identified. Moderate to severe hydrocephalus redemonstrated. Ventricular size similar appearance to prior. Low-attenuation in the periventricular white matter again seen. The calvarium is intact. The globes are intact. There is los s of right nasal bone with small oval density unchanged from prior axial image 15. Cervical spine is visualized in its entirety from C1 through upper thoracic levels and demonstrates s table and straightening alignment without evidence of acute fracture or dislocation. Slight multilev el spondylolisthesis redemonstrated. Vertebral body heights are preserved. Prevertebral soft tissue a ppears within normal limits. The C1-C2 articulation is within normal limits on the coronal images. M oderate disc space narrowing greatest C5-C6 level redemonstrated. Multilevel posterior spur disc comp lexes mildly effaces the anterior thecal sac similar to prior. Axial images show multilevel uncoverte bral facet degenerative changes contributing to multilevel bilateral neural foraminal narrowing. Lung apices show no pneumothorax. IMPRESSION: 1. There is no acute fracture or dislocation evident in the cervical spine. 2. No acute intracranial hemorrhage or midline shift is seen. Hydrocephalus redemonstrated but stable .
[2022-08-10 13:34] VITALS: BP 131/89; PULSE 65
== END 2022-08-10 13:51 | disposition home or self-care (01) ==
LOC: EC 12:24
DX: S50.311A Abrasion of right elbow, initial encounter (principal); E78.5 Hyperlipidemia, unspecified; I10 Essential (primary) hypertension; M19.90 Unspecified osteoarthritis, unspecified site; M06.9 Rheumatoid arthritis, unspecified; F32.A Depression, unspecified; Z86.73 Personal history of transient ischemic attack (TIA), and cerebral infarction without residual deficits; Z88.5 Allergy status to narcotic agent; Z91.048 Other nonmedicinal substance allergy status; Z79.899 Other long term (current) drug therapy; W18.11XA Fall from or off toilet without subsequent striking against object, initial encounter
CPT/HCPCS: 12001; 70450; 72125; 99284

== ENCOUNTER → 2022-12-23 | Outpatient (CLI) | payer MEDICARE ==
--- NOTE | 2022-12-24 09:05 | XR ---
EXAMINATION TYPE: XR chest 2V DATE OF EXAM: 12/23/2022 COMPARISON: 02/24/2022 TECHNIQUE: PA and lateral views submitted. HISTORY: Cough FINDINGS: The lungs are clear and there is no pneumothorax, pleural effusion, or focal pneumonia. Heart size normal and no overt failure. Osseous structures demonstrate hypertrophic and degenerative changes of the spine. Bilateral shoulder arthropathy. No overt failure. Postsurgical change involving the verteb ral column. Limited inspiration. IMPRESSION: 1. No acute process.
== END | disposition home or self-care (01) ==
LOC: RADXRMAIN 16:10
PROVIDERS: ATTEND Internal Medicine
DX: R05.9 Cough, unspecified (principal)
CPT/HCPCS: 71046

== ENCOUNTER → 2023-02-17 | Outpatient (CLI) | payer MEDICARE ==
--- NOTE | 2023-02-17 16:35 | XR ---
EXAMINATION TYPE: XR hand complete RT, XR finger RT DATE OF EXAM: 02/17/2023 3:44 PM CLINICAL INDICATION:Female, 82 years old with history of M77.8; [facility] COMPARISON: None TECHNIQUE: XR hand complete RT, XR finger RT Frontal, lateral and oblique views were obtained. FINDINGS: Multifocal joint space narrowing and osteophyte formation worse in the interphalangeal join ts and first digit carpometacarpal joint. There is angulation of the first and second digit radially at the proximal interphalangeal joint. Visualized portions of the first digit demonstrate no evidence of fracture. No evidence of fracture displacement. IMPRESSION: Severe osteoarthrosis changes at the first digit carpometacarpal joint with scattered more moderate m ultifocal osteoarthrosis.
== END | disposition home or self-care (01) ==
LOC: RADXRMAIN 15:21
PROVIDERS: ATTEND Internal Medicine
DX: M19.041 Primary osteoarthritis, right hand (principal)

== ENCOUNTER → 2023-04-24 | Outpatient (CLI) | payer MEDICARE ==
--- NOTE | 2023-04-24 12:35 | FL ---
Exam Date: 04/24/2023 12:18 PM. Modified barium swallow for dysphagia. Consistencies administered: Various consistency of barium. Fluoro time: 1 minute 11 seconds No images were sent to PACS. Please see speech pathology report. DAP: Not reported mGym2 Gycm2
== END | disposition home or self-care (01) ==
LOC: RADFLMAIN 11:44
PROVIDERS: ATTEND Otolaryngology
DX: R13.10 Dysphagia, unspecified (principal)
CPT/HCPCS: 74230

== ENCOUNTER 2023-08-27 18:05 | Emergency (ER) | payer MEDICARE ==
[2023-08-27 18:44] VITALS: TEMP 98.4
--- NOTE | 2023-08-27 19:21 | ED ---
General Adult HPI - General Chief complaint: Fall Stated complaint: Fall Time Seen by Provider: 08/27/23 18:08 Source: patient, EMS, RN notes reviewed Mode of arrival: EMS Limitations: no limitations - History of Present Illness Initial comments: 83-year-old female presents to the emergency department for evaluation of right leg pain following a fall. Patient states that she was walking to the bathroom when her leg got caught behind her causing her to fall. She states that she fell on her left side but is reporting pain in her right mid femur. She denies any other injuries. She did not hit her head or lose consciousness. She is not on blood thinners. - Related Data Home Medications Medication Instructions Recorded Confirmed Dicyclomine [Bentyl] 10 mg PO TID 09/26/18 05/03/22 Atorvastatin Calcium [Lipitor] 20 mg PO HS 03/03/21 05/03/22 Tamsulosin HCl [Flomax] 0.4 mg PO DAILY 04/05/21 05/03/22 lisinopriL 40 mg PO DAILY 04/05/21 05/03/22 Cholecalciferol [Vitamin D3 (25 25 mcg PO W/LUNCH 10/30/21 05/03/22 Mcg = 1000 Iu)] Citrucel Tabs 1 tab PO BID-W/MEALS 10/30/21 05/03/22 Escitalopram [Lexapro] 10 mg PO DAILY 10/30/21 05/03/22 Loratadine [Claritin] 10 mg PO DAILY 10/30/21 05/03/22 amLODIPine [Norvasc] 5 mg PO DAILY 10/30/21 05/03/22 Citrucel Tabs 2 tab PO W/LUNCH 01/30/22 05/03/22 Previous Rx's Medication Instructions Recorded Acetaminophen [Tylenol] 650 mg PO Q4H #30 tab 05/03/22 Simethicone [Gas-X] 125 mg PO AC-TID PRN #20 capsule 05/03/22 Allergies Allergy/AdvReac Type Severity Reaction Status Date / Time adhesive tape Allergy Mild Rash/Hives Verified 08/27/23 18:12 morphine AdvReac MIGRAINE Verified 08/27/23 18:12 Review of Systems ROS Statement: Those systems with pertinent positive or pertinent negative responses have been documented in the HPI. ROS Other: All systems not noted in ROS Statement are negative. Past Medical History Past Medical History: CVA/TIA, Hyperlipidemia, Hypertension, Osteoarthritis (OA), Rheumatoid Arthritis (RA) Additional Past Medical History / Comment(s): Recently diagnosed with normal pressure hydrocephalus with spinal tap to remove spinal fluid, lately been decreasing hypertensive meds d/t lower b/ps. R sided sciatica. Scoliosis. Osteopenia. UNnsteady gait, UTIs HX: L medial ankle ulcer. brain bleed 2020. neuropathy History of Any Multi-Drug Resistant Organisms: None Reported Past Surgical History: Adenoidectomy, Back Surgery, Section, Hysterecto my, Tonsillectomy Additional Past Surgical History / Comment(s): Lumbar fusion X 2, x2, colonoscopy, hemorrhoidectomy, bilateral carpal tunnel releases, bilateral ca taract removals/lens implants. Past Anesthesia/Blood Transfusion Reactions: No Reported Reaction, Motion Sickness Past Psychological History: Depression Smoking Status: Never smoker - Past Family History Father Family Medical History: Dementia Additional Family Medical History / Comment(s): Father of cardiac rupture per pt. Mother Family Medical History: Cancer Additional Family Medical History / Comment(s): breast cancer. General Exam Limitations: no limitations General appearance: alert, in no apparent distress Head exam: Present: atraumatic, normocephalic, normal inspection Eye exam: Present: normal appearance, PERRL, EOMI. Absent: scleral icterus, conjunctival injection, periorbital swelling ENT exam: Present: normal exam, mucous membranes moist Neck exam: Present: normal inspection, tenderness, full ROM. Absent: meningismus, lymphadenopathy Respiratory exam: Present: normal lung sounds bilaterally. Absent: respiratory distress, wheezes, rales, rhonchi, stridor Cardiovascular Exam: Present: regular rate, normal rhythm, normal heart sounds. Absent: systolic murmur, diastolic murmur, rubs, gallop, clicks Extremities exam: Present: full ROM, tenderness, normal capillary refill. Absent: pedal edema, joint swelling, calf tenderness Back exam: Present: normal inspection Neurological exam: Present: alert, oriented X3, CN II-XII intact Psychiatric exam: Present: normal affect, normal mood Skin exam: Present: warm, dry, intact, normal color. Absent: rash Course Vital Signs 08/27/23 08/27/23 18:07 20:48 Temperature 98.4 F Pulse Rate 73 72 Respiratory 18 16 Rate Blood Pressure 166/79 158/67 O2 Sat by Pulse 96 93 L Oximetry Medical Decision Making - Medical Decision Making Was pt. sent in by a medical professional or institution ([facility], [employer] PRESS OPERATOR, urgent care, hospital, or retirement...) When possible be specific @ -No Did you speak to anyone other than the patient for history (EMS, parent, family, police, friend...)? What history was obtained from this source @ -No Did you review nursing and triage notes (agree or disagree)? Why? @ -I reviewed and agree with nursing and triage notes Were old charts reviewed (outside hosp., previous admission, EMS record, old EKG, old radiological studies, urgent care reports/EKG's, retirement records)? Report findings @ -No old charts were reviewed Differential Diagnosis (chest pain, altered mental status, abdominal pain women, abdominal pain men, vaginal bleeding, weakness, fever, dyspnea, syncope, headache, dizziness, GI bleed, back pain, seizure, CVA, palpatations, mental health, musculoskeletal)? @ -Fall, head injury, fracture, this list is not all inclusive EKG interpreted by me (3pts min.). @ -None X-rays interpreted by me (1pt min.). @ -XR right femur shows no acute fracture CT interpreted by me (1pt min.). @ -CT brain and c spine shows no acute intracranial hemorrhage, no acute c spine fracture U/S interpreted by me (1pt. min.). @ -None done What testing was considered but not performed or refused? (CT, X-rays, U/S, labs)? Why? @ -None What meds were considered but not given or refused? Why? @ -None Did you discuss the management of the patient with other professionals (professionals i.e. [facility], [employer] PRESS OPERATOR, lab, RT, psych nurse, social services analyst, housekeeping lead, teacher, environmental health officer, case coordinator)? Give summary @ -No Was smoking cessation discussed for >3mins.? @ -No Was critical care preformed (if so, how long)? @ -No Were there social determinants of health that impacted care today? How? (Homelessness, low income, unemployed, alcoholism, drug addiction, transportation, low edu. Level, literacy, decrease access to med. care, detention, rehab)? @ -No Was there de-escalation of care discussed even if they declined (Discuss DNR or withdrawal of care, Hospice)? DNR status @ -No What co-morbidities impacted this encounter? (DM, HTN, Smoking, COPD, CAD, Cancer, CVA, ARF, Chemo, Hep., AIDS, mental health diagnosis, sleep apnea, morbid obesity)? @ -None Was patient admitted / discharged? Hospital course, mention meds given and route, prescriptions, significant lab abnormalities, going to OR and other pertinent info. @ -Discharged. Patient presented to the emergency department for evaluation of fall. She is reporting right hip pain. Patient was placed in a c-collar by EMS due to patient's age. Attempted clinical C-spine clearance, patient had no cervical tenderness to palpation, c-collar was removed. Attempted range of motion, patient had some discomfort with this. C-collar was reapplied. CT was obtained which shows no acute intracranial hemorrhage or C-spine fracture. C- collar removed. X-rays obtained of the right femur shows no acute fracture. Patient is able to ambulate. Patient advised on findings. Patient will be discharged home. She is understanding and agreeable with discharge plan. Patient stable at time of discharge. Case discussed with Dr. Rider Undiagnosed new problem with uncertain prognosis? @ -No Drug Therapy requiring intensive monitoring for toxicity (Heparin, Nitro, Insulin, Cardizem)? @ -No Were any procedures done? @ -No Diagnosis/symptom? @ -Fall Acute, or Chronic, or Acute on Chronic? @ -Acute Uncomplicated (without systemic symptoms) or Complicated (systemic symptoms)? @ -Uncomplicated Side effects of treatment? @ -No Exacerbation, Progression, or Severe Exacerbation? @ -No Poses a threat to life or bodily function? How? (Chest pain, [place], [place], pneumonia, PE, COPD, DKA, ARF, appy, cholecystitis, CVA, Diverticulitis, Homicidal, Suicidal, threat to staff... and all critical care pts) @ -No Disposition Clinical Impression: Fall, Leg pain Disposition: HOME SELF-CARE Condition: Stable Instructions (If sedation given, give patient instructions): Fall Prevention (ED) Additional Instructions: Please follow up with your primary care provider. Return to the emergency department for new or worsening symptoms. Is patient prescribed a controlled substance at d/c from ED?: No Referrals: Whateley,Jose David, DO [Primary Care Provider] - 1-2 days
--- NOTE | 2023-08-27 19:35 | CT ---
EXAMINATION TYPE: CT brain cspine wo con CT DLP: 1577.7 mGycm, Automated exposure control for dose reduction was used. DATE OF EXAM: 08/27/2023 7:27 PM COMPARISON: CT 08/10/2022. CLINICAL INDICATION:Female, 83 years old with history of fall; fall TECHNIQUE: Brain: Multiple axial CT images of the brain were obtained without IV contrast. Cspine: Axial CT images from the skull base to the inferior aspect of T2 we obtained without intraven ous contrast. Coronal and sagittal reformatted images were also reviewed. FINDINGS: Brain: Extra-axial spaces: No abnormal extra-axial fluid collections. Ventricular system: The supratentorial ventricles are enlarged. Associated mild prominence of the bill ateral sylvian fissures and of the superior sulci. Cerebral parenchyma: No acute intraparenchymal hemorrhage or mass effect. The lei-white junction is well differentiated. Scattered hypoattenuating areas are seen within the white matter. Cerebellum: Unremarkable. Mass effect: No evidence of midline shift. Intracranial vasculature: Atherosclerotic calcifications of the intracranial vessels. Soft tissues: Normal. Calvarium/osseous structures: No depressed skull fracture. Paranasal sinuses and mastoid air cells: Clear. Visualized orbits: Bilateral aphakia Cervical spine: Fracture: None. Osseous structures: Multilevel degenerative disc disease changes with endplate spurring and disc oste ophyte complex's. Vertebral alignment: Mild straightening of the normal cervical lordotic curve. Spinal canal/Neural Foramina: No evidence of significant spinal canal narrowing. No evidence for sign ificant neural foraminal stenosis. Neck soft tissues: Prevertebral soft tissues are within normal limits. Other: The airway is patent. The lung apices are clear. IMPRESSION: CT brain: 1. No acute intracranial hemorrhage. 2. Ventriculomegaly with additional findings as described which are nonspecific, however can be assoc iated with normal pressure hydrocephalus. Consider correlation with patient's symptomatology. CT cervical spine: 1. No evidence of cervical spine fracture. 2. Moderate multilevel degenerative disc disease.
--- NOTE | 2023-08-27 20:08 | XR ---
EXAMINATION TYPE: XR femur RT DATE OF EXAM: 08/27/2023 8:01 PM CLINICAL INDICATION:Female, 83 years old with history of fall; [facility] COMPARISON: None TECHNIQUE: The right femur was examined in Frontal and lateral projections. FINDINGS: No evidence of acute osseous pathology, joint dislocation, or soft tissue swelling. Vascul ar calcifications are identified. IMPRESSION: No acute osseous pathology.
[2023-08-27 21:16] VITALS: BP 158/67; PULSE 72; RESP 16
== END 2023-08-27 20:50 | disposition home or self-care (01) ==
LOC: EC 18:05
DX: M79.604 Pain in right leg (principal); Z88.5 Allergy status to narcotic agent; Z91.048 Other nonmedicinal substance allergy status; Z86.73 Personal history of transient ischemic attack (TIA), and cerebral infarction without residual deficits
CPT/HCPCS: 70450; 72125; 99285